=== PATIENT | female | born 1950 | race Caucasian/White ===

== ENCOUNTER 2020-11-19 09:58 | Emergency (ER) | payer BC, MEDICARE ==
[~2020-11-19] VITALS: Ht 157.5 cm; Wt 71.5 kg
--- NOTE | 2020-11-19 10:13 | RAD ---
PQRS Compliance Statement: One or more of the following individualized dose reduction techniques were utilized for this examinat ion: 1. Automated exposure control 2. Adjustment of the mA and/or kV according to patient size 3. Use of iterative reconstruction technique CT HEAD WITHOUT CONTRAST History: Code stroke. Weakness. Comparison: None. Technique: Axial images are obtained of the head from the skull base through the vertex without IV co ntrast. Findings: No mass-effect, midline shift, extra-axial fluid collection, hemorrhage, or obvious acute infarction is identified. Basilar cisterns are patent. The ventricles and sulci are prominent, consistent with age-related cerebral atrophy. There is minima l periventricular white matter hypoattenuation. This is a nonspecific finding but is commonly due to chronic small vessel ischemic disease. Bone windows demonstrate no acute calvarial abnormality. The visualized paranasal sinuses are clear. Mastoid air cells are well aerated. IMPRESSION: No acute intracranial abnormality. FOR INTERNAL CODING PURPOSES Critical result: Findings discussed with Dr. Adorno in the ED at 11/19/2020 10:09 AM. RESULT CODE: (C) Electronically signed by: Hayden Woodall MD (11/19/2020 10:11 AM) [id number]
[2020-11-19 10:30] LABS: BASO # 0.1 x10^3/uL (0.0-0.2); BASO % 1 % (0-3); EOS # 0.1 x10^3/uL (0.0-0.7); EOS % 2 % (0-3); HEMATOCRIT 35.3 % (36.0-47.0); HEMOGLOBIN 11.9 g/dL (12.0-15.5); LYMPH # 1.1 x10^3/uL (1.0-4.8); LYMPH % 14 % (24-48); MEAN CORPUSCULAR HEMOGLOBIN 32 pg (25-35); MEAN CORPUSCULAR HGB CONC 34 g/dL (31-37); MEAN CORPUSCULAR VOLUME 95 fL (79-100); MONO # 0.9 x10^3/uL (0.0-1.1); MONO % 11 % (0-9); NEUT # 5.7 x10^3/uL (1.8-7.7); NEUT % 72 % (31-73); PLATELET COUNT 250 x10^3/uL (140-400); RED BLOOD COUNT 3.71 x10^6/uL (3.50-5.40); RED CELL DISTRIBUTION WIDTH 15.6 % (11.5-14.5); WHITE BLOOD COUNT 7.9 x10^3/uL (4.0-11.0)
[2020-11-19] MEDS ORDERED: LABETALOL 20 MG/4 ML DISP.SYRIN. IVP PRN (10:30)
[2020-11-19] MEDS ORDERED: IV NORMAL SALINE 50ML IV ONE (10:30)
[2020-11-19] MEDS ORDERED: CONTRAST GIVEN. MC PRN (10:30)
[2020-11-19] MEDS ORDERED: IV NORMAL SALINE 50ML 50 ML IV ONE (10:30)
[2020-11-19] MEDS ORDERED: ALTEPLASE IV SCH ×2 (10:30)
[2020-11-19] MEDS ORDERED: IOHEXOL 300 MG/ML 100ML VIAL. IV ONE (10:30)
[2020-11-19] MEDS ORDERED: ALTEPLASE IV ONE ×2 (10:30)
--- NOTE | 2020-11-19 10:34 | RAD ---
PQRS Compliance Statement: One or more of the following individualized dose reduction techniques were utilized for this examinat ion: 1. Automated exposure control 2. Adjustment of the mA and/or kV according to patient size 3. Use of iterative reconstruction technique CTA STROKE HEAD/NECK w/o Clinical Indication: Reason: stroke, weakness. Comparison: CT head without contrast, earlier same day. Technique: Helical CT imaging from inferior to the aortic arch to the skull vertex is performed after 75 cc of Omnipaque [address] angiogram protocol. 3-D MIP reconstructions of the cervi ruel carotid arteries and stebbins of Samu[place] are performed. PQRS Compliance Statement - Stenosis calculations for CT, MR and conventional angiography are based u sergo measurement of the distal ICA diameter in accordance with the NASCET methodology. Stenosis calcu lations for carotid ultrasound studies are derived from validated velocity criteria which are known t o correlate with the NASCET methodology. Findings: Aortic arch branches are patent. The common carotid arteries are patent. The right carotid bifurcatio n is patent. There is atherosclerotic calcification and focal 50-60 percent stenosis of the proximal right ICA. The cervical right ICA is otherwise patent. There is severe atherosclerotic calcification at the left carotid bifurcation and the cervical internal carotid artery is occluded. The cervical vertebral arteries are patent. The left vertebral artery is dominant. Basilar artery is patent. Posterior circulation is intact. Mild atherosclerotic calcification of the cavernous right ICA. The distal right internal carotid duyen ry is patent. There is a patent anterior communicating artery. There is abrupt truncation of the M1 s egment of the left middle cerebral artery likely due to thrombus, image 235. The length of the segmen t of noncontrast opacification of the MCA measures approximately 1.5 cm in length. Some of the more d istal MCA branches are contrast opacified. There is pruning of left MCA branches compared to the cont ralateral side. The right middle cerebral artery and the anterior cerebral arteries are patent. The dural venous sinuses are opacified. No abnormal enhancement in the brain parenchyma is identified . There is no cervical adenopathy. There are bilateral thyroid nodules, largest is on the left measur ing 1.6 cm. There is minimal bilateral dependent atelectasis in the upper lungs. There is degenerativ e spondylosis of the cervical spine. There is old healed displaced fracture of the odontoid. The tip of the odontoid is positioned anterior to the base of the odontoid. IMPRESSION: 1. The left M1 segment of the MCA is occluded. 2. 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 3. There is focal 50-60 percent stenosis of the proximal right ICA. FOR INTERNAL CODING PURPOSES Critical result: Findings discussed with Dr. Adorno in the ED at 11/19/2020 10:25 AM. RESULT CODE: (C) 1. Electronically signed by: Hayden Woodall MD (11/19/2020 10:32 AM) [id number]
[2020-11-19 10:43] LABS: CALCIUM 8.1 mg/dL (8.5-10.1); CREATININE 0.7 mg/dL (0.6-1.0); POTASSIUM 3.4 mmol/L (3.5-5.1)
[2020-11-19 10:46] LABS: PROTHROMBIN TIME PATIENT 13.6 SEC (11.7-14.0)
--- NOTE | 2020-11-19 10:46 | PHYS DOC ---
Past Medical History Past Medical History HLD, HTN, GERD, RA Past Surgical History NOT SIGNIFICANT Smoking Status: Never Smoker Alcohol Use: None Drug Use: None General Adult EDM: Chief Complaint: NEURO SYMPTOMS/DEFICITS HPI: HPI: HPI/ED course: 70-year-old female presenting with right-sided weakness. Last known well 8:30 AM. Patient is not on anticoagulants. No history of bleeding diathesis. No recent GI bleed or any active internal bleeding. Patient also has speech changes. Patient was given a full dose aspirin prior to EMS arrival. Onset today. Location brain. Duration constant. No alleviating factors. Patient was brought in by EMS as a code stroke. Head CT negative reported to me by radiology. Blood sugar within normal limits. Initial blood pressure was above 185 systolic so nicardipine was ordered. On reevaluation blood pressure came down to 180. I went through tPA checklist with family. No contraindication revealed at this time. I discussed risks and benefits of TPA. Shared decision making again utilized. I consulted with our neurologist on-call Dr. Alvarado and spoke to him about the patient's presenting symptoms. He recommends the administration of TPA once the blood pressure came below 185 systolic. tPA was then administered. CT angiogram shows large vessel occlusion. Plan is to transfer to [facility] for large vessel occlusion intervention. I spoke with Dr. Baxter and Dr. Rdoriguez at [facility] at approximately 1047. I communicated the presentation. The plan is to transfer to [facility] for possible IR intervention. Review of Systems: Review of Systems: Negative for chest pain shortness of breath abdominal pain. Negative for headache. Positive for weakness on the right side. Negative for GI bleeding, history of SKULL SPLITTER tumor, history of SKULL SPLITTER surgery or recent surgery within the past 3 weeks. All other review of systems negative. Heart Score: C/O Chest Pain: No Risk Factors: Risk Factors: DM, Current or recent (<one month) smoker, HTN, HLP, family history of CAD, obesity. Risk Scores: Score 0 - 3: 2.5% MACE over next 6 weeks - Discharge Home Score 4 - 6: 20.3% MACE over next 6 weeks - Admit for Clinical Observation Score 7 - 10: 72.7% MACE over next 6 weeks - Early Invasive Strategies Current Medications: Current Medications Medications (Trade) Dose Ordered Sig/Gordy Start Time Stop Time Status Last Admin Dose Admin Alteplase, Recombinant 6.4 ml @ 384 mls/hr 1X ONCE 11/19/20 10:30 11/19/20 10:31 UNV Info (CONTRAST GIVEN -- Rx MONITORING) 1 each PRN DAILY PRN 11/19/20 10:30 11/21/20 10:29 Iohexol (Omnipaque 300 Mg/ml) 75 ml 1X ONCE 11/19/20 10:30 11/19/20 10:31 DC Labetalol HCl (Normodyne Iv Push) 10 mg PRN Q10MIN PRN 11/19/20 10:30 Nicardipine HCl 50 mg/Sodium Chloride 250 ml @ 25 mls/hr CONT PRN PRN 11/19/20 10:30 UNV Sodium Chloride 50 ml @ 50 mls/hr 1X ONCE 11/19/20 10:11/19/20 11:29 UNV Allergies: Allergies: Allergies Coded Allergies Type Severity Reaction Last Updated Verified No Known Drug Allergies 11/19/20 No Physical Exam: PE: Constitutional: Well developed, well nourished, no acute distress, non-toxic appearance. [] HENT: Normocephalic, atraumatic, bilateral external ears normal, oropharynx moist, no oral exudates, nose normal. [] Eyes: PERRLA, EOMI, conjunctiva normal, no discharge. [] Neck: Normal range of motion, no tenderness, supple, no stridor. [] Cardiovascular:Heart rate regular rhythm, no murmur [] Lungs & Thorax: Bilateral breath sounds clear to auscultation [] Abdomen: Bowel sounds normal, soft, no tenderness, no masses, no pulsatile masses. [] Skin: Warm, dry, no erythema, no rash. [] Back: No tenderness, no CVA tenderness. [] Extremities: No tenderness, no cyanosis, no clubbing, ROM intact, no edema. [] Neurologic: Mental status: Awake oriented and alert x3 Cranial nerves: Patient cannot look to the right. No diplopia., Right-sided facial droop., uvula elevation nl, shoulder shrug intact bilaterally, tongue protrusion normal Aphasia present. Slurred speech present. Sensation: Decreased on the right upper and lower extremity. Strength: Unable to move the right upper and right lower extremity with a right facial droop. Left side shows 5 out of 5 strength of the left upper and left lower extremity. No drift on the left. Psychologic: Affect normal, judgement normal, mood normal. [] Current Patient Data: Labs: Laboratory Tests Test 11/19/20 10:14 Glucose (Fingerstick) 124 mg/dL (70-99) H EKG: EKG: [] Radiology/Procedures: Radiology/Procedures: [] Course & Med Decision Making: Course & Med Decision Making Pertinent Labs and Imaging studies reviewed. (See chart for details) [] Dragon Disclaimer: Dragon Disclaimer: This electronic medical record was generated, in whole or in part, using a voice recognition dictation system. Departure Departure Impression: Primary Impression: Acute ischemic stroke Disposition: SHORT TERM HOSPITAL Condition: GUARDED Referrals: RHYS NOYOLA MD (PCP) Critical Care Time Critical care time spent was 45 minutes exclusive of procedures. Time was spent evaluating the patient, ordering the administration of medications, reevaluating the patient, discussing with the admitting provider and documenting. NIHSS Stroke Scale NIH Stroke Scale: NIH Stroke Scale Response (Comments) Value Level of Consciousness: 0 Alert/Responsive 0 LOC Questions: 2 Answers neither correct 2 LOC Commands: 0 Performs both tasks 0 Best Gaze: 1 Partial gaze palsy 1 Visual: 0 No visual loss 0 Facial Palsy: 2 Partial paralysis 2 Motor - Left Arm 0 No drift 0 Motor - Right Arm 4 No movement 4 Motor - Left Leg 0 No drift 0 Motor: Right Leg 4 No movement 4 Limb Ataxia: 0 Absent 0 Sensory: 1 Mid to moderate loss 1 Best Language: 3 Mute 3 Dysathria: 2 Severe 2 Extinction and Inattention: 0 Normal (ON ARRIVAL) 0 Total 19 PAVEL FIELDS MD November 19, 2020 10:46
[2020-11-19 11:10] VITALS: BP 187/72
--- NOTE | 2020-11-19 19:29 | EKG ---
[facility] [address] [place] [address] Test Date: 2020-11-19 Test Time: 10:20:15 Pat Name: IMER JACKSON Department: Room: Gender: F Photo Technician: : 1950 Requested By: PAVEL FIELDS Order Number: [id number] Reading MD: Measurements Intervals [place] Rate: 88 P: 56 IN: 144 QRS: 43 QRSD: 78 T: 38 QT: 356 QTc: 434 Interpretive Statements SINUS RHYTHM LEFT ATRIAL ABNORMALITY ABNORMAL ECG RI6.01 No previous ECG available for comparison
== END 2020-11-19 11:20 | disposition short-term general hospital (02) ==
LOC: ER 09:58
DX: I63.9 Cerebral infarction, unspecified (principal); R47.81 Slurred speech; E78.5 Hyperlipidemia, unspecified; I10 Essential (primary) hypertension; K21.9 Gastro-esophageal reflux disease without esophagitis; M06.9 Rheumatoid arthritis, unspecified
CPT/HCPCS: 36415; 37195; 70450; 70496; 70498; 80048; 82962; 84484; 85025; 85610; 85730; 93005; 96365; 99291; J2997; J3490; J7050; J7030

== ENCOUNTER 2020-11-27 15:41 | Inpatient (IN) | payer MEDICARE, BC ==
[~2020-11-27] VITALS: Ht 165.1 cm; Wt 86.5 kg
[2020-11-27] MEDS ORDERED: IV NORMAL SALINE 500ML BAG 500 ML IV ONE (18:00)
[2020-11-27] MEDS ORDERED: ONDANSETRON PF 4 MG/2 ML VIAL. IV ONE (18:15)
[2020-11-27] MEDS ORDERED: fentaNYL PF VIAL 100 MCG/2 ML VIAL IV ONE (18:15)
--- NOTE | 2020-11-27 18:36 | RAD ---
Right lower extremity arterial duplex Doppler examination with spectral analysis HISTORY: Right thigh bruising and swelling post clot retrieval one week ago Sonographic examination of the right groin was performed and multiple static images were obtained. In addition color Doppler was applied as well as arterial waveform spectral analysis. There is a large hematoma in the proximal right lower extremity arising from the common femoral arter y that measures 11.5 x 5.0 x 9.5 cm. This hematoma appears to arise directly from a pseudoaneurysm wi th a neck which actively bleeds into the hematoma. The belly of the pseudoaneurysm measures 2.3 cm in diameter. The neck of the pseudoanneurism connected to the common femoral artery measures 7 mm in di ameter. IMPRESSION: There is a pseudoaneurysm arising from the common femoral artery which appears be actively bleeding i nto a large hematoma. Ultrasound cannot see proximal to the pseudoaneurysm and additional hematoma in the pelvis is possibl e. Clinical correlation is suggested. Recommend serial vital signs and blood cell count. End impression These results were called to the emergency department physician Dr. Jorgensen and verified by read back at the time of dictation. FOR INTERNAL CODING PURPOSES Critical result: Findings discussed with the emergency department physician at 11/27/2020 6:34 PM. RESULT CODE: (C) Electronically signed by: Denys Krishnan III, MD (11/27/2020 6:34 PM) [facility]
[2020-11-27 18:47] LABS: BASO # 0.2 x10^3/uL (0.0-0.2); BASO % 1 % (0-3); EOS # 0.1 x10^3/uL (0.0-0.7); EOS % 0 % (0-3); LYMPH # 1.5 x10^3/uL (1.0-4.8); LYMPH % 8 % (24-48); MEAN CORPUSCULAR HEMOGLOBIN 32 pg (25-35); MEAN CORPUSCULAR HGB CONC 33 g/dL (31-37); MEAN CORPUSCULAR VOLUME 95 fL (79-100); MONO # 1.7 x10^3/uL (0.0-1.1); MONO % 9 % (0-9); NEUT # 15.7 x10^3/uL (1.8-7.7); NEUT % 82 % (31-73); PLATELET COUNT 367 x10^3/uL (140-400); RED CELL DISTRIBUTION WIDTH 15.8 % (11.5-14.5); WHITE BLOOD COUNT 19.2 x10^3/uL (4.0-11.0)
--- NOTE | 2020-11-27 18:48 | PDOC1 ---
History and Physical Date of Admission Date of Admission DATE: 11/27/20 TIME: 18:48 Identification/Chief Complaint Chief Complaint Right groin pain and swelling Source Source: Patient History of Present Illness History of Present Illness Ms Robins is a 70-year-old female w/ PMHx HLD, HTN, GERD, RA, and recent presenting with right groin pain and swelling. She has been noting bruising since 11/24/2020 when the dressing in her right groin was removed as instructed. She has been going to outpatient PT and OT for stroke rehab and has been c/o some pain in the area since the dressing was removed. 11/26 she began acting more tired, dizzy and intermittently confused per her . Today a family member, who is a nurse practitioner, came over to the house to look at her leg as the was concerned about the bruise getting bigger. The family member told him to go to the ER right away. She states she feels very weak and tired and dizzy. Patient denies any chest pain, shortness of breath, nausea, vomiting, or diarrhea. She is up to date on both doses of Moderna COVID 19 vaccine Patient complains of pain and tightness in her right thigh and groin. She was initially evaluated on 11/19/2020 at [facility] ED for right sided weakness within 2 hours of presentation and tPA was then administered. CT angiogram shows left MCA M1 large vessel occlusion and she was transferred to [facility] for large vessel occlusion intervention on 11/19/2020. Per had clot retrieval and he thinks had carotid stenting as well and was discharged home on 11/21/2020 for outpatient rehab for her CVA on DAPT with ASA and plavix. In ED noted with pulsatile swelling in left groin and right groin arterial doppler revealed large hematoma in the proximal right lower extremity arising from the common femoral artery that measures 11.5 x 5.0 x 9.5 cm. This hematoma appears to arise directly from a pseudoaneurysm with a neck which actively bleeds into the hematoma. The belly of the pseudoaneurysm measures 2.3 cm in diameter. On examination a nurse was holding pressure in the groin and EQUIPMENT MECHANIC SPECIALIST was accessing left antecubital fossa for venipuncture for blood draw and IV insertion. give much of history bedside. During examination labs returned with WBC 19.2, platelets 367, Hb 6.3, Na 133, glucose 178, INR 1.2. Given the urgency of her condition vascular surgery was consulted and Dr. Wilhelm brought in OR staff and patient was taken to OR in stable condition from the ED with plans to admit to ICU. Past Medical History Cardiovascular: HTN, Hyperlipidemia Rheumatologic: Rheumatoid arthritis Past Surgical History Past Surgical History: Other (thrombectomy) Family History Family History: High Cholestrol Social History Smoke: No ALCOHOL: none Drugs: None Current Medications Current Medications Current Medications Sodium Chloride 500 ml @ 500 mls/hr 1X ONCE IV ; Start 11/27/20 at 18:00; Stop 11/27/20 at 18:59 Ondansetron HCl (Zofran) 4 mg 1X ONCE IV ; Start 11/27/20 at 18:15; Stop 11/27/20 at 18:16; Status DC Fentanyl Citrate (Fentanyl 2ml Vial) 50 mcg 1X ONCE IV ; Start 11/27/20 at 18:15; Stop 11/27/20 at 18:16; Status DC Allergies Allergies: Coded Allergies: No Known Drug Allergies (Unverified , 11/19/20) ROS General: YES: Fatigue, Malaise; No: Chills, Night Sweats, Appetite, Other PSYCHOLOGICAL ROS: No: Anxiety, Behavioral Disorder, Concentration difficultie, Decreased libido, Depression, Disorientation, Hallucinations, Hostility, Irritablity, Memory difficulties, Mood Swings, Obsessive thoughts, Physical abuse, Sexual abuse, Sleep disturbances, Suicidal ideation, Other Eyes: No Blurry vision, No Decreased vision, No Double vision, No Dry eyes, No Excessive tearing, No Eye Pain, No Itchy Eyes, No Loss of vision, No Photophobia, No Scotomata, No Uses contacts, No Uses glasses, No Other HEENT: No: Heacaches, Visual Changes, Hearing change, Nasal congestion, Nasal discharge, Oral lesions, Sinus pain, Sore Throat, Epistaxis, Sneezing, Snoring, Tinnitus, Vertigo, Vocal changes, Other ALLERGY AND IMMUNOLOGY: No: Hives, Insect Bite Sensitivity, Itchy/Watery Eyes, Nasal Congestion, Post Nasal Drip, Seasonal Allergies, Other Hematological and Lymphatic: No: Bleeding Problems, Blood Clots, Blood Trans fusions, Brusing, Night Sweats, Pallor, Swollen Lymph Nodes, Other ENDOCRINE: No: Breast Changes, Galactorrhea, Hair Pattern Changes, Hot Flashes, Malaise/lethargy, Mood Swings, Palpitations, Polydipsia/polyuria, Skin Changes, Temperature Intolerance, Unexpected Weight Changes, Other Breast: No New/Changing Breast Lumps, No Nipple changes, No Nipple discharge, No Other Respiratory: No: Cough, Hemoptysis, Orthopnea, Pleuritic Pain, Shortness of breath, SOB with excertion, Sputum Changes, Stridor, Tachypnea, Wheezing, Other Cardiovascular: No Chest Pain, No Palpitations, No Orthopnea, No Paroxysmal Noc. Dyspnea, No Edema, No Lt Headedness, No Other Gastrointestinal: No Nausea, No Vomiting, No Abdominal Pain, No Diarrhea, No Constipation, No Melena, No Hematochezia, No Other Genitourinary: No Dysuria, No Frequency, No Incontinence, No Hematuria, No Retention, No Discharge, No Urgency, No Pain, No Flank Pain, No Other, No , No , No , No , No , No , No Musculoskeletal: Yes Joint Pain, Yes Muscle Pain, Yes Muscular Weakness; No Gait Disturbance, No Joint Stiffness, No Joint Swelling, No Pain In:, No Swelling In:, No Other Neurological: Yes Gait Disturbance; No Behavorial Changes, No Bowel/Bladder ControlChng, No Confusion, No Dizziness, No Headaches, No Impaired Coord/balance, No Memory Loss, No Numbness/Tingling, No Seizures, No Speech Problems, No Tremors, No Visual Changes, No Weakness, No Other Skin: Yes Rash, Yes Skin Lesion Changes; No Dry Skin, No Eczema, No Hair Changes, No Lumps, No Mole Changes, No Mottling, No Nail Changes, No Pruritus, No Other, No Acne Physical Exam General: Alert, Oriented X3, Cooperative, moderate distress, Other (pale) HEENT: Atraumatic, PERRLA, EOMI, Other (pale mucosa) Lungs: Clear to auscultation, Normal air movement Heart: S1S2, RRR, no thrills, no rubs, no gallops, no murmurs Abdomen: Normal bowel sounds, Soft, No tenderness, No hepatosplenomegaly, No masses Rectal Exam: not examined Extremities: No clubbing, No cyanosis, No edema, Normal pulses, Other ( right leg and groin shows ecchymosis from about there the umbilicus down to the knee.) Skin: No rashes, No breakdown, Other (right groin) Neuro: Normal speech, Normal tone, Sensation intact, Cranial nerves 3-12 NL, Reflexes 2+ Psych/Mental Status: Mental status NL, Mood NL Images Images Right femoral arterial doppler: Sonographic examination of the right groin was performed and multiple static images were obtained. In addition color Doppler was applied as well as arterial waveform spectral analysis. There is a large hematoma in the proximal right lower extremity arising from the common femoral artery that measures 11.5 x 5.0 x 9.5 cm. This hematoma appears to arise directly from a pseudoaneurysm with a neck which actively bleeds into the hematoma. The belly of the pseudoaneurysm measures 2.3 cm in diameter. The neck of the pseudoaneurysm connected to the common femoral artery measures 7 mm in diameter. IMPRESSION: There is a pseudoaneurysm arising from the common femoral artery which appears be actively bleeding into a large hematoma. Ultrasound cannot see proximal to the pseudoaneurysm and additional hematoma in the pelvis is possible. Clinical correlation is suggested. Recommend serial vital signs and blood cell count. VTE Prophylaxis Ordered VTE Prophylaxis Devices: Yes VTE Pharmacological Prophylaxi: No Assessment/Plan Assessment/Plan A/P: Acute blood loss anemia - given extent of hematoma and pseudoaneursym and need for surgery may need up to 6u PRBC. 2 units on hold for OR. H&H 4 hours post op and in AM Large right groin pseuoaneurysm - likely from access 1 week prior. Vascular surgery consulted for ongoing active bleeding. To OR tonight Large right groin hematoma - likely from arterial bleed. 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 Would not hold DAPT therapy in order to prevent further CVA. (will order . [facility] records to confirm the presence/absence of stent) Hyponatremia - likely hypovolemic. Will give NSS crystalloid and monitor. Leukocytosis - likely reactive from massive blood loss, will trend. No clear infection. will cover preoperatively. Given the extent of her hematoma is definitely at risk for skin infection/cellulitis as she is immunocompromised on MTX Hyperglycemia - likely related to stress, will check A1c RA - on MTX weekly. Will continue folic acid HTN - on coreg, will cut dosing given low BP since d/c from [facility] per rehab notes. She may have cardiac reason for BB, will await [facility] records as she may be getting CHF treatment, patient and aren't certain. FEN - NPO for OR. Regular diet after PPX - SCDs for 24 hours. Will defer heparin timing to vascular surgery CODE - FULL Dispo - ICU CC time 37 minutes from 1825 to 190 Justifications for Admission Other Justification NAILA ANDRES MD November 27, 2020 18:48
[2020-11-27 18:49] LABS: HEMATOCRIT 18.9 % (36.0-47.0); HEMOGLOBIN 6.3 g/dL (12.0-15.5)
[2020-11-27 18:56] LABS: CALCIUM 8.4 mg/dL (8.5-10.1); CREATININE 0.8 mg/dL (0.6-1.0); GFR 71.1; POTASSIUM 4.7 mmol/L (3.5-5.1)
[2020-11-27] MEDS ORDERED: LIDOCAINE 2% PF 5 ML VIAL. ONE (19:11)
[2020-11-27] MEDS ORDERED: PHENYLEPHRINE in 0.9% NACL PF 1 MG/10 ML SYRINGE. IV ONE (19:11)
[2020-11-27] MEDS ORDERED: ROCURONIUM 50 MG/5 ML VIAL. ONE (19:11)
[2020-11-27] MEDS ORDERED: PROPOFOL 10 MG/ML (20ML) VIAL. IV ONE ×2 (19:11→20:13)
[2020-11-27 19:15] LABS: PROTHROMBIN TIME PATIENT 14.9 SEC (11.7-14.0)
--- NOTE | 2020-11-27 19:17 | PDOC2 ---
CONSULT Date of Service Date of Service DATE: 11/27/20 TIME: 19:12 Reason for Consult Reason for Consult: Bleeding/ruptured right femoral artery pseudoaneurysm Referring Physician Referring Physician: Dr Jorgensen Emergency Department Identification/Chief Complaint Chief Complaint Right right groin pain Source Source: Caregiver, Chart review, Patient History of Present Illness Reason for Visit: Patient is a 70-year-old woman who recently had a right femoral artery access for acute stroke intervention apparently left carotid stent and left stroke thrombus removal at [facility]. Not sure exactly where this was done but she came to the emergency department for some reason here at [facility] today with ecchymosis pain and swelling in the right groin. At the time my exam there is an RN holding pressure. The right leg/ groin shows ecchymosis from about there the umbilicus down to the knee. Duplex shows large 11 cm pseudoaneurysm in the right groin Past Medical History Past Medical History Unable to obtain anything other than in the chart and a brief history given the extreme nature of the situation Past Surgical History Past Surgical History Recent stroke intervention otherwise unknown Current Problem List Problem List Ruptured right femoral artery pseudoaneurysm Current Medications Current Medications Current Medications Sodium Chloride 500 ml @ 500 mls/hr 1X ONCE IV Last administered on 11/27/20at 18:52; Start 11/27/20 at 18:00; Stop 11/27/20 at 18:59; Status DC Ondansetron HCl (Zofran) 4 mg 1X ONCE IV Last administered on 11/27/20at 18:50; Start 11/27/20 at 18:15; Stop 11/27/20 at 18:16; Status DC Fentanyl Citrate (Fentanyl 2ml Vial) 50 mcg 1X ONCE IV Last administered on 11/27/20at 18:52; Start 11/27/20 at 18:15; Stop 11/27/20 at 18:16; Status DC Lidocaine HCl (Lidocaine Pf 2% Vial) 5 ml STK-MED ONCE .ROUTE ; Start 11/27/20 at 19:11; Stop 11/27/20 at 19:11; Status DC Propofol (Diprivan) 200 mg STK-MED ONCE IV ; Start 11/27/20 at 19:11; Stop 11/27/20 at 19:11; Status DC Phenylephrine HCl (PHENYLEPHRINE in 0.9% NACL PF) 1 mg STK-MED ONCE IV ; Start 11/27/20 at 19:11; Stop 11/27/20 at 19:11; Status DC Rocuronium [place] (Zemuron) 50 mg STK-MED ONCE .ROUTE ; Start 11/27/20 at 19:11; Stop 11/27/20 at 19:11; Status DC Allergies Allergies: Coded Allergies: No Known Drug Allergies (Unverified , 11/19/20) ROS Review of System Unable to obtain from the patient as she is hypotensive emergent situation very uncomfortable Physical Exam General: Alert HEENT: Atraumatic, PERRLA Lungs: Clear to auscultation, Normal air movement Heart: Regular rate, No murmurs Abdomen: Normal bowel sounds Extremities: No edema, Other (Significant ecchymosis from the umbilicus to the right knee with large mass in the right groin) Skin: No rashes, Other (Ecchymosis as described above) MUSCULOSKELETAL: No joint tenderness, No deformity Vitals VITALS Vital Signs Date Time Temp Pulse Resp B/P (MAP) Pulse Ox O2 Delivery O2 Flow Rate FiO2 11/27/20 18:52 16 94 Room Air Labs Labs Laboratory Tests Test 11/27/20 18:35 White Blood Count 19.2 x10^3/uL (4.0-11.0) Red Blood Count 2.00 x10^6/uL (3.50-5.40) Hemoglobin 6.3 g/dL (12.0-15.5) Hematocrit 18.9 % (36.0-47.0) Mean Corpuscular Volume 95 fL (79-100) Mean Corpuscular Hemoglobin 32 pg (25-35) Mean Corpuscular Hemoglobin Concent 33 g/dL (31-37) Red Cell Distribution Width 15.8 % (11.5-14.5) Platelet Count 367 x10^3/uL (140-400) Neutrophils (%) (Auto) 82 % (31-73) Lymphocytes (%) (Auto) 8 % (24-48) Monocytes (%) (Auto) 9 % (0-9) Eosinophils (%) (Auto) 0 % (0-3) Basophils (%) (Auto) 1 % (0-3) Neutrophils # (Auto) 15.7 x10^3/uL (1.8-7.7) Lymphocytes # (Auto) 1.5 x10^3/uL (1.0-4.8) Monocytes # (Auto) 1.7 x10^3/uL (0.0-1.1) Eosinophils # (Auto) 0.1 x10^3/uL (0.0-0.7) Basophils # (Auto) 0.2 x10^3/uL (0.0-0.2) Sodium Level 133 mmol/L (136-145) Potassium Level 4.7 mmol/L (3.5-5.1) Chloride Level 98 mmol/L (98-107) Carbon Dioxide Level 26 mmol/L (21-32) Anion Gap 9 (6-14) Blood Urea Nitrogen 17 mg/dL (7-20) Creatinine 0.8 mg/dL (0.6-1.0) Estimated GFR (Cockcroft-Gault) 71.1 Glucose Level 178 mg/dL (70-99) Calcium Level 8.4 mg/dL (8.5-10.1) Laboratory Tests Test 11/27/20 18:35 White Blood Count 19.2 x10^3/uL (4.0-11.0) Red Blood Count 2.00 x10^6/uL (3.50-5.40) Hemoglobin 6.3 g/dL (12.0-15.5) Hematocrit 18.9 % (36.0-47.0) Mean Corpuscular Volume 95 fL (79-100) Mean Corpuscular Hemoglobin 32 pg (25-35) Mean Corpuscular Hemoglobin Concent 33 g/dL (31-37) Red Cell Distribution Width 15.8 % (11.5-14.5) Platelet Count 367 x10^3/uL (140-400) Neutrophils (%) (Auto) 82 % (31-73) Lymphocytes (%) (Auto) 8 % (24-48) Monocytes (%) (Auto) 9 % (0-9) Eosinophils (%) (Auto) 0 % (0-3) Basophils (%) (Auto) 1 % (0-3) Neutrophils # (Auto) 15.7 x10^3/uL (1.8-7.7) Lymphocytes # (Auto) 1.5 x10^3/uL (1.0-4.8) Monocytes # (Auto) 1.7 x10^3/uL (0.0-1.1) Eosinophils # (Auto) 0.1 x10^3/uL (0.0-0.7) Basophils # (Auto) 0.2 x10^3/uL (0.0-0.2) Sodium Level 133 mmol/L (136-145) Potassium Level 4.7 mmol/L (3.5-5.1) Chloride Level 98 mmol/L (98-107) Carbon Dioxide Level 26 mmol/L (21-32) Anion Gap 9 (6-14) Blood Urea Nitrogen 17 mg/dL (7-20) Creatinine 0.8 mg/dL (0.6-1.0) Estimated GFR (Cockcroft-Gault) 71.1 Glucose Level 178 mg/dL (70-99) Calcium Level 8.4 mg/dL (8.5-10.1) Images Images Duplex reviewed Assessment/Plan Assessment/Plan Ruptured right femoral artery pseudoaneurysm Plan for taken to the operating room for emergent repair Have a large open incision and need a wound VAC likely muscle flap in the future and I discussed this with the patient and her family. PIPPA KWOK MD November 27, 2020 19:17
--- NOTE | 2020-11-27 19:17 | ED.ADGEN ---
Past Medical History Past Medical History: CVA, High Cholesterol, Hypertension Past Surgical History: Other Additional Past Surgical Histo: "esophageal surgery", R femoral clot retrieval Smoking Status: Never Smoker Alcohol Use: None Drug Use: None General Adult EDM: Chief Complaint: POST-OP PROBLEM HPI: HPI: Patient is a 70 year old female who presents emergency department with complaints of swelling and pain in her right thigh and groin. Patient had clot retrieval at [facility] after CVA on 11/19/20. She denies any injury or trauma to the affected area. Patient's states that he noticed some bruising at the site when he removed the original dressing a few days ago as he was instructed to do. He noticed that the patient was not acting herself yesterday. Today a family member, who is a nurse practitioner, came over to the house to look at her leg as the was concerned about the bruise getting bigger. The family member told him to go to the ER right away. Patient denies any chest pain, shortness of breath, abdominal pain, nausea, vomiting, or diarrhea. She states she feels very weak and tired. Patient complains of pain and tightness in her right thigh and groin. Review of Systems: Review of Systems: Complete ROS is negative unless otherwise noted in HPI. Current Medications: Current Medications Medications (Trade) Dose Ordered Sig/Gordy Start Time Stop Time Status Last Admin Dose Admin Fentanyl Citrate (Fentanyl 2ml Vial) 50 mcg 1X ONCE 11/27/20 18:15 11/27/20 18:16 DC 11/27/20 18:52 25 MCG Lidocaine HCl (Lidocaine Pf 2% Vial) 5 ml STK-MED ONCE 11/27/20 19:11 11/27/20 19:11 DC Ondansetron HCl (Zofran) 4 mg 1X ONCE 11/27/20 18:15 11/27/20 18:16 DC 11/27/20 18:50 4 MG Phenylephrine HCl (PHENYLEPHRINE in 0.9% NACL PF) 1 mg STK-MED ONCE 11/27/20 19:11 11/27/20 19:11 DC Propofol (Diprivan) 200 mg STK-MED ONCE 11/27/20 19:11 11/27/20 19:11 DC Rocuronium [place] (Zemuron) 50 mg STK-MED ONCE 11/27/20 19:11 11/27/20 19:11 DC Sodium Chloride 500 ml @ 500 mls/hr 1X ONCE 11/27/20 18:00 11/27/20 18:59 DC 11/27/20 18:52 500 MLS/HR Allergies: Allergies: Allergies Coded Allergies Type Severity Reaction Last Updated Verified No Known Drug Allergies 11/19/20 No Physical Exam: PE: See Above Constitutional: Well developed, well nourished, appears ill, frail appearance HENT: Normocephalic, atraumatic, bilateral external ears normal, oropharynx moist, no oral exudates, nose normal. [] Eyes: PERRLA, EOMI, conjunctiva normal, no discharge. [] Neck: Normal range of motion, no stridor. [] Cardiovascular:Heart rate regular rhythm Lungs & Thorax: Respirations even and unlabored, no retractions, no respiratory distress Abdomen: soft, no tenderness, no masses, no pulsatile masses. [] Skin: Pale, dry; large hematoma affecting entire right thigh extending to patient's right calf Extremities: RLE: Right thigh and right groin diffuse tenderness to palpation, 2+ pedal and posterior tibial pulse, ROM limited due to pain, no obvious deformity Neurologic: Alert and oriented X 3, normal motor function, normal sensory function, no focal deficits noted. [] Psychologic: Affect normal, judgement normal, mood normal. [] Current Patient Data: Labs: Laboratory Tests Test 11/27/20 18:35 White Blood Count 19.2 x10^3/uL (4.0-11.0) H Red Blood Count 2.00 x10^6/uL (3.50-5.40) L Hemoglobin 6.3 g/dL (12.0-15.5) *L Hematocrit 18.9 % (36.0-47.0) *L Mean Corpuscular Volume 95 fL (79-100) Mean Corpuscular Hemoglobin 32 pg (25-35) Mean Corpuscular Hemoglobin Concent 33 g/dL (31-37) Red Cell Distribution Width 15.8 % (11.5-14.5) H Platelet Count 367 x10^3/uL (140-400) Neutrophils (%) (Auto) 82 % (31-73) H Lymphocytes (%) (Auto) 8 % (24-48) L Monocytes (%) (Auto) 9 % (0-9) Eosinophils (%) (Auto) 0 % (0-3) Basophils (%) (Auto) 1 % (0-3) Neutrophils # (Auto) 15.7 x10^3/uL (1.8-7.7) H Lymphocytes # (Auto) 1.5 x10^3/uL (1.0-4.8) Monocytes # (Auto) 1.7 x10^3/uL (0.0-1.1) H Eosinophils # (Auto) 0.1 x10^3/uL (0.0-0.7) Basophils # (Auto) 0.2 x10^3/uL (0.0-0.2) Platelet Estimate Pending Sodium Level 133 mmol/L (136-145) L Potassium Level 4.7 mmol/L (3.5-5.1) Chloride Level 98 mmol/L (98-107) Carbon Dioxide Level 26 mmol/L (21-32) Anion Gap 9 (6-14) Blood Urea Nitrogen 17 mg/dL (7-20) Creatinine 0.8 mg/dL (0.6-1.0) Estimated GFR (Cockcroft-Gault) 71.1 Glucose Level 178 mg/dL (70-99) H Calcium Level 8.4 mg/dL (8.5-10.1) L Laboratory Tests 11/27/20 18:35 Laboratory Tests 11/27/20 18:35 Vital Signs: Vital Signs Date Time Temp Pulse Resp B/P (MAP) Pulse Ox O2 Delivery O2 Flow Rate FiO2 11/27/20 18:52 16 94 Room Air EKG: EKG: [] Heart Score: C/O Chest Pain: No Risk Scores: Score 0 - 3: 2.5% MACE over next 6 weeks - Discharge Home Score 4 - 6: 20.3% MACE over next 6 weeks - Admit for Clinical Observation Score 7 - 10: 72.7% MACE over next 6 weeks - Early Invasive Strategies Radiology/Procedures: Radiology/Procedures: PROCEDURE: DUPLEX LOWER EX ARTERIAL RIGHT Right lower extremity arterial duplex Doppler examination with spectral analysis HISTORY: Right thigh bruising and swelling post clot retrieval one week ago Sonographic examination of the right groin was performed and multiple static images were obtained. In addition color Doppler was applied as well as arterial waveform spectral analysis. There is a large hematoma in the proximal right lower extremity arising from the common femoral artery that measures 11.5 x 5.0 x 9.5 cm. This hematoma appears to arise directly from a pseudoaneurysm with a neck which actively bleeds into the hematoma. The belly of the pseudoaneurysm measures 2.3 cm in diameter. The neck of the pseudoanneurism connected to the common femoral artery measures 7 mm in diameter. IMPRESSION: There is a pseudoaneurysm arising from the common femoral artery which appears be actively bleeding into a large hematoma. Ultrasound cannot see proximal to the pseudoaneurysm and additional hematoma in the pelvis is possible. Clinical correlation is suggested. Recommend serial vital signs and blood cell count. End impression These results were called to the emergency department physician Dr. Jorgensen and verified by read back at the time of dictation. FOR INTERNAL CODING PURPOSES Critical result: Findings discussed with the emergency department physician at 11/27/2020 6:34 PM. RESULT CODE: (C) [] Course & Med Decision Making: Course & Med Decision Making Pertinent Labs and Imaging studies reviewed. (See chart for details) 1812- notified by Ann-Marie with US that there is active bleeding in the R groin. I immediately went to the patient's room and initiated direct pressure over the R groin. Dr. Jorgensen to bedside. 1824-spoke with Dr. Vyas who is the admitting physician, and care was assumed following discussion of patient. Will admit patient for acute anemia due to right femoral artery pseudoaneurysm Patient's vital signs stable. Patient remains afebrile, appears nontoxic, respirations even and unlabored. Patient will be admitted to the ICU floor. Patient's case and plan of care also discussed with Dr. Jorgensen [] Lesa Disclaimer: Lesa Disclaimer: This electronic medical record was generated, in whole or in part, using a voice recognition dictation system. Departure Departure Impression: Primary Impression: Femoral artery pseudo-aneurysm, right Additional Impressions: Pseudoaneurysm of femoral artery following procedure Acute anemia Disposition: ADMITTED INPATIENT Admitting Physician: PRESTON (Asael) Condition: STABLE Referrals: RHYS NOYOLA MD (PCP) Problem Qualifiers RACHAEL MILLIGAN LEAK PATCHER November 27, 2020 19:17
[2020-11-27] MEDS ORDERED: SURGICEL FIBRILLAR 1X2 EACH. ONE (19:29)
[2020-11-27 19:30] VITALS: BP 137/61
[2020-11-27 19:35] VITALS: BP 149/66
[2020-11-27] MEDS ORDERED: ceFAZolin SODIUM IV Push 1 GM VIAL. IVP ONE (19:38)
[2020-11-27 19:41] LABS: % BANDS 3 % (0-9); % EOS 1 % (0-5); % LYMPHS 10 % (24-48); % MONOS 3 % (0-10); % SEGS 83 % (35-66); PLT ESTIMATE ADEQUATE (ADEQUATE); POLYCHROMASIA SLIGHT
[2020-11-27] MEDS ORDERED: HEPARIN SODIUM 5,000 UNIT in IV NORMAL SALINE 500ML BAG 500 ML IRR ONE (20:00)
[2020-11-27] MEDS ORDERED: HEPARIN for IV BOLUS 10,000 UNIT/10 ML VIAL. ONE ×2 (20:07→20:10)
[2020-11-27] MEDS ORDERED: fentaNYL PF VIAL 100 MCG/2 ML VIAL ONE (20:11)
[2020-11-27] MEDS ORDERED: MORPHINE SULFATE 2 MG/ML VIAL. IVP PRN (20:15)
[2020-11-27] MEDS ORDERED: fentaNYL PF VIAL 100 MCG/2 ML VIAL IVP PRN ×3 (20:15→22:00)
[2020-11-27] MEDS ORDERED: IV RINGERS,LACTATED 1000ML 1,000 ML IV SCH (20:15)
[2020-11-27] MEDS ORDERED: PROCHLORPERAZINE 10 MG/2 ML VIAL. IVP PRN (20:15)
[2020-11-27] MEDS ORDERED: HYDROmorphone 2 MG/ML VIAL IVP PRN (20:15)
[2020-11-27] MEDS ORDERED: PROTAMINE 50 MG/5 ML VIAL. IV ONE (20:44)
[2020-11-27] MEDS ORDERED: SEVOFLURANE 61 TO 120 MINUTES. IH ONE (20:44)
--- NOTE | 2020-11-27 21:43 | PDOC4 ---
OPERATIVE NOTE Date: Date: November 27, 2020 Pre-Op Diagnosis: Ruptured right femoral artery pseudoaneurysm Acute blood loss anemia Hemorrhagic shock Post-Op Diagnosis: Same as above Procedure Performed: Open repair of right femoral artery pseudoaneurysm using bovine pericardial patch angioplasty right common femoral artery Surgeon: Aakash Kwok MD Anesthesia Type: General Blood Loss: 150 cc Intra-Op, significant blood loss preop Specimans Obtained: None Findings: Two separate holes in the right femoral artery in the groin one right at the proximal SFA/bifurcation of the SFA and profunda another more medially. After repair of both of these with simple sutures there appear to be narrowing of the vessel so we opened this longitudinally and repaired this with a patch angioplasty fashion with excellent flow to the foot Significant hematoma in the groin and medial thigh, significant tissue destruction from this, wound VAC placed likely need for muscle flap in the future Complications: None Operative Note: Patient was seen in the emergency department, she was in hemorrhagic shock with the RN holding pressure on the right groin. Duplex showed large femoral pseudoaneurysm and an even larger hematoma in the groin. She was taken emergently to the operating room placed supine on the table and anesthesia was induced without difficulty. The lower abdomen groins and right leg circumferentially were prepped and draped in usual sterile fashion. Antibiotics were given and timeout was performed. Attention was directed right groin where longitudinal incision was made over the area of the femoral artery just below the inguinal ligament extending distally. This was carried down with Bovie cautery personally a small portion proximally I carried this down with blunt dissection identified the inguinal ligament and then use the Omni retractor to place a renal vein blade/retractor under the inguinal ligament and with this cranially. I then used Bovie cautery and scissors to open the femoral canal and used a right angle and a vessel loop to obtain proximal control of the common femoral artery. I then carried out dissection more distally and identified whole anteriorly. I controlled this with the digital pressure and then use scissors to dissect around this and expose it completely and closed this with a U stitch with a fiber Prolene suture. Initially felt the repair was completed but then there was a second area of wade arterial hemorrhage coming more proximally. I dissected out the artery more fully on the lateral wall of the artery there was a second hole with significant bleeding at angle to the first injury. I repaired this also in a longitudinal fashion but given the proximity of the injuries to each other this created a area of stenosis in the artery. Given this patient was given intravenous heparin and I occluded the proximal SFA with a vessel loop, the profunda with a clamp and the very proximal common femoral artery with a clamp. The vessel was opened longitudinally connecting the two holes using 11 blade and Lyon angled scissors. The previous sutures were removed. Focal endarterectomy was performed the back wall given some disrupted plaque care and the distal end was tacked down with three 7-0 Prolene tacking sutures. The lumen was cleared of all debris and then 0.8 by bovine pericardial patch was brought to the field. I use this to repair the arteriotomy in a longitudinal fashion using a running 6-0 Prolene and 5-0 Prolene suture. Just prior to completion of the pair the vessel backbled, for flushed, and irrigated heparinized saline. Repair was completed normal forward flow was returned down the profunda down the SFA. Hand-held continuous-wave Doppler confirmed good signals in both the proximal SFA and the profunda and then excellent posterior tibial and dorsalis pedis signal in the foot. Protamine was used to reverse the heparin. I then manually delivered a large amount of clot from the medial thigh and thigh just distal to the area of incision. A very large amount of clot was removed and then this area was irrigated with warm saline. Some potato starch Ly topical hemostatic agent was placed into the medial thigh cavity. I then used Bovie cautery debride all the obviously necrotic nonviable tissue and then freed up some tissue and use this to cover the artery. Tissue was sewn over the artery with a 2-0 Vicryl suture. Then placed a wound VAC with piece of sponge extending deep into the medial thigh and then a second piece superficially in the wound. An excellent seal was achieved and then we confirm good signals in the ankle again. Patient was extubated in the operating room and escorted to PACU with plans to go to ICU. I discussed findings with the patient's family. I discussed the nature of the open wound and the good possibility of needing further surgery including muscle flap in the future. She received 2 units of blood about 1600 cc of crystalloid and Salazar was placed only at the end of the case given the emergent nature. PIPPA KOWK MD November 27, 2020 21:43
[2020-11-27] MEDS ORDERED: ZOLP5TAB PO (21:52)
[2020-11-27] MEDS ORDERED: ASPI-630 PO (21:52)
[2020-11-27] MEDS ORDERED: GABA300C18 PO (21:52)
[2020-11-27] MEDS ORDERED: FOLI0.4T5 PO (21:52)
[2020-11-27] MEDS ORDERED: METH2.5T PO (21:52)
[2020-11-27] MEDS ORDERED: PANT40TA77 PO (21:52)
[2020-11-27] MEDS ORDERED: CHOL5000 PO (21:52)
[2020-11-27] MEDS ORDERED: CARV6.25 PO (21:52)
[2020-11-27] MEDS ORDERED: CLOP75TA PO (21:52)
[2020-11-27] MEDS ORDERED: hydrALAZINE 20 MG/ML VIAL. ONE (21:56)
[2020-11-27] MEDS ORDERED: ONDANSETRON PF 4 MG/2 ML VIAL. IVP PRN (22:00)
[2020-11-27] MEDS ORDERED: ACETAMINOPHEN 325 MG TABLET. PO PRN (22:00)
[2020-11-27] MEDS: GABAPENTIN 300 MG CAPSULE. PO SCH (22:15)
[2020-11-27] MEDS ORDERED: ZOLPIDEM 5 MG TABLET. PO PRN (22:15)
[2020-11-27 22:38] LABS: HEMATOCRIT 27.8 % (36.0-47.0); HEMOGLOBIN 9.3 g/dL (12.0-15.5); RED BLOOD COUNT 2.97 x10^6/uL (3.50-5.40); WHITE BLOOD COUNT 27.1 x10^3/uL (4.0-11.0)
[2020-11-27 22:48] LABS: CALCIUM 8.6 mg/dL (8.5-10.1); CREATININE 0.8 mg/dL (0.6-1.0); GFR 71.1; MAGNESIUM 1.3 mg/dL (1.8-2.4); POTASSIUM 5.1 mmol/L (3.5-5.1)
[2020-11-27] MEDS ORDERED: ALBUMIN HUMAN 5% 500 ML IV PRN (23:00)
[2020-11-27] MEDS: IV NORMAL SALINE 1000ML BAG 1,000 ML IV SCH (23:34)
[2020-11-27] MEDS: HYDROcodone/APAP 5/325MG 1 TAB TABLET PO PRN (23:39)
[2020-11-28] VITALS (27 sets, daily range): BP systolic 89–127; BP diastolic 40–58
--- NOTE | 2020-11-28 00:01 | ED.ADGEN ---
Past Medical History Past Medical History: CVA, High Cholesterol, Hypertension Additional Past Medical Histor: stroke Past Surgical History: Other Additional Past Surgical Histo: "esophageal surgery", R femoral clot retrieval Smoking Status: Never Smoker Alcohol Use: None Drug Use: None General Adult EDM: Chief Complaint: POST-OP PROBLEM HPI: HPI: Patient is a 70 year old [f__sex] who presents with [] Review of Systems: Review of Systems: Constitutional: Denies fever or chills. [] Eyes: Denies change in visual acuity. [] HENT: Denies nasal congestion or sore throat. [] Respiratory: Denies cough or shortness of breath. [] Cardiovascular: Denies chest pain or edema. [] GI: Denies abdominal pain, nausea, vomiting, bloody stools or diarrhea. [] : Denies dysuria. [] Musculoskeletal: Denies back pain or joint pain. [] Integument: Denies rash. [] Neurologic: Denies headache, focal weakness or sensory changes. [] Endocrine: Denies polyuria or polydipsia. [] Lymphatic: Denies swollen glands. [] Psychiatric: Denies depression or anxiety. [] Current Medications: Current Medications Medications (Trade) Dose Ordered Sig/Gordy Start Time Stop Time Status Last Admin Dose Admin Cefazolin Sodium (Ancef) 1 gm STK-MED ONCE 11/27/20 19:38 11/27/20 19:38 DC Cellulose (Surgicel Fibrillar 1x2) 1 each STK-MED ONCE 11/27/20 19:29 11/27/20 19:30 DC 11/27/20 19:55 1 EACH Fentanyl Citrate (Fentanyl 2ml Vial) 100 mcg STK-MED ONCE 11/27/20 20:11 11/27/20 20:12 DC Heparin Sodium (Porcine) (Heparin Sodium) 10,000 unit STK-MED ONCE 11/27/20 20:10 11/27/20 20:10 DC Heparin Sodium (Porcine) 5000 unit/Sodium Chloride 505 ml @ 505 mls/hr 1X ONCE 11/27/20 20:00 11/27/20 20:59 DC 11/27/20 19:55 Hydromorphone HCl (Dilaudid) 0.5 mg PRN Q10MIN PRN 11/27/20 20:15 11/28/20 20:14 Lidocaine HCl (Lidocaine Pf 2% Vial) 5 ml STK-MED ONCE 11/27/20 19:11 11/27/20 19:11 DC Morphine Sulfate (Morphine Sulfate) 1 mg PRN Q10MIN PRN 11/27/20 20:15 11/28/20 20:14 Ondansetron HCl (Zofran) 4 mg 1X ONCE 11/27/20 18:15 11/27/20 18:16 DC 11/27/20 18:50 4 MG Phenylephrine HCl (PHENYLEPHRINE in 0.9% NACL PF) 1 mg STK-MED ONCE 11/27/20 19:11 11/27/20 19:11 DC Prochlorperazine Edisylate (Compazine) 5 mg PACU PRN PRN 11/27/20 20:15 11/28/20 20:14 Propofol (Diprivan) 200 mg STK-MED ONCE 11/27/20 20:13 11/27/20 20:14 DC Ringer's Solution 1,000 ml @ 30 mls/hr Q24H 11/27/20 20:15 11/28/20 08:14 Rocuronium [place] (Zemuron) 50 mg STK-MED ONCE 11/27/20 19:11 11/27/20 19:11 DC Sodium Chloride 500 ml @ 500 mls/hr 1X ONCE 11/27/20 18:00 11/27/20 18:59 DC 11/27/20 18:52 500 MLS/HR Allergies: Allergies: Allergies Coded Allergies Type Severity Reaction Last Updated Verified No Known Drug Allergies 11/19/20 No Physical Exam: PE: Constitutional: Well developed, well nourished, no acute distress, non-toxic appearance. [] HENT: Normocephalic, atraumatic, bilateral external ears normal, oropharynx mo ist, no oral exudates, nose normal. [] Eyes: PERRLA, EOMI, conjunctiva normal, no discharge. [] Neck: Normal range of motion, no tenderness, supple, no stridor. [] Cardiovascular:Heart rate regular rhythm, no murmur [] Lungs & Thorax: Bilateral breath sounds clear to auscultation [] Abdomen: Bowel sounds normal, soft, no tenderness, no masses, no pulsatile masses. [] Skin: Warm, dry, no erythema, no rash. [] Back: No tenderness, no CVA tenderness. [] Extremities: No tenderness, no cyanosis, no clubbing, ROM intact, no edema. [] Neurologic: Alert and oriented X 3, normal motor function, normal sensory function, no focal deficits noted. [] Psychologic: Affect normal, judgement normal, mood normal. [] Current Patient Data: Labs: Laboratory Tests Test 11/27/20 18:35 11/27/20 18:58 White Blood Count 19.2 x10^3/uL (4.0-11.0) H Red Blood Count 2.00 x10^6/uL (3.50-5.40) L Hemoglobin 6.3 g/dL (12.0-15.5) *L Hematocrit 18.9 % (36.0-47.0) *L Mean Corpuscular Volume 95 fL (79-100) Mean Corpuscular Hemoglobin 32 pg (25-35) Mean Corpuscular Hemoglobin Concent 33 g/dL (31-37) Red Cell Distribution Width 15.8 % (11.5-14.5) H Platelet Count 367 x10^3/uL (140-400) Neutrophils (%) (Auto) 82 % (31-73) H Lymphocytes (%) (Auto) 8 % (24-48) L Monocytes (%) (Auto) 9 % (0-9) Eosinophils (%) (Auto) 0 % (0-3) Basophils (%) (Auto) 1 % (0-3) Neutrophils # (Auto) 15.7 x10^3/uL (1.8-7.7) H Lymphocytes # (Auto) 1.5 x10^3/uL (1.0-4.8) Monocytes # (Auto) 1.7 x10^3/uL (0.0-1.1) H Eosinophils # (Auto) 0.1 x10^3/uL (0.0-0.7) Basophils # (Auto) 0.2 x10^3/uL (0.0-0.2) Segmented Neutrophils % 83 % (35-66) H Band Neutrophils % 3 % (0-9) Lymphocytes % 10 % (24-48) L Monocytes % 3 % (0-10) Eosinophils % 1 % (0-5) Platelet Estimate Adequate (ADEQUATE) Polychromasia Slight Sodium Level 133 mmol/L (136-145) L Potassium Level 4.7 mmol/L (3.5-5.1) Chloride Level 98 mmol/L (98-107) Carbon Dioxide Level 26 mmol/L (21-32) Anion Gap 9 (6-14) Blood Urea Nitrogen 17 mg/dL (7-20) Creatinine 0.8 mg/dL (0.6-1.0) Estimated GFR (Cockcroft-Gault) 71.1 Glucose Level 178 mg/dL (70-99) H Calcium Level 8.4 mg/dL (8.5-10.1) L Prothrombin Time 14.9 SEC (11.7-14.0) H Prothrombin Time INR 1.2 (0.8-1.1) H Activated Partial Thromboplast Time 25 SEC (24-38) Laboratory Tests 11/27/20 18:35 Laboratory Tests 11/27/20 18:35 Vital Signs: Vital Signs Date Time Temp Pulse Resp B/P (MAP) Pulse Ox O2 Delivery O2 Flow Rate FiO2 11/27/20 19:35 98.3 87 18 149/66 98.3 11/27/20 19:35 99 Room Air EKG: EKG: [] Heart Score: C/O Chest Pain: N/A Risk Factors: Risk Factors: DM, Current or recent (<one month) smoker, HTN, HLP, family history of CAD, obesity. Risk Scores: Score 0 - 3: 2.5% MACE over next 6 weeks - Discharge Home Score 4 - 6: 20.3% MACE over next 6 weeks - Admit for Clinical Observation Score 7 - 10: 72.7% MACE over next 6 weeks - Early Invasive Strategies Radiology/Procedures: Radiology/Procedures: [] Course & Med Decision Making: Course & Med Decision Making Pertinent Labs and Imaging studies reviewed. (See chart for details) Patient was initially seen by nurse practitioner Krishna prior to my shift in the emergency room. compressor technician Ann-Marie came out of the room from doing an arterial ultrasound and pulled me aside to let me know that patient had a right femoral artery pseudoaneurysm with active bleeding. This occurred at 1820. At that time I went in and evaluated the patient alongside the nurse practitioner. Patient does have palpable pulses distally but does have a pulsing mass in her right groin with extensive ecchymosis. Pressure was immediately applied and held until patient went to surgery. I page vascular surgery prior to my evaluation. I did discuss the case with Dr. Rowley the on-call vascular surgeon and explained my concerns that patient has a bleeding right femoral pseudoaneurysm with expanding swelling within her leg. Attempted to answer vascular surgeon's questions to the best of my knowledge at the time he was consulted. I later discussed the case with the radiologist on-call who states that he also believes that there is active bleeding based off of the ultrasound from a right femoral pseudoaneurysm. At this time patient's heart rate and blood pressure are normal. Hemoglobin is 6.8 at this time which is likely not accurate given that patient is actively bleeding. Patient given a unit of blood uncrossed here in the emergency room and 3 units of blood will be sent to the operating room. Dr. Rowley will come in for emergent surgery. Emergency room greatly appreciated the assistance from vascular surgery. Patient was discussed with Dr. Vyas the on-call hospitalist who will admit the patient. General: Awake, alert, pale, ill-appearing HEENT: Atraumatic, EOMI, PERRL, airway patent, moist oral mucosa Neck: Supple, trachea midline Respiratory: CTA bilaterally, normal effort, no wheezing/crackles CV: RRR, no murmur, cap refill <2 MSK: Right leg: Pulsing in the right groin with extensive ecchymosis that extends from lower abdomen down to knee, 1+ DP pulse Neuro: A&O x3, speech NL, sensory and motor grossly intact, no focal deficits Psych: Normal affect, normal mood, not suicidal or homicidal Lesa Disclaimer: Lesa Disclaimer: This electronic medical record was generated, in whole or in part, using a voice recognition dictation system. Critical Care Time Critical Care: Authorized and Performed by: Jolie Jorgensen MD Total critical care time: approximately 60 minutes Due to a high probability of clinically significant, life threatening deterioration, the patient required my highest level of preparedness to intervene emergently and I personally spent this critical care time directly and personally managing the patient. This critical care time included obtaining a history; examining the patient; pulse oximetry; ventilator management if necessa ry; ordering and review of studies; arranging urgent treatment with development of a management plan; evaluation of patient's response to treatment; frequent reassessment; discussion with patient/family; and, discussions with other providers. This critical care time was performed to assess and manage the high probability of imminent, life-threatening deterioration that could result in multi-organ failure. It was exclusive of separately billable procedures and treating other patients and teaching time. Please see MDM section and the rest of the note for further information on patient assessment and treatment. Departure Departure Impression: Primary Impression: Femoral artery pseudo-aneurysm, right Additional Impressions: Acute anemia Pseudoaneurysm of femoral artery following procedure Disposition: ADMITTED INPATIENT Condition: STABLE Referrals: RHYS NOYOLA MD (PCP) Problem Qualifiers JOLIE JORGENSEN MD November 28, 2020 00:00
[2020-11-28] MEDS ORDERED: MAGNESIUM SULFATE 2GM 50 ML IV ONE (01:45)
[2020-11-28 05:58] LABS: BASO # 0.1 x10^3/uL (0.0-0.2); BASO % 0 % (0-3); EOS % 0 % (0-3); HEMATOCRIT 23.7 % (36.0-47.0); HEMOGLOBIN 7.8 g/dL (12.0-15.5); LYMPH # 1.8 x10^3/uL (1.0-4.8); LYMPH % 9 % (24-48); MEAN CORPUSCULAR HEMOGLOBIN 31 pg (25-35); MEAN CORPUSCULAR HGB CONC 33 g/dL (31-37); MEAN CORPUSCULAR VOLUME 94 fL (79-100); MONO # 1.9 x10^3/uL (0.0-1.1); MONO % 10 % (0-9); NEUT # 15.3 x10^3/uL (1.8-7.7); NEUT % 80 % (31-73); PLATELET COUNT 253 x10^3/uL (140-400); RED BLOOD COUNT 2.54 x10^6/uL (3.50-5.40); RED CELL DISTRIBUTION WIDTH 15.1 % (11.5-14.5)
[2020-11-28 06:16] LABS: MAGNESIUM 2.2 mg/dL (1.8-2.4); PHOSPHORUS 4.4 mg/dL (2.6-4.7)
[2020-11-28 06:21] LABS: ALBUMIN 1.9 g/dL (3.4-5.0); ALBUMIN/GLOBULIN RATIO 0.8 (1.0-1.7); CALCIUM 8.2 mg/dL (8.5-10.1); CREATININE 0.7 mg/dL (0.6-1.0); POTASSIUM 4.3 mmol/L (3.5-5.1); TOTAL BILIRUBIN 0.8 mg/dL (0.2-1.0); TOTAL PROTEIN 4.2 g/dL (6.4-8.2)
--- NOTE | 2020-11-28 06:28 | NUR ---
Received patient to room 104 at 2335 from PACU after report received from ED and PACU nurses. Pt on bed, accompanied by 2 RNs, on monitor, and in NAD. IVF infusing without difficulty. All monitors applied. Assessment complete and admission completed with the assistance of pt's and daughter. POC initiated. Denies needs after 1 dose of [place] given last night. F/C with low, but adequate urine output. Rested well over night. See flowsheets for assessment and admission data.
[2020-11-28] MEDS: CARVEDILOL 3.125 MG TABLET. PO SCH ×2 (08:00→17:23)
--- NOTE | 2020-11-28 08:06 | PDOC ---
PROGRESS NOTES Date of Service DATE: 11/28/20 TIME: 08:01 Subjective Subjective Patient seen and examined in the ICU postop day #1 status post open repair of ruptured right femoral artery pseudoaneurysm yesterday late evening/ night She has had a previous stroke (this is with the recent femoral access was for, acute stroke or intervention) so somewhat limited communication but nods her head and confirms to me that she is reasonably comfortable She does not communicate any pain, paresthesias, weakness in her right foot Objective Objective Vital Signs Date Time Temp Pulse Resp B/P (MAP) Pulse Ox O2 Delivery O2 Flow Rate FiO2 11/28/20 07:00 74 15 91/40 (57) 94 Room Air 11/28/20 04:00 98.9 98.9 11/27/20 22:12 6 Intake and Output 11/28/20 07:00 Intake Total 5132 ml Output Total 710 ml Balance 4422 ml Intake Oral 200 ml IV Total 3082 ml Other 1850 ml Output Urine Total 410 ml Estimated Blood Loss 300 ml Physical Exam Abdomen: Normal bowel sounds Heart: Regular rate, No murmurs General: Alert, No acute distress HEENT: Atraumatic, PERRLA Lungs: Clear to auscultation COMMENT Right groin VAC is in place with good seal no evidence of continued bleeding Excellent 2+ palpable SATISH/dorsalis pedis pulse right ankle/foot Assessment Assessment Problems Medical Problems: (1) Femoral artery pseudo-aneurysm, right Status: Acute (2) Pseudoaneurysm of femoral artery following procedure Status: Acute Acute blood loss anemia --hemoglobin above 7.0 and appears hemodynamically stable would not transfuse unless dips down againthis would not be unsurprising given significant blood loss she is likely equilibrating, I do not think that a drop in hemoglobin tomorrow's labs would likely suggest ongoing bleeding and less it severe, no evidence of ongoing bleeding on physical exam Recent stroke and acute stroke intervention apparently with a carotid stentgiven the recent carotid stent and acute stroke intervention will need to continue dual antiplatelet therapy Large open wound right groinVAC change in a couple days will likely need a muscle flap for arterial coverage especially given patch on the artery Okay Plan Plan of Care Ruptured right femoral artery pseudoaneurysmrepaired emergently last night repair appears intact no ongoing bleeding good blood flow to the foot Acute blood loss anemia --hemoglobin above 7.0 and appears hemodynamically stable would not transfuse unless dips down againthis would not be unsurprising given significant blood loss she is likely equilibrating, I do not think that a drop in hemoglobin tomorrow's labs would likely suggest ongoing bleeding and less it severe, no evidence of ongoing bleeding on physical exam Recent stroke and acute stroke intervention apparently with a carotid stentgiven the recent carotid stent and acute stroke intervention will need to continue dual antiplatelet therapy Large wound right groinsignificant tissue damage from large hematoma and active bleeding in the groin minimal tissue was available for coverage. Will likely need muscle flap for vessel coverage in the near future especially given the patch which was sewn to the artery Comment Review of Relevant I have reviewed the following items césar (where applicable) has been applied. Labs Laboratory Tests Test 11/27/20 18:35 11/27/20 18:58 11/27/20 22:25 11/27/20 23:00 White Blood Count 19.2 x10^3/uL (4.0-11.0) 27.1 x10^3/uL (4.0-11.0) Red Blood Count 2.00 x10^6/uL (3.50-5.40) 2.97 x10^6/uL (3.50-5.40) Hemoglobin 6.3 g/dL (12.0-15.5) 9.3 g/dL (12.0-15.5) Hematocrit 18.9 % (36.0-47.0) 27.8 % (36.0-47.0) Mean Corpuscular Volume 95 fL (79-100) 94 fL (79-100) Mean Corpuscular Hemoglobin 32 pg (25-35) 31 pg (25-35) Mean Corpuscular Hemoglobin Concent 33 g/dL (31-37) 33 g/dL (31-37) Red Cell Distribution Width 15.8 % (11.5-14.5) 15.0 % (11.5-14.5) Platelet Count 367 x10^3/uL (140-400) 263 x10^3/uL (140-400) Neutrophils (%) (Auto) 82 % (31-73) Lymphocytes (%) (Auto) 8 % (24-48) Monocytes (%) (Auto) 9 % (0-9) Eosinophils (%) (Auto) 0 % (0-3) Basophils (%) (Auto) 1 % (0-3) Neutrophils # (Auto) 15.7 x10^3/uL (1.8-7.7) Lymphocytes # (Auto) 1.5 x10^3/uL (1.0-4.8) Monocytes # (Auto) 1.7 x10^3/uL (0.0-1.1) Eosinophils # (Auto) 0.1 x10^3/uL (0.0-0.7) Basophils # (Auto) 0.2 x10^3/uL (0.0-0.2) Segmented Neutrophils % 83 % (35-66) Band Neutrophils % 3 % (0-9) Lymphocytes % 10 % (24-48) Monocytes % 3 % (0-10) Eosinophils % 1 % (0-5) Platelet Estimate Adequate (ADEQUATE) Polychromasia Slight Sodium Level 133 mmol/L (136-145) 136 mmol/L (136-145) Potassium Level 4.7 mmol/L (3.5-5.1) 5.1 mmol/L (3.5-5.1) Chloride Level 98 mmol/L (98-107) 105 mmol/L (98-107) Carbon Dioxide Level 26 mmol/L (21-32) 22 mmol/L (21-32) Anion Gap 9 (6-14) 9 (6-14) Blood Urea Nitrogen 17 mg/dL (7-20) 17 mg/dL (7-20) Creatinine 0.8 mg/dL (0.6-1.0) 0.8 mg/dL (0.6-1.0) Estimated GFR (Cockcroft-Gault) 71.1 71.1 Glucose Level 178 mg/dL (70-99) 168 mg/dL (70-99) Calcium Level 8.4 mg/dL (8.5-10.1) 8.6 mg/dL (8.5-10.1) Prothrombin Time 14.9 SEC (11.7-14.0) 16.0 SEC (11.7-14.0) Prothromb Time International Ratio 1.2 (0.8-1.1) 1.3 (0.8-1.1) Activated Partial Thromboplast Time 25 SEC (24-38) 27 SEC (24-38) Magnesium Level 1.3 mg/dL (1.8-2.4) Ionized Calcium 1.27 mmol/L (1.13-1.32) Test 11/28/20 04:30 White Blood Count 19.0 x10^3/uL (4.0-11.0) Red Blood Count 2.54 x10^6/uL (3.50-5.40) Hemoglobin 7.8 g/dL (12.0-15.5) Hematocrit 23.7 % (36.0-47.0) Mean Corpuscular Volume 94 fL (79-100) Mean Corpuscular Hemoglobin 31 pg (25-35) Mean Corpuscular Hemoglobin Concent 33 g/dL (31-37) Red Cell Distribution Width 15.1 % (11.5-14.5) Platelet Count 253 x10^3/uL (140-400) Neutrophils (%) (Auto) 80 % (31-73) Lymphocytes (%) (Auto) 9 % (24-48) Monocytes (%) (Auto) 10 % (0-9) Eosinophils (%) (Auto) 0 % (0-3) Basophils (%) (Auto) 0 % (0-3) Neutrophils # (Auto) 15.3 x10^3/uL (1.8-7.7) Lymphocytes # (Auto) 1.8 x10^3/uL (1.0-4.8) Monocytes # (Auto) 1.9 x10^3/uL (0.0-1.1) Eosinophils # (Auto) 0.0 x10^3/uL (0.0-0.7) Basophils # (Auto) 0.1 x10^3/uL (0.0-0.2) Sodium Level 136 mmol/L (136-145) Potassium Level 4.3 mmol/L (3.5-5.1) Chloride Level 105 mmol/L (98-107) Carbon Dioxide Level 21 mmol/L (21-32) Anion Gap 10 (6-14) Blood Urea Nitrogen 19 mg/dL (7-20) Creatinine 0.7 mg/dL (0.6-1.0) Estimated GFR (Cockcroft-Gault) 83.0 BUN/Creatinine Ratio 27 (6-20) Glucose Level 120 mg/dL (70-99) Calcium Level 8.2 mg/dL (8.5-10.1) Phosphorus Level 4.4 mg/dL (2.6-4.7) Magnesium Level 2.2 mg/dL (1.8-2.4) Total Bilirubin 0.8 mg/dL (0.2-1.0) Aspartate Amino Transf (AST/SGOT) 12 U/L (15-37) Alanine Aminotransferase (ALT/SGPT) 9 U/L (14-59) Alkaline Phosphatase 50 U/L (46-116) Total Protein 4.2 g/dL (6.4-8.2) Albumin 1.9 g/dL (3.4-5.0) Albumin/Globulin Ratio 0.8 (1.0-1.7) Laboratory Tests Test 11/27/20 18:35 11/27/20 18:58 11/27/20 22:25 11/27/20 23:00 White Blood Count 19.2 x10^3/uL (4.0-11.0) 27.1 x10^3/uL (4.0-11.0) Red Blood Count 2.00 x10^6/uL (3.50-5.40) 2.97 x10^6/uL (3.50-5.40) Hemoglobin 6.3 g/dL (12.0-15.5) 9.3 g/dL (12.0-15.5) Hematocrit 18.9 % (36.0-47.0) 27.8 % (36.0-47.0) Mean Corpuscular Volume 95 fL (79-100) 94 fL (79-100) Mean Corpuscular Hemoglobin 32 pg (25-35) 31 pg (25-35) Mean Corpuscular Hemoglobin Concent 33 g/dL (31-37) 33 g/dL (31-37) Red Cell Distribution Width 15.8 % (11.5-14.5) 15.0 % (11.5-14.5) Platelet Count 367 x10^3/uL (140-400) 263 x10^3/uL (140-400) Neutrophils (%) (Auto) 82 % (31-73) Lymphocytes (%) (Auto) 8 % (24-48) Monocytes (%) (Auto) 9 % (0-9) Eosinophils (%) (Auto) 0 % (0-3) Basophils (%) (Auto) 1 % (0-3) Neutrophils # (Auto) 15.7 x10^3/uL (1.8-7.7) Lymphocytes # (Auto) 1.5 x10^3/uL (1.0-4.8) Monocytes # (Auto) 1.7 x10^3/uL (0.0-1.1) Eosinophils # (Auto) 0.1 x10^3/uL (0.0-0.7) Basophils # (Auto) 0.2 x10^3/uL (0.0-0.2) Segmented Neutrophils % 83 % (35-66) Band Neutrophils % 3 % (0-9) Lymphocytes % 10 % (24-48) Monocytes % 3 % (0-10) Eosinophils % 1 % (0-5) Platelet Estimate Adequate (ADEQUATE) Polychromasia Slight Sodium Level 133 mmol/L (136-145) 136 mmol/L (136-145) Potassium Level 4.7 mmol/L (3.5-5.1) 5.1 mmol/L (3.5-5.1) Chloride Level 98 mmol/L (98-107) 105 mmol/L (98-107) Carbon Dioxide Level 26 mmol/L (21-32) 22 mmol/L (21-32) Anion Gap 9 (6-14) 9 (6-14) Blood Urea Nitrogen 17 mg/dL (7-20) 17 mg/dL (7-20) Creatinine 0.8 mg/dL (0.6-1.0) 0.8 mg/dL (0.6-1.0) Estimated GFR (Cockcroft-Gault) 71.1 71.1 Glucose Level 178 mg/dL (70-99) 168 mg/dL (70-99) Calcium Level 8.4 mg/dL (8.5-10.1) 8.6 mg/dL (8.5-10.1) Prothrombin Time 14.9 SEC (11.7-14.0) 16.0 SEC (11.7-14.0) Prothromb Time International Ratio 1.2 (0.8-1.1) 1.3 (0.8-1.1) Activated Partial Thromboplast Time 25 SEC (24-38) 27 SEC (24-38) Magnesium Level 1.3 mg/dL (1.8-2.4) Ionized Calcium 1.27 mmol/L (1.13-1.32) Test 11/28/20 04:30 White Blood Count 19.0 x10^3/uL (4.0-11.0) Red Blood Count 2.54 x10^6/uL (3.50-5.40) Hemoglobin 7.8 g/dL (12.0-15.5) Hematocrit 23.7 % (36.0-47.0) Mean Corpuscular Volume 94 fL (79-100) Mean Corpuscular Hemoglobin 31 pg (25-35) Mean Corpuscular Hemoglobin Concent 33 g/dL (31-37) Red Cell Distribution Width 15.1 % (11.5-14.5) Platelet Count 253 x10^3/uL (140-400) Neutrophils (%) (Auto) 80 % (31-73) Lymphocytes (%) (Auto) 9 % (24-48) Monocytes (%) (Auto) 10 % (0-9) Eosinophils (%) (Auto) 0 % (0-3) Basophils (%) (Auto) 0 % (0-3) Neutrophils # (Auto) 15.3 x10^3/uL (1.8-7.7) Lymphocytes # (Auto) 1.8 x10^3/uL (1.0-4.8) Monocytes # (Auto) 1.9 x10^3/uL (0.0-1.1) Eosinophils # (Auto) 0.0 x10^3/uL (0.0-0.7) Basophils # (Auto) 0.1 x10^3/uL (0.0-0.2) Sodium Level 136 mmol/L (136-145) Potassium Level 4.3 mmol/L (3.5-5.1) Chloride Level 105 mmol/L (98-107) Carbon Dioxide Level 21 mmol/L (21-32) Anion Gap 10 (6-14) Blood Urea Nitrogen 19 mg/dL (7-20) Creatinine 0.7 mg/dL (0.6-1.0) Estimated GFR (Cockcroft-Gault) 83.0 BUN/Creatinine Ratio 27 (6-20) Glucose Level 120 mg/dL (70-99) Calcium Level 8.2 mg/dL (8.5-10.1) Phosphorus Level 4.4 mg/dL (2.6-4.7) Magnesium Level 2.2 mg/dL (1.8-2.4) Total Bilirubin 0.8 mg/dL (0.2-1.0) Aspartate Amino Transf (AST/SGOT) 12 U/L (15-37) Alanine Aminotransferase (ALT/SGPT) 9 U/L (14-59) Alkaline Phosphatase 50 U/L (46-116) Total Protein 4.2 g/dL (6.4-8.2) Albumin 1.9 g/dL (3.4-5.0) Albumin/Globulin Ratio 0.8 (1.0-1.7) Medications Current Medications Sodium Chloride 500 ml @ 500 mls/hr 1X ONCE IV Last administered on 11/27/20at 18:52; Start 11/27/20 at 18:00; Stop 11/27/20 at 18:59; Status DC Ondansetron HCl (Zofran) 4 mg 1X ONCE IV Last administered on 11/27/20at 18:50; Start 11/27/20 at 18:15; Stop 11/27/20 at 18:16; Status DC Fentanyl Citrate (Fentanyl 2ml Vial) 50 mcg 1X ONCE IV Last administered on 11/27/20at 18:52; Start 11/27/20 at 18:15; Stop 11/27/20 at 18:16; Status DC Lidocaine HCl (Lidocaine Pf 2% Vial) 5 ml STK-MED ONCE .ROUTE ; Start 11/27/20 at 19:11; Stop 11/27/20 at 19:11; Status DC Propofol (Diprivan) 200 mg STK-MED ONCE IV ; Start 11/27/20 at 19:11; Stop 11/27/20 at 19:11; Status DC Phenylephrine HCl (PHENYLEPHRINE in 0.9% NACL PF) 1 mg STK-MED ONCE IV ; Start 11/27/20 at 19:11; Stop 11/27/20 at 19:11; Status DC Rocuronium [place] (Zemuron) 50 mg STK-MED ONCE .ROUTE ; Start 11/27/20 at 19 :11; Stop 11/27/20 at 19:11; Status DC Heparin Sodium (Porcine) 5000 unit/Sodium Chloride 505 ml @ 505 mls/hr 1X ONCE IRR Last administered on 11/27/20at 19:55; Start 11/27/20 at 20:00; Stop 11/27/20 at 20:59; Status DC Cellulose (Surgicel Fibrillar 1x2) 1 each STK-MED ONCE .ROUTE Last administered on 11/27/20at 19:55; Start 11/27/20 at 19:29; Stop 11/27/20 at 19:30; Status DC Cefazolin Sodium (Ancef) 1 gm STK-MED ONCE IVP ; Start 11/27/20 at 19:38; Stop 11/27/20 at 19:38; Status DC Fentanyl Citrate (Fentanyl 2ml Vial) 25 mcg PRN Q5MIN PRN IVP MILD PAIN 1-3; Start 11/27/20 at 20:15; Stop 11/28/20 at 20:14 Fentanyl Citrate (Fentanyl 2ml Vial) 50 mcg PRN Q5MIN PRN IVP MODERATE PAIN 4- 6; Start 11/27/20 at 20:15; Stop 11/28/20 at 20:14 Morphine Sulfate (Morphine Sulfate) 1 mg PRN Q10MIN PRN IVP SEVERE PAIN 7-10; Start 11/27/20 at 20:15; Stop 11/28/20 at 20:14 Ringer's Solution 1,000 ml @ 30 mls/hr Q24H IV ; Start 11/27/20 at 20:15; Stop 11/28/20 at 08:14 Hydromorphone HCl (Dilaudid) 0.5 mg PRN Q10MIN PRN IVP SEVERE PAIN 7-10, 2nd CHOICE; Start 11/27/20 at 20:15; Stop 11/28/20 at 20:14 Prochlorperazine Edisylate (Compazine) 5 mg PACU PRN PRN IVP NAUSEA, MRX1; Start 11/27/20 at 20:15; Stop 11/28/20 at 20:14 Heparin Sodium (Porcine) (Heparin Sodium) 10,000 unit STK-MED ONCE .ROUTE ; Start 11/27/20 at 20:07; Stop 11/27/20 at 20:07; Status DC Heparin Sodium (Porcine) (Heparin Sodium) 10,000 unit STK-MED ONCE .ROUTE ; Start 11/27/20 at 20:10; Stop 11/27/20 at 20:10; Status DC Fentanyl Citrate (Fentanyl 2ml Vial) 100 mcg STK-MED ONCE .ROUTE ; Start 11/27/20 at 20:11; Stop 11/27/20 at 20:12; Status DC Propofol (Diprivan) 200 mg STK-MED ONCE IV ; Start 11/27/20 at 20:13; Stop 11/27/20 at 20:14; Status DC Protamine Sulfate (Protamine) 50 mg STK-MED ONCE IV ; Start 11/27/20 at 20:44; Stop 11/27/20 at 20:44; Status DC Sevoflurane (Ultane) 60 ml STK-MED ONCE IH ; Start 11/27/20 at 20:44; Stop 11/27/20 at 20:44; Status DC Olanzapine (ZyPREXA ZYDIS) 5 mg PRN BID PRN PO ANXIETY / AGITATION; Start 11/27/20 at 22:00 Acetaminophen (Tylenol) 650 mg PRN Q6HRS PRN PO MILD PAIN / TEMP > 100.3'F; Start 11/27/20 at 22:00 Ondansetron HCl (Zofran) 4 mg PRN Q4HRS PRN IVP NAUSEA/VOMITING; Start 11/27/20 at 22:00 Hydralazine HCl (Apresoline Inj) 20 mg STK-MED ONCE .ROUTE ; Start 11/27/20 at 21:56; Stop 11/27/20 at 21:56; Status DC Fentanyl Citrate (Fentanyl 2ml Vial) 25 mcg PRN Q2HR PRN IVP PAIN; Start 11/27/20 at 22:00 Carvedilol (Coreg) 3.125 mg BIDWMEALS PO ; Start 11/28/20 at 08:00 Gabapentin (Neurontin) 300 mg HS PO ; Start 11/27/20 at 22:15 Pantoprazole Sodium (Protonix) 40 mg DAILYAC PO ; Start 11/28/20 at 07:30 Zolpidem Tartrate (Ambien) 5 mg PRN QHS PRN PO INSOMNIA; Start 11/27/20 at 22:15 Folic Acid (Folic Acid) 1 mg DAILY PO ; Start 11/28/20 at 09:00 Aspirin (Aspirin Chewable) 81 mg DAILY08 PO ; Start 11/28/20 at 08:00 Vitamin D (Vitamin D3) 5,000 unit DAILY PO ; Start 11/28/20 at 09:00 Clopidogrel Bisulfate (Plavix) 75 mg DAILY08 PO ; Start 11/28/20 at 08:00 Sodium Chloride 1,000 ml @ 100 mls/hr Q10H IV Last administered on 11/27/20at 23:34; Start 11/27/20 at 22:45 Acetaminophen/ Hydrocodone Bitart (Lortab 5/325) 1 tab PRN Q4HRS PRN PO PAIN MILD TO MODERATE Last administered on 11/27/20at 23:39; Start 11/27/20 at 22:45 Acetaminophen/ Hydrocodone Bitart (Lortab 5/325) 2 tab PRN Q4HRS PRN PO PAIN SEVERE; Start 11/27/20 at 22:45 Albumin Human 500 ml @ 125 mls/hr PRN DAILY PRN IV Hypotension; Start 11/27/20 at 23:00 Magnesium Sulfate 50 ml @ 25 mls/hr 1X ONCE IV Last administered on 11/28/20at 02:15; Start 11/28/20 at 01:45; Stop 11/28/20 at 03:44; Status DC Cefazolin Sodium/ Dextrose 50 ml @ 100 mls/hr Q8HRS IV Last administered on 11/28/20at 06:11; Start 11/28/20 at 06:00 Active Scripts Active Reported Vitamin D3 (Vitamin D) 125 Mcg Capsule 125 Mcg PO DAILY 5,000 UNITS = 125 MCG Methotrexate (Methotrexate Sodium) 2.5 Mg Tablet 4 Tab PO WEEKLY Ambien (Zolpidem Tartrate) 5 Mg Tablet 5 Mg PO PRN QHS PRN Gabapentin (Gabapentin) 300 Mg Capsule 300 Mg PO HS Protonix (Pantoprazole Sodium) 40 Mg Tablet.dr 40 Mg PO DAILYAC Folic Acid 0.4 Mg Tablet 0.4 Mg PO DAILY Aspirin 81 Mg Tab.chew 1 Tab PO DAILY Clopidogrel (Clopidogrel Bisulfate) 75 Mg Tablet 1 Tab PO DAILY Coreg (Carvedilol) 6.25 Mg Tablet 6.25 Mg PO BIDWMEALS Vitals/I & O Vital Sign - Last 24 Hours 11/27/20 11/27/20 11/27/20 11/27/20 17:03 18:29 18:39 18:49 Temp 98.9 98.9 Pulse 80 85 85 93 Resp 24 23 23 23 B/P (MAP) 141/70 (93) 101/55 (70) 115/58 (77) 109/59 (76) Pulse Ox 98 98 98 99 O2 Delivery Room Air Room Air Room Air Room Air 11/27/20 11/27/20 11/27/20 11/27/20 18:52 18:59 19:00 19:10 Pulse 91 84 88 Resp 16 22 20 22 B/P (MAP) 110/56 (74) 112/56 (74) 125/55 (78) Pulse Ox 94 98 98 97 O2 Delivery Room Air Room Air Room Air Room Air 11/27/20 11/27/20 11/27/20 11/27/20 19:20 19:30 19:30 19:30 Temp 98.0 98.0 Pulse 88 88 90 Resp 21 24 18 20 B/P (MAP) 137/61 (86) 137/61 143/65 (91) Pulse Ox 100 99 O2 Delivery Room Air Room Air 11/27/20 11/27/20 11/27/20 11/27/20 19:35 19:35 21:38 21:50 Temp 98.3 97.4 98.3 97.4 Pulse 87 87 95 Resp 20 18 20 B/P (MAP) 149/66 (93) 149/66 140/66 Pulse Ox 99 95 O2 Delivery Room Air Simple Mask Mask O2 Flow Rate 6 6 11/27/20 11/27/20 11/27/20 11/27/20 21:57 22:12 22:33 22:48 Temp 97.4 97.4 97.4 97.4 97.4 97.4 Pulse 87 90 94 95 Resp 23 20 B/P (MAP) 90/55 136/38 127/44 124/38 Pulse Ox 95 100 95 99 O2 Delivery Simple Mask Simple Mask Room Air Room Air O2 Flow Rate 6 6 11/27/20 11/28/20 11/28/20 11/28/20 23:39 00:00 00:00 00:10 Temp 98.0 98.0 Pulse 94 Resp 22 16 B/P (MAP) 113/55 (74) Pulse Ox 97 97 O2 Delivery Room Air Room Air Room Air Room Air 11/28/20 11/28/20 11/28/20 11/28/20 01:00 02:00 03:00 04:00 Temp 98.9 98.9 Pulse 89 90 88 88 Resp 16 14 14 16 B/P (MAP) 109/52 (71) 102/49 (66) 102/44 (63) 93/44 (60) Pulse Ox 97 96 98 97 O2 Delivery Room Air Room Air Room Air Room Air 11/28/20 11/28/20 11/28/20 11/28/20 04:00 05:00 06:00 07:00 Pulse 82 80 74 Resp 14 12 15 B/P (MAP) 98/44 (62) 101/40 (60) 91/40 (57) Pulse Ox 95 96 94 O2 Delivery Room Air Room Air Room Air Room Air Intake and Output 11/27/20 11/27/20 11/28/20 15:00 23:00 07:00 Intake Total 2350 ml 2782 ml Output Total 150 ml 560 ml Balance 2200 ml 2222 ml Justifications for Admission Other Justification SUNDAR,PIPPA Johnson MD November 28, 2020 08:06
--- NOTE | 2020-11-28 08:33 | PDOC ---
PROGRESS NOTES Date of Service: DATE: 11/28/20 TIME: 08:32 Chief Complaint Chief Complaint Assessment/Plan 70-year-old woman who recently had a right femoral artery access for acute stroke intervention apparently left carotid stent and left stroke thrombus removal at [facility] / pseudoaneurysm arising from the common femoral artery // actively bleeding into a large hematoma. Acute blood loss anemia - given extent of hematoma and pseudoaneursym and need for surgery may need up to 6u PRBC. 2 units on hold for OR. H&H 4 hours post op HGB 11.9 11-19 Large right groin pseuoaneurysm - likely from access 1 week prior. Vascular surgery consulted for ongoing active bleeding. To OR Large right groin hematoma - likely from arterial bleed. 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 Would not hold DAPT therapy in order to prevent further CVA. (will order [facility] records to confirm the presence/absence of stent) Hyponatremia - likely hypovolemic. Will give NSS crystalloid and monitor. Leukocytosis - likely reactive from massive blood loss, will trend. No clear i nfection. will cover preoperatively. Given the extent of her hematoma is definitely at risk for skin infection/cellulitis as she is immunocompromised on MTX, ID CONSULT Hyperglycemia - likely related to stress, will check A1c RA - on MTX weekly. 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 severe protein-caloric malnutrition Current smoker HTN - on coreg, will cut dosing given low BP since d/c from [facility] per rehab notes. She may have cardiac reason for BB, will await [facility] records as she may be getting CHF treatment, patient and aren't certain. plan FEN - NPO for OR. Regular diet after PPX - SCDs for 24 hours. Will defer heparin timing to vascular surgery CODE - FULL Dispo - ICU [facility] [place] for possible IR intervention. 11-19 CONSULT CARDIOLOGY, ECHO HER is a pharmacist at [facility] [place] , will aks for records at [facility] , CXR today CC time 33 min History of Present Illness History of Present Illness Identification/Chief Complaint Chief Complaint Right groin pain and swelling Source Source: Patient History of Present Illness History of Present Illness Ms Robins is a 70-year-old female w/ PMHx HLD, HTN, GERD, RA, and recent presenting with right groin pain and swelling. She has been noting bruising since 11/24/2020 when the dressing in her right groin was removed as instructed. She has been going to outpatient PT and OT for stroke rehab and has been c/o some pain in the area since the dressing was removed. 11/26 she began acting more tired, dizzy and intermittently confused per her . family member, who is a nurse practitioner, came over to the house to look at her leg as the was concerned about the bruise getting bigger. The family member told him to go to the ER right away. She states she feels very weak and tired and dizzy. Patient denies any chest pain, shortness of breath, nausea, vomiting, or diarrhea. She is up to date on both doses of Moderna COVID 19 vaccine Patient complains of pain and tightness in her right thigh and groin. She was initially evaluated on 11/19/[address] [facility] ED for right sided weakness within 2 hours of presentation and tPA was then administered. CT angiogram shows left MCA M1 large vessel occlusion and she was transferred to [facility] for large vessel occlusion intervention on 11/19/2020. Per had clot retrieval and he thinks had carotid stenting as well and was discharged home on 11/21/2020 for outpatient rehab for her CVA on DAPT with ASA and plavix. In ED noted with pulsatile swelling in left groin and right groin arterial doppler revealed large hematoma in the proximal right lower extremity arising from the common femoral artery that measures 11.5 x 5.0 x 9.5 cm. This hematoma appears to arise directly from a pseudoaneurysm with a neck which actively bleeds into the hematoma. The belly of the pseudoaneurysm measures 2.3 cm in diameter. On examination a nurse was holding pressure in the groin and [employer] was accessing left antecubital fossa for venipuncture for blood draw and IV insertion. give much of history bedside. During examination labs returned with WBC 19.2, platelets 367, Hb 6.3, Na 133, glucose 178, INR 1.2. Given the urgency of her condition vascular surgery was consulted and Dr. Wilhelm brought in OR staff and patient was taken to OR in stable condition from the ED with plans to admit to ICU. Past Medical History Cardiovascular: HTN, Hyperlipidemia Rheumatologic: Rheumatoid arthritis Past Surgical History Past Surgical History: Other (thrombectomy) Family History Family History: High Cholestrol Social History Smoke: No ALCOHOL: none Drugs: None Vitals Vitals Vital Signs Date Time Temp Pulse Resp B/P (MAP) Pulse Ox O2 Delivery O2 Flow Rate FiO2 11/28/20 07:00 74 15 91/40 (57) 94 Room Air 11/28/20 04:00 98.9 98.9 11/27/20 22:12 6 Physical Exam Physical Exam General: Alert, Oriented X3, Cooperative, moderate distress, Other (pale) HEENT: Atraumatic, PERRLA, EOMI, Other (pale mucosa) Lungs: Clear to auscultation, Normal air movement Heart: S1S2, RRR, no thrills, no rubs, no gallops, no murmurs Abdomen: Normal bowel sounds, Soft, No tenderness, No hepatosplenomegaly, No masses Rectal Exam: not examined Extremities: No clubbing, No cyanosis, No edema, Normal pulses, Other ( right leg and groin shows ecchymosis from about there the umbilicus down to the knee.) Skin: No rashes, No breakdown, Other (right groin) Neuro: Normal speech, Normal tone, Sensation intact, Cranial nerves 3-12 NL, Reflexes 2+ Psych/Mental Status: Mental status NL, Mood NL General: Alert, Oriented X3, Cooperative, No acute distress Heart: Regular rate, No murmurs Lungs: Clear Abdomen: Normal bowel sounds, Soft Extremities: No clubbing, No cyanosis, No edema, Normal pulses, Other ( right leg and groin shows ecchymosis from about there the umbilicus down to the knee.) Skin: No rashes, No breakdown, Other (right groin) Labs LABS One or more of the following individualized dose reduction techniques were utilized for this examination: 1. Automated exposure control 2. Adjustment of the mA and/or kV according to patient size 3. Use of iterative reconstruction technique CTA STROKE HEAD/NECK w/o Clinical Indication: Reason: stroke, weakness. Comparison: CT head without contrast, earlier same day. Technique: Helical CT imaging from inferior to the aortic arch to the skull vertex is performed after 75 cc of Omnipaque [address] angiogram protocol. 3-D MIP reconstructions of the cervical carotid arteries and [place] are performed. PQRS Compliance Statement - Stenosis calculations for CT, MR and conventional angiography are based upon measurement of the distal ICA diameter in accordance with the NASCET methodology. Stenosis calculations for carotid ultrasound studies are derived from validated velocity criteria which are known to correlate with the NASCET methodology. Findings: Aortic arch branches are patent. The common carotid arteries are patent. The right carotid bifurcation is patent. There is atherosclerotic calcification and focal 50-60 percent stenosis of the proximal right ICA. The cervical right ICA is otherwise patent. There is severe atherosclerotic calcification at the left carotid bifurcation and the cervical internal carotid artery is occluded. The cervical vertebral arteries are patent. The left vertebral artery is dominant. Basilar artery is patent. Posterior circulation is intact. Mild atherosclerotic calcification of the cavernous right ICA. The distal right internal carotid artery is patent. There is a patent anterior communicating artery. There is abrupt truncation of the M1 segment of the left middle cerebral artery likely due to thrombus, image 235. The length of the segment of noncontrast opacification of the MCA measures approximately 1.5 cm in length. Some of the more distal MCA branches are contrast opacified. There is pruning of left MCA branches compared to the contralateral side. The right middle cerebral artery and the anterior cerebral arteries are patent. The dural venous sinuses are opacified. No abnormal enhancement in the brain parenchyma is identified. There is no cervical adenopathy. There are bilateral thyroid nodules, largest is on the left measuring 1.6 cm. There is minimal bilateral dependent atelectasis in the upper lungs. There is degenerative spondylosis of the cervical spine. There is old healed displaced fracture of the odontoid. The tip of the odontoid is positioned anterior to the base of the odontoid. IMPRESSION: 1. The left M1 segment of the MCA is occluded. 2. 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 3. There is focal 50-60 percent stenosis of the proximal right ICA. FOR INTERNAL CODING PURPOSES Critical result: Findings discussed with Dr. Adorno in the ED at 11/19/2020 10:25 AM. RESULT CODE: (C) 1. Electronically signed by: Hayden Woodall MD (11/19/2020 10:32 AM) [id number] PATIENT: IMER ROBINS AACCOUNT: [id number] : 1950 LOCATION: ER AGE: 70 SEX: F EXAM STATUS: REG ER ORD. PHYSICIAN: RACHAEL MILLIGAN APRN REASON: R thigh bruising and swelling post clot retrieval one week ago PROCEDURE: DUPLEX LOWER EX ARTERIAL RIGHT Right lower extremity arterial duplex Doppler examination with spectral analysis HISTORY: Right thigh bruising and swelling post clot retrieval one week ago Sonographic examination of the right groin was performed and multiple static images were obtained. In addition color Doppler was applied as well as arterial waveform spectral analysis. There is a large hematoma in the proximal right lower extremity arising from the common femoral artery that measures 11.5 x 5.0 x 9.5 cm. This hematoma appears to arise directly from a pseudoaneurysm with a neck which actively bleeds into the hematoma. The belly of the pseudoaneurysm measures 2.3 cm in diameter. The neck of the pseudoanneurism connected to the common femoral artery measures 7 mm in diameter. IMPRESSION: There is a pseudoaneurysm arising from the common femoral artery which appears be actively bleeding into a large hematoma. Ultrasound cannot see proximal to the pseudoaneurysm and additional hematoma in the pelvis is possible. Clinical correlation is suggested. Recommend serial vital signs and blood cell count. End impression These results were called to the emergency department physician Dr. Jorgensen and verified by read back at the time of dictation. FOR INTERNAL CODING PURPOSES Critical result: Findings discussed with the emergency department physician at 11/27/2020 6:34 PM. RESULT CODE: (C) Electronically signed by: Maria D Estes III, MD (11/27/2020 6:34 PM) [facility] DICTATED and SIGNED BY: MARIA D ESTES III, MD DATE: 11/27/20 [id number] Date: November 27, 2020 Pre-Op Diagnosis: Ruptured right femoral artery pseudoaneurysm Acute blood loss anemia Hemorrhagic shock Post-Op Diagnosis: Same as above Procedure Performed: Open repair of right femoral artery pseudoaneurysm using bovine pericardial patch angioplasty right common femoral artery Surgeon: Aakash Wilhelm MD Anesthesia Type: General Blood Loss: 150 cc Intra-Op, significant blood loss preop Laboratory Tests Test 11/27/20 18:35 11/27/20 18:58 11/27/20 22:25 11/27/20 23:00 White Blood Count 19.2 x10^3/uL (4.0-11.0) 27.1 x10^3/uL (4.0-11.0) Red Blood Count 2.00 x10^6/uL (3.50-5.40) 2.97 x10^6/uL (3.50-5.40) Hemoglobin 6.3 g/dL (12.0-15.5) 9.3 g/dL (12.0-15.5) Hematocrit 18.9 % (36.0-47.0) 27.8 % (36.0-47.0) Mean Corpuscular Volume 95 fL (79-100) 94 fL (79-100) Mean Corpuscular Hemoglobin 32 pg (25-35) 31 pg (25-35) Mean Corpuscular Hemoglobin Concent 33 g/dL (31-37) 33 g/dL (31-37) Red Cell Distribution Width 15.8 % (11.5-14.5) 15.0 % (11.5-14.5) Platelet Count 367 x10^3/uL (140-400) 263 x10^3/uL (140-400) Neutrophils (%) (Auto) 82 % (31-73) Lymphocytes (%) (Auto) 8 % (24-48) Monocytes (%) (Auto) 9 % (0-9) Eosinophils (%) (Auto) 0 % (0-3) Basophils (%) (Auto) 1 % (0-3) Neutrophils # (Auto) 15.7 x10^3/uL (1.8-7.7) Lymphocytes # (Auto) 1.5 x10^3/uL (1.0-4.8) Monocytes # (Auto) 1.7 x10^3/uL (0.0-1.1) Eosinophils # (Auto) 0.1 x10^3/uL (0.0-0.7) Basophils # (Auto) 0.2 x10^3/uL (0.0-0.2) Segmented Neutrophils % 83 % (35-66) Band Neutrophils % 3 % (0-9) Lymphocytes % 10 % (24-48) Monocytes % 3 % (0-10) Eosinophils % 1 % (0-5) Platelet Estimate Adequate (ADEQUATE) Polychromasia Slight Sodium Level 133 mmol/L (136-145) 136 mmol/L (136-145) Potassium Level 4.7 mmol/L (3.5-5.1) 5.1 mmol/L (3.5-5.1) Chloride Level 98 mmol/L (98-107) 105 mmol/L (98-107) Carbon Dioxide Level 26 mmol/L (21-32) 22 mmol/L (21-32) Anion Gap 9 (6-14) 9 (6-14) Blood Urea Nitrogen 17 mg/dL (7-20) 17 mg/dL (7-20) Creatinine 0.8 mg/dL (0.6-1.0) 0.8 mg/dL (0.6-1.0) Estimated GFR (Cockcroft-Gault) 71.1 71.1 Glucose Level 178 mg/dL (70-99) 168 mg/dL (70-99) Calcium Level 8.4 mg/dL (8.5-10.1) 8.6 mg/dL (8.5-10.1) Prothrombin Time 14.9 SEC (11.7-14.0) 16.0 SEC (11.7-14.0) Prothromb Time International Ratio 1.2 (0.8-1.1) 1.3 (0.8-1.1) Activated Partial Thromboplast Time 25 SEC (24-38) 27 SEC (24-38) Magnesium Level 1.3 mg/dL (1.8-2.4) Ionized Calcium 1.27 mmol/L (1.13-1.32) Test 11/28/20 04:30 White Blood Count 19.0 x10^3/uL (4.0-11.0) Red Blood Count 2.54 x10^6/uL (3.50-5.40) Hemoglobin 7.8 g/dL (12.0-15.5) Hematocrit 23.7 % (36.0-47.0) Mean Corpuscular Volume 94 fL (79-100) Mean Corpuscular Hemoglobin 31 pg (25-35) Mean Corpuscular Hemoglobin Concent 33 g/dL (31-37) Red Cell Distribution Width 15.1 % (11.5-14.5) Platelet Count 253 x10^3/uL (140-400) Neutrophils (%) (Auto) 80 % (31-73) Lymphocytes (%) (Auto) 9 % (24-48) Monocytes (%) (Auto) 10 % (0-9) Eosinophils (%) (Auto) 0 % (0-3) Basophils (%) (Auto) 0 % (0-3) Neutrophils # (Auto) 15.3 x10^3/uL (1.8-7.7) Lymphocytes # (Auto) 1.8 x10^3/uL (1.0-4.8) Monocytes # (Auto) 1.9 x10^3/uL (0.0-1.1) Eosinophils # (Auto) 0.0 x10^3/uL (0.0-0.7) Basophils # (Auto) 0.1 x10^3/uL (0.0-0.2) Sodium Level 136 mmol/L (136-145) Potassium Level 4.3 mmol/L (3.5-5.1) Chloride Level 105 mmol/L (98-107) Carbon Dioxide Level 21 mmol/L (21-32) Anion Gap 10 (6-14) Blood Urea Nitrogen 19 mg/dL (7-20) Creatinine 0.7 mg/dL (0.6-1.0) Estimated GFR (Cockcroft-Gault) 83.0 BUN/Creatinine Ratio 27 (6-20) Glucose Level 120 mg/dL (70-99) Calcium Level 8.2 mg/dL (8.5-10.1) Phosphorus Level 4.4 mg/dL (2.6-4.7) Magnesium Level 2.2 mg/dL (1.8-2.4) Total Bilirubin 0.8 mg/dL (0.2-1.0) Aspartate Amino Transf (AST/SGOT) 12 U/L (15-37) Alanine Aminotransferase (ALT/SGPT) 9 U/L (14-59) Alkaline Phosphatase 50 U/L (46-116) Total Protein 4.2 g/dL (6.4-8.2) Albumin 1.9 g/dL (3.4-5.0) Albumin/Globulin Ratio 0.8 (1.0-1.7) Assessment and Plan Assessmemt and Plan Problems Medical Problems: (1) Femoral artery pseudo-aneurysm, right Status: Acute (2) Pseudoaneurysm of femoral artery following procedure Status: Acute Comment Review of Relevant I have reviewed the following items césar (where applicable) has been applied. Labs Laboratory Tests Test 11/27/20 18:35 11/27/20 18:58 11/27/20 22:25 11/27/20 23:00 White Blood Count 19.2 x10^3/uL (4.0-11.0) 27.1 x10^3/uL (4.0-11.0) Red Blood Count 2.00 x10^6/uL (3.50-5.40) 2.97 x10^6/uL (3.50-5.40) Hemoglobin 6.3 g/dL (12.0-15.5) 9.3 g/dL (12.0-15.5) Hematocrit 18.9 % (36.0-47.0) 27.8 % (36.0-47.0) Mean Corpuscular Volume 95 fL (79-100) 94 fL (79-100) Mean Corpuscular Hemoglobin 32 pg (25-35) 31 pg (25-35) Mean Corpuscular Hemoglobin Concent 33 g/dL (31-37) 33 g/dL (31-37) Red Cell Distribution Width 15.8 % (11.5-14.5) 15.0 % (11.5-14.5) Platelet Count 367 x10^3/uL (140-400) 263 x10^3/uL (140-400) Neutrophils (%) (Auto) 82 % (31-73) Lymphocytes (%) (Auto) 8 % (24-48) Monocytes (%) (Auto) 9 % (0-9) Eosinophils (%) (Auto) 0 % (0-3) Basophils (%) (Auto) 1 % (0-3) Neutrophils # (Auto) 15.7 x10^3/uL (1.8-7.7) Lymphocytes # (Auto) 1.5 x10^3/uL (1.0-4.8) Monocytes # (Auto) 1.7 x10^3/uL (0.0-1.1) Eosinophils # (Auto) 0.1 x10^3/uL (0.0-0.7) Basophils # (Auto) 0.2 x10^3/uL (0.0-0.2) Segmented Neutrophils % 83 % (35-66) Band Neutrophils % 3 % (0-9) Lymphocytes % 10 % (24-48) Monocytes % 3 % (0-10) Eosinophils % 1 % (0-5) Platelet Estimate Adequate (ADEQUATE) Polychromasia Slight Sodium Level 133 mmol/L (136-145) 136 mmol/L (136-145) Potassium Level 4.7 mmol/L (3.5-5.1) 5.1 mmol/L (3.5-5.1) Chloride Level 98 mmol/L (98-107) 105 mmol/L (98-107) Carbon Dioxide Level 26 mmol/L (21-32) 22 mmol/L (21-32) Anion Gap 9 (6-14) 9 (6-14) Blood Urea Nitrogen 17 mg/dL (7-20) 17 mg/dL (7-20) Creatinine 0.8 mg/dL (0.6-1.0) 0.8 mg/dL (0.6-1.0) Estimated GFR (Cockcroft-Gault) 71.1 71.1 Glucose Level 178 mg/dL (70-99) 168 mg/dL (70-99) Calcium Level 8.4 mg/dL (8.5-10.1) 8.6 mg/dL (8.5-10.1) Prothrombin Time 14.9 SEC (11.7-14.0) 16.0 SEC (11.7-14.0) Prothromb Time International Ratio 1.2 (0.8-1.1) 1.3 (0.8-1.1) Activated Partial Thromboplast Time 25 SEC (24-38) 27 SEC (24-38) Magnesium Level 1.3 mg/dL (1.8-2.4) Ionized Calcium 1.27 mmol/L (1.13-1.32) Test 11/28/20 04:30 White Blood Count 19.0 x10^3/uL (4.0-11.0) Red Blood Count 2.54 x10^6/uL (3.50-5.40) Hemoglobin 7.8 g/dL (12.0-15.5) Hematocrit 23.7 % (36.0-47.0) Mean Corpuscular Volume 94 fL (79-100) Mean Corpuscular Hemoglobin 31 pg (25-35) Mean Corpuscular Hemoglobin Concent 33 g/dL (31-37) Red Cell Distribution Width 15.1 % (11.5-14.5) Platelet Count 253 x10^3/uL (140-400) Neutrophils (%) (Auto) 80 % (31-73) Lymphocytes (%) (Auto) 9 % (24-48) Monocytes (%) (Auto) 10 % (0-9) Eosinophils (%) (Auto) 0 % (0-3) Basophils (%) (Auto) 0 % (0-3) Neutrophils # (Auto) 15.3 x10^3/uL (1.8-7.7) Lymphocytes # (Auto) 1.8 x10^3/uL (1.0-4.8) Monocytes # (Auto) 1.9 x10^3/uL (0.0-1.1) Eosinophils # (Auto) 0.0 x10^3/uL (0.0-0.7) Basophils # (Auto) 0.1 x10^3/uL (0.0-0.2) Sodium Level 136 mmol/L (136-145) Potassium Level 4.3 mmol/L (3.5-5.1) Chloride Level 105 mmol/L (98-107) Carbon Dioxide Level 21 mmol/L (21-32) Anion Gap 10 (6-14) Blood Urea Nitrogen 19 mg/dL (7-20) Creatinine 0.7 mg/dL (0.6-1.0) Estimated GFR (Cockcroft-Gault) 83.0 BUN/Creatinine Ratio 27 (6-20) Glucose Level 120 mg/dL (70-99) Calcium Level 8.2 mg/dL (8.5-10.1) Phosphorus Level 4.4 mg/dL (2.6-4.7) Magnesium Level 2.2 mg/dL (1.8-2.4) Total Bilirubin 0.8 mg/dL (0.2-1.0) Aspartate Amino Transf (AST/SGOT) 12 U/L (15-37) Alanine Aminotransferase (ALT/SGPT) 9 U/L (14-59) Alkaline Phosphatase 50 U/L (46-116) Total Protein 4.2 g/dL (6.4-8.2) Albumin 1.9 g/dL (3.4-5.0) Albumin/Globulin Ratio 0.8 (1.0-1.7) Laboratory Tests Test 11/27/20 18:35 11/27/20 18:58 11/27/20 22:25 11/27/20 23:00 White Blood Count 19.2 x10^3/uL (4.0-11.0) 27.1 x10^3/uL (4.0-11.0) Red Blood Count 2.00 x10^6/uL (3.50-5.40) 2.97 x10^6/uL (3.50-5.40) Hemoglobin 6.3 g/dL (12.0-15.5) 9.3 g/dL (12.0-15.5) Hematocrit 18.9 % (36.0-47.0) 27.8 % (36.0-47.0) Mean Corpuscular Volume 95 fL (79-100) 94 fL (79-100) Mean Corpuscular Hemoglobin 32 pg (25-35) 31 pg (25-35) Mean Corpuscular Hemoglobin Concent 33 g/dL (31-37) 33 g/dL (31-37) Red Cell Distribution Width 15.8 % (11.5-14.5) 15.0 % (11.5-14.5) Platelet Count 367 x10^3/uL (140-400) 263 x10^3/uL (140-400) Neutrophils (%) (Auto) 82 % (31-73) Lymphocytes (%) (Auto) 8 % (24-48) Monocytes (%) (Auto) 9 % (0-9) Eosinophils (%) (Auto) 0 % (0-3) Basophils (%) (Auto) 1 % (0-3) Neutrophils # (Auto) 15.7 x10^3/uL (1.8-7.7) Lymphocytes # (Auto) 1.5 x10^3/uL (1.0-4.8) Monocytes # (Auto) 1.7 x10^3/uL (0.0-1.1) Eosinophils # (Auto) 0.1 x10^3/uL (0.0-0.7) Basophils # (Auto) 0.2 x10^3/uL (0.0-0.2) Segmented Neutrophils % 83 % (35-66) Band Neutrophils % 3 % (0-9) Lymphocytes % 10 % (24-48) Monocytes % 3 % (0-10) Eosinophils % 1 % (0-5) Platelet Estimate Adequate (ADEQUATE) Polychromasia Slight Sodium Level 133 mmol/L (136-145) 136 mmol/L (136-145) Potassium Level 4.7 mmol/L (3.5-5.1) 5.1 mmol/L (3.5-5.1) Chloride Level 98 mmol/L (98-107) 105 mmol/L (98-107) Carbon Dioxide Level 26 mmol/L (21-32) 22 mmol/L (21-32) Anion Gap 9 (6-14) 9 (6-14) Blood Urea Nitrogen 17 mg/dL (7-20) 17 mg/dL (7-20) Creatinine 0.8 mg/dL (0.6-1.0) 0.8 mg/dL (0.6-1.0) Estimated GFR (Cockcroft-Gault) 71.1 71.1 Glucose Level 178 mg/dL (70-99) 168 mg/dL (70-99) Calcium Level 8.4 mg/dL (8.5-10.1) 8.6 mg/dL (8.5-10.1) Prothrombin Time 14.9 SEC (11.7-14.0) 16.0 SEC (11.7-14.0) Prothromb Time International Ratio 1.2 (0.8-1.1) 1.3 (0.8-1.1) Activated Partial Thromboplast Time 25 SEC (24-38) 27 SEC (24-38) Magnesium Level 1.3 mg/dL (1.8-2.4) Ionized Calcium 1.27 mmol/L (1.13-1.32) Test 11/28/20 04:30 White Blood Count 19.0 x10^3/uL (4.0-11.0) Red Blood Count 2.54 x10^6/uL (3.50-5.40) Hemoglobin 7.8 g/dL (12.0-15.5) Hematocrit 23.7 % (36.0-47.0) Mean Corpuscular Volume 94 fL (79-100) Mean Corpuscular Hemoglobin 31 pg (25-35) Mean Corpuscular Hemoglobin Concent 33 g/dL (31-37) Red Cell Distribution Width 15.1 % (11.5-14.5) Platelet Count 253 x10^3/uL (140-400) Neutrophils (%) (Auto) 80 % (31-73) Lymphocytes (%) (Auto) 9 % (24-48) Monocytes (%) (Auto) 10 % (0-9) Eosinophils (%) (Auto) 0 % (0-3) Basophils (%) (Auto) 0 % (0-3) Neutrophils # (Auto) 15.3 x10^3/uL (1.8-7.7) Lymphocytes # (Auto) 1.8 x10^3/uL (1.0-4.8) Monocytes # (Auto) 1.9 x10^3/uL (0.0-1.1) Eosinophils # (Auto) 0.0 x10^3/uL (0.0-0.7) Basophils # (Auto) 0.1 x10^3/uL (0.0-0.2) Sodium Level 136 mmol/L (136-145) Potassium Level 4.3 mmol/L (3.5-5.1) Chloride Level 105 mmol/L (98-107) Carbon Dioxide Level 21 mmol/L (21-32) Anion Gap 10 (6-14) Blood Urea Nitrogen 19 mg/dL (7-20) Creatinine 0.7 mg/dL (0.6-1.0) Estimated GFR (Cockcroft-Gault) 83.0 BUN/Creatinine Ratio 27 (6-20) Glucose Level 120 mg/dL (70-99) Calcium Level 8.2 mg/dL (8.5-10.1) Phosphorus Level 4.4 mg/dL (2.6-4.7) Magnesium Level 2.2 mg/dL (1.8-2.4) Total Bilirubin 0.8 mg/dL (0.2-1.0) Aspartate Amino Transf (AST/SGOT) 12 U/L (15-37) Alanine Aminotransferase (ALT/SGPT) 9 U/L (14-59) Alkaline Phosphatase 50 U/L (46-116) Total Protein 4.2 g/dL (6.4-8.2) Albumin 1.9 g/dL (3.4-5.0) Albumin/Globulin Ratio 0.8 (1.0-1.7) Medications Current Medications Sodium Chloride 500 ml @ 500 mls/hr 1X ONCE IV Last administered on 11/27/20at 18:52; Start 11/27/20 at 18:00; Stop 11/27/20 at 18:59; Status DC Ondansetron HCl (Zofran) 4 mg 1X ONCE IV Last administered on 11/27/20at 18:50; Start 11/27/20 at 18:15; Stop 11/27/20 at 18:16; Status DC Fentanyl Citrate (Fentanyl 2ml Vial) 50 mcg 1X ONCE IV Last administered on 11/27/20at 18:52; Start 11/27/20 at 18:15; Stop 11/27/20 at 18:16; Status DC Lidocaine HCl (Lidocaine Pf 2% Vial) 5 ml STK-MED ONCE .ROUTE ; Start 11/27/20 at 19:11; Stop 11/27/20 at 19:11; Status DC Propofol (Diprivan) 200 mg STK-MED ONCE IV ; Start 11/27/20 at 19:11; Stop 11/27/20 at 19:11; Status DC Phenylephrine HCl (PHENYLEPHRINE in 0.9% NACL PF) 1 mg STK-MED ONCE IV ; Start 11/27/20 at 19:11; Stop 11/27/20 at 19:11; Status DC Rocuronium [place] (Zemuron) 50 mg STK-MED ONCE .ROUTE ; Start 11/27/20 at 19:11; Stop 11/27/20 at 19:11; Status DC Heparin Sodium (Porcine) 5000 unit/Sodium Chloride 505 ml @ 505 mls/hr 1X ONCE IRR Last administered on 11/27/20at 19:55; Start 11/27/20 at 20:00; Stop 11/27/20 at 20:59; Status DC Cellulose (Surgicel Fibrillar 1x2) 1 each STK-MED ONCE .ROUTE Last administered on 11/27/20at 19:55; Start 11/27/20 at 19:29; Stop 11/27/20 at 19:30; Status DC Cefazolin Sodium (Ancef) 1 gm STK-MED ONCE IVP ; Start 11/27/20 at 19:38; Stop 11/27/20 at 19:38; Status DC Fentanyl Citrate (Fentanyl 2ml Vial) 25 mcg PRN Q5MIN PRN IVP MILD PAIN 1-3; Start 11/27/20 at 20:15; Stop 11/28/20 at 20:14 Fentanyl Citrate (Fentanyl 2ml Vial) 50 mcg PRN Q5MIN PRN IVP MODERATE PAIN 4- 6; Start 11/27/20 at 20:15; Stop 11/28/20 at 20:14 Morphine Sulfate (Morphine Sulfate) 1 mg PRN Q10MIN PRN IVP SEVERE PAIN 7-10; Start 11/27/20 at 20:15; Stop 11/28/20 at 20:14 Ringer's Solution 1,000 ml @ 30 mls/hr Q24H IV ; Start 11/27/20 at 20:15; Stop 11/28/20 at 08:14; Status DC Hydromorphone HCl (Dilaudid) 0.5 mg PRN Q10MIN PRN IVP SEVERE PAIN 7-10, 2nd CHOICE; Start 11/27/20 at 20:15; Stop 11/28/20 at 20:14 Prochlorperazine Edisylate (Compazine) 5 mg PACU PRN PRN IVP NAUSEA, MRX1; Start 11/27/20 at 20:15; Stop 11/28/20 at 20:14 Heparin Sodium (Porcine) (Heparin Sodium) 10,000 unit STK-MED ONCE .ROUTE ; Start 11/27/20 at 20:07; Stop 11/27/20 at 20:07; Status DC Heparin Sodium (Porcine) (Heparin Sodium) 10,000 unit STK-MED ONCE .ROUTE ; Start 11/27/20 at 20:10; Stop 11/27/20 at 20:10; Status DC Fentanyl Citrate (Fentanyl 2ml Vial) 100 mcg STK-MED ONCE .ROUTE ; Start 11/27/20 at 20:11; Stop 11/27/20 at 20:12; Status DC Propofol (Diprivan) 200 mg STK-MED ONCE IV ; Start 11/27/20 at 20:13; Stop 11/27/20 at 20:14; Status DC Protamine Sulfate (Protamine) 50 mg STK-MED ONCE IV ; Start 11/27/20 at 20:44; Stop 11/27/20 at 20:44; Status DC Sevoflurane (Ultane) 60 ml STK-MED ONCE IH ; Start 11/27/20 at 20:44; Stop 11/27/20 at 20:44; Status DC Olanzapine (ZyPREXA ZYDIS) 5 mg PRN BID PRN PO ANXIETY / AGITATION; Start 11/27/20 at 22:00 Acetaminophen (Tylenol) 650 mg PRN Q6HRS PRN PO MILD PAIN / TEMP > 100.3'F; Start 11/27/20 at 22:00 Ondansetron HCl (Zofran) 4 mg PRN Q4HRS PRN IVP NAUSEA/VOMITING; Start 11/27/20 at 22:00 Hydralazine HCl (Apresoline Inj) 20 mg STK-MED ONCE .ROUTE ; Start 11/27/20 at 21:56; Stop 11/27/20 at 21:56; Status DC Fentanyl Citrate (Fentanyl 2ml Vial) 25 mcg PRN Q2HR PRN IVP PAIN; Start 11/27/20 at 22:00 Carvedilol (Coreg) 3.125 mg BIDWMEALS PO ; Start 11/28/20 at 08:00 Gabapentin (Neurontin) 300 mg HS PO ; Start 11/27/20 at 22:15 Pantoprazole Sodium (Protonix) 40 mg DAILYAC PO ; Start 11/28/20 at 07:30 Zolpidem Tartrate (Ambien) 5 mg PRN QHS PRN PO INSOMNIA; Start 11/27/20 at 22:15 Folic Acid (Folic Acid) 1 mg DAILY PO ; Start 11/28/20 at 09:00 Aspirin (Aspirin Chewable) 81 mg DAILY08 PO ; Start 11/28/20 at 08:00 Vitamin D (Vitamin D3) 5,000 unit DAILY PO ; Start 11/28/20 at 09:00 Clopidogrel Bisulfate (Plavix) 75 mg DAILY08 PO ; Start 11/28/20 at 08:00 Sodium Chloride 1,000 ml @ 100 mls/hr Q10H IV Last administered on 11/27/20at 23:34; Start 11/27/20 at 22:45 Acetaminophen/ Hydrocodone Bitart (Lortab 5/325) 1 tab PRN Q4HRS PRN PO PAIN MILD TO MODERATE Last administered on 11/27/20at 23:39; Start 11/27/20 at 22:45 Acetaminophen/ Hydrocodone Bitart (Lortab 5/325) 2 tab PRN Q4HRS PRN PO PAIN SEVERE; Start 11/27/20 at 22:45 Albumin Human 500 ml @ 125 mls/hr PRN DAILY PRN IV Hypotension; Start 11/27/20 at 23:00 Magnesium Sulfate 50 ml @ 25 mls/hr 1X ONCE IV Last administered on 11/28/20at 02:15; Start 11/28/20 at 01:45; Stop 11/28/20 at 03:44; Status DC Cefazolin Sodium/ Dextrose 50 ml @ 100 mls/hr Q8HRS IV Last administered on 11/28/20at 06:11; Start 11/28/20 at 06:00 Active Scripts Active Reported Vitamin D3 (Vitamin D) 125 Mcg Capsule 125 Mcg PO DAILY 5,000 UNITS = 125 MCG Methotrexate (Methotrexate Sodium) 2.5 Mg Tablet 4 Tab PO WEEKLY Ambien (Zolpidem Tartrate) 5 Mg Tablet 5 Mg PO PRN QHS PRN Gabapentin (Gabapentin) 300 Mg Capsule 300 Mg PO HS Protonix (Pantoprazole Sodium) 40 Mg Tablet.dr 40 Mg PO DAILYAC Folic Acid 0.4 Mg Tablet 0.4 Mg PO DAILY Aspirin 81 Mg Tab.chew 1 Tab PO DAILY Clopidogrel (Clopidogrel Bisulfate) 75 Mg Tablet 1 Tab PO DAILY Coreg (Carvedilol) 6.25 Mg Tablet 6.25 Mg PO BIDWMEALS Vitals/I & O Vital Sign - Last 24 Hours 11/27/20 11/27/20 11/27/20 11/27/20 17:03 18:29 18:39 18:49 Temp 98.9 98.9 Pulse 80 85 85 93 Resp 24 23 23 23 B/P (MAP) 141/70 (93) 101/55 (70) 115/58 (77) 109/59 (76) Pulse Ox 98 98 98 99 O2 Delivery Room Air Room Air Room Air Room Air 11/27/20 11/27/20 11/27/20 11/27/20 18:52 18:59 19:00 19:10 Pulse 91 84 88 Resp 16 22 20 22 B/P (MAP) 110/56 (74) 112/56 (74) 125/55 (78) Pulse Ox 94 98 98 97 O2 Delivery Room Air Room Air Room Air Room Air 11/27/20 11/27/20 11/27/20 11/27/20 19:20 19:30 19:30 19:30 Temp 98.0 98.0 Pulse 88 88 90 Resp 21 24 18 20 B/P (MAP) 137/61 (86) 137/61 143/65 (91) Pulse Ox 100 99 O2 Delivery Room Air Room Air 11/27/20 11/27/20 11/27/20 11/27/20 19:35 19:35 21:38 21:50 Temp 98.3 97.4 98.3 97.4 Pulse 87 87 95 Resp 20 18 20 B/P (MAP) 149/66 (93) 149/66 140/66 Pulse Ox 99 95 O2 Delivery Room Air Simple Mask Mask O2 Flow Rate 6 6 11/27/20 11/27/20 11/27/20 11/27/20 21:57 22:12 22:33 22:48 Temp 97.4 97.4 97.4 97.4 97.4 97.4 Pulse 87 90 94 95 Resp 21 23 20 B/P (MAP) 90/55 136/38 127/44 124/38 Pulse Ox 95 100 95 99 O2 Delivery Simple Mask Simple Mask Room Air Room Air O2 Flow Rate 6 6 11/27/20 11/28/20 11/28/20 11/28/20 23:39 00:00 00:00 00:10 Temp 98.0 98.0 Pulse 94 Resp 22 22 16 B/P (MAP) 113/55 (74) Pulse Ox 97 97 O2 Delivery Room Air Room Air Room Air Room Air 11/28/20 11/28/20 11/28/20 11/28/20 01:00 02:00 03:00 04:00 Temp 98.9 98.9 Pulse 89 90 88 88 Resp 16 14 14 16 B/P (MAP) 109/52 (71) 102/49 (66) 102/44 (63) 93/44 (60) Pulse Ox 97 96 98 97 O2 Delivery Room Air Room Air Room Air Room Air 11/28/20 11/28/20 11/28/20 11/28/20 04:00 05:00 06:00 07:00 Pulse 82 80 74 Resp 14 12 15 B/P (MAP) 98/44 (62) 101/40 (60) 91/40 (57) Pulse Ox 95 96 94 O2 Delivery Room Air Room Air Room Air Room Air Intake and Output 11/27/20 11/27/20 11/28/20 15:00 23:00 07:00 Intake Total 2350 ml 2782 ml Output Total 150 ml 560 ml Balance 2200 ml 2222 ml Justicifation of Admission Dx: Justifications for Admission: Justification of Admission Dx: Yes Comments: psuedoaneurysm,. acute blood loss anemia MYNOR FIELDS MD November 28, 2020 08:33
[2020-11-28] MEDS: CLOPIDOGREL BISULFATE 75 MG TABLET PO SCH (09:18)
[2020-11-28] MEDS: ASPIRIN CHEWABLE 81 MG TABLET. PO SCH (09:18)
[2020-11-28] MEDS: CHOLECALCIFEROL (VITAMIN D3) 5,000 UNIT CAPSULE PO SCH (09:18)
[2020-11-28] MEDS: PANTOPRAZOLE 40 MG TABLET.DR. PO SCH (09:18)
[2020-11-28] MEDS: FOLIC ACID 1 MG TABLET. PO SCH (09:18)
[2020-11-28] MEDS: IV NORMAL SALINE 1000ML BAG 1,000 ML IV SCH ×2 (09:29→20:42)
[2020-11-28 09:38] LABS: BILIRUBIN,URINE NEGATIVE (NEG); CLARITY,URINE CLEAR; COLOR,URINE AMBER; NITRITE,URINE NEGATIVE (NEG); PROTEIN,URINE NEGATIVE (NEG-TRACE)
[2020-11-28 09:56] LABS: HYALINE CASTS, URINE OCCASIONAL /HPF
[2020-11-28 09:57] LABS: BACTERIA,URINE FEW /HPF (0-FEW); RBC,URINE 0 /HPF (0-2)
[2020-11-28] MEDS ORDERED: POTASSIUM CHLORIDE 10MEQ 100 ML IV SCH (11:00)
[2020-11-28] MEDS ORDERED: POTASSIUM CHLORIDE 20MEQ 100 ML IV SCH ×2 (11:00)
[2020-11-28] MEDS ORDERED: ELECTROLYTE (ICU) PROTOCOL. MC PRN (11:00)
[2020-11-28] MEDS ORDERED: POTASSIUM CHLORIDE 20 MEQ TABLET.ER. PO ONE (11:00)
[2020-11-28] MEDS ORDERED: POTASSIUM BICARB 10 MEQ EFFERVESCENT TABLET. PO ONE (11:00)
[2020-11-28] MEDS ORDERED: ALBUTEROL SULFATE 2.5 MG/3 ML NEBU. NEB PRN (11:15)
[2020-11-28] MEDS ORDERED: IPRATRPIUM/ALBUTEROL 0.5/2.5MG 3 ML NEBU. NEB SCH (12:00)
[2020-11-28] MEDS ORDERED: PIP/TAZO PER PHARMACY MC PRN (12:15)
[2020-11-28] MEDS: PIPERACILLIN/TAZOBACTAM 3.375 GM in IV NORMAL SALINE 50ML 50 ML IV SCH ×3 (12:25→23:43)
[2020-11-28 14:51] LABS: BASO % 0 % (0-3); EOS # 0.1 x10^3/uL (0.0-0.7); EOS % 0 % (0-3); HEMATOCRIT 21.6 % (36.0-47.0); HEMOGLOBIN 7.1 g/dL (12.0-15.5); LYMPH # 1.6 x10^3/uL (1.0-4.8); LYMPH % 10 % (24-48); MEAN CORPUSCULAR HEMOGLOBIN 31 pg (25-35); MEAN CORPUSCULAR HGB CONC 33 g/dL (31-37); MEAN CORPUSCULAR VOLUME 93 fL (79-100); MONO # 1.5 x10^3/uL (0.0-1.1); MONO % 9 % (0-9); NEUT # 12.4 x10^3/uL (1.8-7.7); NEUT % 80 % (31-73); PLATELET COUNT 284 x10^3/uL (140-400); RED BLOOD COUNT 2.32 x10^6/uL (3.50-5.40); RED CELL DISTRIBUTION WIDTH 15.4 % (11.5-14.5); WHITE BLOOD COUNT 15.6 x10^3/uL (4.0-11.0)
--- NOTE | 2020-11-28 15:10 | PDOC2 ---
CONSULT Date of Consult Date of Consult DATE: 11/28/20 TIME: 15:03 Reason for Consult Reason for Consult: Possible heart failure. Referring Physician Referring Physician: Dr. Coker Identification/Chief Complaint Chief Complaint Right leg pain Source Source: Caregiver, Chart review, Patient History of Present Illness Reason for Visit: The patient is a 70-year-old female who presented to the emergency room last evening with right groin swelling and pain. She is status post treatment with TPA on [id number] for right-sided weakness. 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 The patient has been undergoing rehab but developed the right groin swelling and pain last evening. Upon evaluation the patient was found to have a right femoral arterial pseudoaneurysm and underwent emergency surgery receiving a bovine pericardial patch. An initial testing patient was severely anemic with H&H of 6.3 and 18.9. She has received multiple transfusion both intra and postop and is now at 7.1 and 21.6. This morning she is more alert by her 's report. Her pain has greatly diminished. She is being closely monitored for her anemia. The patient reportedly has a history of hypertension, hyperlipidemia, gastroesophageal reflux disease and possibly mild heart failure. She is in a sinus rhythm and her blood pressure has improved. Past Medical History Cardiovascular: HTN, Hyperlipidemia, Other (Left MCA vessel occlusion as above) CENTRAL NERVOUS SYSTEM: CVA GI: GERD Rheumatologic: Rheumatoid arthritis Past Surgical History Past Surgical History: Other (Initial treatment at [facility] as above with emergency pseudoaneurysm repair last night) Family History Family History: High Cholestrol Social History No ALCOHOL: none Drugs: None Current Problem List Problem List Problems Medical Problems: (1) Femoral artery pseudo-aneurysm, right Status: Acute (2) Pseudoaneurysm of femoral artery following procedure Status: Acute Current Medications Current Medications Current Medications Sodium Chloride 500 ml @ 500 mls/hr 1X ONCE IV Last administered on 11/27/20at 18:52; Start 11/27/20 at 18:00; Stop 11/27/20 at 18:59; Status DC Ondansetron HCl (Zofran) 4 mg 1X ONCE IV Last administered on 11/27/20at 18:50; Start 11/27/20 at 18:15; Stop 11/27/20 at 18:16; Status DC Fentanyl Citrate (Fentanyl 2ml Vial) 50 mcg 1X ONCE IV Last administered on 11/27/20at 18:52; Start 11/27/20 at 18:15; Stop 11/27/20 at 18:16; Status DC Lidocaine HCl (Lidocaine Pf 2% Vial) 5 ml STK-MED ONCE .ROUTE ; Start 11/27/20 at 19:11; Stop 11/27/20 at 19:11; Status DC Propofol (Diprivan) 200 mg STK-MED ONCE IV ; Start 11/27/20 at 19:11; Stop 11/27/20 at 19:11; Status DC Phenylephrine HCl (PHENYLEPHRINE in 0.9% NACL PF) 1 mg STK-MED ONCE IV ; Start 11/27/20 at 19:11; Stop 11/27/20 at 19:11; Status DC Rocuronium Goldonna (Zemuron) 50 mg STK-MED ONCE .ROUTE ; Start 11/27/20 at 19:11; Stop 11/27/20 at 19:11; Status DC Heparin Sodium (Porcine) 5000 unit/Sodium Chloride 505 ml @ 505 mls/hr 1X ONCE IRR Last administered on 11/27/20at 19:55; Start 11/27/20 at 20:00; Stop 11/27/20 at 20:59; Status DC Cellulose (Surgicel Fibrillar 1x2) 1 each STK-MED ONCE .ROUTE Last administered on 11/27/20at 19:55; Start 11/27/20 at 19:29; Stop 11/27/20 at 19:30; Status DC Cefazolin Sodium (Ancef) 1 gm STK-MED ONCE IVP ; Start 11/27/20 at 19:38; Stop 11/27/20 at 19:38; Status DC Fentanyl Citrate (Fentanyl 2ml Vial) 25 mcg PRN Q5MIN PRN IVP MILD PAIN 1-3; Start 11/27/20 at 20:15; Stop 11/28/20 at 20:14 Fentanyl Citrate (Fentanyl 2ml Vial) 50 mcg PRN Q5MIN PRN IVP MODERATE PAIN 4- 6; Start 11/27/20 at 20:15; Stop 11/28/20 at 20:14 Morphine Sulfate (Morphine Sulfate) 1 mg PRN Q10MIN PRN IVP SEVERE PAIN 7-10; Start 11/27/20 at 20:15; Stop 11/28/20 at 20:14 Ringer's Solution 1,000 ml @ 30 mls/hr Q24H IV ; Start 11/27/20 at 20:15; Stop 11/28/20 at 08:14; Status DC Hydromorphone HCl (Dilaudid) 0.5 mg PRN Q10MIN PRN IVP SEVERE PAIN 7-10, 2nd CHOICE; Start 11/27/20 at 20:15; Stop 11/28/20 at 20:14 Prochlorperazine Edisylate (Compazine) 5 mg PACU PRN PRN IVP NAUSEA, MRX1; Start 11/27/20 at 20:15; Stop 11/28/20 at 20:14 Heparin Sodium (Porcine) (Heparin Sodium) 10,000 unit STK-MED ONCE .ROUTE ; Start 11/27/20 at 20:07; Stop 11/27/20 at 20:07; Status DC Heparin Sodium (Porcine) (Heparin Sodium) 10,000 unit STK-MED ONCE .ROUTE ; Start 11/27/20 at 20:10; Stop 11/27/20 at 20:10; Status DC Fentanyl Citrate (Fentanyl 2ml Vial) 100 mcg STK-MED ONCE .ROUTE ; Start 11/27/20 at 20:11; Stop 11/27/20 at 20:12; Status DC Propofol (Diprivan) 200 mg STK-MED ONCE IV ; Start 11/27/20 at 20:13; Stop 11/27/20 at 20:14; Status DC Protamine Sulfate (Protamine) 50 mg STK-MED ONCE IV ; Start 11/27/20 at 20:44; Stop 11/27/20 at 20:44; Status DC Sevoflurane (Ultane) 60 ml STK-MED ONCE IH ; Start 11/27/20 at 20:44; Stop 11/27/20 at 20:44; Status DC Olanzapine (ZyPREXA ZYDIS) 5 mg PRN BID PRN PO ANXIETY / AGITATION; Start 11/27/20 at 22:00 Acetaminophen (Tylenol) 650 mg PRN Q6HRS PRN PO MILD PAIN / TEMP > 100.3'F; Start 11/27/20 at 22:00 Ondansetron HCl (Zofran) 4 mg PRN Q4HRS PRN IVP NAUSEA/VOMITING; Start 11/27/20 at 22:00 Hydralazine HCl (Apresoline Inj) 20 mg STK-MED ONCE .ROUTE ; Start 11/27/20 at 21:56; Stop 11/27/20 at 21:56; Status DC Fentanyl Citrate (Fentanyl 2ml Vial) 25 mcg PRN Q2HR PRN IVP PAIN; Start 11/27/20 at 22:00 Carvedilol (Coreg) 3.125 mg BIDWMEALS PO ; Start 11/28/20 at 08:00 Gabapentin (Neurontin) 300 mg HS PO ; Start 11/27/20 at 22:15 Pantoprazole Sodium (Protonix) 40 mg DAILYAC PO Last administered on 11/28/20at 09:18; Start 11/28/20 at 07:30 Zolpidem Tartrate (Ambien) 5 mg PRN QHS PRN PO INSOMNIA; Start 11/27/20 at 22:15 Folic Acid (Folic Acid) 1 mg DAILY PO Last administered on 11/28/20at 09:18; Start 11/28/20 at 09:00 Aspirin (Aspirin Chewable) 81 mg DAILY08 PO Last administered on 11/28/20at 09:18; Start 11/28/20 at 08:00 Vitamin D (Vitamin D3) 5,000 unit DAILY PO Last administered on 11/28/20at 09:18; Start 11/28/20 at 09:00 Clopidogrel Bisulfate (Plavix) 75 mg DAILY08 PO Last administered on 11/28/20at 09:18; Start 11/28/20 at 08:00 Sodium Chloride 1,000 ml @ 80 mls/hr [id number] IV Last administered on 11/28/20at 09:29; Start 11/27/20 at 22:45 Acetaminophen/ Hydrocodone Bitart (Lortab 5/325) 1 tab PRN Q4HRS PRN PO PAIN MILD TO MODERATE Last administered on 11/27/20at 23:39; Start 11/27/20 at 22:45 Acetaminophen/ Hydrocodone Bitart (Lortab 5/325) 2 tab PRN Q4HRS PRN PO PAIN SEVERE; Start 11/27/20 at 22:45 Albumin Human 500 ml @ 125 mls/hr PRN DAILY PRN IV Hypotension; Start 11/27/20 at 23:00 Magnesium Sulfate 50 ml @ 25 mls/hr 1X ONCE IV Last administered on 11/28/20at 02:15; Start 11/28/20 at 01:45; Stop 11/28/20 at 03:44; Status DC Cefazolin Sodium/ Dextrose 50 ml @ 100 mls/hr Q8HRS IV Last administered on 11/28/20at 06:11; Start 11/28/20 at 06:00; Stop 11/28/20 at 12:08; Status DC Albuterol/ Ipratropium (Duoneb) 3 ml RTQID NEB ; Start 11/28/20 at 12:00; Stop 11/28/20 at 10:59; Status DC Potassium Chloride (Klor-Con) 40 meq 1X ONCE PO ; Start 11/28/20 at 11:00; Stop 11/28/20 at 11:01; Status UNV Potassium Bicarbonate (Potassium Effervescent Tablet) 40 meq 1X ONCE PO ; Start 11/28/20 at 11:00; Stop 11/28/20 at 11:01; Status UNV Potassium Chloride/Water 100 ml @ 100 mls/hr Q1H IV ; Start 11/28/20 at 11:00; Stop 11/28/20 at 12:59; Status UNV Potassium Chloride/Water 100 ml @ 100 mls/hr Q1H IV ; Start 11/28/20 at 11:00; Stop 11/28/20 at 18:59; Status UNV Potassium Chloride/Water 100 ml @ 100 mls/hr Q1HR IV ; Start 11/28/20 at 11:00; Stop 11/28/20 at 16:59; Status UNV Magnesium Sulfate 100 ml @ 50 mls/hr DAILY IV ; Start 11/29/20 at 09:00; Stop 12/02/20 at 08:59; Status UNV Potassium Phos/ Sodium Phos (Phos-Nak) 1 pkt BID PO ; Start 11/28/20 at 21:00; Stop 11/29/20 at 09:01; Status UNV Albuterol Sulfate (Ventolin Neb Soln) 2.5 mg PRN QID PRN NEB SHORTNESS OF BREATH; Start 11/28/20 at 11:15 Info (Icu Electrolyte Protocol) 1 ea CONT PRN PRN MC SEE COMMENTS; Start 11/28/20 at 11:00 Piperacillin Sod/ Tazobactam Sod (Zosyn Per Pharmacy) 1 each PRN DAILY PRN MC SEE COMMENTS; Start 11/28/20 at 12:15 Piperacillin Sod/ Tazobactam Sod 3.375 gm/Sodium Chloride 50 ml @ 100 mls/hr Q6HRS IV Last administered on 11/28/20at 12:25; Start 11/28/20 at 12:30 Active Scripts Active Reported Vitamin D3 (Vitamin D) 125 Mcg Capsule 125 Mcg PO DAILY 5,000 UNITS = 125 MCG Methotrexate (Methotrexate Sodium) 2.5 Mg Tablet 4 Tab PO WEEKLY Ambien (Zolpidem Tartrate) 5 Mg Tablet 5 Mg PO PRN QHS PRN Gabapentin (Gabapentin) 300 Mg Capsule 300 Mg PO HS Protonix (Pantoprazole Sodium) 40 Mg Tablet.dr 40 Mg PO DAILYAC Folic Acid 0.4 Mg Tablet 0.4 Mg PO DAILY Aspirin 81 Mg Tab.chew 1 Tab PO DAILY Clopidogrel (Clopidogrel Bisulfate) 75 Mg Tablet 1 Tab PO DAILY Coreg (Carvedilol) 6.25 Mg Tablet 6.25 Mg PO BIDWMEALS Allergies Allergies: Coded Allergies: No Known Drug Allergies (Unverified , 11/19/20) ROS General: YES: Fatigue Cardiovascular: yes Other (Improving leg pain) Physical Exam General: mild distress HEENT: Atraumatic Lungs: Clear to auscultation Heart: Regular rate Abdomen: Normal bowel sounds Vitals VITALS Vital Signs Date Time Temp Pulse Resp B/P (MAP) Pulse Ox O2 Delivery O2 Flow Rate FiO2 11/28/20 14:00 91 17 93/41 (58) 99 Room Air 11/28/20 12:00 98.7 98.7 11/27/20 22:12 6 Labs Labs Laboratory Tests Test 11/27/20 18:35 11/27/20 18:58 11/27/20 22:25 11/27/20 23:00 White Blood Count 19.2 x10^3/uL (4.0-11.0) 27.1 x10^3/uL (4.0-11.0) Red Blood Count 2.00 x10^6/uL (3.50-5.40) 2.97 x10^6/uL (3.50-5.40) Hemoglobin 6.3 g/dL (12.0-15.5) 9.3 g/dL (12.0-15.5) Hematocrit 18.9 % (36.0-47.0) 27.8 % (36.0-47.0) Mean Corpuscular Volume 95 fL (79-100) 94 fL (79-100) Mean Corpuscular Hemoglobin 32 pg (25-35) 31 pg (25-35) Mean Corpuscular Hemoglobin Concent 33 g/dL (31-37) 33 g/dL (31-37) Red Cell Distribution Width 15.8 % (11.5-14.5) 15.0 % (11.5-14.5) Platelet Count 367 x10^3/uL (140-400) 263 x10^3/uL (140-400) Neutrophils (%) (Auto) 82 % (31-73) Lymphocytes (%) (Auto) 8 % (24-48) Monocytes (%) (Auto) 9 % (0-9) Eosinophils (%) (Auto) 0 % (0-3) Basophils (%) (Auto) 1 % (0-3) Neutrophils # (Auto) 15.7 x10^3/uL (1.8-7.7) Lymphocytes # (Auto) 1.5 x10^3/uL (1.0-4.8) Monocytes # (Auto) 1.7 x10^3/uL (0.0-1.1) Eosinophils # (Auto) 0.1 x10^3/uL (0.0-0.7) Basophils # (Auto) 0.2 x10^3/uL (0.0-0.2) Segmented Neutrophils % 83 % (35-66) Band Neutrophils % 3 % (0-9) Lymphocytes % 10 % (24-48) Monocytes % 3 % (0-10) Eosinophils % 1 % (0-5) Platelet Estimate Adequate (ADEQUATE) Polychromasia Slight Sodium Level 133 mmol/L (136-145) 136 mmol/L (136-145) Potassium Level 4.7 mmol/L (3.5-5.1) 5.1 mmol/L (3.5-5.1) Chloride Level 98 mmol/L (98-107) 105 mmol/L (98-107) Carbon Dioxide Level 26 mmol/L (21-32) 22 mmol/L (21-32) Anion Gap 9 (6-14) 9 (6-14) Blood Urea Nitrogen 17 mg/dL (7-20) 17 mg/dL (7-20) Creatinine 0.8 mg/dL (0.6-1.0) 0.8 mg/dL (0.6-1.0) Estimated GFR (Cockcroft-Gault) 71.1 71.1 Glucose Level 178 mg/dL (70-99) 168 mg/dL (70-99) Calcium Level 8.4 mg/dL (8.5-10.1) 8.6 mg/dL (8.5-10.1) Prothrombin Time 14.9 SEC (11.7-14.0) 16.0 SEC (11.7-14.0) Prothromb Time International Ratio 1.2 (0.8-1.1) 1.3 (0.8-1.1) Activated Partial Thromboplast Time 25 SEC (24-38) 27 SEC (24-38) Magnesium Level 1.3 mg/dL (1.8-2.4) Ionized Calcium 1.27 mmol/L (1.13-1.32) Test 11/28/20 04:30 11/28/20 09:30 11/28/20 14:25 White Blood Count 19.0 x10^3/uL (4.0-11.0) 15.6 x10^3/uL (4.0-11.0) Red Blood Count 2.54 x10^6/uL (3.50-5.40) 2.32 x10^6/uL (3.50-5.40) Hemoglobin 7.8 g/dL (12.0-15.5) 7.1 g/dL (12.0-15.5) Hematocrit 23.7 % (36.0-47.0) 21.6 % (36.0-47.0) Mean Corpuscular Volume 94 fL (79-100) 93 fL (79-100) Mean Corpuscular Hemoglobin 31 pg (25-35) 31 pg (25-35) Mean Corpuscular Hemoglobin Concent 33 g/dL (31-37) 33 g/dL (31-37) Red Cell Distribution Width 15.1 % (11.5-14.5) 15.4 % (11.5-14.5) Platelet Count 253 x10^3/uL (140-400) 284 x10^3/uL (140-400) Neutrophils (%) (Auto) 80 % (31-73) 80 % (31-73) Lymphocytes (%) (Auto) 9 % (24-48) 10 % (24-48) Monocytes (%) (Auto) 10 % (0-9) 9 % (0-9) Eosinophils (%) (Auto) 0 % (0-3) 0 % (0-3) Basophils (%) (Auto) 0 % (0-3) 0 % (0-3) Neutrophils # (Auto) 15.3 x10^3/uL (1.8-7.7) 12.4 x10^3/uL (1.8-7.7) Lymphocytes # (Auto) 1.8 x10^3/uL (1.0-4.8) 1.6 x10^3/uL (1.0-4.8) Monocytes # (Auto) 1.9 x10^3/uL (0.0-1.1) 1.5 x10^3/uL (0.0-1.1) Eosinophils # (Auto) 0.0 x10^3/uL (0.0-0.7) 0.1 x10^3/uL (0.0-0.7) Basophils # (Auto) 0.1 x10^3/uL (0.0-0.2) 0.0 x10^3/uL (0.0-0.2) Sodium Level 136 mmol/L (136-145) Potassium Level 4.3 mmol/L (3.5-5.1) Chloride Level 105 mmol/L (98-107) Carbon Dioxide Level 21 mmol/L (21-32) Anion Gap 10 (6-14) Blood Urea Nitrogen 19 mg/dL (7-20) Creatinine 0.7 mg/dL (0.6-1.0) Estimated GFR (Cockcroft-Gault) 83.0 BUN/Creatinine Ratio 27 (6-20) Glucose Level 120 mg/dL (70-99) Calcium Level 8.2 mg/dL (8.5-10.1) Phosphorus Level 4.4 mg/dL (2.6-4.7) Magnesium Level 2.2 mg/dL (1.8-2.4) Total Bilirubin 0.8 mg/dL (0.2-1.0) Aspartate Amino Transf (AST/SGOT) 12 U/L (15-37) Alanine Aminotransferase (ALT/SGPT) 9 U/L (14-59) Alkaline Phosphatase 50 U/L (46-116) C-Reactive Protein, Quantitative 68.2 mg/L (0-3.3) DD-Ref-C-Type Natriuretic Peptide 327 pg/mL (0-124) Total Protein 4.2 g/dL (6.4-8.2) Albumin 1.9 g/dL (3.4-5.0) Albumin/Globulin Ratio 0.8 (1.0-1.7) Procalcitonin < 0.10 ng/mL (0.00-0.10) Urine Collection Type Unknown Urine Color Joy Urine Clarity Clear Urine pH 6.0 (<5.0-8.0) Urine Specific [place] >=1.030 (1.000-1.030) Urine Protein Negative mg/dL (NEG-TRACE) Urine Glucose (UA) Negative mg/dL (NEG) Urine Ketones (Stick) Negative mg/dL (NEG) Urine Blood Negative (NEG) Urine Nitrite Negative (NEG) Urine Bilirubin Negative (NEG) Urine Urobilinogen Dipstick 1.0 mg/dL (0.2 mg/dL) Urine Leukocyte Esterase Trace (NEG) Urine RBC 0 /HPF (0-2) Urine WBC 11-20 /HPF (0-4) Urine Squamous Epithelial Cells Mod /LPF Urine Bacteria Few /HPF (0-FEW) Urine Hyaline Casts Occasional /HPF Laboratory Tests Test 11/27/20 18:35 11/27/20 18:58 11/27/20 22:25 11/27/20 23:00 White Blood Count 19.2 x10^3/uL (4.0-11.0) 27.1 x10^3/uL (4.0-11.0) Red Blood Count 2.00 x10^6/uL (3.50-5.40) 2.97 x10^6/uL (3.50-5.40) Hemoglobin 6.3 g/dL (12.0-15.5) 9.3 g/dL (12.0-15.5) Hematocrit 18.9 % (36.0-47.0) 27.8 % (36.0-47.0) Mean Corpuscular Volume 95 fL (79-100) 94 fL (79-100) Mean Corpuscular Hemoglobin 32 pg (25-35) 31 pg (25-35) Mean Corpuscular Hemoglobin Concent 33 g/dL (31-37) 33 g/dL (31-37) Red Cell Distribution Width 15.8 % (11.5-14.5) 15.0 % (11.5-14.5) Platelet Count 367 x10^3/uL (140-400) 263 x10^3/uL (140-400) Neutrophils (%) (Auto) 82 % (31-73) Lymphocytes (%) (Auto) 8 % (24-48) Monocytes (%) (Auto) 9 % (0-9) Eosinophils (%) (Auto) 0 % (0-3) Basophils (%) (Auto) 1 % (0-3) Neutrophils # (Auto) 15.7 x10^3/uL (1.8-7.7) Lymphocytes # (Auto) 1.5 x10^3/uL (1.0-4.8) Monocytes # (Auto) 1.7 x10^3/uL (0.0-1.1) Eosinophils # (Auto) 0.1 x10^3/uL (0.0-0.7) Basophils # (Auto) 0.2 x10^3/uL (0.0-0.2) Segmented Neutrophils % 83 % (35-66) Band Neutrophils % 3 % (0-9) Lymphocytes % 10 % (24-48) Monocytes % 3 % (0-10) Eosinophils % 1 % (0-5) Platelet Estimate Adequate (ADEQUATE) Polychromasia Slight Sodium Level 133 mmol/L (136-145) 136 mmol/L (136-145) Potassium Level 4.7 mmol/L (3.5-5.1) 5.1 mmol/L (3.5-5.1) Chloride Level 98 mmol/L (98-107) 105 mmol/L (98-107) Carbon Dioxide Level 26 mmol/L (21-32) 22 mmol/L (21-32) Anion Gap 9 (6-14) 9 (6-14) Blood Urea Nitrogen 17 mg/dL (7-20) 17 mg/dL (7-20) Creatinine 0.8 mg/dL (0.6-1.0) 0.8 mg/dL (0.6-1.0) Estimated GFR (Cockcroft-Gault) 71.1 71.1 Glucose Level 178 mg/dL (70-99) 168 mg/dL (70-99) Calcium Level 8.4 mg/dL (8.5-10.1) 8.6 mg/dL (8.5-10.1) Prothrombin Time 14.9 SEC (11.7-14.0) 16.0 SEC (11.7-14.0) Prothromb Time International Ratio 1.2 (0.8-1.1) 1.3 (0.8-1.1) Activated Partial Thromboplast Time 25 SEC (24-38) 27 SEC (24-38) Magnesium Level 1.3 mg/dL (1.8-2.4) Ionized Calcium 1.27 mmol/L (1.13-1.32) Test 11/28/20 04:30 11/28/20 09:30 11/28/20 14:25 White Blood Count 19.0 x10^3/uL (4.0-11.0) 15.6 x10^3/uL (4.0-11.0) Red Blood Count 2.54 x10^6/uL (3.50-5.40) 2.32 x10^6/uL (3.50-5.40) Hemoglobin 7.8 g/dL (12.0-15.5) 7.1 g/dL (12.0-15.5) Hematocrit 23.7 % (36.0-47.0) 21.6 % (36.0-47.0) Mean Corpuscular Volume 94 fL (79-100) 93 fL (79-100) Mean Corpuscular Hemoglobin 31 pg (25-35) 31 pg (25-35) Mean Corpuscular Hemoglobin Concent 33 g/dL (31-37) 33 g/dL (31-37) Red Cell Distribution Width 15.1 % (11.5-14.5) 15.4 % (11.5-14.5) Platelet Count 253 x10^3/uL (140-400) 284 x10^3/uL (140-400) Neutrophils (%) (Auto) 80 % (31-73) 80 % (31-73) Lymphocytes (%) (Auto) 9 % (24-48) 10 % (24-48) Monocytes (%) (Auto) 10 % (0-9) 9 % (0-9) Eosinophils (%) (Auto) 0 % (0-3) 0 % (0-3) Basophils (%) (Auto) 0 % (0-3) 0 % (0-3) Neutrophils # (Auto) 15.3 x10^3/uL (1.8-7.7) 12.4 x10^3/uL (1.8-7.7) Lymphocytes # (Auto) 1.8 x10^3/uL (1.0-4.8) 1.6 x10^3/uL (1.0-4.8) Monocytes # (Auto) 1.9 x10^3/uL (0.0-1.1) 1.5 x10^3/uL (0.0-1.1) Eosinophils # (Auto) 0.0 x10^3/uL (0.0-0.7) 0.1 x10^3/uL (0.0-0.7) Basophils # (Auto) 0.1 x10^3/uL (0.0-0.2) 0.0 x10^3/uL (0.0-0.2) Sodium Level 136 mmol/L (136-145) Potassium Level 4.3 mmol/L (3.5-5.1) Chloride Level 105 mmol/L (98-107) Carbon Dioxide Level 21 mmol/L (21-32) Anion Gap 10 (6-14) Blood Urea Nitrogen 19 mg/dL (7-20) Creatinine 0.7 mg/dL (0.6-1.0) Estimated GFR (Cockcroft-Gault) 83.0 BUN/Creatinine Ratio 27 (6-20) Glucose Level 120 mg/dL (70-99) Calcium Level 8.2 mg/dL (8.5-10.1) Phosphorus Level 4.4 mg/dL (2.6-4.7) Magnesium Level 2.2 mg/dL (1.8-2.4) Total Bilirubin 0.8 mg/dL (0.2-1.0) Aspartate Amino Transf (AST/SGOT) 12 U/L (15-37) Alanine Aminotransferase (ALT/SGPT) 9 U/L (14-59) Alkaline Phosphatase 50 U/L (46-116) C-Reactive Protein, Quantitative 68.2 mg/L (0-3.3) HA-Tgs-Z-Type Natriuretic Peptide 327 pg/mL (0-124) Total Protein 4.2 g/dL (6.4-8.2) Albumin 1.9 g/dL (3.4-5.0) Albumin/Globulin Ratio 0.8 (1.0-1.7) Procalcitonin < 0.10 ng/mL (0.00-0.10) Urine Collection Type Unknown Urine Color Joy Urine Clarity Clear Urine pH 6.0 (<5.0-8.0) Urine Specific [place] >=1.030 (1.000-1.030) Urine Protein Negative mg/dL (NEG-TRACE) Urine Glucose (UA) Negative mg/dL (NEG) Urine Ketones (Stick) Negative mg/dL (NEG) Urine Blood Negative (NEG) Urine Nitrite Negative (NEG) Urine Bilirubin Negative (NEG) Urine Urobilinogen Dipstick 1.0 mg/dL (0.2 mg/dL) Urine Leukocyte Esterase Trace (NEG) Urine RBC 0 /HPF (0-2) Urine WBC 11-20 /HPF (0-4) Urine Squamous Epithelial Cells Mod /LPF Urine Bacteria Few /HPF (0-FEW) Urine Hyaline Casts Occasional /HPF Images Images Imaging as above. Assessment/Plan Assessment/Plan 1. Emergency repair of a right femoral arterial pseudoaneurysm. Patient by her report is much more alert today. She is being managed by the vascular surgery service post emergency repair last night. 2. Hypertension. Blood pressure is under reasonable control at this time. Will adjust medications as needed. 3. Reported hyperlipidemia. Lab pending. Will treat with statins based on lab. 4. Possible history of mild heart failure. In this setting we will check an echocardiogram. Will obtain old records. 5. Gastroesophageal reflux disease. Thank you for allowing us to participate in the care of your patient. DAIN SIMONS MD November 28, 2020 15:10
--- NOTE | 2020-11-28 16:26 | RAD ---
XR CHEST 1V INDICATION: copd . COMPARISON STUDY: None. FINDINGS: Lungs: Low lung volume. Mild bibasilar heterogeneous opacities. Pleura: Small bilateral pleural effusion. Heart and Mediastinum: Cardiomegaly. Atherosclerosis of the thoracic aorta. IMPRESSION: 1. Low lung volume with mild bibasilar opacities, probably subsegmental/relaxation atelectasis. 2. Small bilateral pleural effusions. Electronically signed by: Mg Woods MD (11/28/2020 4:24 PM) [id number]
[2020-11-28] MEDS: GABAPENTIN 300 MG CAPSULE. PO SCH (20:20)
[2020-11-28] MEDS ORDERED: POTASSIUM & SODIUM PHOSPHATES PACKET. PO SCH (21:00)
[2020-11-29] VITALS (24 sets, daily range): BP systolic 96–133; BP diastolic 43–73
[2020-11-29 01:14] LABS: HEMOGLOBIN A1C 6.1 % (4.8-5.6)
[2020-11-29 04:44] LABS: BASO % 0 % (0-3); EOS # 0.1 x10^3/uL (0.0-0.7); EOS % 1 % (0-3); HEMATOCRIT 26.9 % (36.0-47.0); HEMOGLOBIN 8.9 g/dL (12.0-15.5); LYMPH # 2.1 x10^3/uL (1.0-4.8); LYMPH % 13 % (24-48); MEAN CORPUSCULAR HEMOGLOBIN 30 pg (25-35); MEAN CORPUSCULAR HGB CONC 33 g/dL (31-37); MEAN CORPUSCULAR VOLUME 91 fL (79-100); MONO # 1.6 x10^3/uL (0.0-1.1); MONO % 10 % (0-9); NEUT # 11.6 x10^3/uL (1.8-7.7); NEUT % 75 % (31-73); PLATELET COUNT 285 x10^3/uL (140-400); RED BLOOD COUNT 2.96 x10^6/uL (3.50-5.40); RED CELL DISTRIBUTION WIDTH 15.5 % (11.5-14.5); WHITE BLOOD COUNT 15.4 x10^3/uL (4.0-11.0)
[2020-11-29 05:32] LABS: CALCIUM 7.8 mg/dL (8.5-10.1); CREATININE 0.6 mg/dL (0.6-1.0); GFR 99.1; POTASSIUM 3.9 mmol/L (3.5-5.1)
[2020-11-29] MEDS: PIPERACILLIN/TAZOBACTAM 3.375 GM in IV NORMAL SALINE 50ML 50 ML IV SCH ×4 (05:58→23:44)
[2020-11-29] MEDS ORDERED: MAGNESIUM SULFATE 4GM 100 ML IV SCH (09:00)
[2020-11-29] MEDS: FOLIC ACID 1 MG TABLET. PO SCH (09:06)
[2020-11-29] MEDS: CARVEDILOL 3.125 MG TABLET. PO SCH ×2 (09:06→17:22)
[2020-11-29] MEDS: PANTOPRAZOLE 40 MG TABLET.DR. PO SCH (09:06)
[2020-11-29] MEDS: ASPIRIN CHEWABLE 81 MG TABLET. PO SCH (09:06)
[2020-11-29] MEDS: CLOPIDOGREL BISULFATE 75 MG TABLET PO SCH (09:06)
[2020-11-29] MEDS: CHOLECALCIFEROL (VITAMIN D3) 5,000 UNIT CAPSULE PO SCH (09:06)
--- NOTE | 2020-11-29 09:42 | PDOC ---
PROGRESS NOTES Date of Service: DATE: 11/29/20 TIME: 09:41 Chief Complaint Chief Complaint Assessment/Plan 70-year-old woman who recently had a right femoral artery access for acute stroke intervention apparently left carotid stent and left stroke thrombus removal at [facility] / pseudoaneurysm arising from the common femoral artery // actively bleeding into a large hematoma. Acute blood loss anemia - given extent of hematoma and pseudoaneursym and need for surgery may need up to 6u PRBC. 2 units on hold for OR. H&H 4 hours post op HGB 11.9 11-19 Large right groin pseuoaneurysm - likely from access 1 week prior. Vascular surgery consulted for ongoing active bleeding. To OR Large right groin hematoma - likely from arterial bleed. 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 Would not hold DAPT therapy in order to prevent further CVA. (will order [facility] records to confirm the presence/absence of stent) Hyponatremia - likely hypovolemic. Will give NSS crystalloid and monitor. Leukocytosis - likely reactive from massive blood loss, will trend. No clear in fection. will cover preoperatively. Given the extent of her hematoma is definitely at risk for skin infection/cellulitis as she is immunocompromised on MTX, ID CONSULTED , BLOOD CULT Hyperglycemia - likely related to stress, will check A1c RA - on MTX weekly. 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 severe protein-caloric malnutrition Current smoker HTN - on coreg, will cut dosing given low BP since d/c from [facility] per rehab notes. She may have cardiac reason for BB, will await . [facility] records as she may be getting CHF treatment, patient and aren't certain. plan FEN - NPO for OR. Regular diet after PPX - SCDs for 24 hours. Will defer heparin timing to vascular surgery CODE - FULL Dispo - ICU [facility] [place] for possible IR intervention. 11-19 CONSULT CARDIOLOGY, ECHO HER is a pharmacist at [facility] armando mandel , will aks for records at 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 Would not hold DAPT therapy in order to prevent further CVA. (will order [facility] records to confirm the presence/absence of stent) Hyponatremia - likely hypovolemic. Will give NSS crystalloid and monitor. Leukocytosis - likely reactive from massive blood loss, will trend. No clear infection. will cover preoperatively. Given the extent of her hematoma is definitely at risk for skin infection/cellulitis as she is immunocompromised on MTX, ID CONSULTED , BLOOD CULT Hyperglycemia - likely related to stress, will check A1c-6.1 CC time 32 min History of Present Illness History of Present Illness Identification/Chief Complaint Chief Complaint Right groin pain and swelling Source Source: Patient History of Present Illness History of Present Illness Ms Robins is a 70-year-old female w/ PMHx HLD, HTN, GERD, RA, and recent presenting with right groin pain and swelling. She has been noting bruising since 11/24/2020 when the dressing in her right groin was removed as instructed. She has been going to outpatient PT and OT for stroke rehab and has been c/o some pain in the area since the dressing was removed. 11/26 she began acting more tired, dizzy and intermittently confused per her . family member, who is a nurse practitioner, came over to the house to look at her leg as the was concerned about the bruise getting bigger. The family member told him to go to the ER right away. She states she feels very weak and tired and dizzy. Patient denies any chest pain, shortness of breath, nausea, vomiting, or diarrhea. She is up to date on both doses of Moderna COVID 19 vaccine Patient complains of pain and tightness in her right thigh and groin. She was initially evaluated on 11/19/2020 at [facility] ED for right sided weakness within 2 hours of presentation and tPA was then administered. CT angiogram shows left MCA M1 large vessel occlusion and she was transferred to [facility] for large vessel occlusion intervention on 11/19/2020. Per had clot retrieval and he thinks had carotid stenting as well and w as discharged home on 11/21/2020 for outpatient rehab for her CVA on DAPT with ASA and plavix. In ED noted with pulsatile swelling in left groin and right groin arterial doppler revealed large hematoma in the proximal right lower extremity arising from the common femoral artery that measures 11.5 x 5.0 x 9.5 cm. This hematoma appears to arise directly from a pseudoaneurysm with a neck which actively bleeds into the hematoma. The belly of the pseudoaneurysm measures 2.3 cm in diameter. On examination a nurse was holding pressure in the groin and PROCESS CHEMIST was accessing left antecubital fossa for venipuncture for blood draw and IV insertion. give much of history bedside. During examination labs returned with WBC 19.2, platelets 367, Hb 6.3, Na 133, glucose 178, INR 1.2. Given the urgency of her condition vascular surgery was consulted and Dr. Wilhelm brought in OR staff and patient was taken to OR in stable condition from the ED with plans to admit to ICU. 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 Would not hold DAPT therapy in order to prevent further CVA. (will order . [facility] records to confirm the presence/absence of stent) Hyponatremia - likely hypovolemic. Will give NSS crystalloid and monitor. Leukocytosis - likely reactive from massive blood loss, will trend. No clear infection. will cover preoperatively. Given the extent of her hematoma is definitely at risk for skin infection/cellulitis as she is immunocompromised on MTX, ID CONSULTED , BLOOD CULT Hyperglycemia - likely related to stress, will check A1c CC time 32 min Vitals Vitals Vital Signs Date Time Temp Pulse Resp B/P (MAP) Pulse Ox O2 Delivery O2 Flow Rate FiO2 11/29/20 09:06 97 97/73 11/29/20 08:45 98 Room Air 11/29/20 07:00 19 6/1/21 04:00 98.1 98.1 Physical Exam Physical Exam General: Alert, Oriented X3, Cooperative, moderate distress, Other (pale) HEENT: Atraumatic, PERRLA, EOMI, Other (pale mucosa) Lungs: Clear to auscultation, Normal air movement Heart: S1S2, RRR, no thrills, no rubs, no gallops, no murmurs Abdomen: Normal bowel sounds, Soft, No tenderness, No hepatosplenomegaly, No masses Rectal Exam: not examined Extremities: No clubbing, No cyanosis, No edema, Normal pulses, Other ( right leg and groin shows ecchymosis from about there the umbilicus down to the knee.) wound vac r groin in place, intact Skin: No rashes, No breakdown, Other (right groin) Neuro: Normal speech, Normal tone, Sensation intact, Cranial nerves 3-12 NL, Reflexes 2+ Psych/Mental Status: Mental status NL, Mood NL General: Alert, Cooperative, No acute distress, mild distress Heart: Regular rate Lungs: Clear Abdomen: Normal bowel sounds Extremities: No clubbing, No cyanosis, No edema, Normal pulses, Other ( right leg and groin shows ecchymosis from about there the umbilicus down to the knee.) Skin: No rashes, No breakdown, Other (right groin) Labs LABS WHAT MUST I INCLUDE IN MY ADVANCE DIRECTIVE? The name and contact information of your healthcare agent/proxy. Answers to specific questions about your preferences for care if you become unable to speak for yourself. The forms and questions asked vary a bit from state to state. A sample question: Do you want to receive artificially provided nutrition or hydration when you are close to and/or permanently unconscious? Names and signatures of individuals who witness your signing your advance directive, if required. Not all states require witness signatures. The signature and seal of a distributor publications, if required by your state. Not all [facility] require advance directives to be notarized. [facility] has a list of all advance directive/living will requirements by state. WHAT ELSE WOULD BE GOOD TO INCLUDE IN MY ADVANCE DIRECTIVE? Detailed information about what procedures or types of care you would like to receive and what you wish to avoid at all costs that are not covered by the questions on the form. Would you want to take advantage of all life-support technologies if it would only postpone ? Would you want to use them if you were permanently unconscious? Would you want them if you were going through an advanced progressive illness? More general statements about your values regarding end-of-life care. What does a good mean and look like to you? For that matter, what defines a life wo rth living? Do you define life by the intake of breath and nutrients? Is it defined by consciousness? At what point do you want to prolong it and at what point do you want to preserve resources for other people? Personal desires for body disposition in essence, what you want to happen to your body when you and plans for any memorial service(s) A list of people who cannot make healthcare decisions for you. Leave no room for ambiguity, which could lead to tensions between loved ones about your care as you are dying. HOW SHOULD I GO ABOUT IDENTIFYING MY HEALTHCARE AGENT/PROXY? An ideal person for the job is someone who: Knows you well. A spouse/partner, a family member, a close friend: all are good candidates. Excels at making difficult decisions under pressure. Is diplomatic and empathetic critical traits for balancing the needs, wants, and unpredictable emotions of a patients loved ones. Isnt afraid to ask tough questions, which invariably arise when discussing a dying individuals end-of-life care. Is easily reachable by email, phone, and/or text. Is or can easily be within physical proximity of where youre likely to receive care. Once Jocy identified this person, how do I talk to them about what care I want and dont want at the end of life? Have multiple conversations with your healthcare agent about your wishes. Take them out to tea, have them over for dinner, go to a bar or library. Talk about what you want, and make sure you are heard and understood. WHAT IF MY HEALTHCARE AGENT/PROXY IS UNAVAILABLE TO EXECUTE THEIR DUTIES WHEN I AM DYING? It is important to appoint an alternative agent/proxy for exactly this reason. Identify and inform that person as you did your main agent/proxy, and list them as an alternate on your advance directive form. In most states, witnesses cannot be: Your healthcare agent or proxy; Any of your care providers; Related to you by blood, adoption, or marriage; Entitled to any portion of your estate upon your . dpoa 21 min to portal discussion and topics, chart review Laboratory Tests Test 11/28/20 14:25 11/29/20 03:30 White Blood Count 15.6 x10^3/uL (4.0-11.0) 15.4 x10^3/uL (4.0-11.0) Red Blood Count 2.32 x10^6/uL (3.50-5.40) 2.96 x10^6/uL (3.50-5.40) Hemoglobin 7.1 g/dL (12.0-15.5) 8.9 g/dL (12.0-15.5) Hematocrit 21.6 % (36.0-47.0) 26.9 % (36.0-47.0) Mean Corpuscular Volume 93 fL (79-100) 91 fL (79-100) Mean Corpuscular Hemoglobin 31 pg (25-35) 30 pg (25-35) Mean Corpuscular Hemoglobin Concent 33 g/dL (31-37) 33 g/dL (31-37) Red Cell Distribution Width 15.4 % (11.5-14.5) 15.5 % (11.5-14.5) Platelet Count 284 x10^3/uL (140-400) 285 x10^3/uL (140-400) Neutrophils (%) (Auto) 80 % (31-73) 75 % (31-73) Lymphocytes (%) (Auto) 10 % (24-48) 13 % (24-48) Monocytes (%) (Auto) 9 % (0-9) 10 % (0-9) Eosinophils (%) (Auto) 0 % (0-3) 1 % (0-3) Basophils (%) (Auto) 0 % (0-3) 0 % (0-3) Neutrophils # (Auto) 12.4 x10^3/uL (1.8-7.7) 11.6 x10^3/uL (1.8-7.7) Lymphocytes # (Auto) 1.6 x10^3/uL (1.0-4.8) 2.1 x10^3/uL (1.0-4.8) Monocytes # (Auto) 1.5 x10^3/uL (0.0-1.1) 1.6 x10^3/uL (0.0-1.1) Eosinophils # (Auto) 0.1 x10^3/uL (0.0-0.7) 0.1 x10^3/uL (0.0-0.7) Basophils # (Auto) 0.0 x10^3/uL (0.0-0.2) 0.0 x10^3/uL (0.0-0.2) Lactic Acid Level 0.9 mmol/L (0.4-2.0) Sodium Level 138 mmol/L (136-145) Potassium Level 3.9 mmol/L (3.5-5.1) Chloride Level 106 mmol/L (98-107) Carbon Dioxide Level 23 mmol/L (21-32) Anion Gap 9 (6-14) Blood Urea Nitrogen 14 mg/dL (7-20) Creatinine 0.6 mg/dL (0.6-1.0) Estimated GFR (Cockcroft-Gault) 99.1 Glucose Level 98 mg/dL (70-99) Calcium Level 7.8 mg/dL (8.5-10.1) Assessment and Plan Assessmemt and Plan Problems Medical Problems: (1) Femoral artery pseudo-aneurysm, right Status: Acute (2) Pseudoaneurysm of femoral artery following procedure Status: Acute Comment Review of Relevant I have reviewed the following items césar (where applicable) has been applied. Labs Laboratory Tests Test 11/27/20 18:35 11/27/20 18:58 11/27/20 22:25 11/27/20 23:00 White Blood Count 19.2 x10^3/uL (4.0-11.0) 27.1 x10^3/uL (4.0-11.0) Red Blood Count 2.00 x10^6/uL (3.50-5.40) 2.97 x10^6/uL (3.50-5.40) Hemoglobin 6.3 g/dL (12.0-15.5) 9.3 g/dL (12.0-15.5) Hematocrit 18.9 % (36.0-47.0) 27.8 % (36.0-47.0) Mean Corpuscular Volume 95 fL (79-100) 94 fL (79-100) Mean Corpuscular Hemoglobin 32 pg (25-35) 31 pg (25-35) Mean Corpuscular Hemoglobin Concent 33 g/dL (31-37) 33 g/dL (31-37) Red Cell Distribution Width 15.8 % (11.5-14.5) 15.0 % (11.5-14.5) Platelet Count 367 x10^3/uL (140-400) 263 x10^3/uL (140-400) Neutrophils (%) (Auto) 82 % (31-73) Lymphocytes (%) (Auto) 8 % (24-48) Monocytes (%) (Auto) 9 % (0-9) Eosinophils (%) (Auto) 0 % (0-3) Basophils (%) (Auto) 1 % (0-3) Neutrophils # (Auto) 15.7 x10^3/uL (1.8-7.7) Lymphocytes # (Auto) 1.5 x10^3/uL (1.0-4.8) Monocytes # (Auto) 1.7 x10^3/uL (0.0-1.1) Eosinophils # (Auto) 0.1 x10^3/uL (0.0-0.7) Basophils # (Auto) 0.2 x10^3/uL (0.0-0.2) Segmented Neutrophils % 83 % (35-66) Band Neutrophils % 3 % (0-9) Lymphocytes % 10 % (24-48) Monocytes % 3 % (0-10) Eosinophils % 1 % (0-5) Platelet Estimate Adequate (ADEQUATE) Polychromasia Slight Sodium Level 133 mmol/L (136-145) 136 mmol/L (136-145) Potassium Level 4.7 mmol/L (3.5-5.1) 5.1 mmol/L (3.5-5.1) Chloride Level 98 mmol/L (98-107) 105 mmol/L (98-107) Carbon Dioxide Level 26 mmol/L (21-32) 22 mmol/L (21-32) Anion Gap 9 (6-14) 9 (6-14) Blood Urea Nitrogen 17 mg/dL (7-20) 17 mg/dL (7-20) Creatinine 0.8 mg/dL (0.6-1.0) 0.8 mg/dL (0.6-1.0) Estimated GFR (Cockcroft-Gault) 71.1 71.1 Glucose Level 178 mg/dL (70-99) 168 mg/dL (70-99) Hemoglobin A1c 6.1 % (4.8-5.6) Calcium Level 8.4 mg/dL (8.5-10.1) 8.6 mg/dL (8.5-10.1) Prothrombin Time 14.9 SEC (11.7-14.0) 16.0 SEC (11.7-14.0) Prothromb Time International Ratio 1.2 (0.8-1.1) 1.3 (0.8-1.1) Activated Partial Thromboplast Time 25 SEC (24-38) 27 SEC (24-38) Magnesium Level 1.3 mg/dL (1.8-2.4) Ionized Calcium 1.27 mmol/L (1.13-1.32) Test 11/28/20 04:30 11/28/20 09:30 11/28/20 14:25 11/29/20 03:30 White Blood Count 19.0 x10^3/uL (4.0-11.0) 15.6 x10^3/uL (4.0-11.0) 15.4 x10^3/uL (4.0-11.0) Red Blood Count 2.54 x10^6/uL (3.50-5.40) 2.32 x10^6/uL (3.50-5.40) 2.96 x10^6/uL (3.50-5.40) Hemoglobin 7.8 g/dL (12.0-15.5) 7.1 g/dL (12.0-15.5) 8.9 g/dL (12.0-15.5) Hematocrit 23.7 % (36.0-47.0) 21.6 % (36.0-47.0) 26.9 % (36.0-47.0) Mean Corpuscular Volume 94 fL (79-100) 93 fL (79-100) 91 fL (79-100) Mean Corpuscular Hemoglobin 31 pg (25-35) 31 pg (25-35) 30 pg (25-35) Mean Corpuscular Hemoglobin Concent 33 g/dL (31-37) 33 g/dL (31-37) 33 g/dL (31-37) Red Cell Distribution Width 15.1 % (11.5-14.5) 15.4 % (11.5-14.5) 15.5 % (11.5-14.5) Platelet Count 253 x10^3/uL (140-400) 284 x10^3/uL (140-400) 285 x10^3/uL (140-400) Neutrophils (%) (Auto) 80 % (31-73) 80 % (31-73) 75 % (31-73) Lymphocytes (%) (Auto) 9 % (24-48) 10 % (24-48) 13 % (24-48) Monocytes (%) (Auto) 10 % (0-9) 9 % (0-9) 10 % (0-9) Eosinophils (%) (Auto) 0 % (0-3) 0 % (0-3) 1 % (0-3) Basophils (%) (Auto) 0 % (0-3) 0 % (0-3) 0 % (0-3) Neutrophils # (Auto) 15.3 x10^3/uL (1.8-7.7) 12.4 x10^3/uL (1.8-7.7) 11.6 x10^3/uL (1.8-7.7) Lymphocytes # (Auto) 1.8 x10^3/uL (1.0-4.8) 1.6 x10^3/uL (1.0-4.8) 2.1 x10^3/uL (1.0-4.8) Monocytes # (Auto) 1.9 x10^3/uL (0.0-1.1) 1.5 x10^3/uL (0.0-1.1) 1.6 x10^3/uL (0.0-1.1) Eosinophils # (Auto) 0.0 x10^3/uL (0.0-0.7) 0.1 x10^3/uL (0.0-0.7) 0.1 x10^3/uL (0.0-0.7) Basophils # (Auto) 0.1 x10^3/uL (0.0-0.2) 0.0 x10^3/uL (0.0-0.2) 0.0 x10^3/uL (0.0-0.2) Sodium Level 136 mmol/L (136-145) 138 mmol/L (136-145) Potassium Level 4.3 mmol/L (3.5-5.1) 3.9 mmol/L (3.5-5.1) Chloride Level 105 mmol/L (98-107) 106 mmol/L (98-107) Carbon Dioxide Level 21 mmol/L (21-32) 23 mmol/L (21-32) Anion Gap 10 (6-14) 9 (6-14) Blood Urea Nitrogen 19 mg/dL (7-20) 14 mg/dL (7-20) Creatinine 0.7 mg/dL (0.6-1.0) 0.6 mg/dL (0.6-1.0) Estimated GFR (Cockcroft-Gault) 83.0 99.1 BUN/Creatinine Ratio 27 (6-20) Glucose Level 120 mg/dL (70-99) 98 mg/dL (70-99) Calcium Level 8.2 mg/dL (8.5-10.1) 7.8 mg/dL (8.5-10.1) Phosphorus Level 4.4 mg/dL (2.6-4.7) Magnesium Level 2.2 mg/dL (1.8-2.4) Total Bilirubin 0.8 mg/dL (0.2-1.0) Aspartate Amino Transf (AST/SGOT) 12 U/L (15-37) Alanine Aminotransferase (ALT/SGPT) 9 U/L (14-59) Alkaline Phosphatase 50 U/L (46-116) C-Reactive Protein, Quantitative 68.2 mg/L (0-3.3) NN-Pvi-S-Type Natriuretic Peptide 327 pg/mL (0-124) Total Protein 4.2 g/dL (6.4-8.2) Albumin 1.9 g/dL (3.4-5.0) Albumin/Globulin Ratio 0.8 (1.0-1.7) Procalcitonin < 0.10 ng/mL (0.00-0.10) Urine Collection Type Unknown Urine Color Joy Urine Clarity Clear Urine pH 6.0 (<5.0-8.0) Urine Specific [place] >=1.030 (1.000-1.030) Urine Protein Negative mg/dL (NEG-TRACE) Urine Glucose (UA) Negative mg/dL (NEG) Urine Ketones (Stick) Negative mg/dL (NEG) Urine Blood Negative (NEG) Urine Nitrite Negative (NEG) Urine Bilirubin Negative (NEG) Urine Urobilinogen Dipstick 1.0 mg/dL (0.2 mg/dL) Urine Leukocyte Esterase Trace (NEG) Urine RBC 0 /HPF (0-2) Urine WBC 11-20 /HPF (0-4) Urine Squamous Epithelial Cells Mod /LPF Urine Bacteria Few /HPF (0-FEW) Urine Hyaline Casts Occasional /HPF Lactic Acid Level 0.9 mmol/L (0.4-2.0) Laboratory Tests Test 11/28/20 14:25 11/29/20 03:30 White Blood Count 15.6 x10^3/uL (4.0-11.0) 15.4 x10^3/uL (4.0-11.0) Red Blood Count 2.32 x10^6/uL (3.50-5.40) 2.96 x10^6/uL (3.50-5.40) Hemoglobin 7.1 g/dL (12.0-15.5) 8.9 g/dL (12.0-15.5) Hematocrit 21.6 % (36.0-47.0) 26.9 % (36.0-47.0) Mean Corpuscular Volume 93 fL (79-100) 91 fL (79-100) Mean Corpuscular Hemoglobin 31 pg (25-35) 30 pg (25-35) Mean Corpuscular Hemoglobin Concent 33 g/dL (31-37) 33 g/dL (31-37) Red Cell Distribution Width 15.4 % (11.5-14.5) 15.5 % (11.5-14.5) Platelet Count 284 x10^3/uL (140-400) 285 x10^3/uL (140-400) Neutrophils (%) (Auto) 80 % (31-73) 75 % (31-73) Lymphocytes (%) (Auto) 10 % (24-48) 13 % (24-48) Monocytes (%) (Auto) 9 % (0-9) 10 % (0-9) Eosinophils (%) (Auto) 0 % (0-3) 1 % (0-3) Basophils (%) (Auto) 0 % (0-3) 0 % (0-3) Neutrophils # (Auto) 12.4 x10^3/uL (1.8-7.7) 11.6 x10^3/uL (1.8-7.7) Lymphocytes # (Auto) 1.6 x10^3/uL (1.0-4.8) 2.1 x10^3/uL (1.0-4.8) Monocytes # (Auto) 1.5 x10^3/uL (0.0-1.1) 1.6 x10^3/uL (0.0-1.1) Eosinophils # (Auto) 0.1 x10^3/uL (0.0-0.7) 0.1 x10^3/uL (0.0-0.7) Basophils # (Auto) 0.0 x10^3/uL (0.0-0.2) 0.0 x10^3/uL (0.0-0.2) Lactic Acid Level 0.9 mmol/L (0.4-2.0) Sodium Level 138 mmol/L (136-145) Potassium Level 3.9 mmol/L (3.5-5.1) Chloride Level 106 mmol/L (98-107) Carbon Dioxide Level 23 mmol/L (21-32) Anion Gap 9 (6-14) Blood Urea Nitrogen 14 mg/dL (7-20) Creatinine 0.6 mg/dL (0.6-1.0) Estimated GFR (Cockcroft-Gault) 99.1 Glucose Level 98 mg/dL (70-99) Calcium Level 7.8 mg/dL (8.5-10.1) Medications Current Medications Sodium Chloride 500 ml @ 500 mls/hr 1X ONCE IV Last administered on 11/27/20at 18:52; Start 11/27/20 at 18:00; Stop 11/27/20 at 18:59; Status DC Ondansetron HCl (Zofran) 4 mg 1X ONCE IV Last administered on 11/27/20at 18:50; Start 11/27/20 at 18:15; Stop 11/27/20 at 18:16; Status DC Fentanyl Citrate (Fentanyl 2ml Vial) 50 mcg 1X ONCE IV Last administered on 11/27/20at 18:52; Start 11/27/20 at 18:15; Stop 11/27/20 at 18:16; Status DC Lidocaine HCl (Lidocaine Pf 2% Vial) 5 ml STK-MED ONCE .ROUTE ; Start 11/27/20 at 19:11; Stop 11/27/20 at 19:11; Status DC Propofol (Diprivan) 200 mg STK-MED ONCE IV ; Start 11/27/20 at 19:11; Stop 11/27/20 at 19:11; Status DC Phenylephrine HCl (PHENYLEPHRINE in 0.9% NACL PF) 1 mg STK-MED ONCE IV ; Start 11/27/20 at 19:11; Stop 11/27/20 at 19:11; Status DC Rocuronium [place] (Zemuron) 50 mg STK-MED ONCE .ROUTE ; Start 11/27/20 at 19:11; Stop 11/27/20 at 19:11; Status DC Heparin Sodium (Porcine) 5000 unit/Sodium Chloride 505 ml @ 505 mls/hr 1X ONCE IRR Last administered on 11/27/20at 19:55; Start 11/27/20 at 20:00; Stop at 20:59; Status DC Cellulose (Surgicel Fibrillar 1x2) 1 each STK-MED ONCE .ROUTE Last administered on 11/27/20at 19:55; Start 11/27/20 at 19:29; Stop 11/27/20 at 19:30; Status DC Cefazolin Sodium (Ancef) 1 gm STK-MED ONCE IVP ; Start 11/27/20 at 19:38; Stop 11/27/20 at 19:38; Status DC Fentanyl Citrate (Fentanyl 2ml Vial) 25 mcg PRN Q5MIN PRN IVP MILD PAIN 1-3; Start 11/27/20 at 20:15; Stop 11/28/20 at 20:14; Status DC Fentanyl Citrate (Fentanyl 2ml Vial) 50 mcg PRN Q5MIN PRN IVP MODERATE PAIN 4-6 ; Start 11/27/20 at 20:15; Stop 11/28/20 at 20:14; Status DC Morphine Sulfate (Morphine Sulfate) 1 mg PRN Q10MIN PRN IVP SEVERE PAIN 7-10; Start 11/27/20 at 20:15; Stop 11/28/20 at 20:14; Status DC Ringer's Solution 1,000 ml @ 30 mls/hr Q24H IV ; Start 11/27/20 at 20:15; Stop 11/28/20 at 08:14; Status DC Hydromorphone HCl (Dilaudid) 0.5 mg PRN Q10MIN PRN IVP SEVERE PAIN 7-10, 2nd CHOICE; Start 11/27/20 at 20:15; Stop 11/28/20 at 20:14; Status DC Prochlorperazine Edisylate (Compazine) 5 mg PACU PRN PRN IVP NAUSEA, MRX1; Start 11/27/20 at 20:15; Stop 11/28/20 at 20:14; Status DC Heparin Sodium (Porcine) (Heparin Sodium) 10,000 unit STK-MED ONCE .ROUTE ; Start 11/27/20 at 20:07; Stop 11/27/20 at 20:07; Status DC Heparin Sodium (Porcine) (Heparin Sodium) 10,000 unit STK-MED ONCE .ROUTE ; Start 11/27/20 at 20:10; Stop 11/27/20 at 20:10; Status DC Fentanyl Citrate (Fentanyl 2ml Vial) 100 mcg STK-MED ONCE .ROUTE ; Start 11/27/20 at 20:11; Stop 11/27/20 at 20:12; Status DC Propofol (Diprivan) 200 mg STK-MED ONCE IV ; Start 11/27/20 at 20:13; Stop 11/27/20 at 20:14; Status DC Protamine Sulfate (Protamine) 50 mg STK-MED ONCE IV ; Start 11/27/20 at 20:44; Stop 11/27/20 at 20:44; Status DC Sevoflurane (Ultane) 60 ml STK-MED ONCE IH ; Start 11/27/20 at 20:44; Stop 11/27/20 at 20:44; Status DC Olanzapine (ZyPREXA ZYDIS) 5 mg PRN BID PRN PO ANXIETY / AGITATION; Start 11/27/20 at 22:00 Acetaminophen (Tylenol) 650 mg PRN Q6HRS PRN PO MILD PAIN / TEMP > 100.3'F; Start 11/27/20 at 22:00 Ondansetron HCl (Zofran) 4 mg PRN Q4HRS PRN IVP NAUSEA/VOMITING; Start 11/27/20 at 22:00 Hydralazine HCl (Apresoline Inj) 20 mg STK-MED ONCE .ROUTE ; Start 11/27/20 at 21:56; Stop 11/27/20 at 21:56; Status DC Fentanyl Citrate (Fentanyl 2ml Vial) 25 mcg PRN Q2HR PRN IVP PAIN; Start 11/27/20 at 22:00 Carvedilol (Coreg) 3.125 mg BIDWMEALS PO Last administered on 11/29/20at 09:06; Start 11/28/20 at 08:00 Gabapentin (Neurontin) 300 mg HS PO Last administered on 11/28/20at 20:20; Start 11/27/20 at 22:15 Pantoprazole Sodium (Protonix) 40 mg DAILYAC PO Last administered on 11/29/20 09:06; Start 11/28/20 at 07:30 Zolpidem Tartrate (Ambien) 5 mg PRN QHS PRN PO INSOMNIA; Start 11/27/20 at 22:15 Folic Acid (Folic Acid) 1 mg DAILY PO Last administered on 11/29/20at 09:06; Start 11/28/20 at 09:00 Aspirin (Aspirin Chewable) 81 mg DAILY08 PO Last administered on 11/29/20 09:06; Start 11/28/20 at 08:00 Vitamin D (Vitamin D3) 5,000 unit DAILY PO Last administered on 11/29/20at 09:06; Start 11/28/20 at 09:00 Clopidogrel Bisulfate (Plavix) 75 mg DAILY08 PO Last administered on 11/29/20at 09:06; Start 11/28/20 at 08:00 Sodium Chloride 1,000 ml @ 80 mls/hr [id number] IV Last administered on 11/28/20at 20:42; Start 11/27/20 at 22:45 Acetaminophen/ Hydrocodone Bitart (Lortab 5/325) 1 tab PRN Q4HRS PRN PO PAIN MILD TO MODERATE Last administered on 11/27/20at 23:39; Start 11/27/20 at 22:45 Acetaminophen/ Hydrocodone Bitart (Lortab 5/325) 2 tab PRN Q4HRS PRN PO PAIN SEVERE; Start 11/27/20 at 22:45 Albumin Human 500 ml @ 125 mls/hr PRN DAILY PRN IV Hypotension; Start 11/27/20 at 23:00 Magnesium Sulfate 50 ml @ 25 mls/hr 1X ONCE IV Last administered on 11/28/20at 02:15; Start 11/28/20 at 01:45; Stop 11/28/20 at 03:44; Status DC Cefazolin Sodium/ Dextrose 50 ml @ 100 mls/hr Q8HRS IV Last administered on 11/28/20at 06:11; Start 11/28/20 at 06:00; Stop 11/28/20 at 12:08; Status DC Albuterol/ Ipratropium (Duoneb) 3 ml RTQID NEB ; Start 11/28/20 at 12:00; Stop 11/28/20 at 10:59; Status DC Potassium Chloride (Klor-Con) 40 meq 1X ONCE PO ; Start 11/28/20 at 11:00; Stop 11/28/20 at 11:01; Status UNV Potassium Bicarbonate (Potassium Effervescent Tablet) 40 meq 1X ONCE PO ; Start 11/28/20 at 11:00; Stop 11/28/20 at 11:01; Status UNV Potassium Chloride/Water 100 ml @ 100 mls/hr Q1H IV ; Start 11/28/20 at 11:00; Stop 11/28/20 at 12:59; Status UNV Potassium Chloride/Water 100 ml @ 100 mls/hr Q1H IV ; Start 11/28/20 at 11:00; Stop 11/28/20 at 18:59; Status UNV Potassium Chloride/Water 100 ml @ 100 mls/hr Q1HR IV ; Start 11/28/20 at 11:00; Stop 11/28/20 at 16:59; Status UNV Magnesium Sulfate 100 ml @ 50 mls/hr DAILY IV ; Start 11/29/20 at 09:00; Stop 12/02/20 at 08:59; Status UNV Potassium Phos/ Sodium Phos (Phos-Nak) 1 pkt BID PO ; Start 11/28/20 at 21:00; Stop 11/29/20 at 09:01; Status UNV Albuterol Sulfate (Ventolin Neb Soln) 2.5 mg PRN QID PRN NEB SHORTNESS OF BREATH; Start 11/28/20 at 11:15 Info (Icu Electrolyte Protocol) 1 ea CONT PRN PRN MC SEE COMMENTS; Start 11/28/20 at 11:00 Piperacillin Sod/ Tazobactam Sod (Zosyn Per Pharmacy) 1 each PRN DAILY PRN MC SEE COMMENTS; Start 11/28/20 at 12:15 Piperacillin Sod/ Tazobactam Sod 3.375 gm/Sodium Chloride 50 ml @ 100 mls/hr Q6HRS IV Last administered on 11/29/20at 05:58; Start 11/28/20 at 12:30 Micafungin Sodium 100 mg/Dextrose 100 ml @ 100 mls/hr Q24H IV ; Start 11/29/20 at 10:00 Daptomycin 380 mg/ Sodium Chloride 50 ml @ 100 mls/hr Q24H IV ; Start 11/29/20 at 11:00 Active Scripts Active Reported Vitamin D3 (Vitamin D) 125 Mcg Capsule 125 Mcg PO DAILY 5,000 UNITS = 125 MCG Methotrexate (Methotrexate Sodium) 2.5 Mg Tablet 4 Tab PO WEEKLY Ambien (Zolpidem Tartrate) 5 Mg Tablet 5 Mg PO PRN QHS PRN Gabapentin (Gabapentin) 300 Mg Capsule 300 Mg PO HS Protonix (Pantoprazole Sodium) 40 Mg Tablet.dr 40 Mg PO DAILYAC Folic Acid 0.4 Mg Tablet 0.4 Mg PO DAILY Aspirin 81 Mg Tab.chew 1 Tab PO DAILY Clopidogrel (Clopidogrel Bisulfate) 75 Mg Tablet 1 Tab PO DAILY Coreg (Carvedilol) 6.25 Mg Tablet 6.25 Mg PO BIDWMEALS Vitals/I & O Vital Sign - Last 24 Hours 11/28/20 11/28/20 11/28/20 11/28/20 10:00 11:00 12:00 12:00 Temp 98.7 98.7 Pulse 78 85 89 Resp 15 20 19 B/P (MAP) 106/43 (64) 108/43 (64) 98/45 (62) Pulse Ox 95 98 98 O2 Delivery Room Air Room Air Room Air Room Air 11/28/20 11/28/20 11/28/20 11/28/20 13:00 14:00 15:00 15:49 Temp 98.9 98.9 Pulse 93 91 82 85 Resp 17 17 16 18 B/P (MAP) 98/47 (64) 93/41 (58) 89/52 (64) 89/52 Pulse Ox 97 99 97 O2 Delivery Room Air Room Air Room Air 11/28/20 11/28/20 11/28/20 11/28/20 16:00 16:00 16:04 17:00 Temp 98.5 98.5 98.5 98.5 Pulse 80 84 86 Resp 17 16 19 B/P (MAP) 114/48 (70) 123/49 111/54 (73) Pulse Ox 98 99 O2 Delivery Room Air Room Air Room Air 11/28/20 11/28/20 11/28/20 11/28/20 17:00 17:23 18:00 18:00 Temp 98.5 98.6 98.5 98.6 Pulse 86 86 89 88 Resp 19 19 18 B/P (MAP) 111/54 111/54 118/55 (76) 118/55 Pulse Ox 98 O2 Delivery Room Air 11/28/20 11/28/20 11/28/20 11/28/20 19:00 20:00 20:00 21:00 Temp 99.0 99.0 Pulse 76 83 86 Resp 17 17 18 B/P (MAP) 115/58 (77) 95/45 (62) 109/48 (68) Pulse Ox 98 98 98 O2 Delivery Room Air Room Air Room Air Room Air 11/28/20 11/28/20 11/28/20 11/28/20 22:00 23:00 23:47 23:50 Temp 98.7 98.7 Pulse 84 94 83 Resp 18 20 20 B/P (MAP) 111/47 (68) 127/53 (77) 118/54 (75) Pulse Ox 98 98 98 O2 Delivery Room Air Room Air Room Air Room Air 11/29/20 11/29/20 11/29/20 11/29/20 01:03 02:00 03:00 04:00 Pulse 82 77 82 Resp 18 20 20 B/P (MAP) 112/52 (72) 96/43 (60) 111/54 (73) Pulse Ox 98 98 98 O2 Delivery Room Air Room Air Room Air Room Air 11/29/20 11/29/20 11/29/20 11/29/20 04:00 05:00 05:57 07:00 Temp 98.1 98.1 Pulse 88 95 88 88 Resp 22 17 15 19 B/P (MAP) 127/48 (74) 108/49 (68) 110/56 (74) 105/50 (68) Pulse Ox 99 97 98 98 O2 Delivery Room Air Room Air Room Air Room Air 11/29/20 11/29/20 08:45 09:06 Pulse 97 B/P (MAP) 97/73 Pulse Ox 98 O2 Delivery Room Air Intake and Output 11/28/20 11/28/20 11/29/20 15:00 23:00 07:00 Intake Total 2513 ml 476 ml Output Total 185 ml 800 ml 600 ml Balance -185 ml 1713 ml -124 ml Justicifation of Admission Dx: Justifications for Admission: Justification of Admission Dx: Yes MYNOR FIELDS MD Nov 29, 2020 09:42
--- NOTE | 2020-11-29 09:42 | PDOC ---
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 Justifications for Admission Other Justification RHYS BOYLE II, MD Nov 29, 2020 09:42
[2020-11-29] MEDS: MICAFUNGIN 100 MG in IV DEXTROSE 5% 100ML 100 ML IV SCH (10:19)
[2020-11-29] MEDS: IV NORMAL SALINE 1000ML BAG 1,000 ML IV SCH ×2 (10:26→20:48)
[2020-11-29] MEDS: DAPTOmycin (GENERIC) IVPB 380 MG in IV NORMAL SALINE 50ML 50 ML IV SCH (12:02)
--- NOTE | 2020-11-29 13:13 | PDOC2 ---
NEUROLOGY CONSULT Date of Service DOS: DATE: 11/29/20 TIME: 13:05 Reason for Consult Reason for Consult: Recent stroke Referring Physician Referring Physician: Dr. Coker Source Source: Caregiver (), Chart review, Patient History of Present Illness History of Present Illness The patient is a 70-year-old right-handed female who presented to the emergency room the night of 11/27 with right groin pain and swelling. She noted bruising since 11/24/2020. She presented to our emergency department on 11/19 with left hemispheric stroke symptoms. 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 She received alteplase and was then transferred to [facility] where she underwent clot retrieval and stenting. She was admitted with an NIH score of 14 and discharged with a score of 2. In our emergency department, patient had pulsatile swelling in the groin on the right. The pseudoaneurysm burst in the emergency room and the patient had emergency surgery with Dr. Rowley. In the 2 days after surgery the patient acted a little more more confused, was having trouble with word finding and there was concern of a possible new stroke. Today the patient is doing much better, patient and her agree. There is no prior history of stroke. Past Medical History Cardiovascular: HTN, Hyperlipidemia CENTRAL NERVOUS SYSTEM: CVA GI: GERD, Other (Hiatal hernia) Psych: Depression Musculoskeletal: Other (Scoliosis) Rheumatologic: Rheumatoid arthritis Past Surgical History Past Surgical History: Other (Cerebral artery thrombectomy and stent) Family History Family History: No pertinent hx Social History Social History , occasional alcohol, just quit smoking Current Medications Current Medications Current Medications Sodium Chloride 500 ml @ 500 mls/hr 1X ONCE IV Last administered on 11/27/20at 18:52; Start 11/27/20 at 18:00; Stop 11/27/20 at 18:59; Status DC Ondansetron HCl (Zofran) 4 mg 1X ONCE IV Last administered on 11/27/20at 18:50; Start 11/27/20 at 18:15; Stop 11/27/20 at 18:16; Status DC Fentanyl Citrate (Fentanyl 2ml Vial) 50 mcg 1X ONCE IV Last administered on 11/27/20at 18:52; Start 11/27/20 at 18:15; Stop 11/27/20 at 18:16; Status DC Lidocaine HCl (Lidocaine Pf 2% Vial) 5 ml STK-MED ONCE .ROUTE ; Start 11/27/20 at 19:11; Stop 11/27/20 at 19:11; Status DC Propofol (Diprivan) 200 mg STK-MED ONCE IV ; Start 11/27/20 at 19:11; Stop 11/27/20 at 19:11; Status DC Phenylephrine HCl (PHENYLEPHRINE in 0.9% NACL PF) 1 mg STK-MED ONCE IV ; Start 11/27/20 at 19:11; Stop 11/27/20 at 19:11; Status DC Rocuronium Mica (Zemuron) 50 mg STK-MED ONCE .ROUTE ; Start 11/27/20 at 19:11; Stop 11/27/20 at 19:11; Status DC Heparin Sodium (Porcine) 5000 unit/Sodium Chloride 505 ml @ 505 mls/hr 1X ONCE IRR Last administered on 11/27/20at 19:55; Start 11/27/20 at 20:00; Stop 11/27/20 at 20:59; Status DC Cellulose (Surgicel Fibrillar 1x2) 1 each STK-MED ONCE .ROUTE Last administered on 11/27/20at 19:55; Start 11/27/20 at 19:29; Stop 11/27/20 at 19:30; Status DC Cefazolin Sodium (Ancef) 1 gm STK-MED ONCE IVP ; Start 11/27/20 at 19:38; Stop 11/27/20 at 19:38; Status DC Fentanyl Citrate (Fentanyl 2ml Vial) 25 mcg PRN Q5MIN PRN IVP MILD PAIN 1-3; Start 11/27/20 at 20:15; Stop 11/28/20 at 20:14; Status DC Fentanyl Citrate (Fentanyl 2ml Vial) 50 mcg PRN Q5MIN PRN IVP MODERATE PAIN 4- 6; Start 11/27/20 at 20:15; Stop 11/28/20 at 20:14; Status DC Morphine Sulfate (Morphine Sulfate) 1 mg PRN Q10MIN PRN IVP SEVERE PAIN 7-10; Start 11/27/20 at 20:15; Stop 11/28/20 at 20:14; Status DC Ringer's Solution 1,000 ml @ 30 mls/hr Q24H IV ; Start 11/27/20 at 20:15; Stop 11/28/20 at 08:14; Status DC Hydromorphone HCl (Dilaudid) 0.5 mg PRN Q10MIN PRN IVP SEVERE PAIN 7-10, 2nd CHOICE; Start 11/27/20 at 20:15; Stop 11/28/20 at 20:14; Status DC Prochlorperazine Edisylate (Compazine) 5 mg PACU PRN PRN IVP NAUSEA, MRX1; Start 11/27/20 at 20:15; Stop 11/28/20 at 20:14; Status DC Heparin Sodium (Porcine) (Heparin Sodium) 10,000 unit STK-MED ONCE .ROUTE ; Start 11/27/20 at 20:07; Stop 11/27/20 at 20:07; Status DC Heparin Sodium (Porcine) (Heparin Sodium) 10,000 unit STK-MED ONCE .ROUTE ; Start 11/27/20 at 20:10; Stop 11/27/20 at 20:10; Status DC Fentanyl Citrate (Fentanyl 2ml Vial) 100 mcg STK-MED ONCE .ROUTE ; Start 11/27/20 at 20:11; Stop 11/27/20 at 20:12; Status DC Propofol (Diprivan) 200 mg STK-MED ONCE IV ; Start 11/27/20 at 20:13; Stop 11/27/20 at 20:14; Status DC Protamine Sulfate (Protamine) 50 mg STK-MED ONCE IV ; Start 11/27/20 at 20:44; Stop 11/27/20 at 20:44; Status DC Sevoflurane (Ultane) 60 ml STK-MED ONCE IH ; Start 11/27/20 at 20:44; Stop 11/27/20 at 20:44; Status DC Olanzapine (ZyPREXA ZYDIS) 5 mg PRN BID PRN PO ANXIETY / AGITATION; Start 11/27/20 at 22:00 Acetaminophen (Tylenol) 650 mg PRN Q6HRS PRN PO MILD PAIN / TEMP > 100.3'F; Start 11/27/20 at 22:00 Ondansetron HCl (Zofran) 4 mg PRN Q4HRS PRN IVP NAUSEA/VOMITING; Start 11/27/20 at 22:00 Hydralazine HCl (Apresoline Inj) 20 mg STK-MED ONCE .ROUTE ; Start 11/27/20 at 21:56; Stop 11/27/20 at 21:56; Status DC Fentanyl Citrate (Fentanyl 2ml Vial) 25 mcg PRN Q2HR PRN IVP PAIN; Start 11/27/20 at 22:00 Carvedilol (Coreg) 3.125 mg BIDWMEALS PO Last administered on 11/29/20at 09:06; Start 11/28/20 at 08:00 Gabapentin (Neurontin) 300 mg HS PO Last administered on 11/28/20at 20:20; Start 11/27/20 at 22:15 Pantoprazole Sodium (Protonix) 40 mg DAILYAC PO Last administered on 11/29/20at 09:06; Start 11/28/20 at 07:30 Zolpidem Tartrate (Ambien) 5 mg PRN QHS PRN PO INSOMNIA; Start 11/27/20 at 22:15 Folic Acid (Folic Acid) 1 mg DAILY PO Last administered on 11/29/20at 09:06; Start 11/28/20 at 09:00 Aspirin (Aspirin Chewable) 81 mg DAILY08 PO Last administered on 11/29/20at 09:06; Start 11/28/20 at 08:00 Vitamin D (Vitamin D3) 5,000 unit DAILY PO Last administered on 11/29/20at 09:06; Start 11/28/20 at 09:00 Clopidogrel Bisulfate (Plavix) 75 mg DAILY08 PO Last administered on 11/29/20at 09:06; Start 11/28/20 at 08:00 Sodium Chloride 1,000 ml @ 80 mls/hr [id number] IV Last administered on 11/29/20at 10:26; Start 11/27/20 at 22:45 Acetaminophen/ Hydrocodone Bitart (Lortab 5/325) 1 tab PRN Q4HRS PRN PO PAIN MILD TO MODERATE Last administered on 11/27/20at 23:39; Start 11/27/20 at 22:45 Acetaminophen/ Hydrocodone Bitart (Lortab 5/325) 2 tab PRN Q4HRS PRN PO PAIN SEVERE; Start 11/27/20 at 22:45 Albumin Human 500 ml @ 125 mls/hr PRN DAILY PRN IV Hypotension; Start 11/27/20 at 23:00 Magnesium Sulfate 50 ml @ 25 mls/hr 1X ONCE IV Last administered on 11/28/20at 02:15; Start 11/28/20 at 01:45; Stop 11/28/20 at 03:44; Status DC Cefazolin Sodium/ Dextrose 50 ml @ 100 mls/hr Q8HRS IV Last administered on 11/28/20at 06:11; Start 11/28/20 at 06:00; Stop 11/28/20 at 12:08; Status DC Albuterol/ Ipratropium (Duoneb) 3 ml RTQID NEB ; Start 11/28/20 at 12:00; Stop 11/28/20 at 10:59; Status DC Potassium Chloride (Klor-Con) 40 meq 1X ONCE PO ; Start 11/28/20 at 11:00; Stop 11/28/20 at 11:01; Status UNV Potassium Bicarbonate (Potassium Effervescent Tablet) 40 meq 1X ONCE PO ; Start 11/28/20 at 11:00; Stop 11/28/20 at 11:01; Status UNV Potassium Chloride/Water 100 ml @ 100 mls/hr Q1H IV ; Start 11/28/20 at 11:00; Stop 11/28/20 at 12:59; Status UNV Potassium Chloride/Water 100 ml @ 100 mls/hr Q1H IV ; Start 11/28/20 at 11:00; Stop 11/28/20 at 18:59; Status UNV Potassium Chloride/Water 100 ml @ 100 mls/hr Q1HR IV ; Start 11/28/20 at 11:00; Stop 11/28/20 at 16:59; Status UNV Magnesium Sulfate 100 ml @ 50 mls/hr DAILY IV ; Start 11/29/20 at 09:00; Stop 12/02/20 at 08:59; Status UNV Potassium Phos/ Sodium Phos (Phos-Nak) 1 pkt BID PO ; Start 11/28/20 at 21:00; Stop 11/29/20 at 09:01; Status UNV Albuterol Sulfate (Ventolin Neb Soln) 2.5 mg PRN QID PRN NEB SHORTNESS OF BREATH; Start 11/28/20 at 11:15 Info (Icu Electrolyte Protocol) 1 ea CONT PRN PRN MC SEE COMMENTS; Start 11/28/20 at 11:00 Piperacillin Sod/ Tazobactam Sod (Zosyn Per Pharmacy) 1 each PRN DAILY PRN MC SEE COMMENTS; Start 11/28/20 at 12:15 Piperacillin Sod/ Tazobactam Sod 3.375 gm/Sodium Chloride 50 ml @ 100 mls/hr Q6HRS IV Last administered on 11/29/20at 12:51; Start 11/28/20 at 12:30 Micafungin Sodium 100 mg/Dextrose 100 ml @ 100 mls/hr Q24H IV Last administered on 11/29/20at 10:19; Start 11/29/20 at 10:00 Daptomycin 380 mg/ Sodium Chloride 50 ml @ 100 mls/hr Q24H IV Last administered on 11/29/20at 12:02; Start 11/29/20 at 11:00 Cefazolin Sodium 1 gm/Sodium Chloride 500 ml @ 500 mls/hr 1X ONCE IRR ; Start 11/30/20 at 06:00; Stop 11/30/20 at 06:59 Heparin Sodium (Porcine) 5000 unit/Sodium Chloride 505 ml @ 505 mls/hr 1X ONCE IRR ; Start 11/30/20 at 06:00; Stop 11/30/20 at 06:59 Active Scripts Active Reported Vitamin D3 (Vitamin D) 125 Mcg Capsule 125 Mcg PO DAILY 5,000 UNITS = 125 MCG Methotrexate (Methotrexate Sodium) 2.5 Mg Tablet 4 Tab PO WEEKLY Ambien (Zolpidem Tartrate) 5 Mg Tablet 5 Mg PO PRN QHS PRN Gabapentin (Gabapentin) 300 Mg Capsule 300 Mg PO HS Protonix (Pantoprazole Sodium) 40 Mg Tablet.dr 40 Mg PO DAILYAC Folic Acid 0.4 Mg Tablet 0.4 Mg PO DAILY Aspirin 81 Mg Tab.chew 1 Tab PO DAILY Clopidogrel (Clopidogrel Bisulfate) 75 Mg Tablet 1 Tab PO DAILY Coreg (Carvedilol) 6.25 Mg Tablet 6.25 Mg PO BIDWMEALS Allergies Allergies: Coded Allergies: No Known Drug Allergies (Unverified , 11/19/20) ROS Review of System Negative for fever, chills, weight loss, shortness of breath, chest pain, indigestion, hematochezia, melena, and dysuria. Full 14-point review of systems is negative. Physical Exam Physical Examination General: Well-developed, well-nourished white female in no acute distress HEENT: Normocephalic andatraumatic. Temporal arteriespulsatile and nontender. Neck: Supple without bruit, no meningismus Musculoskeletal: Stability:see neurologic. Gait exam:see neurologic. Tone:see neurologic.Strength:see neurologic. Neurological: Mental Status:intact, orientation, memory, attention span/concentration, language, fund of knowledge normal; she calls a watch a "clock" but can name "stethoscope." Cranial Nerves:Pupils equal and reactive to light, extraocular movements areintact, visual gleason are full to confrontation. Facial sensation is normal. There is no facial asymmetry. Vestibulo-ocular reflex is intact. P alate elevates and tongue protrudes in midline. All other cranial related problems are negative except as mentioned before.Reflexes:2+ and symmetric with flexor plantar responses. Motor:5/5 strength with normal tone and bulk. Coordination:Finger-nose finger and [id number] testing are normal. Rapid alternating movements and fine finger movements are intact. Gait:not tested. S ensory:Normal pinprick, vibration, light touch, proprioception. Vitals VITALS Vital Signs Date Time Temp Pulse Resp B/P (MAP) Pulse Ox O2 Delivery O2 Flow Rate FiO2 11/29/20 12:00 Room Air 11/29/20 12:00 97.8 85 20 117/62 (80) 95 97.8 Labs Labs Laboratory Tests Test 11/27/20 18:35 11/27/20 18:58 11/27/20 22:25 11/27/20 23:00 White Blood Count 19.2 x10^3/uL (4.0-11.0) 27.1 x10^3/uL (4.0-11.0) Red Blood Count 2.00 x10^6/uL (3.50-5.40) 2.97 x10^6/uL (3.50-5.40) Hemoglobin 6.3 g/dL (12.0-15.5) 9.3 g/dL (12.0-15.5) Hematocrit 18.9 % (36.0-47.0) 27.8 % (36.0-47.0) Mean Corpuscular Volume 95 fL (79-100) 94 fL (79-100) Mean Corpuscular Hemoglobin 32 pg (25-35) 31 pg (25-35) Mean Corpuscular Hemoglobin Concent 33 g/dL (31-37) 33 g/dL (31-37) Red Cell Distribution Width 15.8 % (11.5-14.5) 15.0 % (11.5-14.5) Platelet Count 367 x10^3/uL (140-400) 263 x10^3/uL (140-400) Neutrophils (%) (Auto) 82 % (31-73) Lymphocytes (%) (Auto) 8 % (24-48) Monocytes (%) (Auto) 9 % (0-9) Eosinophils (%) (Auto) 0 % (0-3) Basophils (%) (Auto) 1 % (0-3) Neutrophils # (Auto) 15.7 x10^3/uL (1.8-7.7) Lymphocytes # (Auto) 1.5 x10^3/uL (1.0-4.8) Monocytes # (Auto) 1.7 x10^3/uL (0.0-1.1) Eosinophils # (Auto) 0.1 x10^3/uL (0.0-0.7) Basophils # (Auto) 0.2 x10^3/uL (0.0-0.2) Segmented Neutrophils % 83 % (35-66) Band Neutrophils % 3 % (0-9) Lymphocytes % 10 % (24-48) Monocytes % 3 % (0-10) Eosinophils % 1 % (0-5) Platelet Estimate Adequate (ADEQUATE) Polychromasia Slight Sodium Level 133 mmol/L (136-145) 136 mmol/L (136-145) Potassium Level 4.7 mmol/L (3.5-5.1) 5.1 mmol/L (3.5-5.1) Chloride Level 98 mmol/L (98-107) 105 mmol/L (98-107) Carbon Dioxide Level 26 mmol/L (21-32) 22 mmol/L (21-32) Anion Gap 9 (6-14) 9 (6-14) Blood Urea Nitrogen 17 mg/dL (7-20) 17 mg/dL (7-20) Creatinine 0.8 mg/dL (0.6-1.0) 0.8 mg/dL (0.6-1.0) Estimated GFR (Cockcroft-Gault) 71.1 71.1 Glucose Level 178 mg/dL (70-99) 168 mg/dL (70-99) Hemoglobin A1c 6.1 % (4.8-5.6) Calcium Level 8.4 mg/dL (8.5-10.1) 8.6 mg/dL (8.5-10.1) Prothrombin Time 14.9 SEC (11.7-14.0) 16.0 SEC (11.7-14.0) Prothromb Time International Ratio 1.2 (0.8-1.1) 1.3 (0.8-1.1) Activated Partial Thromboplast Time 25 SEC (24-38) 27 SEC (24-38) Magnesium Level 1.3 mg/dL (1.8-2.4) Ionized Calcium 1.27 mmol/L (1.13-1.32) Test 11/28/20 04:30 11/28/20 09:30 11/28/20 14:25 11/29/20 03:30 White Blood Count 19.0 x10^3/uL (4.0-11.0) 15.6 x10^3/uL (4.0-11.0) 15.4 x10^3/uL (4.0-11.0) Red Blood Count 2.54 x10^6/uL (3.50-5.40) 2.32 x10^6/uL (3.50-5.40) 2.96 x10^6/uL (3.50-5.40) Hemoglobin 7.8 g/dL (12.0-15.5) 7.1 g/dL (12.0-15.5) 8.9 g/dL (12.0-15.5) Hematocrit 23.7 % (36.0-47.0) 21.6 % (36.0-47.0) 26.9 % (36.0-47.0) Mean Corpuscular Volume 94 fL (79-100) 93 fL (79-100) 91 fL (79-100) Mean Corpuscular Hemoglobin 31 pg (25-35) 31 pg (25-35) 30 pg (25-35) Mean Corpuscular Hemoglobin Concent 33 g/dL (31-37) 33 g/dL (31-37) 33 g/dL (31-37) Red Cell Distribution Width 15.1 % (11.5-14.5) 15.4 % (11.5-14.5) 15.5 % (11.5-14.5) Platelet Count 253 x10^3/uL (140-400) 284 x10^3/uL (140-400) 285 x10^3/uL (140-400) Neutrophils (%) (Auto) 80 % (31-73) 80 % (31-73) 75 % (31-73) Lymphocytes (%) (Auto) 9 % (24-48) 10 % (24-48) 13 % (24-48) Monocytes (%) (Auto) 10 % (0-9) 9 % (0-9) 10 % (0-9) Eosinophils (%) (Auto) 0 % (0-3) 0 % (0-3) 1 % (0-3) Basophils (%) (Auto) 0 % (0-3) 0 % (0-3) 0 % (0-3) Neutrophils # (Auto) 15.3 x10^3/uL (1.8-7.7) 12.4 x10^3/uL (1.8-7.7) 11.6 x10^3/uL (1.8-7.7) Lymphocytes # (Auto) 1.8 x10^3/uL (1.0-4.8) 1.6 x10^3/uL (1.0-4.8) 2.1 x10^3/uL (1.0-4.8) Monocytes # (Auto) 1.9 x10^3/uL (0.0-1.1) 1.5 x10^3/uL (0.0-1.1) 1.6 x10^3/uL (0.0-1.1) Eosinophils # (Auto) 0.0 x10^3/uL (0.0-0.7) 0.1 x10^3/uL (0.0-0.7) 0.1 x10^3/uL (0.0-0.7) Basophils # (Auto) 0.1 x10^3/uL (0.0-0.2) 0.0 x10^3/uL (0.0-0.2) 0.0 x10^3/uL (0.0-0.2) Sodium Level 136 mmol/L (136-145) 138 mmol/L (136-145) Potassium Level 4.3 mmol/L (3.5-5.1) 3.9 mmol/L (3.5-5.1) Chloride Level 105 mmol/L (98-107) 106 mmol/L (98-107) Carbon Dioxide Level 21 mmol/L (21-32) 23 mmol/L (21-32) Anion Gap 10 (6-14) 9 (6-14) Blood Urea Nitrogen 19 mg/dL (7-20) 14 mg/dL (7-20) Creatinine 0.7 mg/dL (0.6-1.0) 0.6 mg/dL (0.6-1.0) Estimated GFR (Cockcroft-Gault) 83.0 99.1 BUN/Creatinine Ratio 27 (6-20) Glucose Level 120 mg/dL (70-99) 98 mg/dL (70-99) Calcium Level 8.2 mg/dL (8.5-10.1) 7.8 mg/dL (8.5-10.1) Phosphorus Level 4.4 mg/dL (2.6-4.7) Magnesium Level 2.2 mg/dL (1.8-2.4) Total Bilirubin 0.8 mg/dL (0.2-1.0) Aspartate Amino Transf (AST/SGOT) 12 U/L (15-37) Alanine Aminotransferase (ALT/SGPT) 9 U/L (14-59) Alkaline Phosphatase 50 U/L (46-116) C-Reactive Protein, Quantitative 68.2 mg/L (0-3.3) XM-Fwx-C-Type Natriuretic Peptide 327 pg/mL (0-124) Total Protein 4.2 g/dL (6.4-8.2) Albumin 1.9 g/dL (3.4-5.0) Albumin/Globulin Ratio 0.8 (1.0-1.7) Procalcitonin < 0.10 ng/mL (0.00-0.10) Urine Collection Type Unknown Urine Color Joy Urine Clarity Clear Urine pH 6.0 (<5.0-8.0) Urine Specific [place] >=1.030 (1.000-1.030) Urine Protein Negative mg/dL (NEG-TRACE) Urine Glucose (UA) Negative mg/dL (NEG) Urine Ketones (Stick) Negative mg/dL (NEG) Urine Blood Negative (NEG) Urine Nitrite Negative (NEG) Urine Bilirubin Negative (NEG) Urine Urobilinogen Dipstick 1.0 mg/dL (0.2 mg/dL) Urine Leukocyte Esterase Trace (NEG) Urine RBC 0 /HPF (0-2) Urine WBC 11-20 /HPF (0-4) Urine Squamous Epithelial Cells Mod /LPF Urine Bacteria Few /HPF (0-FEW) Urine Hyaline Casts Occasional /HPF Lactic Acid Level 0.9 mmol/L (0.4-2.0) Laboratory Tests Test 11/28/20 14:25 11/29/20 03:30 White Blood Count 15.6 x10^3/uL (4.0-11.0) 15.4 x10^3/uL (4.0-11.0) Red Blood Count 2.32 x10^6/uL (3.50-5.40) 2.96 x10^6/uL (3.50-5.40) Hemoglobin 7.1 g/dL (12.0-15.5) 8.9 g/dL (12.0-15.5) Hematocrit 21.6 % (36.0-47.0) 26.9 % (36.0-47.0) Mean Corpuscular Volume 93 fL (79-100) 91 fL (79-100) Mean Corpuscular Hemoglobin 31 pg (25-35) 30 pg (25-35) Mean Corpuscular Hemoglobin Concent 33 g/dL (31-37) 33 g/dL (31-37) Red Cell Distribution Width 15.4 % (11.5-14.5) 15.5 % (11.5-14.5) Platelet Count 284 x10^3/uL (140-400) 285 x10^3/uL (140-400) Neutrophils (%) (Auto) 80 % (31-73) 75 % (31-73) Lymphocytes (%) (Auto) 10 % (24-48) 13 % (24-48) Monocytes (%) (Auto) 9 % (0-9) 10 % (0-9) Eosinophils (%) (Auto) 0 % (0-3) 1 % (0-3) Basophils (%) (Auto) 0 % (0-3) 0 % (0-3) Neutrophils # (Auto) 12.4 x10^3/uL (1.8-7.7) 11.6 x10^3/uL (1.8-7.7) Lymphocytes # (Auto) 1.6 x10^3/uL (1.0-4.8) 2.1 x10^3/uL (1.0-4.8) Monocytes # (Auto) 1.5 x10^3/uL (0.0-1.1) 1.6 x10^3/uL (0.0-1.1) Eosinophils # (Auto) 0.1 x10^3/uL (0.0-0.7) 0.1 x10^3/uL (0.0-0.7) Basophils # (Auto) 0.0 x10^3/uL (0.0-0.2) 0.0 x10^3/uL (0.0-0.2) Lactic Acid Level 0.9 mmol/L (0.4-2.0) Sodium Level 138 mmol/L (136-145) Potassium Level 3.9 mmol/L (3.5-5.1) Chloride Level 106 mmol/L (98-107) Carbon Dioxide Level 23 mmol/L (21-32) Anion Gap 9 (6-14) Blood Urea Nitrogen 14 mg/dL (7-20) Creatinine 0.6 mg/dL (0.6-1.0) Estimated GFR (Cockcroft-Gault) 99.1 Glucose Level 98 mg/dL (70-99) Calcium Level 7.8 mg/dL (8.5-10.1) Images Images Impression: Stroke 9 days ago, she made a good recovery. Encephalopathy related to blood loss anemia, surgery, stress, I do not think she has had a new stroke. Status-post clot retrieval and stent Status-post repair of femoral pseudoaneurysm with plans for more surgery tomorrow [facility] records reviewed, note that she had a normal cholesterol Recommendations: Aspirin and clopidogrel [facility] Holding off on repeat imaging studies Okay for surgery tomorrow I will follow Discussed with . Thank you for letting me help with the patient's care. JOHNNY QUIÑONEZ MD Nov 29, 2020 13:13
--- NOTE | 2020-11-29 14:14 | CONS ---
DATE OF CONSULTATION: 11/29/2020 REFERRING PHYSICIAN: Dr. Coker. REASON FOR CONSULTATION: Sepsis, antibiotic management. HISTORY OF PRESENT ILLNESS: A 70-year-old female with history of acute stroke, who had recent right femoral access with left carotid stent and left stroke thrombus removal.Pt had undergone treatment with TPA on 11/18/2020 for right-sided weakness. Pt was then at rehab facility where she was noted to have swelling and bruising in the Rt groin which got worse. The patient was brought to [facility] for further evaluation of pain and swelling in the right groin,abdomen and thigh.In ED, White count was elevated at 19.2, hemoglobin of 6.3, hematocrit of 18.9, platelets of 367. Sodium was 133. Creatinine of 0.8. Arterial Doppler showed pseudoaneurysm arising from the common femoral artery, which appears to be actively bleeding into a large hematoma. The patient was emergently taken to OR for emergent repair. The patient underwent open repair of the right femoral artery pseudoaneurysm using bovine pericardial patch angioplasty, right common femoral artery. She also received crystalloid blood. Salazar was placed. Wound VAC was placed. The patient was on cefazolin for leukocytosis. I have changed her to empiric Zosyn last night. This morning, she is alert. Denies any pain. Still continues to have bruising over the right thigh and lower abdomen on the right side, but not worsened. Denies any fevers, chills, nausea, vomiting, diarrhea, abdominal pain, symptoms. Denies any sore throat or difficulty swallowing, shortness of breath or cough. PAST MEDICAL HISTORY: Hypertension, hyperlipidemia, left MCA vessel occlusion as above, history of CVA, recent rheumatoid arthritis on methotrexate, GERD. PAST SURGICAL HISTORY: Initial treatment at [facility] as well as emergency pseudoaneurysm repair of the right femoral pseudoaneurysm here for bleeding. FAMILY HISTORY: As per HPI. SOCIAL HISTORY: . No alcohol, no drugs, no smoking. CURRENT MEDICATIONS: Zosyn, was on cefazolin also was on methotrexate as outpatient. ALLERGIES: No known drug allergies. REVIEW OF SYSTEMS: Feels tired, but otherwise negative except for above. PHYSICAL EXAMINATION: VITAL SIGNS: Temperature 98.1, pulse 88, respiration rate 19, blood pressure 105/50, oxygen saturation 98% on room air. GENERAL: Alert, oriented x3 female, lying in bed comfortably, in no acute distress. Her is at bedside. HEENT: Normocephalic, atraumatic. Anicteric. NECK: Supple. LUNGS: Clear. HEART: S1, S2. No murmurs. ABDOMEN: Soft, bruise present over the right suprapubic area and right groin. No rebound, no guarding. EXTREMITIES: Right leg groin ecchymosis going up from the right lower abdomen down to the knee. Wound VAC in place. No fluctuance, no cyanosis, no clubbing. DERMATOLOGIC: Warm, dry, no generalized rash except for above. NEUROLOGIC: Alert, oriented x3. Normal speech. PSYCHIATRIC: Calm and cooperative. LABORATORY DATA: WBC 15.4, was 19.0 last morning, hemoglobin of 8.9, hematocrit 26.9, platelets is 285. Sodium 138, potassium 3.9, chloride 106, bicarbonate 23, BUN 14, creatinine 0.6, glucose 98. C-reactive protein 68.2. BNP 327. Procalcitonin normal. Albumin 1.9. UA negative. IMAGING: Doppler ultrasound arterial as above. Chest x-ray shows small bilateral pleural effusion, atelectasis. MICRO: None. IMPRESSION: 1. Large right groin pseudoaneurysm with hematoma, status post emergent open repair of the right femoral artery pseudoaneurysm using bovine pericardial patch angioplasty. 2. Status post treatment with TPA on 11/18/2020 for right-sided weakness. 3. History of recent Left middle cerebral artery with vessel occlusion, status post clot retrieval and possible stenting procedure at outside hospital 4. Leukocytosis ,could have a reactive component. 5. Severe acute blood loss anemia, status post blood transfusion. 6. History of rheumatoid arthritis, on methotrexate. 7. Hypertension/hyperlipidemia 8. Gastroesophageal reflux disease. 9. Protein calorie malnutrition. 10. Hyponatremia. RECOMMENDATIONS: 1. Continue Zosyn. 2. Start empiric daptomycin and micafungin for now. 3. Continue wound/VAC care as directed. 4. Follow up labs and cultures. 5. Continue supportive care. Discussed with nursing staff. Discussed with at bedside. Thank you, Dr. Coker for consulting Infectious Disease to participate in this patient's care. If you have any questions, do not hesitate to contact me. ARIC/MARY ALICE DR: ARIC/jeanie TID: [id number] MTDCharles
--- NOTE | 2020-11-29 16:38 | NUR ---
SS following for discharge planning. SS reviewed pt chart and discussed with pt RN. Pt is from home with spouse and is currently on room air. Pt on IV Zosyn, IV Micafungin, and IV Daptomycin. Wound vac in place. SS will continue to follow for discharge planning.
--- NOTE | 2020-11-29 16:46 | PDOC ---
PROGRESS NOTES Date of Service DATE: 11/29/20 TIME: 16:44 Subjective Subjective Patient seen and examined Objective Objective Vital Signs Date Time Temp Pulse Resp B/P (MAP) Pulse Ox O2 Delivery O2 Flow Rate FiO2 11/29/20 15:00 74 18 100/53 (69) 98 Room Air 11/29/20 12:00 97.8 97.8 11/27/20 22:12 6 Intake and Output 11/29/20 07:00 Intake Total 2989 ml Output Total 1585 ml Balance 1404 ml Intake Oral 1000 ml IV Total 1513 ml Blood Product IV Normal Saline Flush 400 ml Other 76 ml Output Urine Total 885 ml Drainage Total 700 ml Physical Exam Abdomen: Normal bowel sounds Heart: Regular rate General: mild distress Lungs: Clear to auscultation Assessment Assessment Problems Medical Problems: (1) Femoral artery pseudo-aneurysm, right Status: Acute (2) Pseudoaneurysm of femoral artery following procedure Status: Acute 1. Emergency repair of a right femoral arterial pseudoaneurysm. The patient is more alert again today. Being followed by vascular surgery and scheduled for a washout of her muscle flap tomorrow. 2. Hypertension. Blood pressure is under reasonable control. 3. Reported hyperlipidemia. Statins on hold. 4. Possible history of mild heart failure. Echo pending. 5. Gastroesophageal reflux disease. Comment Review of Relevant I have reviewed the following items césar (where applicable) has been applied. Labs Laboratory Tests Test 11/27/20 18:35 11/27/20 18:58 11/27/20 22:25 11/27/20 23:00 White Blood Count 19.2 x10^3/uL (4.0-11.0) 27.1 x10^3/uL (4.0-11.0) Red Blood Count 2.00 x10^6/uL (3.50-5.40) 2.97 x10^6/uL (3.50-5.40) Hemoglobin 6.3 g/dL (12.0-15.5) 9.3 g/dL (12.0-15.5) Hematocrit 18.9 % (36.0-47.0) 27.8 % (36.0-47.0) Mean Corpuscular Volume 95 fL (79-100) 94 fL (79-100) Mean Corpuscular Hemoglobin 32 pg (25-35) 31 pg (25-35) Mean Corpuscular Hemoglobin Concent 33 g/dL (31-37) 33 g/dL (31-37) Red Cell Distribution Width 15.8 % (11.5-14.5) 15.0 % (11.5-14.5) Platelet Count 367 x10^3/uL (140-400) 263 x10^3/uL (140-400) Neutrophils (%) (Auto) 82 % (31-73) Lymphocytes (%) (Auto) 8 % (24-48) Monocytes (%) (Auto) 9 % (0-9) Eosinophils (%) (Auto) 0 % (0-3) Basophils (%) (Auto) 1 % (0-3) Neutrophils # (Auto) 15.7 x10^3/uL (1.8-7.7) Lymphocytes # (Auto) 1.5 x10^3/uL (1.0-4.8) Monocytes # (Auto) 1.7 x10^3/uL (0.0-1.1) Eosinophils # (Auto) 0.1 x10^3/uL (0.0-0.7) Basophils # (Auto) 0.2 x10^3/uL (0.0-0.2) Segmented Neutrophils % 83 % (35-66) Band Neutrophils % 3 % (0-9) Lymphocytes % 10 % (24-48) Monocytes % 3 % (0-10) Eosinophils % 1 % (0-5) Platelet Estimate Adequate (ADEQUATE) Polychromasia Slight Sodium Level 133 mmol/L (136-145) 136 mmol/L (136-145) Potassium Level 4.7 mmol/L (3.5-5.1) 5.1 mmol/L (3.5-5.1) Chloride Level 98 mmol/L (98-107) 105 mmol/L (98-107) Carbon Dioxide Level 26 mmol/L (21-32) 22 mmol/L (21-32) Anion Gap 9 (6-14) 9 (6-14) Blood Urea Nitrogen 17 mg/dL (7-20) 17 mg/dL (7-20) Creatinine 0.8 mg/dL (0.6-1.0) 0.8 mg/dL (0.6-1.0) Estimated GFR (Cockcroft-Gault) 71.1 71.1 Glucose Level 178 mg/dL (70-99) 168 mg/dL (70-99) Hemoglobin A1c 6.1 % (4.8-5.6) Calcium Level 8.4 mg/dL (8.5-10.1) 8.6 mg/dL (8.5-10.1) Prothrombin Time 14.9 SEC (11.7-14.0) 16.0 SEC (11.7-14.0) Prothromb Time International Ratio 1.2 (0.8-1.1) 1.3 (0.8-1.1) Activated Partial Thromboplast Time 25 SEC (24-38) 27 SEC (24-38) Magnesium Level 1.3 mg/dL (1.8-2.4) Ionized Calcium 1.27 mmol/L (1.13-1.32) Test 11/28/20 04:30 11/28/20 09:30 11/28/20 14:25 11/29/20 03:30 White Blood Count 19.0 x10^3/uL (4.0-11.0) 15.6 x10^3/uL (4.0-11.0) 15.4 x10^3/uL (4.0-11.0) Red Blood Count 2.54 x10^6/uL (3.50-5.40) 2.32 x10^6/uL (3.50-5.40) 2.96 x10^6/uL (3.50-5.40) Hemoglobin 7.8 g/dL (12.0-15.5) 7.1 g/dL (12.0-15.5) 8.9 g/dL (12.0-15.5) Hematocrit 23.7 % (36.0-47.0) 21.6 % (36.0-47.0) 26.9 % (36.0-47.0) Mean Corpuscular Volume 94 fL (79-100) 93 fL (79-100) 91 fL (79-100) Mean Corpuscular Hemoglobin 31 pg (25-35) 31 pg (25-35) 30 pg (25-35) Mean Corpuscular Hemoglobin Concent 33 g/dL (31-37) 33 g/dL (31-37) 33 g/dL (31-37) Red Cell Distribution Width 15.1 % (11.5-14.5) 15.4 % (11.5-14.5) 15.5 % (11.5-14.5) Platelet Count 253 x10^3/uL (140-400) 284 x10^3/uL (140-400) 285 x10^3/uL (140-400) Neutrophils (%) (Auto) 80 % (31-73) 80 % (31-73) 75 % (31-73) Lymphocytes (%) (Auto) 9 % (24-48) 10 % (24-48) 13 % (24-48) Monocytes (%) (Auto) 10 % (0-9) 9 % (0-9) 10 % (0-9) Eosinophils (%) (Auto) 0 % (0-3) 0 % (0-3) 1 % (0-3) Basophils (%) (Auto) 0 % (0-3) 0 % (0-3) 0 % (0-3) Neutrophils # (Auto) 15.3 x10^3/uL (1.8-7.7) 12.4 x10^3/uL (1.8-7.7) 11.6 x10^3/uL (1.8-7.7) Lymphocytes # (Auto) 1.8 x10^3/uL (1.0-4.8) 1.6 x10^3/uL (1.0-4.8) 2.1 x10^3/uL (1.0-4.8) Monocytes # (Auto) 1.9 x10^3/uL (0.0-1.1) 1.5 x10^3/uL (0.0-1.1) 1.6 x10^3/uL (0.0-1.1) Eosinophils # (Auto) 0.0 x10^3/uL (0.0-0.7) 0.1 x10^3/uL (0.0-0.7) 0.1 x10^3/uL (0.0-0.7) Basophils # (Auto) 0.1 x10^3/uL (0.0-0.2) 0.0 x10^3/uL (0.0-0.2) 0.0 x10^3/uL (0.0-0.2) Sodium Level 136 mmol/L (136-145) 138 mmol/L (136-145) Potassium Level 4.3 mmol/L (3.5-5.1) 3.9 mmol/L (3.5-5.1) Chloride Level 105 mmol/L (98-107) 106 mmol/L (98-107) Carbon Dioxide Level 21 mmol/L (21-32) 23 mmol/L (21-32) Anion Gap 10 (6-14) 9 (6-14) Blood Urea Nitrogen 19 mg/dL (7-20) 14 mg/dL (7-20) Creatinine 0.7 mg/dL (0.6-1.0) 0.6 mg/dL (0.6-1.0) Estimated GFR (Cockcroft-Gault) 83.0 99.1 BUN/Creatinine Ratio 27 (6-20) Glucose Level 120 mg/dL (70-99) 98 mg/dL (70-99) Calcium Level 8.2 mg/dL (8.5-10.1) 7.8 mg/dL (8.5-10.1) Phosphorus Level 4.4 mg/dL (2.6-4.7) Magnesium Level 2.2 mg/dL (1.8-2.4) Total Bilirubin 0.8 mg/dL (0.2-1.0) Aspartate Amino Transf (AST/SGOT) 12 U/L (15-37) Alanine Aminotransferase (ALT/SGPT) 9 U/L (14-59) Alkaline Phosphatase 50 U/L (46-116) C-Reactive Protein, Quantitative 68.2 mg/L (0-3.3) DJ-Esn-H-Type Natriuretic Peptide 327 pg/mL (0-124) Total Protein 4.2 g/dL (6.4-8.2) Albumin 1.9 g/dL (3.4-5.0) Albumin/Globulin Ratio 0.8 (1.0-1.7) Procalcitonin < 0.10 ng/mL (0.00-0.10) Urine Collection Type Unknown Urine Color Joy Urine Clarity Clear Urine pH 6.0 (<5.0-8.0) Urine Specific Sherman >=1.030 (1.000-1.030) Urine Protein Negative mg/dL (NEG-TRACE) Urine Glucose (UA) Negative mg/dL (NEG) Urine Ketones (Stick) Negative mg/dL (NEG) Urine Blood Negative (NEG) Urine Nitrite Negative (NEG) Urine Bilirubin Negative (NEG) Urine Urobilinogen Dipstick 1.0 mg/dL (0.2 mg/dL) Urine Leukocyte Esterase Trace (NEG) Urine RBC 0 /HPF (0-2) Urine WBC 11-20 /HPF (0-4) Urine Squamous Epithelial Cells Mod /LPF Urine Bacteria Few /HPF (0-FEW) Urine Hyaline Casts Occasional /HPF Lactic Acid Level 0.9 mmol/L (0.4-2.0) Laboratory Tests Test 11/29/20 03:30 White Blood Count 15.4 x10^3/uL (4.0-11.0) Red Blood Count 2.96 x10^6/uL (3.50-5.40) Hemoglobin 8.9 g/dL (12.0-15.5) Hematocrit 26.9 % (36.0-47.0) Mean Corpuscular Volume 91 fL (79-100) Mean Corpuscular Hemoglobin 30 pg (25-35) Mean Corpuscular Hemoglobin Concent 33 g/dL (31-37) Red Cell Distribution Width 15.5 % (11.5-14.5) Platelet Count 285 x10^3/uL (140-400) Neutrophils (%) (Auto) 75 % (31-73) Lymphocytes (%) (Auto) 13 % (24-48) Monocytes (%) (Auto) 10 % (0-9) Eosinophils (%) (Auto) 1 % (0-3) Basophils (%) (Auto) 0 % (0-3) Neutrophils # (Auto) 11.6 x10^3/uL (1.8-7.7) Lymphocytes # (Auto) 2.1 x10^3/uL (1.0-4.8) Monocytes # (Auto) 1.6 x10^3/uL (0.0-1.1) Eosinophils # (Auto) 0.1 x10^3/uL (0.0-0.7) Basophils # (Auto) 0.0 x10^3/uL (0.0-0.2) Sodium Level 138 mmol/L (136-145) Potassium Level 3.9 mmol/L (3.5-5.1) Chloride Level 106 mmol/L (98-107) Carbon Dioxide Level 23 mmol/L (21-32) Anion Gap 9 (6-14) Blood Urea Nitrogen 14 mg/dL (7-20) Creatinine 0.6 mg/dL (0.6-1.0) Estimated GFR (Cockcroft-Gault) 99.1 Glucose Level 98 mg/dL (70-99) Calcium Level 7.8 mg/dL (8.5-10.1) Medications Current Medications Sodium Chloride 500 ml @ 500 mls/hr 1X ONCE IV Last administered on 11/27/20at 18:52; Start 11/27/20 at 18:00; Stop 11/27/20 at 18:59; Status DC Ondansetron HCl (Zofran) 4 mg 1X ONCE IV Last administered on 11/27/20at 18:50; Start 11/27/20 at 18:15; Stop 11/27/20 at 18:16; Status DC Fentanyl Citrate (Fentanyl 2ml Vial) 50 mcg 1X ONCE IV Last administered on 11/27/20at 18:52; Start 11/27/20 at 18:15; Stop 11/27/20 at 18:16; Status DC Lidocaine HCl (Lidocaine Pf 2% Vial) 5 ml STK-MED ONCE .ROUTE ; Start 11/27/20 at 19:11; Stop 11/27/20 at 19:11; Status DC Propofol (Diprivan) 200 mg STK-MED ONCE IV ; Start 11/27/20 at 19:11; Stop 11/27/20 at 19:11; Status DC Phenylephrine HCl (PHENYLEPHRINE in 0.9% NACL PF) 1 mg STK-MED ONCE IV ; Start 11/27/20 at 19:11; Stop 11/27/20 at 19:11; Status DC Rocuronium Ramey (Zemuron) 50 mg STK-MED ONCE .ROUTE ; Start 11/27/20 at 19:11; Stop 11/27/20 at 19:11; Status DC Heparin Sodium (Porcine) 5000 unit/Sodium Chloride 505 ml @ 505 mls/hr 1X ONCE IRR Last administered on 11/27/20at 19:55; Start 11/27/20 at 20:00; Stop 11/27/20 at 20:59; Status DC Cellulose (Surgicel Fibrillar 1x2) 1 each STK-MED ONCE .ROUTE Last administered on 11/27/20at 19:55; Start 11/27/20 at 19:29; Stop 11/27/20 at 19:30; Status DC Cefazolin Sodium (Ancef) 1 gm STK-MED ONCE IVP ; Start 11/27/20 at 19:38; Stop 11/27/20 at 19:38; Status DC Fentanyl Citrate (Fentanyl 2ml Vial) 25 mcg PRN Q5MIN PRN IVP MILD PAIN 1-3; Start 11/27/20 at 20:15; Stop 11/28/20 at 20:14; Status DC Fentanyl Citrate (Fentanyl 2ml Vial) 50 mcg PRN Q5MIN PRN IVP MODERATE PAIN 4- 6; Start 11/27/20 at 20:15; Stop 11/28/20 at 20:14; Status DC Morphine Sulfate (Morphine Sulfate) 1 mg PRN Q10MIN PRN IVP SEVERE PAIN 7-10; Start 11/27/20 at 20:15; Stop 11/28/20 at 20:14; Status DC Ringer's Solution 1,000 ml @ 30 mls/hr Q24H IV ; Start 11/27/20 at 20:15; Stop 11/28/20 at 08:14; Status DC Hydromorphone HCl (Dilaudid) 0.5 mg PRN Q10MIN PRN IVP SEVERE PAIN 7-10, 2nd CHOICE; Start 11/27/20 at 20:15; Stop 11/28/20 at 20:14; Status DC Prochlorperazine Edisylate (Compazine) 5 mg PACU PRN PRN IVP NAUSEA, MRX1; Start 11/27/20 at 20:15; Stop 11/28/20 at 20:14; Status DC Heparin Sodium (Porcine) (Heparin Sodium) 10,000 unit STK-MED ONCE .ROUTE ; Start 11/27/20 at 20:07; Stop 11/27/20 at 20:07; Status DC Heparin Sodium (Porcine) (Heparin Sodium) 10,000 unit STK-MED ONCE .ROUTE ; Start 11/27/20 at 20:10; Stop 11/27/20 at 20:10; Status DC Fentanyl Citrate (Fentanyl 2ml Vial) 100 mcg STK-MED ONCE .ROUTE ; Start 11/27/20 at 20:11; Stop 11/27/20 at 20:12; Status DC Propofol (Diprivan) 200 mg STK-MED ONCE IV ; Start 11/27/20 at 20:13; Stop 11/27/20 at 20:14; Status DC Protamine Sulfate (Protamine) 50 mg STK-MED ONCE IV ; Start 11/27/20 at 20:44; Stop 11/27/20 at 20:44; Status DC Sevoflurane (Ultane) 60 ml STK-MED ONCE IH ; Start 11/27/20 at 20:44; Stop 11/27/20 at 20:44; Status DC Olanzapine (ZyPREXA ZYDIS) 5 mg PRN BID PRN PO ANXIETY / AGITATION; Start 11/27/20 at 22:00 Acetaminophen (Tylenol) 650 mg PRN Q6HRS PRN PO MILD PAIN / TEMP > 100.3'F; Start 11/27/20 at 22:00 Ondansetron HCl (Zofran) 4 mg PRN Q4HRS PRN IVP NAUSEA/VOMITING; Start 11/27/20 at 22:00 Hydralazine HCl (Apresoline Inj) 20 mg STK-MED ONCE .ROUTE ; Start 11/27/20 at 21:56; Stop 11/27/20 at 21:56; Status DC Fentanyl Citrate (Fentanyl 2ml Vial) 25 mcg PRN Q2HR PRN IVP PAIN; Start 11/27/20 at 22:00 Carvedilol (Coreg) 3.125 mg BIDWMEALS PO Last administered on 11/29/20at 09:06; Start 11/28/20 at 08:00 Gabapentin (Neurontin) 300 mg HS PO Last administered on 11/28/20at 20:20; Start 11/27/20 at 22:15 Pantoprazole Sodium (Protonix) 40 mg DAILYAC PO Last administered on 11/29/20at 09:06; Start 11/28/20 at 07:30 Zolpidem Tartrate (Ambien) 5 mg PRN QHS PRN PO INSOMNIA; Start 11/27/20 at 22:15 Folic Acid (Folic Acid) 1 mg DAILY PO Last administered on 11/29/20at 09:06; Sta rt 11/28/20 at 09:00 Aspirin (Aspirin Chewable) 81 mg DAILY08 PO Last administered on 11/29/20at 09:06; Start 11/28/20 at 08:00 Vitamin D (Vitamin D3) 5,000 unit DAILY PO Last administered on 11/29/20at 09:06; Start 11/28/20 at 09:00 Clopidogrel Bisulfate (Plavix) 75 mg DAILY08 PO Last administered on 11/29/20at 09:06; Start 11/28/20 at 08:00 Sodium Chloride 1,000 ml @ 80 mls/hr [id number] IV Last administered on 11/29/20at 10:26; Start 11/27/20 at 22:45 Acetaminophen/ Hydrocodone Bitart (Lortab 5/325) 1 tab PRN Q4HRS PRN PO PAIN MODERATE Last administered on 11/27/20at 23:39; Start 11/27/20 at 22:45 Acetaminophen/ Hydrocodone Bitart (Lortab 5/325) 2 tab PRN Q4HRS PRN PO PAIN SEVERE; Start 11/27/20 at 22:45 Albumin Human 500 ml @ 125 mls/hr PRN DAILY PRN IV Hypotension; Start 11/27/20 at 23:00 Magnesium Sulfate 50 ml @ 25 mls/hr 1X ONCE IV Last administered on 11/28/20at 02:15; Start 11/28/20 at 01:45; Stop 11/28/20 at 03:44; Status DC Cefazolin Sodium/ Dextrose 50 ml @ 100 mls/hr Q8HRS IV Last administered on 11/28/20at 06:11; Start 11/28/20 at 06:00; Stop 11/28/20 at 12:08; Status DC Albuterol/ Ipratropium (Duoneb) 3 ml RTQID NEB ; Start 11/28/20 at 12:00; Stop 11/28/20 at 10:59; Status DC Potassium Chloride (Klor-Con) 40 meq 1X ONCE PO ; Start 11/28/20 at 11:00; Stop 11/28/20 at 11:01; Status UNV Potassium Bicarbonate (Potassium Effervescent Tablet) 40 meq 1X ONCE PO ; Start 11/28/20 at 11:00; Stop 11/28/20 at 11:01; Status UNV Potassium Chloride/Water 100 ml @ 100 mls/hr Q1H IV ; Start 11/28/20 at 11:00; Stop 11/28/20 at 12:59; Status UNV Potassium Chloride/Water 100 ml @ 100 mls/hr Q1H IV ; Start 11/28/20 at 11:00; Stop 11/28/20 at 18:59; Status UNV Potassium Chloride/Water 100 ml @ 100 mls/hr Q1HR IV ; Start 11/28/20 at 11:00; Stop 11/28/20 at 16:59; Status UNV Magnesium Sulfate 100 ml @ 50 mls/hr DAILY IV ; Start 11/29/20 at 09:00; Stop 12/02/20 at 08:59; Status UNV Potassium Phos/ Sodium Phos (Phos-Nak) 1 pkt BID PO ; Start 11/28/20 at 21:00; Stop 11/29/20 at 09:01; Status UNV Albuterol Sulfate (Ventolin Neb Soln) 2.5 mg PRN QID PRN NEB SHORTNESS OF BREATH; Start 11/28/20 at 11:15 Info (Icu Electrolyte Protocol) 1 ea CONT PRN PRN MC SEE COMMENTS; Start 11/28/20 at 11:00 Piperacillin Sod/ Tazobactam Sod (Zosyn Per Pharmacy) 1 each PRN DAILY PRN MC SEE COMMENTS; Start 11/28/20 at 12:15 Piperacillin Sod/ Tazobactam Sod 3.375 gm/Sodium Chloride 50 ml @ 100 mls/hr Q6HRS IV Last administered on 11/29/20at 12:51; Start 11/28/20 at 12:30 Micafungin Sodium 100 mg/Dextrose 100 ml @ 100 mls/hr Q24H IV Last administered on 11/29/20at 10:19; Start 11/29/20 at 10:00 Daptomycin 380 mg/ Sodium Chloride 50 ml @ 100 mls/hr Q24H IV Last administered on 11/29/20at 12:02; Start 11/29/20 at 11:00 Cefazolin Sodium 1 gm/Sodium Chloride 500 ml @ 500 mls/hr 1X ONCE IRR ; Start 11/30/20 at 06:00; Stop 11/30/20 at 06:59 Heparin Sodium (Porcine) 5000 unit/Sodium Chloride 505 ml @ 505 mls/hr 1X ONCE IRR ; Start 11/30/20 at 06:00; Stop 11/30/20 at 06:59 Fentanyl Citrate (Fentanyl 2ml Vial) 25 mcg PRN Q5MIN PRN IVP MILD PAIN 1-3; Start 11/30/20 at 06:00; Stop 12/01/20 at 05:59 Fentanyl Citrate (Fentanyl 2ml Vial) 50 mcg PRN Q5MIN PRN IVP MODERATE PAIN 4- 6; Start 11/30/20 at 06:00; Stop 12/01/20 at 05:59 Morphine Sulfate (Morphine Sulfate) 1 mg PRN Q10MIN PRN IVP SEVERE PAIN 7-10; Start 11/30/20 at 06:00; Stop 12/01/20 at 05:59 Ringer's Solution 1,000 ml @ 30 mls/hr Q24H IV ; Start 11/30/20 at 06:00; Stop 11/30/20 at 17:59 Hydromorphone HCl (Dilaudid) 0.5 mg PRN Q10MIN PRN IVP SEVERE PAIN 7-10, 2nd CHOICE; Start 11/30/20 at 06:00; Stop 12/01/20 at 05:59 Prochlorperazine Edisylate (Compazine) 5 mg PACU PRN PRN IVP NAUSEA, MRX1; Start 11/30/20 at 06:00; Stop 12/01/20 at 05:59 Active Scripts Active Reported Vitamin D3 (Vitamin D) 125 Mcg Capsule 125 Mcg PO DAILY 5,000 UNITS = 125 MCG Methotrexate (Methotrexate Sodium) 2.5 Mg Tablet 4 Tab PO WEEKLY Ambien (Zolpidem Tartrate) 5 Mg Tablet 5 Mg PO PRN QHS PRN Gabapentin (Gabapentin) 300 Mg Capsule 300 Mg PO HS Protonix (Pantoprazole Sodium) 40 Mg Tablet.dr 40 Mg PO DAILYAC Folic Acid 0.4 Mg Tablet 0.4 Mg PO DAILY Aspirin 81 Mg Tab.chew 1 Tab PO DAILY Clopidogrel (Clopidogrel Bisulfate) 75 Mg Tablet 1 Tab PO DAILY Coreg (Carvedilol) 6.25 Mg Tablet 6.25 Mg PO BIDWMEALS Vitals/I & O Vital Sign - Last 24 Hours 11/28/20 11/28/20 11/28/20 11/28/20 17:00 17:00 17:23 18:00 Temp 98.5 98.5 Pulse 86 86 86 89 Resp 19 19 19 B/P (MAP) 111/54 (73) 111/54 111/54 118/55 (76) Pulse Ox 99 98 O2 Delivery Room Air Room Air 11/28/20 11/28/20 11/28/20 11/28/20 18:00 19:00 20:00 20:00 Temp 98.6 99.0 98.6 99.0 Pulse 88 76 83 Resp 18 17 17 B/P (MAP) 118/55 115/58 (77) 95/45 (62) Pulse Ox 98 98 O2 Delivery Room Air Room Air Room Air 11/28/20 11/28/20 11/28/20 11/28/20 21:00 22:00 23:00 23:47 Temp 98.7 98.7 Pulse 86 84 94 Resp 18 18 20 B/P (MAP) 109/48 (68) 111/47 (68) 127/53 (77) Pulse Ox 98 98 98 O2 Delivery Room Air Room Air Room Air Room Air 11/28/20 11/29/20 11/29/20 11/29/20 23:50 01:03 02:00 03:00 Pulse 83 82 77 82 Resp 20 18 20 20 B/P (MAP) 118/54 (75) 112/52 (72) 96/43 (60) 111/54 (73) Pulse Ox 98 98 98 98 O2 Delivery Room Air Room Air Room Air Room Air 11/29/20 11/29/20 11/29/20 11/29/20 04:00 04:00 05:00 05:57 Temp 98.1 98.1 Pulse 88 95 88 Resp 22 17 15 B/P (MAP) 127/48 (74) 108/49 (68) 110/56 (74) Pulse Ox 99 97 98 O2 Delivery Room Air Room Air Room Air Room Air 11/29/20 11/29/20 11/29/20 11/29/20 07:00 08:00 08:00 08:45 Temp 97.4 97.4 Pulse 88 88 Resp 28 B/P (MAP) 105/50 (68) 133/64 (87) Pulse Ox 98 97 98 O2 Delivery Room Air Room Air Room Air Room Air 11/29/20 11/29/20 11/29/20 11/29/20 09:00 09:06 10:00 11:00 Pulse 88 97 87 79 Resp 20 18 17 B/P (MAP) 97/73 (81) 97/73 113/49 (70) 119/68 (85) Pulse Ox 96 97 99 O2 Delivery Room Air Room Air Room Air 11/29/20 11/29/20 11/29/20 11/29/20 12:00 12:00 13:00 14:00 Temp 97.8 97.8 Pulse 85 88 82 Resp 20 21 22 B/P (MAP) 117/62 (80) 126/53 (77) 98/60 (73) Pulse Ox 95 100 97 O2 Delivery Room Air Room Air Room Air Room Air 11/29/20 15:00 Pulse 74 Resp 18 B/P (MAP) 100/53 (69) Pulse Ox 98 O2 Delivery Room Air Intake and Output 11/28/20 11/28/20 11/29/20 15:00 23:00 07:00 Intake Total 2513 ml 476 ml Output Total 185 ml 800 ml 600 ml Balance -185 ml 1713 ml -124 ml Justifications for Admission Other Justification DAIN SIMONS MD Nov 29, 2020 16:46
[2020-11-29] MEDS: GABAPENTIN 300 MG CAPSULE. PO SCH (20:47)
[2020-11-30] VITALS (25 sets, daily range): BP systolic 103–170; BP diastolic 48–84
[2020-11-30 03:49] LABS: BASO # 0.1 x10^3/uL (0.0-0.2); BASO % 1 % (0-3); EOS # 0.3 x10^3/uL (0.0-0.7); EOS % 2 % (0-3); HEMATOCRIT 24.1 % (36.0-47.0); LYMPH # 1.9 x10^3/uL (1.0-4.8); LYMPH % 16 % (24-48); MEAN CORPUSCULAR HEMOGLOBIN 31 pg (25-35); MEAN CORPUSCULAR HGB CONC 33 g/dL (31-37); MEAN CORPUSCULAR VOLUME 92 fL (79-100); MONO # 1.1 x10^3/uL (0.0-1.1); MONO % 9 % (0-9); NEUT # 8.7 x10^3/uL (1.8-7.7); NEUT % 72 % (31-73); PLATELET COUNT 316 x10^3/uL (140-400); RED BLOOD COUNT 2.61 x10^6/uL (3.50-5.40); WHITE BLOOD COUNT 12.1 x10^3/uL (4.0-11.0)
[2020-11-30] MEDS: PIPERACILLIN/TAZOBACTAM 3.375 GM in IV NORMAL SALINE 50ML 50 ML IV SCH ×4 (05:28→23:27)
[2020-11-30] MEDS ORDERED: IV RINGERS,LACTATED 1000ML 1,000 ML IV SCH (06:00)
[2020-11-30] MEDS ORDERED: fentaNYL PF VIAL 100 MCG/2 ML VIAL IVP PRN ×2 (06:00)
[2020-11-30] MEDS ORDERED: HEPARIN SODIUM 5,000 UNIT in IV NORMAL SALINE 500ML BAG 500 ML IRR ONE (06:00)
[2020-11-30] MEDS ORDERED: HYDROmorphone 2 MG/ML VIAL IVP PRN (06:00)
[2020-11-30] MEDS ORDERED: PROCHLORPERAZINE 10 MG/2 ML VIAL. IVP PRN (06:00)
[2020-11-30] MEDS ORDERED: MORPHINE SULFATE 2 MG/ML VIAL. IVP PRN (06:00)
[2020-11-30] MEDS: CARVEDILOL 3.125 MG TABLET. PO SCH ×2 (07:31→16:32)
--- NOTE | 2020-11-30 08:01 | PDOC ---
Infectious Disease Note Subjective: Subjective Patient without complaints Denies any pain Awaiting flap surgery later today per discussion with RN and daughter at bedside Vital Signs: Vital Signs Vital Signs Date Time Temp Pulse Resp B/P (MAP) Pulse Ox O2 Delivery O2 Flow Rate FiO2 11/30/20 07:31 72 133/69 11/30/20 07:00 18 95 Room Air 11/30/20 04:00 98.0 98.0 Physical Exam: PHYSICAL EXAM GENERAL: Alert, awake female, lying in bed comfortably, in no acute distress. HEENT: Normocephalic, atraumatic. Anicteric. NECK: Supple. LUNGS: Clear. HEART: S1, S2. No murmurs. ABDOMEN: Soft, bruise present over the right lower abdominal area No rebound, no guarding. EXTREMITIES: Right leg groin ecchymosis going up from the right lower abdomen down to the knee. Wound VAC in place. No fluctuance, no cyanosis, no clubbing. DERMATOLOGIC: Warm, dry, no generalized rash except for above. NEUROLOGIC: Alert, oriented x3. Normal speech. PSYCHIATRIC: Calm and cooperative. Medications: Inpatient Meds: Medications reviewed. Labs: Lab Laboratory Tests Test 11/30/20 03:20 White Blood Count 12.1 x10^3/uL (4.0-11.0) Red Blood Count 2.61 x10^6/uL (3.50-5.40) Hemoglobin 8.0 g/dL (12.0-15.5) Hematocrit 24.1 % (36.0-47.0) Mean Corpuscular Volume 92 fL (79-100) Mean Corpuscular Hemoglobin 31 pg (25-35) Mean Corpuscular Hemoglobin Concent 33 g/dL (31-37) Red Cell Distribution Width 16.0 % (11.5-14.5) Platelet Count 316 x10^3/uL (140-400) Neutrophils (%) (Auto) 72 % (31-73) Lymphocytes (%) (Auto) 16 % (24-48) Monocytes (%) (Auto) 9 % (0-9) Eosinophils (%) (Auto) 2 % (0-3) Basophils (%) (Auto) 1 % (0-3) Neutrophils # (Auto) 8.7 x10^3/uL (1.8-7.7) Lymphocytes # (Auto) 1.9 x10^3/uL (1.0-4.8) Monocytes # (Auto) 1.1 x10^3/uL (0.0-1.1) Eosinophils # (Auto) 0.3 x10^3/uL (0.0-0.7) Basophils # (Auto) 0.1 x10^3/uL (0.0-0.2) Objective: Assessment: 1. Large right groin pseudoaneurysm with hematoma, status post emergent open repair of the right femoral artery pseudoaneurysm using bovine pericardial patch angioplasty. Awaiting flap surgery November 30, 2020 2. Status post treatment with TPA on 11/18/2020 for right-sided weakness. 3. 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 4. Leukocytosis could have a reactive component. Improving 5. Severe acute blood loss anemia, status post blood transfusion. 6. History of rheumatoid arthritis, on methotrexate. 7. Hypertension/hyperlipidemia 8. Gastroesophageal reflux disease. 9. Protein calorie malnutrition. 10. Hyponatremia. Plan: Plan of Care Awaiting flap surgery later today 1. Continue Zosyn,daptomycin and micafungin. 2. Continue wound/VAC care as directed. 3. Follow up labs and cultures. 4 Continue supportive care. Discussed with and daughter at bedside Discussed with nursing staff. KEV LÓPEZ MD Nov 30, 2020 08:01
--- NOTE | 2020-11-30 08:50 | PDOC ---
PROGRESS NOTES Date of Service DATE: 11/30/20 TIME: 08:48 Assessment Problems Medical Problems: (1) Femoral artery pseudo-aneurysm, right Status: Acute (2) Pseudoaneurysm of femoral artery following procedure Status: Acute Stroke 9 days ago, she made a good recovery. Encephalopathy related to blood loss anemia, surgery, stress, I do not think she has had a new stroke. Even if she did, management would not be changed Status-post clot retrieval and stent Status-post repair of femoral pseudoaneurysm with plans for more surgery tomorrow [facility] records reviewed, note that she had a normal cholesterol Plan Aspirin and clopidogrel Holding off on statin per [facility] neurology Holding off on repeat imaging studies Okay for surgery today I will follow Discussed with daughter and . Subjective No complaints, daughter thinks the patient continues to improve Objective Vital Signs Date Time Temp Pulse Resp B/P (MAP) Pulse Ox O2 Delivery O2 Flow Rate FiO2 11/30/20 08:00 98.2 77 18 153/69 (97) 97 Room Air 98.2 Intake and Output 11/30/20 07:00 Intake Total 2453 ml Output Total 1085 ml Balance 1368 ml Intake Oral 790 ml IV Total 1663 ml Output Urine Total 735 ml Drainage Total 350 ml PHYSICAL EXAM Alert. Oriented to person, cannot tell me the date or the name of the hospital. PERRL. EOMI. CN: no focal findings. Muscle tone: normal. Muscle strength: 5/5, may be a little decreased right collet maker, no pronator drift. She has IV site in the right arm DTR: 2+ Plantar reflex: flexor Gait: not examined in bed. Sensory exam: no abnormal findings. No cerebellar signs elicited. Review of Relevant I have reviewed the following items césar (where applicable) has been applied. Labs Laboratory Tests Test 11/28/20 09:30 11/28/20 14:25 11/29/20 03:30 11/30/20 03:20 Urine Collection Type Unknown Urine Color Joy Urine Clarity Clear Urine pH 6.0 (<5.0-8.0) Urine Specific [place] >=1.030 (1.000-1.030) Urine Protein Negative mg/dL (NEG-TRACE) Urine Glucose (UA) Negative mg/dL (NEG) Urine Ketones (Stick) Negative mg/dL (NEG) Urine Blood Negative (NEG) Urine Nitrite Negative (NEG) Urine Bilirubin Negative (NEG) Urine Urobilinogen Dipstick 1.0 mg/dL (0.2 mg/dL) Urine Leukocyte Esterase Trace (NEG) Urine RBC 0 /HPF (0-2) Urine WBC 11-20 /HPF (0-4) Urine Squamous Epithelial Cells Mod /LPF Urine Bacteria Few /HPF (0-FEW) Urine Hyaline Casts Occasional /HPF White Blood Count 15.6 x10^3/uL (4.0-11.0) 15.4 x10^3/uL (4.0-11.0) 12.1 x10^3/uL (4.0-11.0) Red Blood Count 2.32 x10^6/uL (3.50-5.40) 2.96 x10^6/uL (3.50-5.40) 2.61 x10^6/uL (3.50-5.40) Hemoglobin 7.1 g/dL (12.0-15.5) 8.9 g/dL (12.0-15.5) 8.0 g/dL (12.0-15.5) Hematocrit 21.6 % (36.0-47.0) 26.9 % (36.0-47.0) 24.1 % (36.0-47.0) Mean Corpuscular Volume 93 fL (79-100) 91 fL (79-100) 92 fL (79-100) Mean Corpuscular Hemoglobin 31 pg (25-35) 30 pg (25-35) 31 pg (25-35) Mean Corpuscular Hemoglobin Concent 33 g/dL (31-37) 33 g/dL (31-37) 33 g/dL (31-37) Red Cell Distribution Width 15.4 % (11.5-14.5) 15.5 % (11.5-14.5) 16.0 % (11.5-14.5) Platelet Count 284 x10^3/uL (140-400) 285 x10^3/uL (140-400) 316 x10^3/uL (140-400) Neutrophils (%) (Auto) 80 % (31-73) 75 % (31-73) 72 % (31-73) Lymphocytes (%) (Auto) 10 % (24-48) 13 % (24-48) 16 % (24-48) Monocytes (%) (Auto) 9 % (0-9) 10 % (0-9) 9 % (0-9) Eosinophils (%) (Auto) 0 % (0-3) 1 % (0-3) 2 % (0-3) Basophils (%) (Auto) 0 % (0-3) 0 % (0-3) 1 % (0-3) Neutrophils # (Auto) 12.4 x10^3/uL (1.8-7.7) 11.6 x10^3/uL (1.8-7.7) 8.7 x10^3/uL (1.8-7.7) Lymphocytes # (Auto) 1.6 x10^3/uL (1.0-4.8) 2.1 x10^3/uL (1.0-4.8) 1.9 x10^3/uL (1.0-4.8) Monocytes # (Auto) 1.5 x10^3/uL (0.0-1.1) 1.6 x10^3/uL (0.0-1.1) 1.1 x10^3/uL (0.0-1.1) Eosinophils # (Auto) 0.1 x10^3/uL (0.0-0.7) 0.1 x10^3/uL (0.0-0.7) 0.3 x10^3/uL (0.0-0.7) Basophils # (Auto) 0.0 x10^3/uL (0.0-0.2) 0.0 x10^3/uL (0.0-0.2) 0.1 x10^3/uL (0.0-0.2) Lactic Acid Level 0.9 mmol/L (0.4-2.0) Sodium Level 138 mmol/L (136-145) Potassium Level 3.9 mmol/L (3.5-5.1) Chloride Level 106 mmol/L (98-107) Carbon Dioxide Level 23 mmol/L (21-32) Anion Gap 9 (6-14) Blood Urea Nitrogen 14 mg/dL (7-20) Creatinine 0.6 mg/dL (0.6-1.0) Estimated GFR (Cockcroft-Gault) 99.1 Glucose Level 98 mg/dL (70-99) Calcium Level 7.8 mg/dL (8.5-10.1) Laboratory Tests Test 11/30/20 03:20 White Blood Count 12.1 x10^3/uL (4.0-11.0) Red Blood Count 2.61 x10^6/uL (3.50-5.40) Hemoglobin 8.0 g/dL (12.0-15.5) Hematocrit 24.1 % (36.0-47.0) Mean Corpuscular Volume 92 fL (79-100) Mean Corpuscular Hemoglobin 31 pg (25-35) Mean Corpuscular Hemoglobin Concent 33 g/dL (31-37) Red Cell Distribution Width 16.0 % (11.5-14.5) Platelet Count 316 x10^3/uL (140-400) Neutrophils (%) (Auto) 72 % (31-73) Lymphocytes (%) (Auto) 16 % (24-48) Monocytes (%) (Auto) 9 % (0-9) Eosinophils (%) (Auto) 2 % (0-3) Basophils (%) (Auto) 1 % (0-3) Neutrophils # (Auto) 8.7 x10^3/uL (1.8-7.7) Lymphocytes # (Auto) 1.9 x10^3/uL (1.0-4.8) Monocytes # (Auto) 1.1 x10^3/uL (0.0-1.1) Eosinophils # (Auto) 0.3 x10^3/uL (0.0-0.7) Basophils # (Auto) 0.1 x10^3/uL (0.0-0.2) Microbiology 11/28/20 Urine Culture - Final, Complete Medications Current Medications Sodium Chloride 500 ml @ 500 mls/hr 1X ONCE IV Last administered on 11/27/20at 18:52; Start 11/27/20 at 18:00; Stop 11/27/20 at 18:59; Status DC Ondansetron HCl (Zofran) 4 mg 1X ONCE IV Last administered on 11/27/20at 18:50; Start 11/27/20 at 18:15; Stop 11/27/20 at 18:16; Status DC Fentanyl Citrate (Fentanyl 2ml Vial) 50 mcg 1X ONCE IV Last administered on 11/27/20at 18:52; Start 11/27/20 at 18:15; Stop 11/27/20 at 18:16; Status DC Lidocaine HCl (Lidocaine Pf 2% Vial) 5 ml STK-MED ONCE .ROUTE ; Start 11/27/20 at 19:11; Stop 11/27/20 at 19:11; Status DC Propofol (Diprivan) 200 mg STK-MED ONCE IV ; Start 11/27/20 at 19:11; Stop 11/27/20 at 19:11; Status DC Phenylephrine HCl (PHENYLEPHRINE in 0.9% NACL PF) 1 mg STK-MED ONCE IV ; Start 11/27/20 at 19:11; Stop 11/27/20 at 19:11; Status DC Rocuronium [place] (Zemuron) 50 mg STK-MED ONCE .ROUTE ; Start 11/27/20 at 19:11; Stop 11/27/20 at 19:11; Status DC Heparin Sodium (Porcine) 5000 unit/Sodium Chloride 505 ml @ 505 mls/hr 1X ONCE IRR Last administered on 11/27/20at 19:55; Start 11/27/20 at 20:00; Stop 11/27/20 at 20:59; Status DC Cellulose (Surgicel Fibrillar 1x2) 1 each STK-MED ONCE .ROUTE Last administered on 11/27/20at 19:55; Start 11/27/20 at 19:29; Stop 11/27/20 at 19:30; Status DC Cefazolin Sodium (Ancef) 1 gm STK-MED ONCE IVP ; Start 11/27/20 at 19:38; Stop 11/27/20 at 19:38; Status DC Fentanyl Citrate (Fentanyl 2ml Vial) 25 mcg PRN Q5MIN PRN IVP MILD PAIN 1-3; Start 11/27/20 at 20:15; Stop 11/28/20 at 20:14; Status DC Fentanyl Citrate (Fentanyl 2ml Vial) 50 mcg PRN Q5MIN PRN IVP MODERATE PAIN 4- 6; Start 11/27/20 at 20:15; Stop 11/28/20 at 20:14; Status DC Morphine Sulfate (Morphine Sulfate) 1 mg PRN Q10MIN PRN IVP SEVERE PAIN 7-10; Start 11/27/20 at 20:15; Stop 11/28/20 at 20:14; Status DC Ringer's Solution 1,000 ml @ 30 mls/hr Q24H IV ; Start 11/27/20 at 20:15; Stop 11/28/20 at 08:14; Status DC Hydromorphone HCl (Dilaudid) 0.5 mg PRN Q10MIN PRN IVP SEVERE PAIN 7-10, 2nd CHOICE; Start 11/27/20 at 20:15; Stop 11/28/20 at 20:14; Status DC Prochlorperazine Edisylate (Compazine) 5 mg PACU PRN PRN IVP NAUSEA, MRX1; Start 11/27/20 at 20:15; Stop 11/28/20 at 20:14; Status DC Heparin Sodium (Porcine) (Heparin Sodium) 10,000 unit STK-MED ONCE .ROUTE ; Start 11/27/20 at 20:07; Stop 11/27/20 at 20:07; Status DC Heparin Sodium (Porcine) (Heparin Sodium) 10,000 unit STK-MED ONCE .ROUTE ; Start 11/27/20 at 20:10; Stop 11/27/20 at 20:10; Status DC Fentanyl Citrate (Fentanyl 2ml Vial) 100 mcg STK-MED ONCE .ROUTE ; Start 11/27/20 at 20:11; Stop 11/27/20 at 20:12; Status DC Propofol (Diprivan) 200 mg STK-MED ONCE IV ; Start 11/27/20 at 20:13; Stop 11/27/20 at 20:14; Status DC Protamine Sulfate (Protamine) 50 mg STK-MED ONCE IV ; Start 11/27/20 at 20:44; Stop 11/27/20 at 20:44; Status DC Sevoflurane (Ultane) 60 ml STK-MED ONCE IH ; Start 11/27/20 at 20:44; Stop 11/27/20 at 20:44; Status DC Olanzapine (ZyPREXA ZYDIS) 5 mg PRN BID PRN PO ANXIETY / AGITATION; Start 11/27/20 at 22:00 Acetaminophen (Tylenol) 650 mg PRN Q6HRS PRN PO MILD PAIN / TEMP > 100.3'F; Start 11/27/20 at 22:00 Ondansetron HCl (Zofran) 4 mg PRN Q4HRS PRN IVP NAUSEA/VOMITING; Start 11/27/20 at 22:00 Hydralazine HCl (Apresoline Inj) 20 mg STK-MED ONCE .ROUTE ; Start 11/27/20 at 21:56; Stop 11/27/20 at 21:56; Status DC Fentanyl Citrate (Fentanyl 2ml Vial) 25 mcg PRN Q2HR PRN IVP PAIN; Start 11/27/20 at 22:00 Carvedilol (Coreg) 3.125 mg BIDWMEALS PO Last administered on 11/30/20 07:31; Start 11/28/20 at 08:00 Gabapentin (Neurontin) 300 mg HS PO Last administered on 11/29/20 20:47; Start 11/27/20 at 22:15 Pantoprazole Sodium (Protonix) 40 mg DAILYAC PO Last administered on 11/29/20 09:06; Start 11/28/20 at 07:30 Zolpidem Tartrate (Ambien) 5 mg PRN QHS PRN PO INSOMNIA; Start 11/27/20 at 22:15 Folic Acid (Folic Acid) 1 mg DAILY PO Last administered on 11/29/20 09:06; Start 11/28/20 at 09:00 Aspirin (Aspirin Chewable) 81 mg DAILY08 PO Last administered on 11/29/20 09:06; Start 11/28/20 at 08:00 Vitamin D (Vitamin D3) 5,000 unit DAILY PO Last administered on 11/29/20 09:06; Start 11/28/20 at 09:00 Clopidogrel Bisulfate (Plavix) 75 mg DAILY08 PO Last administered on 11/29/20 09:06; Start 11/28/20 at 08:00 Sodium Chloride 1,000 ml @ 80 mls/hr [id number] IV Last administered on 11/29/20at 20:48; Start 11/27/20 at 22:45 Acetaminophen/ Hydrocodone Bitart (Lortab 5/325) 1 tab PRN Q4HRS PRN PO PAIN MODERATE Last administered on 11/27/20at 23:39; Start 11/27/20 at 22:45 Acetaminophen/ Hydrocodone Bitart (Lortab 5/325) 2 tab PRN Q4HRS PRN PO PAIN SEVERE; Start 11/27/20 at 22:45 Albumin Human 500 ml @ 125 mls/hr PRN DAILY PRN IV Hypotension; Start 11/27/20 at 23:00 Magnesium Sulfate 50 ml @ 25 mls/hr 1X ONCE IV Last administered on 11/28/20at 02:15; Start 11/28/20 at 01:45; Stop 11/28/20 at 03:44; Status DC Cefazolin Sodium/ Dextrose 50 ml @ 100 mls/hr Q8HRS IV Last administered on 11/28/20at 06:11; Start 11/28/20 at 06:00; Stop 11/28/20 at 12:08; Status DC Albuterol/ Ipratropium (Duoneb) 3 ml RTQID NEB ; Start 11/28/20 at 12:00; Stop 11/28/20 at 10:59; Status DC Potassium Chloride (Klor-Con) 40 meq 1X ONCE PO ; Start 11/28/20 at 11:00; Stop 11/28/20 at 11:01; Status UNV Potassium Bicarbonate (Potassium Effervescent Tablet) 40 meq 1X ONCE PO ; Start 11/28/20 at 11:00; Stop 11/28/20 at 11:01; Status UNV Potassium Chloride/Water 100 ml @ 100 mls/hr Q1H IV ; Start 11/28/20 at 11:00; Stop 11/28/20 at 12:59; Status UNV Potassium Chloride/Water 100 ml @ 100 mls/hr Q1H IV ; Start 11/28/20 at 11:00; Stop 11/28/20 at 18:59; Status UNV Potassium Chloride/Water 100 ml @ 100 mls/hr Q1HR IV ; Start 11/28/20 at 11:00; Stop 11/28/20 at 16:59; Status UNV Magnesium Sulfate 100 ml @ 50 mls/hr DAILY IV ; Start 11/29/20 at 09:00; Stop 12/02/20 at 08:59; Status UNV Potassium Phos/ Sodium Phos (Phos-Nak) 1 pkt BID PO ; Start 11/28/20 at 21:00; Stop 11/29/20 at 09:01; Status UNV Albuterol Sulfate (Ventolin Neb Soln) 2.5 mg PRN QID PRN NEB SHORTNESS OF BREATH; Start 11/28/20 at 11:15 Info (Icu Electrolyte Protocol) 1 ea CONT PRN PRN MC SEE COMMENTS; Start 11/28/20 at 11:00 Piperacillin Sod/ Tazobactam Sod (Zosyn Per Pharmacy) 1 each PRN DAILY PRN MC SEE COMMENTS; Start 11/28/20 at 12:15 Piperacillin Sod/ Tazobactam Sod 3.375 gm/Sodium Chloride 50 ml @ 100 mls/hr Q6HRS IV Last administered on 11/30/20at 05:28; Start 11/28/20 at 12:30 Micafungin Sodium 100 mg/Dextrose 100 ml @ 100 mls/hr Q24H IV Last administered on 11/29/20at 10:19; Start 11/29/20 at 10:00 Daptomycin 380 mg/ Sodium Chloride 50 ml @ 100 mls/hr Q24H IV Last administered on 11/29/20at 12:02; Start 11/29/20 at 11:00 Cefazolin Sodium 1 gm/Sodium Chloride 500 ml @ 500 mls/hr 1X ONCE IRR ; Start 11/30/20 at 06:00; Stop 11/30/20 at 06:59; Status DC Heparin Sodium (Porcine) 5000 unit/Sodium Chloride 505 ml @ 505 mls/hr 1X ONCE IRR ; Start 11/30/20 at 06:00; Stop 11/30/20 at 06:59; Status DC Fentanyl Citrate (Fentanyl 2ml Vial) 25 mcg PRN Q5MIN PRN IVP MILD PAIN 1-3; Start 11/30/20 at 06:00; Stop 12/01/20 at 05:59 Fentanyl Citrate (Fentanyl 2ml Vial) 50 mcg PRN Q5MIN PRN IVP MODERATE PAIN 4- 6; Start 11/30/20 at 06:00; Stop 12/01/20 at 05:59 Morphine Sulfate (Morphine Sulfate) 1 mg PRN Q10MIN PRN IVP SEVERE PAIN 7-10; Start 11/30/20 at 06:00; Stop 12/01/20 at 05:59 Ringer's Solution 1,000 ml @ 30 mls/hr Q24H IV Last administered on 11/30/20at 05:29; Start 11/30/20 at 06:00; Stop 11/30/20 at 17:59 Hydromorphone HCl (Dilaudid) 0.5 mg PRN Q10MIN PRN IVP SEVERE PAIN 7-10, 2nd CHOICE; Start 11/30/20 at 06:00; Stop 12/01/20 at 05:59 Prochlorperazine Edisylate (Compazine) 5 mg PACU PRN PRN IVP NAUSEA, MRX1; Start 11/30/20 at 06:00; Stop 12/01/20 at 05:59 Active Scripts Active Reported Vitamin D3 (Vitamin D) 125 Mcg Capsule 125 Mcg PO DAILY 5,000 UNITS = 125 MCG Methotrexate (Methotrexate Sodium) 2.5 Mg Tablet 4 Tab PO WEEKLY Ambien (Zolpidem Tartrate) 5 Mg Tablet 5 Mg PO PRN QHS PRN Gabapentin (Gabapentin) 300 Mg Capsule 300 Mg PO HS Protonix (Pantoprazole Sodium) 40 Mg Tablet.dr 40 Mg PO DAILYAC Folic Acid 0.4 Mg Tablet 0.4 Mg PO DAILY Aspirin 81 Mg Tab.chew 1 Tab PO DAILY Clopidogrel (Clopidogrel Bisulfate) 75 Mg Tablet 1 Tab PO DAILY Coreg (Carvedilol) 6.25 Mg Tablet 6.25 Mg PO BIDWMEALS Vitals/I & O Vital Sign - Last 24 Hours 11/29/20 11/29/20 11/29/20 11/29/20 09:00 09:06 10:00 11:00 Pulse 88 97 87 79 Resp 20 18 17 B/P (MAP) 97/73 (81) 97/73 113/49 (70) 119/68 (85) Pulse Ox 96 97 99 O2 Delivery Room Air Room Air Room Air 11/29/20 11/29/20 11/29/20 11/29/20 12:00 12:00 13:00 14:00 Temp 97.8 97.8 Pulse 85 88 82 Resp 20 22 B/P (MAP) 117/62 (80) 126/53 (77) 98/60 (73) Pulse Ox 95 100 97 O2 Delivery Room Air Room Air Room Air Room Air 11/29/20 11/29/20 11/29/20 11/29/20 15:00 16:00 16:00 17:00 Temp 98.2 98.2 Pulse 74 78 81 Resp 18 20 20 B/P (MAP) 100/53 (69) 121/68 (85) 119/56 (77) Pulse Ox 98 99 98 O2 Delivery Room Air Room Air Room Air Room Air 11/29/20 11/29/20 11/29/20 11/29/20 17:22 18:00 19:00 20:00 Temp 98.9 98.9 Pulse 81 84 80 Resp 21 20 B/P (MAP) 119/56 119/61 (80) 103/52 (69) Pulse Ox 99 99 O2 Delivery Room Air Room Air Room Air 11/29/20 11/29/20 11/29/20 11/29/20 20:00 21:00 22:00 23:00 Pulse 81 89 82 85 Resp 20 20 18 18 B/P (MAP) 114/52 (72) 127/63 (84) 107/50 (69) 132/69 (90) Pulse Ox 99 97 97 97 O2 Delivery Room Air Room Air Room Air Room Air 11/29/20 11/29/20 11/30/20 11/30/20 23:59 23:59 01:00 02:00 Temp 98.4 98.4 Pulse 85 81 70 Resp 18 19 17 B/P (MAP) 132/69 (90) 103/48 (66) 120/60 (80) Pulse Ox 97 97 97 O2 Delivery Room Air Room Air Room Air Room Air 11/30/20 11/30/20 11/30/20 11/30/20 03:00 04:00 04:00 05:00 Temp 98.0 98.0 Pulse 70 70 75 Resp 22 22 22 B/P (MAP) 106/73 (84) 123/59 (80) 143/70 (94) Pulse Ox 98 96 98 O2 Delivery Room Air Room Air Room Air Room Air 11/30/20 11/30/20 11/30/20 11/30/20 06:00 07:00 07:31 08:00 Pulse 79 72 72 Resp 20 18 B/P (MAP) 146/75 (98) 133/69 (90) 133/69 Pulse Ox 95 95 O2 Delivery Room Air Room Air Room Air 11/30/20 08:00 Temp 98.2 98.2 Pulse 77 Resp 18 B/P (MAP) 153/69 (97) Pulse Ox 97 O2 Delivery Room Air Intake and Output 11/29/20 11/29/20 11/30/20 15:00 23:00 07:00 Intake Total 490 ml 1546 ml 417 ml Output Total 225 ml 500 ml 360 ml Balance 265 ml 1046 ml 57 ml Justicifation of Admission Dx: Justifications for Admission: Justification of Admission Dx: Yes JOHNNY QUIÑONEZ MD Nov 30, 2020 08:50
--- NOTE | 2020-11-30 09:46 | PDOC ---
PROGRESS NOTES Date of Service: DATE: 11/30/20 TIME: 09:46 Chief Complaint Chief Complaint Assessment/Plan 70-year-old woman who recently had a right femoral artery access for acute stroke intervention apparently left carotid stent and left stroke thrombus removal at [facility] / pseudoaneurysm arising from the common femoral artery // actively bleeding into a large hematoma. Acute blood loss anemia - given extent of hematoma and pseudoaneursym and need for surgery may need up to 6u PRBC. 2 units on hold for OR. H&H 4 hours post op HGB 11.9 11-19 Large right groin pseuoaneurysm - likely from access 1 week prior. Vascular surgery consulted for ongoing active bleeding. To OR Large right groin hematoma - likely from arterial bleed. 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 Would not hold DAPT therapy in order to prevent further CVA. (will order [facility] records to confirm the presence/absence of stent) Hyponatremia - likely hypovolemic. Will give NSS crystalloid and monitor. Leukocytosis - likely reactive from massive blood loss, will trend. No clear in fection. will cover preoperatively. Given the extent of her hematoma is definitely at risk for skin infection/cellulitis as she is immunocompromised on MTX, ID CONSULTED , BLOOD CULT Hyperglycemia - likely related to stress, will check A1c RA - on MTX weekly. 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 severe protein-caloric malnutrition Current smoker HTN - on coreg, will cut dosing given low BP since d/c from [facility] per rehab notes. She may have cardiac reason for BB, will await . [facility] records as she may be getting CHF treatment, patient and aren't certain. plan FEN - NPO for OR. Regular diet after PPX - SCDs for 24 hours. Will defer heparin timing to vascular surgery CODE - FULL Dispo - ICU [facility] for possible IR intervention. 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 Would not hold DAPT therapy in order to prevent further CVA. (will order [facility] records to confirm the presence/absence of stent) Hyponatremia - likely hypovolemic. Will give NSS crystalloid and monitor. Leukocytosis - likely reactive from massive blood loss, will trend. No clear infection. will cover preoperatively. Given the extent of her hematoma is definitely at risk for skin infection/cellulitis as she is immunocompromised on MTX, ID CONSULTED , BLOOD CULT Hyperglycemia - likely related to stress, will check A1c-6.1 CC time 32 min History of Present Illness History of Present Illness Identification/Chief Complaint Chief Complaint Right groin pain and swelling Source Source: Patient History of Present Illness History of Present Illness Ms Robins is a 70-year-old female w/ PMHx HLD, HTN, GERD, RA, and recent presenting with right groin pain and swelling. She has been noting bruising since 11/24/2020 when the dressing in her right groin was removed as instructed. She has been going to outpatient PT and OT for stroke rehab and has been c/o some pain in the area since the dressing was removed. 11/26 she began acting more tired, dizzy and intermittently confused per her . family member, who is a nurse practitioner, came over to the house to look at her leg as the was concerned about the bruise getting bigger. The family member told him to go to the ER right away. She states she feels very weak and tired and dizzy. Patient denies any chest pain, shortness of breath, nausea, vomiting, or diarrhea. She is up to date on both doses of Moderna COVID 19 vaccine Patient complains of pain and tightness in her right thigh and groin. She was initially evaluated on 11/19/2020 at [facility] ED for right sided weakness within 2 hours of presentation and tPA was then administered. CT angiogram shows left MCA M1 large vessel occlusion and she was transferred to [facility] for large vessel occlusion intervention on 11/19/2020. Per had clot retrieval and he thinks had carotid stenting as well and w as discharged home on 11/21/2020 for outpatient rehab for her CVA on DAPT with ASA and plavix. In ED noted with pulsatile swelling in left groin and right groin arterial doppler revealed large hematoma in the proximal right lower extremity arising from the common femoral artery that measures 11.5 x 5.0 x 9.5 cm. This hematoma appears to arise directly from a pseudoaneurysm with a neck which actively bleeds into the hematoma. The belly of the pseudoaneurysm measures 2.3 cm in diameter. On examination a nurse was holding pressure in the groin and [employer]ER was accessing left antecubital fossa for venipuncture for blood draw and IV insertion. give much of history bedside. During examination labs returned with WBC 19.2, platelets 367, Hb 6.3, Na 133, glucose 178, INR 1.2. Given the urgency of her condition vascular surgery was consulted and Dr. Wilhelm brought in OR staff and patient was taken to OR in stable condition from the ED with plans to admit to ICU. 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 Would not hold DAPT therapy in order to prevent further CVA. (will order . [facility] records to confirm the presence/absence of stent) Hyponatremia - likely hypovolemic. Will give NSS crystalloid and monitor. Leukocytosis - likely reactive from massive blood loss, will trend. No clear infection. will cover preoperatively. 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 Would not hold DAPT therapy in order to prevent further CVA. (will order [facility] records to confirm the presence/absence of stent) Hyponatremia - likely hypovolemic. Will give NSS crystalloid and monitor. Leukocytosis - likely reactive from massive blood loss, will trend. No clear infection. will cover preoperatively. Given the extent of her hematoma is definitely at risk for skin infection/cellulitis as she is immunocompromised on MTX, ID CONSULTED , BLOOD CULT Hyperglycemia - likely related to stress, will check A1c-6.1 Continue Zosyn,daptomycin and micafungin. CC time 34 min 12-01 wound vac r groin in place, intact, FLAP CLOSURE 11-30 pending IV DAPTOMYCIN Neurology consulted CVA - left MCA occlusion on 11/19/2020 s/p neurointerventional clot retrieval on plavix and ASA for the next 30 days. Would not hold DAPT therapy in order to prevent further CVA. (will order [facility] records to confirm the presenc e/absence of stent) Hyponatremia - likely hypovolemic. Will give NSS crystalloid and monitor. Leukocytosis - likely reactive from massive blood loss, will trend. No clear infection. will cover preoperatively. Given the extent of her hematoma is definitely at risk for skin infection/cellulitis as she is immunocompromised on MTX, ID CONSULTED , BLOOD CULT Hyperglycemia - likely related to stress, will check A1c-6.1 Continue Zosyn,daptomycin and micafungin. CC time 34 min Vitals Vitals Vital Signs Date Time Temp Pulse Resp B/P (MAP) Pulse Ox O2 Delivery O2 Flow Rate FiO2 11/30/20 09:00 76 18 136/66 (89) 95 Room Air 11/30/20 08:00 98.2 98.2 Physical Exam Physical Exam GENERAL: Alert, oriented x3 female, lying in bed comfortably, in no acute distress. HEENT: Normocephalic, atraumatic. Anicteric. NECK: Supple. LUNGS: Clear. HEART: S1, S2. No murmurs. ABDOMEN: Soft, bruise present over the right suprapubic area and right groin. No rebound, no guarding. EXTREMITIES: Right leg groin ecchymosis going up from the right lower abdomen down to the knee. Wound VAC in place. No fluctuance, no cyanosis, no clubbing. DERMATOLOGIC: Warm, dry, no generalized rash except for above. NEUROLOGIC: Alert, oriented x3. Normal speech. PSYCHIATRIC: Calm and cooperative. General: Alert, Oriented X3, Cooperative, mild distress Heart: Regular rate Lungs: Clear Abdomen: Normal bowel sounds, No tenderness Extremities: No clubbing, No cyanosis, No edema, Normal pulses, Other ( right leg and groin shows ecchymosis from about there the umbilicus down to the knee.) Skin: No rashes, No breakdown, Other (right groin) Labs LABS Laboratory Tests Test 11/30/20 03:20 White Blood Count 12.1 x10^3/uL (4.0-11.0) Red Blood Count 2.61 x10^6/uL (3.50-5.40) Hemoglobin 8.0 g/dL (12.0-15.5) Hematocrit 24.1 % (36.0-47.0) Mean Corpuscular Volume 92 fL (79-100) Mean Corpuscular Hemoglobin 31 pg (25-35) Mean Corpuscular Hemoglobin Concent 33 g/dL (31-37) Red Cell Distribution Width 16.0 % (11.5-14.5) Platelet Count 316 x10^3/uL (140-400) Neutrophils (%) (Auto) 72 % (31-73) Lymphocytes (%) (Auto) 16 % (24-48) Monocytes (%) (Auto) 9 % (0-9) Eosinophils (%) (Auto) 2 % (0-3) Basophils (%) (Auto) 1 % (0-3) Neutrophils # (Auto) 8.7 x10^3/uL (1.8-7.7) Lymphocytes # (Auto) 1.9 x10^3/uL (1.0-4.8) Monocytes # (Auto) 1.1 x10^3/uL (0.0-1.1) Eosinophils # (Auto) 0.3 x10^3/uL (0.0-0.7) Basophils # (Auto) 0.1 x10^3/uL (0.0-0.2) Assessment and Plan Assessmemt and Plan Problems Medical Problems: (1) Femoral artery pseudo-aneurysm, right Status: Acute (2) Pseudoaneurysm of femoral artery following procedure Status: Acute Comment Review of Relevant I have reviewed the following items césar (where applicable) has been applied. Labs Laboratory Tests Test 11/28/20 14:25 11/29/20 03:30 11/30/20 03:20 White Blood Count 15.6 x10^3/uL (4.0-11.0) 15.4 x10^3/uL (4.0-11.0) 12.1 x10^3/uL (4.0-11.0) Red Blood Count 2.32 x10^6/uL (3.50-5.40) 2.96 x10^6/uL (3.50-5.40) 2.61 x10^6/uL (3.50-5.40) Hemoglobin 7.1 g/dL (12.0-15.5) 8.9 g/dL (12.0-15.5) 8.0 g/dL (12.0-15.5) Hematocrit 21.6 % (36.0-47.0) 26.9 % (36.0-47.0) 24.1 % (36.0-47.0) Mean Corpuscular Volume 93 fL (79-100) 91 fL (79-100) 92 fL (79-100) Mean Corpuscular Hemoglobin 31 pg (25-35) 30 pg (25-35) 31 pg (25-35) Mean Corpuscular Hemoglobin Concent 33 g/dL (31-37) 33 g/dL (31-37) 33 g/dL (31-37) Red Cell Distribution Width 15.4 % (11.5-14.5) 15.5 % (11.5-14.5) 16.0 % (11.5-14.5) Platelet Count 284 x10^3/uL (140-400) 285 x10^3/uL (140-400) 316 x10^3/uL (140-400) Neutrophils (%) (Auto) 80 % (31-73) 75 % (31-73) 72 % (31-73) Lymphocytes (%) (Auto) 10 % (24-48) 13 % (24-48) 16 % (24-48) Monocytes (%) (Auto) 9 % (0-9) 10 % (0-9) 9 % (0-9) Eosinophils (%) (Auto) 0 % (0-3) 1 % (0-3) 2 % (0-3) Basophils (%) (Auto) 0 % (0-3) 0 % (0-3) 1 % (0-3) Neutrophils # (Auto) 12.4 x10^3/uL (1.8-7.7) 11.6 x10^3/uL (1.8-7.7) 8.7 x10^3/uL (1.8-7.7) Lymphocytes # (Auto) 1.6 x10^3/uL (1.0-4.8) 2.1 x10^3/uL (1.0-4.8) 1.9 x10^3/uL (1.0-4.8) Monocytes # (Auto) 1.5 x10^3/uL (0.0-1.1) 1.6 x10^3/uL (0.0-1.1) 1.1 x10^3/uL (0.0-1.1) Eosinophils # (Auto) 0.1 x10^3/uL (0.0-0.7) 0.1 x10^3/uL (0.0-0.7) 0.3 x10^3/uL (0.0-0.7) Basophils # (Auto) 0.0 x10^3/uL (0.0-0.2) 0.0 x10^3/uL (0.0-0.2) 0.1 x10^3/uL (0.0-0.2) Lactic Acid Level 0.9 mmol/L (0.4-2.0) Sodium Level 138 mmol/L (136-145) Potassium Level 3.9 mmol/L (3.5-5.1) Chloride Level 106 mmol/L (98-107) Carbon Dioxide Level 23 mmol/L (21-32) Anion Gap 9 (6-14) Blood Urea Nitrogen 14 mg/dL (7-20) Creatinine 0.6 mg/dL (0.6-1.0) Estimated GFR (Cockcroft-Gault) 99.1 Glucose Level 98 mg/dL (70-99) Calcium Level 7.8 mg/dL (8.5-10.1) Laboratory Tests Test 11/30/20 03:20 White Blood Count 12.1 x10^3/uL (4.0-11.0) Red Blood Count 2.61 x10^6/uL (3.50-5.40) Hemoglobin 8.0 g/dL (12.0-15.5) Hematocrit 24.1 % (36.0-47.0) Mean Corpuscular Volume 92 fL (79-100) Mean Corpuscular Hemoglobin 31 pg (25-35) Mean Corpuscular Hemoglobin Concent 33 g/dL (31-37) Red Cell Distribution Width 16.0 % (11.5-14.5) Platelet Count 316 x10^3/uL (140-400) Neutrophils (%) (Auto) 72 % (31-73) Lymphocytes (%) (Auto) 16 % (24-48) Monocytes (%) (Auto) 9 % (0-9) Eosinophils (%) (Auto) 2 % (0-3) Basophils (%) (Auto) 1 % (0-3) Neutrophils # (Auto) 8.7 x10^3/uL (1.8-7.7) Lymphocytes # (Auto) 1.9 x10^3/uL (1.0-4.8) Monocytes # (Auto) 1.1 x10^3/uL (0.0-1.1) Eosinophils # (Auto) 0.3 x10^3/uL (0.0-0.7) Basophils # (Auto) 0.1 x10^3/uL (0.0-0.2) Microbiology 11/28/20 Urine Culture - Final, Complete Medications Current Medications Sodium Chloride 500 ml @ 500 mls/hr 1X ONCE IV Last administered on 11/27/20at 18:52; Start 11/27/20 at 18:00; Stop 11/27/20 at 18:59; Status DC Ondansetron HCl (Zofran) 4 mg 1X ONCE IV Last administered on 11/27/20at 18:50; Start 11/27/20 at 18:15; Stop 11/27/20 at 18:16; Status DC Fentanyl Citrate (Fentanyl 2ml Vial) 50 mcg 1X ONCE IV Last administered on 11/27/20at 18:52; Start 11/27/20 at 18:15; Stop 11/27/20 at 18:16; Status DC Lidocaine HCl (Lidocaine Pf 2% Vial) 5 ml STK-MED ONCE .ROUTE ; Start 11/27/20 at 19:11; Stop 11/27/20 at 19:11; Status DC Propofol (Diprivan) 200 mg STK-MED ONCE IV ; Start 11/27/20 at 19:11; Stop 11/27/20 at 19:11; Status DC Phenylephrine HCl (PHENYLEPHRINE in 0.9% NACL PF) 1 mg STK-MED ONCE IV ; Start 11/27/20 at 19:11; Stop 11/27/20 at 19:11; Status DC Rocuronium [place] (Zemuron) 50 mg STK-MED ONCE .ROUTE ; Start 11/27/20 at 19:11; Stop 11/27/20 at 19:11; Status DC Heparin Sodium (Porcine) 5000 unit/Sodium Chloride 505 ml @ 505 mls/hr 1X ONCE IRR Last administered on 11/27/20at 19:55; Start 11/27/20 at 20:00; Stop 11/27/20 at 20:59; Status DC Cellulose (Surgicel Fibrillar 1x2) 1 each STK-MED ONCE .ROUTE Last administered on 11/27/20at 19:55; Start 11/27/20 at 19:29; Stop 11/27/20 at 19:30; Status DC Cefazolin Sodium (Ancef) 1 gm STK-MED ONCE IVP ; Start 11/27/20 at 19:38; Stop 11/27/20 at 19:38; Status DC Fentanyl Citrate (Fentanyl 2ml Vial) 25 mcg PRN Q5MIN PRN IVP MILD PAIN 1-3; Start 11/27/20 at 20:15; Stop 11/28/20 at 20:14; Status DC Fentanyl Citrate (Fentanyl 2ml Vial) 50 mcg PRN Q5MIN PRN IVP MODERATE PAIN 4- 6; Start 11/27/20 at 20:15; Stop 11/28/20 at 20:14; Status DC Morphine Sulfate (Morphine Sulfate) 1 mg PRN Q10MIN PRN IVP SEVERE PAIN 7-10; Start 11/27/20 at 20:15; Stop 11/28/20 at 20:14; Status DC Ringer's Solution 1,000 ml @ 30 mls/hr Q24H IV ; Start 11/27/20 at 20:15; Stop 11/28/20 at 08:14; Status DC Hydromorphone HCl (Dilaudid) 0.5 mg PRN Q10MIN PRN IVP SEVERE PAIN 7-10, 2nd CHOICE; Start 11/27/20 at 20:15; Stop 11/28/20 at 20:14; Status DC Prochlorperazine Edisylate (Compazine) 5 mg PACU PRN PRN IVP NAUSEA, MRX1; Start 11/27/20 at 20:15; Stop 11/28/20 at 20:14; Status DC Heparin Sodium (Porcine) (Heparin Sodium) 10,000 unit STK-MED ONCE .ROUTE ; Start 11/27/20 at 20:07; Stop 11/27/20 at 20:07; Status DC Heparin Sodium (Porcine) (Heparin Sodium) 10,000 unit STK-MED ONCE .ROUTE ; Start 11/27/20 at 20:10; Stop 11/27/20 at 20:10; Status DC Fentanyl Citrate (Fentanyl 2ml Vial) 100 mcg STK-MED ONCE .ROUTE ; Start 11/27/20 at 20:11; Stop 11/27/20 at 20:12; Status DC Propofol (Diprivan) 200 mg STK-MED ONCE IV ; Start 11/27/20 at 20:13; Stop 11/27/20 at 20:14; Status DC Protamine Sulfate (Protamine) 50 mg STK-MED ONCE IV ; Start 11/27/20 at 20:44; Stop 11/27/20 at 20:44; Status DC Sevoflurane (Ultane) 60 ml STK-MED ONCE IH ; Start 11/27/20 at 20:44; Stop 11/27/20 at 20:44; Status DC Olanzapine (ZyPREXA ZYDIS) 5 mg PRN BID PRN PO ANXIETY / AGITATION; Start 11/27/20 at 22:00 Acetaminophen (Tylenol) 650 mg PRN Q6HRS PRN PO MILD PAIN / TEMP > 100.3'F; Start 11/27/20 at 22:00 Ondansetron HCl (Zofran) 4 mg PRN Q4HRS PRN IVP NAUSEA/VOMITING; Start 11/27/20 at 22:00 Hydralazine HCl (Apresoline Inj) 20 mg STK-MED ONCE .ROUTE ; Start 11/27/20 at 21:56; Stop 11/27/20 at 21:56; Status DC Fentanyl Citrate (Fentanyl 2ml Vial) 25 mcg PRN Q2HR PRN IVP PAIN; Start 11/27/20 at 22:00 Carvedilol (Coreg) 3.125 mg BIDWMEALS PO Last administered on 11/30/20at 07:31; Start 11/28/20 at 08:00 Gabapentin (Neurontin) 300 mg HS PO Last administered on 11/29/20at 20:47; Start 11/27/20 at 22:15 Pantoprazole Sodium (Protonix) 40 mg DAILYAC PO Last administered on 11/29/20at 09:06; Start 11/28/20 at 07:30 Zolpidem Tartrate (Ambien) 5 mg PRN QHS PRN PO INSOMNIA; Start 11/27/20 at 22:15 Folic Acid (Folic Acid) 1 mg DAILY PO Last administered on 11/29/20at 09:06; Start 11/28/20 at 09:00 Aspirin (Aspirin Chewable) 81 mg DAILY08 PO Last administered on 11/29/20at 09:06; Start 11/28/20 at 08:00 Vitamin D (Vitamin D3) 5,000 unit DAILY PO Last administered on 11/29/20at 09:06; Start 11/28/20 at 09:00 Clopidogrel Bisulfate (Plavix) 75 mg DAILY08 PO Last administered on 11/29/20at 09:06; Start 11/28/20 at 08:00 Sodium Chloride 1,000 ml @ 80 mls/hr [id number] IV Last administered on 11/29/20at 20:48; Start 11/27/20 at 22:45 Acetaminophen/ Hydrocodone Bitart (Lortab 5/325) 1 tab PRN Q4HRS PRN PO PAIN MODERATE Last administered on 11/27/20at 23:39; Start 11/27/20 at 22:45 Acetaminophen/ Hydrocodone Bitart (Lortab 5/325) 2 tab PRN Q4HRS PRN PO PAIN SEVERE; Start 11/27/20 at 22:45 Albumin Human 500 ml @ 125 mls/hr PRN DAILY PRN IV Hypotension; Start 11/27/20 at 23:00 Magnesium Sulfate 50 ml @ 25 mls/hr 1X ONCE IV Last administered on 11/28/20at 02:15; Start 11/28/20 at 01:45; Stop 11/28/20 at 03:44; Status DC Cefazolin Sodium/ Dextrose 50 ml @ 100 mls/hr Q8HRS IV Last administered on 11/28/20at 06:11; Start 11/28/20 at 06:00; Stop 11/28/20 at 12:08; Status DC Albuterol/ Ipratropium (Duoneb) 3 ml RTQID NEB ; Start 11/28/20 at 12:00; Stop 11/28/20 at 10:59; Status DC Potassium Chloride (Klor-Con) 40 meq 1X ONCE PO ; Start 11/28/20 at 11:00; Stop 11/28/20 at 11:01; Status UNV Potassium Bicarbonate (Potassium Effervescent Tablet) 40 meq 1X ONCE PO ; Start 11/28/20 at 11:00; Stop 11/28/20 at 11:01; Status UNV Potassium Chloride/Water 100 ml @ 100 mls/hr Q1H IV ; Start 11/28/20 at 11:00; Stop 11/28/20 at 12:59; Status UNV Potassium Chloride/Water 100 ml @ 100 mls/hr Q1H IV ; Start 11/28/20 at 11:00; Stop 11/28/20 at 18:59; Status UNV Potassium Chloride/Water 100 ml @ 100 mls/hr Q1HR IV ; Start 11/28/20 at 11:00; Stop 11/28/20 at 16:59; Status UNV Magnesium Sulfate 100 ml @ 50 mls/hr DAILY IV ; Start 11/29/20 at 09:00; Stop 12/02/20 at 08:59; Status UNV Potassium Phos/ Sodium Phos (Phos-Nak) 1 pkt BID PO ; Start 11/28/20 at 21:00; Stop 11/29/20 at 09:01; Status UNV Albuterol Sulfate (Ventolin Neb Soln) 2.5 mg PRN QID PRN NEB SHORTNESS OF BREATH; Start 11/28/20 at 11:15 Info (Icu Electrolyte Protocol) 1 ea CONT PRN PRN MC SEE COMMENTS; Start 11/28/20 at 11:00 Piperacillin Sod/ Tazobactam Sod (Zosyn Per Pharmacy) 1 each PRN DAILY PRN MC SEE COMMENTS; Start 11/28/20 at 12:15 Piperacillin Sod/ Tazobactam Sod 3.375 gm/Sodium Chloride 50 ml @ 100 mls/hr Q6HRS IV Last administered on 11/30/20at 05:28; Start 11/28/20 at 12:30 Micafungin Sodium 100 mg/Dextrose 100 ml @ 100 mls/hr Q24H IV Last administered on 11/29/20at 10:19; Start 11/29/20 at 10:00 Daptomycin 380 mg/ Sodium Chloride 50 ml @ 100 mls/hr Q24H IV Last administered on 11/29/20at 12:02; Start 11/29/20 at 11:00 Cefazolin Sodium 1 gm/Sodium Chloride 500 ml @ 500 mls/hr 1X ONCE IRR ; Start 11/30/20 at 06:00; Stop 11/30/20 at 06:59; Status DC Heparin Sodium (Porcine) 5000 unit/Sodium Chloride 505 ml @ 505 mls/hr 1X ONCE IRR ; Start 11/30/20 at 06:00; Stop 11/30/20 at 06:59; Status DC Fentanyl Citrate (Fentanyl 2ml Vial) 25 mcg PRN Q5MIN PRN IVP MILD PAIN 1-3; Start 11/30/20 at 06:00; Stop 12/01/20 at 05:59 Fentanyl Citrate (Fentanyl 2ml Vial) 50 mcg PRN Q5MIN PRN IVP MODERATE PAIN 4- 6; Start 11/30/20 at 06:00; Stop 12/01/20 at 05:59 Morphine Sulfate (Morphine Sulfate) 1 mg PRN Q10MIN PRN IVP SEVERE PAIN 7-10; Start 11/30/20 at 06:00; Stop 12/01/20 at 05:59 Ringer's Solution 1,000 ml @ 30 mls/hr Q24H IV Last administered on 11/30/20at 05:29; Start 11/30/20 at 06:00; Stop 11/30/20 at 17:59 Hydromorphone HCl (Dilaudid) 0.5 mg PRN Q10MIN PRN IVP SEVERE PAIN 7-10, 2nd CHOICE; Start 11/30/20 at 06:00; Stop 12/01/20 at 05:59 Prochlorperazine Edisylate (Compazine) 5 mg PACU PRN PRN IVP NAUSEA, MRX1; Start 11/30/20 at 06:00; Stop 12/01/20 at 05:59 Active Scripts Active Reported Vitamin D3 (Vitamin D) 125 Mcg Capsule 125 Mcg PO DAILY 5,000 UNITS = 125 MCG Methotrexate (Methotrexate Sodium) 2.5 Mg Tablet 4 Tab PO WEEKLY Ambien (Zolpidem Tartrate) 5 Mg Tablet 5 Mg PO PRN QHS PRN Gabapentin (Gabapentin) 300 Mg Capsule 300 Mg PO HS Protonix (Pantoprazole Sodium) 40 Mg Tablet.dr 40 Mg PO DAILYAC Folic Acid 0.4 Mg Tablet 0.4 Mg PO DAILY Aspirin 81 Mg Tab.chew 1 Tab PO DAILY Clopidogrel (Clopidogrel Bisulfate) 75 Mg Tablet 1 Tab PO DAILY Coreg (Carvedilol) 6.25 Mg Tablet 6.25 Mg PO BIDWMEALS Vitals/I & O Vital Sign - Last 24 Hours 11/29/20 11/29/20 11/29/20 11/29/20 10:00 11:00 12:00 12:00 Temp 97.8 97.8 Pulse 87 79 85 Resp 18 17 20 B/P (MAP) 113/49 (70) 119/68 (85) 117/62 (80) Pulse Ox 97 99 95 O2 Delivery Room Air Room Air Room Air Room Air 11/29/20 11/29/20 11/29/20 11/29/20 13:00 14:00 15:00 16:00 Temp 98.2 98.2 Pulse 88 82 74 78 Resp 22 18 20 B/P (MAP) 126/53 (77) 98/60 (73) 100/53 (69) 121/68 (85) Pulse Ox 100 97 98 99 O2 Delivery Room Air Room Air Room Air Room Air 11/29/20 11/29/20 11/29/20 11/29/20 16:00 17:00 17:22 18:00 Pulse 81 81 84 Resp 21 B/P (MAP) 119/56 (77) 119/56 119/61 (80) Pulse Ox 98 99 O2 Delivery Room Air Room Air Room Air 11/29/20 11/29/20 11/29/20 11/29/20 19:00 20:00 20:00 21:00 Temp 98.9 98.9 Pulse 80 81 89 Resp 20 20 20 B/P (MAP) 103/52 (69) 114/52 (72) 127/63 (84) Pulse Ox 99 99 97 O2 Delivery Room Air Room Air Room Air Room Air 11/29/20 11/29/20 11/29/20 11/29/20 22:00 23:00 23:59 23:59 Temp 98.4 98.4 Pulse 82 85 85 Resp 18 18 18 B/P (MAP) 107/50 (69) 132/69 (90) 132/69 (90) Pulse Ox 97 97 97 O2 Delivery Room Air Room Air Room Air Room Air 11/30/20 11/30/20 11/30/20 11/30/20 01:00 02:00 03:00 04:00 Pulse 81 70 70 Resp 22 B/P (MAP) 103/48 (66) 120/60 (80) 106/73 (84) Pulse Ox 97 97 98 O2 Delivery Room Air Room Air Room Air Room Air 11/30/20 11/30/20 11/30/20 11/30/20 04:00 05:00 06:00 07:00 Temp 98.0 98.0 Pulse 70 75 79 72 Resp 22 22 20 18 B/P (MAP) 123/59 (80) 143/70 (94) 146/75 (98) 133/69 (90) Pulse Ox 96 98 95 95 O2 Delivery Room Air Room Air Room Air Room Air 11/30/20 11/30/20 11/30/20 11/30/20 07:31 08:00 08:00 09:00 Temp 98.2 98.2 Pulse 72 77 76 Resp 18 18 B/P (MAP) 133/69 153/69 (97) 136/66 (89) Pulse Ox 97 95 O2 Delivery Room Air Room Air Room Air Intake and Output 11/29/20 11/29/20 11/30/20 15:00 23:00 07:00 Intake Total 490 ml 1546 ml 417 ml Output Total 225 ml 500 ml 360 ml Balance 265 ml 1046 ml 57 ml Justicifation of Admission Dx: Justifications for Admission: Justification of Admission Dx: Yes MYNOR FIELDS MD Nov 30, 2020 09:46
[2020-11-30] MEDS: IV NORMAL SALINE 1000ML BAG 1,000 ML IV SCH (10:12)
[2020-11-30] MEDS ORDERED: LIDOCAINE 2% PF 5 ML VIAL. ONE (12:12)
[2020-11-30] MEDS ORDERED: ONDANSETRON PF 4 MG/2 ML VIAL. ONE (12:12)
[2020-11-30] MEDS ORDERED: DEXAMETHASONE SOD PHOS 4 MG/ML VIAL ONE (12:12)
[2020-11-30] MEDS ORDERED: PROPOFOL 10 MG/ML (20ML) VIAL. IV ONE (12:12)
[2020-11-30] MEDS ORDERED: SURGICEL HEMOSTAT 4X8 EACH. ONE (13:08)
[2020-11-30] MEDS ORDERED: IOHEXOL 300 MG/ML 50 ML VIAL. ONE (13:08)
[2020-11-30] MEDS ORDERED: SURGICEL FIBRILLAR 1X2 EACH. ONE (13:08)
[2020-11-30] MEDS: MICAFUNGIN 100 MG in IV DEXTROSE 5% 100ML 100 ML IV SCH (13:22)
[2020-11-30] MEDS ORDERED: fentaNYL PF VIAL 100 MCG/2 ML VIAL ONE ×2 (13:37→15:37)
[2020-11-30] MEDS ORDERED: GLYCOPYRROLATE 1 MG/5 ML VIAL. ONE (14:10)
[2020-11-30] MEDS ORDERED: SEVOFLURANE 61 TO 120 MINUTES. IH ONE (14:37)
--- NOTE | 2020-11-30 15:20 | PDOC ---
BRIEF OPERATIVE NOTE Date: Nov 30, 2020 Pre-Op Diagnosis Recent right femoral artery repair with hematoma evacuation s/p coronary angiography with right femoral artery access with complication Post-Op Diagnosis Same Procedure Performed 1. Right sartorius muscle flap, wound measurements 14 x 4 x 4 cm 2 right groin wound VAC placement Surgeon Juan M Abarca MD [employer]ims Manager BENNY Mcclure Anesthesiologist [employer] Anesthesia Type: General Blood Loss 20mL Specimens Obtained None Findings Healthy sartorius muscle, successful flap Wound measurements 14 x 4 x 4 cm Complications None Operative Note See dictated op note ADDIE SANTIAGO Nov 30, 2020 15:20
--- NOTE | 2020-11-30 15:46 | NUR ---
SS following up with discharge planning. SS reviewed pt chart and discussed with pt RN. Pt is currently on room air. Pt having surgery for right muscle flap today. Wound vac. Pt on IV Daptomycin, IV Micafungin and IV Zosyn. PT ordered. SS will continue to follow for discharge planning.
--- NOTE | 2020-11-30 16:12 | PDOC ---
SCOTT COELLO BILLING AND ACCOUNTING STAFF ASSISTANT 11/30/20 1612: CARDIO Progress Notes Date and Time Date of Service 11/30/2020 Time of Evaluation 1550 Subjective Subjective: No Chest Pain, No shortness of breath, No Palpitations Vitals Vitals Vital Signs Date Time Temp Pulse Resp B/P (MAP) Pulse Ox O2 Delivery O2 Flow Rate FiO2 11/30/20 15:45 98.4 80 15 173/73 94 Room Air 98.4 11/30/20 15:15 10 Weight Weight [ ] Input and Output Intake and Output Intake and Output 11/30/20 07:00 Intake Total 2453 ml Output Total 1085 ml Balance 1368 ml Intake Oral 790 ml IV Total 1663 ml Output Urine Total 735 ml Drainage Total 350 ml Laboratory Labs Laboratory Tests Test 11/30/20 03:20 White Blood Count 12.1 x10^3/uL (4.0-11.0) Red Blood Count 2.61 x10^6/uL (3.50-5.40) Hemoglobin 8.0 g/dL (12.0-15.5) Hematocrit 24.1 % (36.0-47.0) Mean Corpuscular Volume 92 fL (79-100) Mean Corpuscular Hemoglobin 31 pg (25-35) Mean Corpuscular Hemoglobin Concent 33 g/dL (31-37) Red Cell Distribution Width 16.0 % (11.5-14.5) Platelet Count 316 x10^3/uL (140-400) Neutrophils (%) (Auto) 72 % (31-73) Lymphocytes (%) (Auto) 16 % (24-48) Monocytes (%) (Auto) 9 % (0-9) Eosinophils (%) (Auto) 2 % (0-3) Basophils (%) (Auto) 1 % (0-3) Neutrophils # (Auto) 8.7 x10^3/uL (1.8-7.7) Lymphocytes # (Auto) 1.9 x10^3/uL (1.0-4.8) Monocytes # (Auto) 1.1 x10^3/uL (0.0-1.1) Eosinophils # (Auto) 0.3 x10^3/uL (0.0-0.7) Basophils # (Auto) 0.1 x10^3/uL (0.0-0.2) Microbiology Micro Microbiology 11/28/20 Urine Culture - Final, Complete Physical Exam HEENT: Neck Supple W Full Motion Chest: Symmetric LUNGS: Other (diminished) Heart: RRR (SR), no murmurs Abdomen: Soft N/T Extremities: No Calf Tenderness Neurology: alert, oriented, follow commands Other Exams right groin with wound vac. Surgical dressing intact. Ecchymoses noted from right hip to thigh. 3+ right pedal pulse Assessment Assessment 1. Right femoral arterial pseudoaneurysm with emergent repair on 11/27/2020 then today right sartorius muscle flap with right groin wound VAC placement 2. Hypertension: controlled 3. HLP 4. Hx of CVA 5. Chronic diastolic CHF: compensated Recommendations 1. Post op care per vascular. ASA/plavix 2. Continue secondary prevention measures 3. Supportive care, monitor H/H Justicifation of Admission Dx: Justifications for Admission: Justification of Admission Dx: Yes DAIN SIMONS MD 11/30/20 1628: CARDIO Progress Notes Assessment Assessment Patient seen and examined I agree with our nurse practitioners assessment and plan. Right femoral arterial pseudoaneurysm with emergent repair on 11/27/2020. Alert and oriented this morning. Scheduled for later today a right sartorius muscle flap with right groin wound VAC placement Hypertension: controlled HLP Hx of CVA Chronic diastolic CHF: compensated SCOTT COELLO APRN Nov 30, 2020 16:12 DAIN SIMONS MD Nov 30, 2020 16:28
--- NOTE | 2020-11-30 16:22 | OP ---
DATE OF SURGERY: 11/30/2020 PREOPERATIVE DIAGNOSIS: History of coronary intervention via right femoral access complicated by ruptured pseudoaneurysm with repair with bovine pericardial graft. POSTOPERATIVE DIAGNOSIS: History of coronary intervention via right femoral access complicated by ruptured pseudoaneurysm with repair with bovine pericardial graft. OPERATIONS PERFORMED: 1. Coverage of the right femoral artery repair requiring sartorius muscle flap, measurements 13x4x4 cm. 2. Wound VAC placement. SURGEON: Juan M Abarca MD SUPERVISOR TYPE BAR AND SEGMENT: BENNY Mcclure ANESTHESIA: General. INDICATIONS FOR SURGERY: This is a 70-year-old female who [facility] She developed acute swelling with hemorrhage of the right groin. This required surgical repair with a bovine pericardial patch graft by Dr. Wilhelm on 11/27. Because of the extent of the hematoma and tissue damage, coverage with a sartorius muscle flap was recommended. The operation, risks and benefits were explained to the patient in detail and her family. They expressed understanding and wished to proceed. OPERATIVE FINDINGS: The patient had a secure closure repair of the common femoral artery utilizing a bovine pericardial patch. This was exposed and all appeared very clean. There is no evidence of infection. The sartorius muscle was viable and very healthy appearing. Following coverage of the common femoral artery, the wound was irrigated and a VAC was placed. DESCRIPTION OF PROCEDURE: The patient was placed on the operating table in the supine position. General anesthetic was administered. The suction dressing was removed from the right groin and the right groin was prepped with Betadine paint. The patient received IV antibiotics preoperatively as well as a Salazar catheter. A timeout was called and the correct patient, correct operation and correct operative site were all verified. An incision was then extended proximally in line with the anterior superior iliac spine. This incision was carried down through the subcutaneous tissues. The hemostatic agents that were placed at the time of her repair, was removed exposing the patch repair. This appeared clean and with no evidence of infection. This was irrigated copiously with antibiotic-containing irrigation. The sartorius muscle was then identified laterally and dissected from lateral to medial using sharp and blunt dissection. The tendinous portion close to the anterior iliac spine was divided to allow for mobilization of the muscle to cover the femoral artery. The sartorius muscle was mobilized inferiorly for a length adequate enough to cover the vessel without tension. Care was taken to preserve the medial aspect of the sartorius muscle and thus its blood supply. The sartorius muscle was then flipped over inverted and placed over the femoral artery using interrupted 2-0 Vicryl sutures. This resulted in a secure coverage of the femoral artery. The wound was then irrigated again and measured. The wound VAC was then placed using a gan sponge. The patient tolerated the procedure well and was taken to the recovery room in satisfactory condition. She continues to have a palpable dorsal pedal pulse. ESTIMATED BLOOD LOSS: Less than 20 mL. DRAINS: Wound VAC suction dressing. SPECIMEN: None. EDGARDO DR: Alejandro TID: [id number]
[2020-11-30] MEDS ORDERED: hydrALAZINE 20 MG/ML VIAL. IVP PRN (16:30)
[2020-11-30] MEDS: CHOLECALCIFEROL (VITAMIN D3) 5,000 UNIT CAPSULE PO SCH (16:32)
[2020-11-30] MEDS: PANTOPRAZOLE 40 MG TABLET.DR. PO SCH (16:32)
[2020-11-30] MEDS: ASPIRIN CHEWABLE 81 MG TABLET. PO SCH (16:32)
[2020-11-30] MEDS: FOLIC ACID 1 MG TABLET. PO SCH (16:32)
[2020-11-30] MEDS: CLOPIDOGREL BISULFATE 75 MG TABLET PO SCH (16:32)
[2020-11-30] MEDS: DAPTOmycin (GENERIC) IVPB 380 MG in IV NORMAL SALINE 50ML 50 ML IV SCH (18:18)
[2020-11-30] MEDS: HYDROcodone/APAP 5/325MG 1 TAB TABLET PO PRN (18:22)
[2020-11-30] MEDS: GABAPENTIN 300 MG CAPSULE. PO SCH (20:56)
[2020-12-01] VITALS (15 sets, daily range): BP systolic 106–138; BP diastolic 45–86
[2020-12-01] MEDS: PIPERACILLIN/TAZOBACTAM 3.375 GM in IV NORMAL SALINE 50ML 50 ML IV SCH ×4 (05:33→23:46)
[2020-12-01 07:52] LABS: BASO # 0.1 x10^3/uL (0.0-0.2); BASO % 0 % (0-3); EOS % 0 % (0-3); HEMATOCRIT 28.7 % (36.0-47.0); HEMOGLOBIN 9.5 g/dL (12.0-15.5); LYMPH # 1.2 x10^3/uL (1.0-4.8); LYMPH % 9 % (24-48); MEAN CORPUSCULAR HEMOGLOBIN 31 pg (25-35); MEAN CORPUSCULAR HGB CONC 33 g/dL (31-37); MEAN CORPUSCULAR VOLUME 94 fL (79-100); MONO # 0.9 x10^3/uL (0.0-1.1); MONO % 7 % (0-9); NEUT # 11.7 x10^3/uL (1.8-7.7); NEUT % 84 % (31-73); PLATELET COUNT 387 x10^3/uL (140-400); RED BLOOD COUNT 3.05 x10^6/uL (3.50-5.40); WHITE BLOOD COUNT 13.9 x10^3/uL (4.0-11.0)
[2020-12-01 08:10] LABS: CALCIUM 8.8 mg/dL (8.5-10.1); CREATININE 0.6 mg/dL (0.6-1.0); GFR 99.1; PHOSPHORUS 3.8 mg/dL (2.6-4.7); POTASSIUM 4.3 mmol/L (3.5-5.1)
[2020-12-01] MEDS: CHOLECALCIFEROL (VITAMIN D3) 5,000 UNIT CAPSULE PO SCH (08:16)
[2020-12-01] MEDS: PANTOPRAZOLE 40 MG TABLET.DR. PO SCH (08:16)
[2020-12-01] MEDS: FOLIC ACID 1 MG TABLET. PO SCH (08:16)
[2020-12-01] MEDS: ASPIRIN CHEWABLE 81 MG TABLET. PO SCH (08:16)
[2020-12-01] MEDS: CLOPIDOGREL BISULFATE 75 MG TABLET PO SCH (08:16)
[2020-12-01] MEDS: CARVEDILOL 3.125 MG TABLET. PO SCH ×2 (08:16→17:45)
[2020-12-01] MEDS: MICAFUNGIN 100 MG in IV DEXTROSE 5% 100ML 100 ML IV SCH (08:17)
[2020-12-01] MEDS: HYDROcodone/APAP 5/325MG 1 TAB TABLET PO PRN (08:21)
--- NOTE | 2020-12-01 08:42 | PDOC ---
Infectious Disease Note Subjective: Subjective Patient without complaints Underwent right groin sartorius flap surgery yesterday Postop pain is under control Denies fever, nausea, vomiting, shortness of breath, diarrhea, abdominal pain, rash Vital Signs: Vital Signs Vital Signs Date Time Temp Pulse Resp B/P (MAP) Pulse Ox O2 Delivery O2 Flow Rate FiO2 12/01/20 08:21 18 99 Room Air 12/01/20 08:16 78 133/59 12/01/20 07:54 97.8 97.8 11/30/20 18:52 10.0 Physical Exam: PHYSICAL EXAM GENERAL: Alert, awake female, lying in bed comfortably, in no acute distress. HEENT: Normocephalic, atraumatic. Anicteric. NECK: Supple. LUNGS: Clear. HEART: S1, S2. No murmurs. ABDOMEN: Soft, bruise present over the right lower abdominal area No rebound, no guarding. EXTREMITIES: bruising right lower abdomen improving Wound VAC in place. Right leg groin ecchymosis and swelling improving , no fluctuance, no cyanosis, no clubbing. DERMATOLOGIC: Warm, dry, no generalized rash except for above. NEUROLOGIC: Alert, oriented x3. Normal speech. PSYCHIATRIC: Calm and cooperative. Medications: Inpatient Meds: Medications reviewed. Labs: Lab Laboratory Tests Test 12/01/20 07:10 White Blood Count 13.9 x10^3/uL (4.0-11.0) Red Blood Count 3.05 x10^6/uL (3.50-5.40) Hemoglobin 9.5 g/dL (12.0-15.5) Hematocrit 28.7 % (36.0-47.0) Mean Corpuscular Volume 94 fL (79-100) Mean Corpuscular Hemoglobin 31 pg (25-35) Mean Corpuscular Hemoglobin Concent 33 g/dL (31-37) Red Cell Distribution Width 16.0 % (11.5-14.5) Platelet Count 387 x10^3/uL (140-400) Neutrophils (%) (Auto) 84 % (31-73) Lymphocytes (%) (Auto) 9 % (24-48) Monocytes (%) (Auto) 7 % (0-9) Eosinophils (%) (Auto) 0 % (0-3) Basophils (%) (Auto) 0 % (0-3) Neutrophils # (Auto) 11.7 x10^3/uL (1.8-7.7) Lymphocytes # (Auto) 1.2 x10^3/uL (1.0-4.8) Monocytes # (Auto) 0.9 x10^3/uL (0.0-1.1) Eosinophils # (Auto) 0.0 x10^3/uL (0.0-0.7) Basophils # (Auto) 0.1 x10^3/uL (0.0-0.2) Sodium Level 136 mmol/L (136-145) Potassium Level 4.3 mmol/L (3.5-5.1) Chloride Level 103 mmol/L (98-107) Carbon Dioxide Level 24 mmol/L (21-32) Anion Gap 9 (6-14) Blood Urea Nitrogen 11 mg/dL (7-20) Creatinine 0.6 mg/dL (0.6-1.0) Estimated GFR (Cockcroft-Gault) 99.1 Glucose Level 115 mg/dL (70-99) Calcium Level 8.8 mg/dL (8.5-10.1) Phosphorus Level 3.8 mg/dL (2.6-4.7) Objective: Assessment: 1. Large right groin pseudoaneurysm with hematoma, status post emergent open repair of the right femoral artery pseudoaneurysm using bovine pericardial patch angioplasty. November 30, 2020 S/P Coverage of the right femoral artery repair requiring sartorius muscle flap, Wound VAC placement. 2. Status post treatment with TPA on 11/18/2020 for right-sided weakness. 3. 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 4. Leukocytosis could have a reactive component. Improving 5. Severe acute blood loss anemia, status post blood transfusion. 6. History of rheumatoid arthritis, on methotrexate. 7. Hypertension/hyperlipidemia 8. Gastroesophageal reflux disease. 9. Protein calorie malnutrition. 10. Hyponatremia. Plan: Plan of Care 1. Continue Zosyn,daptomycin and micafungin. 2. Continue wound/VAC care as directed. 3. Follow up labs and cultures. 4 Continue supportive care. Discussed with at bedside Discussed with nursing staff. KEV LÓPEZ MD Dec 01, 2020 08:42
[2020-12-01] MEDS: DAPTOmycin (GENERIC) IVPB 380 MG in IV NORMAL SALINE 50ML 50 ML IV SCH (09:50)
--- NOTE | 2020-12-01 11:03 | PDOC ---
PROGRESS NOTES Date of Service: DATE: 12/01/20 TIME: 11:02 Chief Complaint Chief Complaint Assessment/Plan 70-year-old woman who recently had a right femoral artery access for acute stroke intervention apparently left carotid stent and left stroke thrombus removal at [facility] / pseudoaneurysm arising from the common femoral artery // actively bleeding into a large hematoma. Acute blood loss anemia - given extent of hematoma and pseudoaneursym and need for surgery may need up to 6u PRBC. 2 units on hold for OR. H&H 4 hours post op HGB 11.9 11-19 Large right groin pseuoaneurysm - likely from access 1 week prior. Vascular surgery consulted for ongoing active bleeding. To OR Large right groin hematoma - likely from arterial bleed. 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 Would not hold DAPT therapy in order to prevent further CVA. (will order [facility] records to confirm the presence/absence of stent) Hyponatremia - likely hypovolemic. Will give NSS crystalloid and monitor. Leukocytosis - likely reactive from massive blood loss, will trend. No clear in fection. will cover preoperatively. Given the extent of her hematoma is definitely at risk for skin infection/cellulitis as she is immunocompromised on MTX, ID CONSULTED , BLOOD CULT Hyperglycemia - likely related to stress, will check A1c RA - on MTX weekly. 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 severe protein-caloric malnutrition Current smoker HTN - on coreg, will cut dosing given low BP since d/c from [facility] per rehab notes. She may have cardiac reason for BB, will await . [facility] records as she may be getting CHF treatment, patient and aren't certain. plan FEN - NPO for OR. Regular diet after PPX - SCDs for 24 hours. Will defer heparin timing to vascular surgery CODE - FULL Dispo - ICU [facility]'s [place] for possible IR intervention. 11-19 CONSULT CARDIOLOGY, ECHO HER is a pharmacist at [facility] armando mandel , will aks for records at 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 Would not hold DAPT therapy in order to prevent further CVA. (will order [facility] records to confirm the presence/absence of stent) Hyponatremia - likely hypovolemic. Will give NSS crystalloid and monitor. Leukocytosis - likely reactive from massive blood loss, will trend. No clear infection. will cover preoperatively. Given the extent of her hematoma is definitely at risk for skin infection/cellulitis as she is immunocompromised on MTX, ID CONSULTED , BLOOD CULT Hyperglycemia - likely related to stress, will check A1c-6.1 CC time 32 min History of Present Illness History of Present Illness Identification/Chief Complaint Chief Complaint Right groin pain and swelling Source Source: Patient History of Present Illness History of Present Illness Ms Robins is a 70-year-old female w/ PMHx HLD, HTN, GERD, RA, and recent presenting with right groin pain and swelling. She has been noting bruising since 11/24/2020 when the dressing in her right groin was removed as instructed. She has been going to outpatient PT and OT for stroke rehab and has been c/o some pain in the area since the dressing was removed. 11/26 she began acting more tired, dizzy and intermittently confused per her . family member, who is a nurse practitioner, came over to the house to look at her leg as the was concerned about the bruise getting bigger. The family member told him to go to the ER right away. She states she feels very weak and tired and dizzy. Patient denies any chest pain, shortness of breath, nausea, vomiting, or diarrhea. She is up to date on both doses of Moderna COVID 19 vaccine Patient complains of pain and tightness in her right thigh and groin. She was initially evaluated on 11/19/2020 at [facility] ED for right sided weakness within 2 hours of presentation and tPA was then administered. CT angiogram shows left MCA M1 large vessel occlusion and she was transferred to [facility] for large vessel occlusion intervention on 11/19/2020. Per had clot retrieval and he thinks had carotid stenting as well and w as discharged home on 11/21/2020 for outpatient rehab for her CVA on DAPT with ASA and plavix. In ED noted with pulsatile swelling in left groin and right groin arterial doppler revealed large hematoma in the proximal right lower extremity arising from the common femoral artery that measures 11.5 x 5.0 x 9.5 cm. This hematoma appears to arise directly from a pseudoaneurysm with a neck which actively bleeds into the hematoma. The belly of the pseudoaneurysm measures 2.3 cm in diameter. On examination a nurse was holding pressure in the groin and AMMONIA DISTILLER was accessing left antecubital fossa for venipuncture for blood draw and IV insertion. give much of history bedside. During examination labs returned with WBC 19.2, platelets 367, Hb 6.3, Na 133, glucose 178, INR 1.2. Given the urgency of her condition vascular surgery was consulted and Dr. Wilhelm brought in OR staff and patient was taken to OR in stable condition from the ED with plans to admit to ICU. 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 Would not hold DAPT therapy in order to prevent further CVA. (will order . [facility] records to confirm the presence/absence of stent) Hyponatremia - likely hypovolemic. Will give NSS crystalloid and monitor. Leukocytosis - likely reactive from massive blood loss, will trend. No clear infection. will cover preoperatively. 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 Would not hold DAPT therapy in order to prevent further CVA. (will order [facility] records to confirm the presence/absence of stent) Hyponatremia - likely hypovolemic. Will give NSS crystalloid and monitor. Leukocytosis - likely reactive from massive blood loss, will trend. No clear infection. will cover preoperatively. Given the extent of her hematoma is definitely at risk for skin infection/cellulitis as she is immunocompromised on MTX, ID CONSULTED , BLOOD CULT Hyperglycemia - likely related to stress, will check A1c-6.1 Continue Zosyn,daptomycin and micafungin. CC time 34 min - wound vac r groin in place, intact, FLAP CLOSURE 11-30 pending IV DAPTOMYCIN Neurology consulted CVA - left MCA occlusion on 11/19/2020 s/p neurointerventional clot retrieval on plavix and ASA for the next 30 days. Would not hold DAPT therapy in order to prevent further CVA. (will order [facility] records to confirm the presenc e/absence of stent) Hyponatremia - likely hypovolemic. Will give NSS crystalloid and monitor. Leukocytosis - likely reactive from massive blood loss, will trend. No clear infection. will cover preoperatively. Given the extent of her hematoma is definitely at risk for skin infection/cellulitis as she is immunocompromised on MTX, ID CONSULTED , BLOOD CULT Hyperglycemia - likely related to stress, will check A1c-6.1 Continue Zosyn,daptomycin and micafungin. Continue wound vac therapy with planned vac dressing change tomorrow at a time when Vascular Surgery is present to view and evaluate wound and muscle flap tissue. CC time 35 min Vitals Vitals Vital Signs Date Time Temp Pulse Resp B/P (MAP) Pulse Ox O2 Delivery O2 Flow Rate FiO2 12/01/20 09:00 88 17 109/45 (66) 98 Room Air 12/01/20 07:54 97.8 97.8 11/30/20 18:52 10.0 Physical Exam Physical Exam GENERAL: Alert, awake female, lying in bed comfortably, in no acute distress. HEENT: Normocephalic, atraumatic. Anicteric. NECK: Supple. LUNGS: Clear. HEART: S1, S2. No murmurs. ABDOMEN: Soft, bruise present over the right lower abdominal area No rebound, no guarding. EXTREMITIES: bruising right lower abdomen improving Wound VAC in place. Right leg groin ecchymosis and swelling improving , no fluctuance, no cyanosis, no clubbing. DERMATOLOGIC: Warm, dry, no generalized rash except for above. NEUROLOGIC: Alert, oriented x3. Normal speech. PSYCHIATRIC: Calm and cooperative. General: Alert, Oriented X3, Cooperative, mild distress Heart: Regular rate Lungs: Clear Abdomen: Normal bowel sounds, No tenderness Extremities: No clubbing, No cyanosis, No edema, Normal pulses, Other ( right leg and groin shows ecchymosis from about there the umbilicus down to the knee.) Skin: No rashes, No breakdown, Other (right groin) Labs LABS Laboratory Tests Test 12/01/20 07:10 White Blood Count 13.9 x10^3/uL (4.0-11.0) Red Blood Count 3.05 x10^6/uL (3.50-5.40) Hemoglobin 9.5 g/dL (12.0-15.5) Hematocrit 28.7 % (36.0-47.0) Mean Corpuscular Volume 94 fL (79-100) Mean Corpuscular Hemoglobin 31 pg (25-35) Mean Corpuscular Hemoglobin Concent 33 g/dL (31-37) Red Cell Distribution Width 16.0 % (11.5-14.5) Platelet Count 387 x10^3/uL (140-400) Neutrophils (%) (Auto) 84 % (31-73) Lymphocytes (%) (Auto) 9 % (24-48) Monocytes (%) (Auto) 7 % (0-9) Eosinophils (%) (Auto) 0 % (0-3) Basophils (%) (Auto) 0 % (0-3) Neutrophils # (Auto) 11.7 x10^3/uL (1.8-7.7) Lymphocytes # (Auto) 1.2 x10^3/uL (1.0-4.8) Monocytes # (Auto) 0.9 x10^3/uL (0.0-1.1) Eosinophils # (Auto) 0.0 x10^3/uL (0.0-0.7) Basophils # (Auto) 0.1 x10^3/uL (0.0-0.2) Sodium Level 136 mmol/L (136-145) Potassium Level 4.3 mmol/L (3.5-5.1) Chloride Level 103 mmol/L (98-107) Carbon Dioxide Level 24 mmol/L (21-32) Anion Gap 9 (6-14) Blood Urea Nitrogen 11 mg/dL (7-20) Creatinine 0.6 mg/dL (0.6-1.0) Estimated GFR (Cockcroft-Gault) 99.1 Glucose Level 115 mg/dL (70-99) Calcium Level 8.8 mg/dL (8.5-10.1) Phosphorus Level 3.8 mg/dL (2.6-4.7) Assessment and Plan Assessmemt and Plan Problems Medical Problems: (1) Femoral artery pseudo-aneurysm, right Status: Acute (2) Pseudoaneurysm of femoral artery following procedure Status: Acute Comment Review of Relevant I have reviewed the following items césar (where applicable) has been applied. Labs Laboratory Tests Test 11/30/20 03:20 12/01/20 07:10 White Blood Count 12.1 x10^3/uL (4.0-11.0) 13.9 x10^3/uL (4.0-11.0) Red Blood Count 2.61 x10^6/uL (3.50-5.40) 3.05 x10^6/uL (3.50-5.40) Hemoglobin 8.0 g/dL (12.0-15.5) 9.5 g/dL (12.0-15.5) Hematocrit 24.1 % (36.0-47.0) 28.7 % (36.0-47.0) Mean Corpuscular Volume 92 fL (79-100) 94 fL (79-100) Mean Corpuscular Hemoglobin 31 pg (25-35) 31 pg (25-35) Mean Corpuscular Hemoglobin Concent 33 g/dL (31-37) 33 g/dL (31-37) Red Cell Distribution Width 16.0 % (11.5-14.5) 16.0 % (11.5-14.5) Platelet Count 316 x10^3/uL (140-400) 387 x10^3/uL (140-400) Neutrophils (%) (Auto) 72 % (31-73) 84 % (31-73) Lymphocytes (%) (Auto) 16 % (24-48) 9 % (24-48) Monocytes (%) (Auto) 9 % (0-9) 7 % (0-9) Eosinophils (%) (Auto) 2 % (0-3) 0 % (0-3) Basophils (%) (Auto) 1 % (0-3) 0 % (0-3) Neutrophils # (Auto) 8.7 x10^3/uL (1.8-7.7) 11.7 x10^3/uL (1.8-7.7) Lymphocytes # (Auto) 1.9 x10^3/uL (1.0-4.8) 1.2 x10^3/uL (1.0-4.8) Monocytes # (Auto) 1.1 x10^3/uL (0.0-1.1) 0.9 x10^3/uL (0.0-1.1) Eosinophils # (Auto) 0.3 x10^3/uL (0.0-0.7) 0.0 x10^3/uL (0.0-0.7) Basophils # (Auto) 0.1 x10^3/uL (0.0-0.2) 0.1 x10^3/uL (0.0-0.2) Sodium Level 136 mmol/L (136-145) Potassium Level 4.3 mmol/L (3.5-5.1) Chloride Level 103 mmol/L (98-107) Carbon Dioxide Level 24 mmol/L (21-32) Anion Gap 9 (6-14) Blood Urea Nitrogen 11 mg/dL (7-20) Creatinine 0.6 mg/dL (0.6-1.0) Estimated GFR (Cockcroft-Gault) 99.1 Glucose Level 115 mg/dL (70-99) Calcium Level 8.8 mg/dL (8.5-10.1) Phosphorus Level 3.8 mg/dL (2.6-4.7) Laboratory Tests Test 12/01/20 07:10 White Blood Count 13.9 x10^3/uL (4.0-11.0) Red Blood Count 3.05 x10^6/uL (3.50-5.40) Hemoglobin 9.5 g/dL (12.0-15.5) Hematocrit 28.7 % (36.0-47.0) Mean Corpuscular Volume 94 fL (79-100) Mean Corpuscular Hemoglobin 31 pg (25-35) Mean Corpuscular Hemoglobin Concent 33 g/dL (31-37) Red Cell Distribution Width 16.0 % (11.5-14.5) Platelet Count 387 x10^3/uL (140-400) Neutrophils (%) (Auto) 84 % (31-73) Lymphocytes (%) (Auto) 9 % (24-48) Monocytes (%) (Auto) 7 % (0-9) Eosinophils (%) (Auto) 0 % (0-3) Basophils (%) (Auto) 0 % (0-3) Neutrophils # (Auto) 11.7 x10^3/uL (1.8-7.7) Lymphocytes # (Auto) 1.2 x10^3/uL (1.0-4.8) Monocytes # (Auto) 0.9 x10^3/uL (0.0-1.1) Eosinophils # (Auto) 0.0 x10^3/uL (0.0-0.7) Basophils # (Auto) 0.1 x10^3/uL (0.0-0.2) Sodium Level 136 mmol/L (136-145) Potassium Level 4.3 mmol/L (3.5-5.1) Chloride Level 103 mmol/L (98-107) Carbon Dioxide Level 24 mmol/L (21-32) Anion Gap 9 (6-14) Blood Urea Nitrogen 11 mg/dL (7-20) Creatinine 0.6 mg/dL (0.6-1.0) Estimated GFR (Cockcroft-Gault) 99.1 Glucose Level 115 mg/dL (70-99) Calcium Level 8.8 mg/dL (8.5-10.1) Phosphorus Level 3.8 mg/dL (2.6-4.7) Microbiology 11/28/20 Urine Culture - Final, Complete Medications Current Medications Sodium Chloride 500 ml @ 500 mls/hr 1X ONCE IV Last administered on 11/27/20at 18:52; Start 11/27/20 at 18:00; Stop 11/27/20 at 18:59; Status DC Ondansetron HCl (Zofran) 4 mg 1X ONCE IV Last administered on 11/27/20at 18:50; Start 11/27/20 at 18:15; Stop 11/27/20 at 18:16; Status DC Fentanyl Citrate (Fentanyl 2ml Vial) 50 mcg 1X ONCE IV Last administered on 11/27/20at 18:52; Start 11/27/20 at 18:15; Stop 11/27/20 at 18:16; Status DC Lidocaine HCl (Lidocaine Pf 2% Vial) 5 ml STK-MED ONCE .ROUTE ; Start 11/27/20 at 19:11; Stop 11/27/20 at 19:11; Status DC Propofol (Diprivan) 200 mg STK-MED ONCE IV ; Start 11/27/20 at 19:11; Stop 11/27/20 at 19:11; Status DC Phenylephrine HCl (PHENYLEPHRINE in 0.9% NACL PF) 1 mg STK-MED ONCE IV ; Start 11/27/20 at 19:11; Stop 11/27/20 at 19:11; Status DC Rocuronium [place] (Zemuron) 50 mg STK-MED ONCE .ROUTE ; Start 11/27/20 at 19:11; Stop 11/27/20 at 19:11; Status DC Heparin Sodium (Porcine) 5000 unit/Sodium Chloride 505 ml @ 505 mls/hr 1X ONCE IRR Last administered on 11/27/20at 19:55; Start 11/27/20 at 20:00; Stop 11/27/20 at 20:59; Status DC Cellulose (Surgicel Fibrillar 1x2) 1 each STK-MED ONCE .ROUTE Last administered on 11/27/20at 19:55; Start 11/27/20 at 19:29; Stop 11/27/20 at 19:30; Status DC Cefazolin Sodium (Ancef) 1 gm STK-MED ONCE IVP ; Start 11/27/20 at 19:38; Stop 11/27/20 at 19:38; Status DC Fentanyl Citrate (Fentanyl 2ml Vial) 25 mcg PRN Q5MIN PRN IVP MILD PAIN 1-3; Start 11/27/20 at 20:15; Stop 11/28/20 at 20:14; Status DC Fentanyl Citrate (Fentanyl 2ml Vial) 50 mcg PRN Q5MIN PRN IVP MODERATE PAIN 4- 6; Start 11/27/20 at 20:15; Stop 11/28/20 at 20:14; Status DC Morphine Sulfate (Morphine Sulfate) 1 mg PRN Q10MIN PRN IVP SEVERE PAIN 7-10; Start 11/27/20 at 20:15; Stop 11/28/20 at 20:14; Status DC Ringer's Solution 1,000 ml @ 30 mls/hr Q24H IV ; Start 11/27/20 at 20:15; Stop 11/28/20 at 08:14; Status DC Hydromorphone HCl (Dilaudid) 0.5 mg PRN Q10MIN PRN IVP SEVERE PAIN 7-10, 2nd CHOICE; Start 11/27/20 at 20:15; Stop 11/28/20 at 20:14; Status DC Prochlorperazine Edisylate (Compazine) 5 mg PACU PRN PRN IVP NAUSEA, MRX1; Start 11/27/20 at 20:15; Stop 11/28/20 at 20:14; Status DC Heparin Sodium (Porcine) (Heparin Sodium) 10,000 unit STK-MED ONCE .ROUTE ; Start 11/27/20 at 20:07; Stop 11/27/20 at 20:07; Status DC Heparin Sodium (Porcine) (Heparin Sodium) 10,000 unit STK-MED ONCE .ROUTE ; Start 11/27/20 at 20:10; Stop 11/27/20 at 20:10; Status DC Fentanyl Citrate (Fentanyl 2ml Vial) 100 mcg STK-MED ONCE .ROUTE ; Start 11/27/20 at 20:11; Stop 11/27/20 at 20:12; Status DC Propofol (Diprivan) 200 mg STK-MED ONCE IV ; Start 11/27/20 at 20:13; Stop 11/27/20 at 20:14; Status DC Protamine Sulfate (Protamine) 50 mg STK-MED ONCE IV ; Start 11/27/20 at 20:44; Stop 11/27/20 at 20:44; Status DC Sevoflurane (Ultane) 60 ml STK-MED ONCE IH ; Start 11/27/20 at 20:44; Stop 11/27/20 at 20:44; Status DC Olanzapine (ZyPREXA ZYDIS) 5 mg PRN BID PRN PO ANXIETY / AGITATION; Start 11/27/20 at 22:00 Acetaminophen (Tylenol) 650 mg PRN Q6HRS PRN PO MILD PAIN / TEMP > 100.3'F; Start 11/27/20 at 22:00 Ondansetron HCl (Zofran) 4 mg PRN Q4HRS PRN IVP NAUSEA/VOMITING; Start 11/27/20 at 22:00 Hydralazine HCl (Apresoline Inj) 20 mg STK-MED ONCE .ROUTE ; Start 11/27/20 at 21:56; Stop 11/27/20 at 21:56; Status DC Fentanyl Citrate (Fentanyl 2ml Vial) 25 mcg PRN Q2HR PRN IVP PAIN; Start 11/27/20 at 22:00 Carvedilol (Coreg) 3.125 mg BIDWMEALS PO Last administered on 12/01/20 08:16; Start 11/28/20 at 08:00 Gabapentin (Neurontin) 300 mg HS PO Last administered on 11/30/20at 20:56; Start 11/27/20 at 22:15 Pantoprazole Sodium (Protonix) 40 mg DAILYAC PO Last administered on 12/01/20at 08:16; Start 11/28/20 at 07:30 Zolpidem Tartrate (Ambien) 5 mg PRN QHS PRN PO INSOMNIA; Start 11/27/20 at 22:15 Folic Acid (Folic Acid) 1 mg DAILY PO Last administered on 12/01/20at 08:16; S tart 11/28/20 at 09:00 Aspirin (Aspirin Chewable) 81 mg DAILY08 PO Last administered on 12/01/20at 08:16; Start 11/28/20 at 08:00 Vitamin D (Vitamin D3) 5,000 unit DAILY PO Last administered on 12/01/20at 08:16; Start 11/28/20 at 09:00 Clopidogrel Bisulfate (Plavix) 75 mg DAILY08 PO Last administered on 12/01/20at 08:16; Start 11/28/20 at 08:00 Sodium Chloride 1,000 ml @ 80 mls/hr [id number] IV Last administered on 11/29/20at 20:48; Start 11/27/20 at 22:45; Stop 11/30/20 at 20:00; Status DC Acetaminophen/ Hydrocodone Bitart (Lortab 5/325) 1 tab PRN Q4HRS PRN PO PAIN MODERATE Last administered on 12/01/20at 08:21; Start 11/27/20 at 22:45 Acetaminophen/ Hydrocodone Bitart (Lortab 5/325) 2 tab PRN Q4HRS PRN PO PAIN SEVERE; Start 11/27/20 at 22:45 Albumin Human 500 ml @ 125 mls/hr PRN DAILY PRN IV Hypotension; Start 11/27/20 at 23:00 Magnesium Sulfate 50 ml @ 25 mls/hr 1X ONCE IV Last administered on 11/28/20at 02:15; Start 11/28/20 at 01:45; Stop 11/28/20 at 03:44; Status DC Cefazolin Sodium/ Dextrose 50 ml @ 100 mls/hr Q8HRS IV Last administered on 11/28/20at 06:11; Start 11/28/20 at 06:00; Stop 11/28/20 at 12:08; Status DC Albuterol/ Ipratropium (Duoneb) 3 ml RTQID NEB ; Start 11/28/20 at 12:00; Stop 11/28/20 at 10:59; Status DC Potassium Chloride (Klor-Con) 40 meq 1X ONCE PO ; Start 11/28/20 at 11:00; Stop 11/28/20 at 11:01; Status UNV Potassium Bicarbonate (Potassium Effervescent Tablet) 40 meq 1X ONCE PO ; Start 11/28/20 at 11:00; Stop 11/28/20 at 11:01; Status UNV Potassium Chloride/Water 100 ml @ 100 mls/hr Q1H IV ; Start 11/28/20 at 11:00; Stop 11/28/20 at 12:59; Status UNV Potassium Chloride/Water 100 ml @ 100 mls/hr Q1H IV ; Start 11/28/20 at 11:00; Stop 11/28/20 at 18:59; Status UNV Potassium Chloride/Water 100 ml @ 100 mls/hr Q1HR IV ; Start 11/28/20 at 11:00; Stop 11/28/20 at 16:59; Status UNV Magnesium Sulfate 100 ml @ 50 mls/hr DAILY IV ; Start 11/29/20 at 09:00; Stop 12/02/20 at 08:59; Status UNV Potassium Phos/ Sodium Phos (Phos-Nak) 1 pkt BID PO ; Start 11/28/20 at 21:00; Stop 11/29/20 at 09:01; Status UNV Albuterol Sulfate (Ventolin Neb Soln) 2.5 mg PRN QID PRN NEB SHORTNESS OF BREATH; Start 11/28/20 at 11:15 Info (Icu Electrolyte Protocol) 1 ea CONT PRN PRN MC SEE COMMENTS; Start 11/28/20 at 11:00 Piperacillin Sod/ Tazobactam Sod (Zosyn Per Pharmacy) 1 each PRN DAILY PRN MC SEE COMMENTS; Start 11/28/20 at 12:15 Piperacillin Sod/ Tazobactam Sod 3.375 gm/Sodium Chloride 50 ml @ 100 mls/hr Q6HRS IV Last administered on 12/01/20at 05:33; Start 11/28/20 at 12:30 Micafungin Sodium 100 mg/Dextrose 100 ml @ 100 mls/hr Q24H IV Last administered on 12/01/20at 08:17; Start 11/29/20 at 10:00 Daptomycin 380 mg/ Sodium Chloride 50 ml @ 100 mls/hr Q24H IV Last administered on 12/01/20at 09:50; Start 11/29/20 at 11:00 Cefazolin Sodium 1 gm/Sodium Chloride 500 ml @ 500 mls/hr 1X ONCE IRR Last administered on 11/30/20at 14:20; Start 11/30/20 at 06:00; Stop 11/30/20 at 06:59; Status DC Heparin Sodium (Porcine) 5000 unit/Sodium Chloride 505 ml @ 505 mls/hr 1X ONCE IRR Last administered on 11/30/20at 14:19; Start 11/30/20 at 06:00; Stop 11/30/20 at 06:59; Status DC Fentanyl Citrate (Fentanyl 2ml Vial) 25 mcg PRN Q5MIN PRN IVP MILD PAIN 1-3 Last administered on 11/30/20at 17:03; Start 11/30/20 at 06:00; Stop 12/01/20 at 05:59; Status DC Fentanyl Citrate (Fentanyl 2ml Vial) 50 mcg PRN Q5MIN PRN IVP MODERATE PAIN 4-6 Last administered on 11/30/20at 15:39; Start 11/30/20 at 06:00; Stop 12/01/20 at 05:59; Status DC Morphine Sulfate (Morphine Sulfate) 1 mg PRN Q10MIN PRN IVP SEVERE PAIN 7-10; Start 11/30/20 at 06:00; Stop 12/01/20 at 05:59; Status DC Ringer's Solution 1,000 ml @ 30 mls/hr Q24H IV Last administered on 11/30/20at 05:29; Start 11/30/20 at 06:00; Stop 11/30/20 at 17:59; Status DC Hydromorphone HCl (Dilaudid) 0.5 mg PRN Q10MIN PRN IVP SEVERE PAIN 7-10, 2nd CHOICE; Start 11/30/20 at 06:00; Stop 12/01/20 at 05:59; Status DC Prochlorperazine Edisylate (Compazine) 5 mg PACU PRN PRN IVP NAUSEA, MRX1; Start 11/30/20 at 06:00; Stop 12/01/20 at 05:59; Status DC Dexamethasone Sodium Phosphate (Decadron) 4 mg STK-MED ONCE .ROUTE ; Start 11/30/20 at 12:12; Stop 11/30/20 at 12:12; Status DC Ondansetron HCl (Zofran) 4 mg STK-MED ONCE .ROUTE ; Start 11/30/20 at 12:12; Stop 11/30/20 at 12:12; Status DC Propofol (Diprivan) 200 mg STK-MED ONCE IV ; Start 11/30/20 at 12:12; Stop at 12:12; Status DC Lidocaine HCl (Lidocaine Pf 2% Vial) 5 ml STK-MED ONCE .ROUTE ; Start 11/30/20 at 12:12; Stop 11/30/20 at 12:12; Status DC Iohexol (Omnipaque 300 Mg/ml) 50 ml STK-MED ONCE .ROUTE ; Start 11/30/20 at 13:08; Stop 11/30/20 at 13:08; Status DC Cellulose (Surgicel Hemostat 4x8) 1 each STK-MED ONCE .ROUTE ; Start 11/30/20 at 13:08; Stop 11/30/20 at 13:08; Status DC Cellulose (Surgicel Fibrillar 1x2) 1 each STK-MED ONCE .ROUTE ; Start 11/30/20 at 13:08; Stop 11/30/20 at 13:09; Status DC Fentanyl Citrate (Fentanyl 2ml Vial) 100 mcg STK-MED ONCE .ROUTE ; Start 11/30/20 at 13:37; Stop 11/30/20 at 13:37; Status DC Glycopyrrolate (Robinul) 1 mg STK-MED ONCE .ROUTE ; Start 11/30/20 at 14:10; Stop 11/30/20 at 14:10; Status DC Sevoflurane (Ultane) 60 ml STK-MED ONCE IH ; Start 11/30/20 at 14:37; Stop 11/30/20 at 14:38; Status DC Fentanyl Citrate (Fentanyl 2ml Vial) 100 mcg STK-MED ONCE .ROUTE ; Start 11/30/20 at 15:37; Stop 11/30/20 at 15:37; Status DC Amlodipine Besylate (Norvasc) 5 mg 1X ONCE PO Last administered on 11/30/20at 16:33; Start 11/30/20 at 16:30; Stop 11/30/20 at 16:31; Status DC Hydralazine HCl (Apresoline Inj) 10 mg PRN Q4HRS PRN IVP ELEVATED BP, SEE COMMENTS; Start 11/30/20 at 16:30 Active Scripts Active Reported Vitamin D3 (Vitamin D) 125 Mcg Capsule 125 Mcg PO DAILY 5,000 UNITS = 125 MCG Methotrexate (Methotrexate Sodium) 2.5 Mg Tablet 4 Tab PO WEEKLY Ambien (Zolpidem Tartrate) 5 Mg Tablet 5 Mg PO PRN QHS PRN Gabapentin (Gabapentin) 300 Mg Capsule 300 Mg PO HS Protonix (Pantoprazole Sodium) 40 Mg Tablet.dr 40 Mg PO DAILYAC Folic Acid 0.4 Mg Tablet 0.4 Mg PO DAILY Aspirin 81 Mg Tab.chew 1 Tab PO DAILY Clopidogrel (Clopidogrel Bisulfate) 75 Mg Tablet 1 Tab PO DAILY Coreg (Carvedilol) 6.25 Mg Tablet 6.25 Mg PO BIDWMEALS Vitals/I & O Vital Sign - Last 24 Hours 11/30/20 11/30/20 11/30/20 11/30/20 12:00 12:00 15:15 15:15 Temp 98.4 98.4 98.4 98.4 Pulse 86 82 Resp 18 15 B/P (MAP) 157/78 (104) 179/78 Pulse Ox 99 100 O2 Delivery Room Air Room Air Mask Room Air O2 Flow Rate 10 10 11/30/20 11/30/20 11/30/20 11/30/20 15:30 15:39 15:45 16:00 Temp 98.4 98.4 98.2 98.4 98.4 98.2 Pulse 84 80 80 Resp 16 15 15 18 B/P (MAP) 187/78 173/73 114/82 (93) Pulse Ox 97 97 94 98 O2 Delivery Room Air Room Air Room Air Room Air 11/30/20 11/30/20 11/30/20 11/30/20 16:09 16:15 16:30 16:32 Pulse 75 74 75 Resp 17 18 14 B/P (MAP) 170/84 (112) 156/77 (103) 170/84 Pulse Ox 97 97 96 O2 Delivery Room Air Room Air Room Air 11/30/20 11/30/20 11/30/20 11/30/20 16:33 16:45 17:00 17:03 Pulse 75 82 78 Resp 18 17 B/P (MAP) 170/84 161/79 (106) 168/78 (108) Pulse Ox 98 98 97 O2 Delivery Room Air Room Air Room Air 11/30/20 11/30/20 11/30/20 11/30/20 17:30 17:33 18:00 18:22 Pulse 76 89 Resp 17 19 18 B/P (MAP) 152/67 (95) 135/59 (84) Pulse Ox 97 98 98 98 O2 Delivery Room Air Room Air Room Air Room Air 11/30/20 11/30/20 11/30/20 11/30/20 18:52 19:00 20:00 20:00 Temp 98.5 98.5 Pulse 88 65 Resp 14 12 B/P (MAP) 122/62 (82) 124/48 (73) Pulse Ox 98 98 98 O2 Delivery Room Air Room Air Room Air Room Air O2 Flow Rate 10.0 11/30/20 11/30/20 11/30/20 11/30/20 21:00 22:00 23:00 23:59 Temp 98.2 98.2 Pulse 74 77 62 76 Resp 17 17 17 18 B/P (MAP) 126/56 (79) 107/55 (72) 109/55 (73) 122/52 (75) Pulse Ox 98 98 97 98 O2 Delivery Room Air Room Air Room Air Room Air 11/30/20 12/01/20 12/01/20 12/01/20 23:59 01:00 02:00 03:00 Pulse 62 60 61 Resp 17 18 22 B/P (MAP) 109/55 (73) 115/57 (76) 109/59 (76) Pulse Ox 97 97 99 O2 Delivery Room Air Room Air Room Air Room Air 12/01/20 12/01/20 12/01/20 12/01/20 04:00 04:00 05:00 06:00 Temp 98.1 98.1 Pulse 61 72 59 Resp 18 21 21 B/P (MAP) 116/54 (74) 117/49 (71) 109/51 (70) Pulse Ox 99 99 99 O2 Delivery Room Air Room Air Room Air Room Air 12/01/20 12/01/20 12/01/20 12/01/20 07:00 07:54 08:00 08:16 Temp 97.8 97.8 Pulse 66 78 78 Resp 21 17 B/P (MAP) 138/65 (89) 133/59 (83) 133/59 Pulse Ox 99 99 O2 Delivery Room Air Room Air Room Air 12/01/20 12/01/20 12/01/20 08:21 08:51 09:00 Pulse 88 Resp 18 17 B/P (MAP) 109/45 (66) Pulse Ox 99 98 98 O2 Delivery Room Air Room Air Room Air Intake and Output 11/30/20 11/30/20 12/01/20 15:00 23:00 07:00 Intake Total 550 ml 150 ml Output Total 265 ml 715 ml 525 ml Balance 285 ml -715 ml -375 ml Justicifation of Admission Dx: Justifications for Admission: Justification of Admission Dx: Yes MYNOR FIELDS MD Dec 01, 2020 11:03
--- NOTE | 2020-12-01 12:10 | PDOC ---
PROGRESS NOTES Date of Service DATE: 12/01/20 TIME: 11:47 Subjective Subjective "I am not having any pain right now. I did have a pain pill earlier." Objective Objective Objective: Patient seen in patient room with RN and present. Resting comfortable in bed eating a chocolate. Vital signs stable. Afebrile. Monitor: RRR Respirations: Unlabored. Clear with deep breaths. Abd: Soft, nondistended. Hypoactive bowel sounds. Patient states last BM was 2-3 days ago and that she only has a BM at home every 3-4 days (her normal). Denies nausea. : Nichole cath with clear yellow urine. Right Groin: Wound vac dressing intact. Scant blood-tinged drainage noted in canister. Surrounding tissues are soft to palpation. RLE: Ecchymotic skin discoloration has began to reduce based upon black marker lines noted to right hip and thigh. Skin slightly taunt to palpation of thigh. Palpable pedal pulse. No motor or sensory deficits to right leg. Assessment/Plan: Status post 11/27/2020 - POD#4 Open repair of right femoral artery pseud oaneurysm using bovine pericardial patch angioplasty right common femoral artery Status post 11/30/2020 - POD#1 Right sartorius muscle flap, wound measurements 14 x 4 x 4 cm; right groin wound VAC placement 1. Continue wound vac therapy with planned vac dressing change tomorrow at a time when Vascular Surgery is present to view and evaluate wound and muscle flap tissue. 2. Begin mobilization with out of bed activities today. PT consulted and actually present now to initiate. No weight-bearing restrictions. 3. Discontinue nichole catheter today if patient tolerant of getting out of bed safely. Has been in since 11/27/20. 4. Continue antiplatelet therapy of ASA/Plavix. 5. Will add stool softeners. 6. Ok to transfer from ICU to step down bed from vascular surgery perspective. 7. Will need case mgmt to assist with wound vac therapy upon discharge. 8. Continue IV antibiotics per ID. Vital Signs Date Time Temp Pulse Resp B/P (MAP) Pulse Ox O2 Delivery O2 Flow Rate FiO2 12/01/20 11:00 98.3 79 18 133/64 (87) 99 Room Air 98.3 11/30/20 18:52 10.0 Intake and Output 12/01/20 07:00 Intake Total 700 ml Output Total 1505 ml Balance -805 ml IV Total 700 ml Output Urine Total 1485 ml Estimated Blood Loss 20 ml Assessment Assessment Problems Medical Problems: (1) Femoral artery pseudo-aneurysm, right Status: Acute (2) Pseudoaneurysm of femoral artery following procedure Status: Acute Comment Review of Relevant I have reviewed the following items césar (where applicable) has been applied. Labs Laboratory Tests Test 11/30/20 03:20 12/01/20 07:10 White Blood Count 12.1 x10^3/uL (4.0-11.0) 13.9 x10^3/uL (4.0-11.0) Red Blood Count 2.61 x10^6/uL (3.50-5.40) 3.05 x10^6/uL (3.50-5.40) Hemoglobin 8.0 g/dL (12.0-15.5) 9.5 g/dL (12.0-15.5) Hematocrit 24.1 % (36.0-47.0) 28.7 % (36.0-47.0) Mean Corpuscular Volume 92 fL (79-100) 94 fL (79-100) Mean Corpuscular Hemoglobin 31 pg (25-35) 31 pg (25-35) Mean Corpuscular Hemoglobin Concent 33 g/dL (31-37) 33 g/dL (31-37) Red Cell Distribution Width 16.0 % (11.5-14.5) 16.0 % (11.5-14.5) Platelet Count 316 x10^3/uL (140-400) 387 x10^3/uL (140-400) Neutrophils (%) (Auto) 72 % (31-73) 84 % (31-73) Lymphocytes (%) (Auto) 16 % (24-48) 9 % (24-48) Monocytes (%) (Auto) 9 % (0-9) 7 % (0-9) Eosinophils (%) (Auto) 2 % (0-3) 0 % (0-3) Basophils (%) (Auto) 1 % (0-3) 0 % (0-3) Neutrophils # (Auto) 8.7 x10^3/uL (1.8-7.7) 11.7 x10^3/uL (1.8-7.7) Lymphocytes # (Auto) 1.9 x10^3/uL (1.0-4.8) 1.2 x10^3/uL (1.0-4.8) Monocytes # (Auto) 1.1 x10^3/uL (0.0-1.1) 0.9 x10^3/uL (0.0-1.1) Eosinophils # (Auto) 0.3 x10^3/uL (0.0-0.7) 0.0 x10^3/uL (0.0-0.7) Basophils # (Auto) 0.1 x10^3/uL (0.0-0.2) 0.1 x10^3/uL (0.0-0.2) Sodium Level 136 mmol/L (136-145) Potassium Level 4.3 mmol/L (3.5-5.1) Chloride Level 103 mmol/L (98-107) Carbon Dioxide Level 24 mmol/L (21-32) Anion Gap 9 (6-14) Blood Urea Nitrogen 11 mg/dL (7-20) Creatinine 0.6 mg/dL (0.6-1.0) Estimated GFR (Cockcroft-Gault) 99.1 Glucose Level 115 mg/dL (70-99) Calcium Level 8.8 mg/dL (8.5-10.1) Phosphorus Level 3.8 mg/dL (2.6-4.7) Laboratory Tests Test 12/01/20 07:10 White Blood Count 13.9 x10^3/uL (4.0-11.0) Red Blood Count 3.05 x10^6/uL (3.50-5.40) Hemoglobin 9.5 g/dL (12.0-15.5) Hematocrit 28.7 % (36.0-47.0) Mean Corpuscular Volume 94 fL (79-100) Mean Corpuscular Hemoglobin 31 pg (25-35) Mean Corpuscular Hemoglobin Concent 33 g/dL (31-37) Red Cell Distribution Width 16.0 % (11.5-14.5) Platelet Count 387 x10^3/uL (140-400) Neutrophils (%) (Auto) 84 % (31-73) Lymphocytes (%) (Auto) 9 % (24-48) Monocytes (%) (Auto) 7 % (0-9) Eosinophils (%) (Auto) 0 % (0-3) Basophils (%) (Auto) 0 % (0-3) Neutrophils # (Auto) 11.7 x10^3/uL (1.8-7.7) Lymphocytes # (Auto) 1.2 x10^3/uL (1.0-4.8) Monocytes # (Auto) 0.9 x10^3/uL (0.0-1.1) Eosinophils # (Auto) 0.0 x10^3/uL (0.0-0.7) Basophils # (Auto) 0.1 x10^3/uL (0.0-0.2) Sodium Level 136 mmol/L (136-145) Potassium Level 4.3 mmol/L (3.5-5.1) Chloride Level 103 mmol/L (98-107) Carbon Dioxide Level 24 mmol/L (21-32) Anion Gap 9 (6-14) Blood Urea Nitrogen 11 mg/dL (7-20) Creatinine 0.6 mg/dL (0.6-1.0) Estimated GFR (Cockcroft-Gault) 99.1 Glucose Level 115 mg/dL (70-99) Calcium Level 8.8 mg/dL (8.5-10.1) Phosphorus Level 3.8 mg/dL (2.6-4.7) Microbiology 11/28/20 Urine Culture - Final, Complete Medications Current Medications Sodium Chloride 500 ml @ 500 mls/hr 1X ONCE IV Last administered on 11/27/20at 18:52; Start 11/27/20 at 18:00; Stop 11/27/20 at 18:59; Status DC Ondansetron HCl (Zofran) 4 mg 1X ONCE IV Last administered on 11/27/20at 18:50; Start 11/27/20 at 18:15; Stop 11/27/20 at 18:16; Status DC Fentanyl Citrate (Fentanyl 2ml Vial) 50 mcg 1X ONCE IV Last administered on 11/27/20at 18:52; Start 11/27/20 at 18:15; Stop 11/27/20 at 18:16; Status DC Lidocaine HCl (Lidocaine Pf 2% Vial) 5 ml [facility]-MED ONCE .ROUTE ; Start 11/27/20 at 19:11; Stop 11/27/20 at 19:11; Status DC Propofol (Diprivan) 200 mg STK-MED ONCE IV ; Start 11/27/20 at 19:11; Stop 11/27/20 at 19:11; Status DC Phenylephrine HCl (PHENYLEPHRINE in 0.9% NACL PF) 1 mg STK-MED ONCE IV ; Start 11/27/20 at 19:11; Stop 11/27/20 at 19:11; Status DC Rocuronium [place] (Zemuron) 50 mg STK-MED ONCE .ROUTE ; Start 11/27/20 at 19:11; Stop 11/27/20 at 19:11; Status DC Heparin Sodium (Porcine) 5000 unit/Sodium Chloride 505 ml @ 505 mls/hr 1X ONCE IRR Last administered on 11/27/20at 19:55; Start 11/27/20 at 20:00; Stop 11/27/20 at 20:59; Status DC Cellulose (Surgicel Fibrillar 1x2) 1 each STK-MED ONCE .ROUTE Last administered on 11/27/20at 19:55; Start 11/27/20 at 19:29; Stop 11/27/20 at 19:30; Status DC Cefazolin Sodium (Ancef) 1 gm STK-MED ONCE IVP ; Start 11/27/20 at 19:38; Stop 11/27/20 at 19:38; Status DC Fentanyl Citrate (Fentanyl 2ml Vial) 25 mcg PRN Q5MIN PRN IVP MILD PAIN 1-3; Start 11/27/20 at 20:15; Stop 11/28/20 at 20:14; Status DC Fentanyl Citrate (Fentanyl 2ml Vial) 50 mcg PRN Q5MIN PRN IVP MODERATE PAIN 4- 6; Start 11/27/20 at 20:15; Stop 11/28/20 at 20:14; Status DC Morphine Sulfate (Morphine Sulfate) 1 mg PRN Q10MIN PRN IVP SEVERE PAIN 7-10; Start 11/27/20 at 20:15; Stop 11/28/20 at 20:14; Status DC Ringer's Solution 1,000 ml @ 30 mls/hr Q24H IV ; Start 11/27/20 at 20:15; Stop 11/28/20 at 08:14; Status DC Hydromorphone HCl (Dilaudid) 0.5 mg PRN Q10MIN PRN IVP SEVERE PAIN 7-10, 2nd CHOICE; Start 11/27/20 at 20:15; Stop 11/28/20 at 20:14; Status DC Prochlorperazine Edisylate (Compazine) 5 mg PACU PRN PRN IVP NAUSEA, MRX1; Start 11/27/20 at 20:15; Stop 11/28/20 at 20:14; Status DC Heparin Sodium (Porcine) (Heparin Sodium) 10,000 unit STK-MED ONCE .ROUTE ; Start 11/27/20 at 20:07; Stop 11/27/20 at 20:07; Status DC Heparin Sodium (Porcine) (Heparin Sodium) 10,000 unit STK-MED ONCE .ROUTE ; Start 11/27/20 at 20:10; Stop 11/27/20 at 20:10; Status DC Fentanyl Citrate (Fentanyl 2ml Vial) 100 mcg STK-MED ONCE .ROUTE ; Start 11/27/20 at 20:11; Stop 11/27/20 at 20:12; Status DC Propofol (Diprivan) 200 mg STK-MED ONCE IV ; Start 11/27/20 at 20:13; Stop 11/27/20 at 20:14; Status DC Protamine Sulfate (Protamine) 50 mg STK-MED ONCE IV ; Start 11/27/20 at 20:44; Stop 11/27/20 at 20:44; Status DC Sevoflurane (Ultane) 60 ml STK-MED ONCE IH ; Start 11/27/20 at 20:44; Stop 11/27/20 at 20:44; Status DC Olanzapine (ZyPREXA ZYDIS) 5 mg PRN BID PRN PO ANXIETY / AGITATION; Start 11/27/20 at 22:00 Acetaminophen (Tylenol) 650 mg PRN Q6HRS PRN PO MILD PAIN / TEMP > 100.3'F; Start 11/27/20 at 22:00 Ondansetron HCl (Zofran) 4 mg PRN Q4HRS PRN IVP NAUSEA/VOMITING; Start 11/27/20 at 22:00 Hydralazine HCl (Apresoline Inj) 20 mg STK-MED ONCE .ROUTE ; Start 11/27/20 at 21:56; Stop 11/27/20 at 21:56; Status DC Fentanyl Citrate (Fentanyl 2ml Vial) 25 mcg PRN Q2HR PRN IVP PAIN; Start 11/27/20 at 22:00 Carvedilol (Coreg) 3.125 mg BIDWMEALS PO Last administered on 12/01/20 08:16; Start 11/28/20 at 08:00 Gabapentin (Neurontin) 300 mg HS PO Last administered on 11/30/20at 20:56; Start 11/27/20 at 22:15 Pantoprazole Sodium (Protonix) 40 mg DAILYAC PO Last administered on 12/01/20 08:16; Start 11/28/20 at 07:30 Zolpidem Tartrate (Ambien) 5 mg PRN QHS PRN PO INSOMNIA; Start 11/27/20 at 22:15 Folic Acid (Folic Acid) 1 mg DAILY PO Last administered on 12/01/20at 08:16; Start 11/28/20 at 09:00 Aspirin (Aspirin Chewable) 81 mg DAILY08 PO Last administered on 12/01/20 08:16; Start 11/28/20 at 08:00 Vitamin D (Vitamin D3) 5,000 unit DAILY PO Last administered on 12/01/20 08:16; Start 11/28/20 at 09:00 Clopidogrel Bisulfate (Plavix) 75 mg DAILY08 PO Last administered on 12/01/20 08:16; Start 11/28/20 at 08:00 Sodium Chloride 1,000 ml @ 80 mls/hr [id number] IV Last administered on 11/29/20at 20:48; Start 11/27/20 at 22:45; Stop 11/30/20 at 20:00; Status DC Acetaminophen/ Hydrocodone Bitart (Lortab 5/325) 1 tab PRN Q4HRS PRN PO PAIN MODERATE Last administered on 12/01/20 08:21; Start 11/27/20 at 22:45 Acetaminophen/ Hydrocodone Bitart (Lortab 5/325) 2 tab PRN Q4HRS PRN PO PAIN SEVERE; Start 11/27/20 at 22:45 Albumin Human 500 ml @ 125 mls/hr PRN DAILY PRN IV Hypotension; Start 11/27/20 at 23:00 Magnesium Sulfate 50 ml @ 25 mls/hr 1X ONCE IV Last administered on 11/28/20at 02:15; Start 11/28/20 at 01:45; Stop 11/28/20 at 03:44; Status DC Cefazolin Sodium/ Dextrose 50 ml @ 100 mls/hr Q8HRS IV Last administered on 11/28/20at 06:11; Start 11/28/20 at 06:00; Stop 11/28/20 at 12:08; Status DC Albuterol/ Ipratropium (Duoneb) 3 ml RTQID NEB ; Start 11/28/20 at 12:00; Stop 11/28/20 at 10:59; Status DC Potassium Chloride (Klor-Con) 40 meq 1X ONCE PO ; Start 11/28/20 at 11:00; Stop 11/28/20 at 11:01; Status UNV Potassium Bicarbonate (Potassium Effervescent Tablet) 40 meq 1X ONCE PO ; Start 11/28/20 at 11:00; Stop 11/28/20 at 11:01; Status UNV Potassium Chloride/Water 100 ml @ 100 mls/hr Q1H IV ; Start 11/28/20 at 11:00; Stop 11/28/20 at 12:59; Status UNV Potassium Chloride/Water 100 ml @ 100 mls/hr Q1H IV ; Start 11/28/20 at 11:00; Stop 11/28/20 at 18:59; Status UNV Potassium Chloride/Water 100 ml @ 100 mls/hr Q1HR IV ; Start 11/28/20 at 11:00; Stop 11/28/20 at 16:59; Status UNV Magnesium Sulfate 100 ml @ 50 mls/hr DAILY IV ; Start 11/29/20 at 09:00; Stop 12/02/20 at 08:59; Status UNV Potassium Phos/ Sodium Phos (Phos-Nak) 1 pkt BID PO ; Start 11/28/20 at 21:00; Stop 11/29/20 at 09:01; Status UNV Albuterol Sulfate (Ventolin Neb Soln) 2.5 mg PRN QID PRN NEB SHORTNESS OF BREATH; Start 11/28/20 at 11:15 Info (Icu Electrolyte Protocol) 1 ea CONT PRN PRN MC SEE COMMENTS; Start 11/28/20 at 11:00 Piperacillin Sod/ Tazobactam Sod (Zosyn Per Pharmacy) 1 each PRN DAILY PRN MC SEE COMMENTS; Start 11/28/20 at 12:15 Piperacillin Sod/ Tazobactam Sod 3.375 gm/Sodium Chloride 50 ml @ 100 mls/hr Q6HRS IV Last administered on 12/01/20at 11:41; Start 11/28/20 at 12:30 Micafungin Sodium 100 mg/Dextrose 100 ml @ 100 mls/hr Q24H IV Last administered on 12/01/20at 08:17; Start 11/29/20 at 10:00 Daptomycin 380 mg/ Sodium Chloride 50 ml @ 100 mls/hr Q24H IV Last administered on 12/01/20at 09:50; Start 11/29/20 at 11:00 Cefazolin Sodium 1 gm/Sodium Chloride 500 ml @ 500 mls/hr 1X ONCE IRR Last administered on 11/30/20at 14:20; Start 11/30/20 at 06:00; Stop 11/30/20 at 06:59; Status DC Heparin Sodium (Porcine) 5000 unit/Sodium Chloride 505 ml @ 505 mls/hr 1X ONCE IRR Last administered on 11/30/20at 14:19; Start 11/30/20 at 06:00; Stop 11/30/20 at 06:59; Status DC Fentanyl Citrate (Fentanyl 2ml Vial) 25 mcg PRN Q5MIN PRN IVP MILD PAIN 1-3 Last administered on 11/30/20at 17:03; Start 11/30/20 at 06:00; Stop 12/01/20 at 05:59; Status DC Fentanyl Citrate (Fentanyl 2ml Vial) 50 mcg PRN Q5MIN PRN IVP MODERATE PAIN 4-6 Last administered on 11/30/20at 15:39; Start 11/30/20 at 06:00; Stop 12/01/20 at 05:59; Status DC Morphine Sulfate (Morphine Sulfate) 1 mg PRN Q10MIN PRN IVP SEVERE PAIN 7-10; Start 11/30/20 at 06:00; Stop 12/01/20 at 05:59; Status DC Ringer's Solution 1,000 ml @ 30 mls/hr Q24H IV Last administered on 11/30/20at 05:29; Start 11/30/20 at 06:00; Stop 11/30/20 at 17:59; Status DC Hydromorphone HCl (Dilaudid) 0.5 mg PRN Q10MIN PRN IVP SEVERE PAIN 7-10, 2nd CHOICE; Start 11/30/20 at 06:00; Stop 12/01/20 at 05:59; Status DC Prochlorperazine Edisylate (Compazine) 5 mg PACU PRN PRN IVP NAUSEA, MRX1; Start 11/30/20 at 06:00; Stop 12/01/20 at 05:59; Status DC Dexamethasone Sodium Phosphate (Decadron) 4 mg STK-MED ONCE .ROUTE ; Start 11/30/20 at 12:12; Stop 11/30/20 at 12:12; Status DC Ondansetron HCl (Zofran) 4 mg STK-MED ONCE .ROUTE ; Start 11/30/20 at 12:12; Stop 11/30/20 at 12:12; Status DC Propofol (Diprivan) 200 mg STK-MED ONCE IV ; Start 11/30/20 at 12:12; Stop 11/30/20 at 12:12; Status DC Lidocaine HCl (Lidocaine Pf 2% Vial) 5 ml STK-MED ONCE .ROUTE ; Start 11/30/20 at 12:12; Stop 11/30/20 at 12:12; Status DC Iohexol (Omnipaque 300 Mg/ml) 50 ml STK-MED ONCE .ROUTE ; Start 11/30/20 at 13:08; Stop 11/30/20 at 13:08; Status DC Cellulose (Surgicel Hemostat 4x8) 1 each STK-MED ONCE .ROUTE ; Start 11/30/20 at 13:08; Stop 11/30/20 at 13:08; Status DC Cellulose (Surgicel Fibrillar 1x2) 1 each STK-MED ONCE .ROUTE ; Start 11/30/20 at 13:08; Stop 11/30/20 at 13:09; Status DC Fentanyl Citrate (Fentanyl 2ml Vial) 100 mcg STK-MED ONCE .ROUTE ; Start 11/30/20 at 13:37; Stop 11/30/20 at 13:37; Status DC Glycopyrrolate (Robinul) 1 mg STK-MED ONCE .ROUTE ; Start 11/30/20 at 14:10; Stop 11/30/20 at 14:10; Status DC Sevoflurane (Ultane) 60 ml STK-MED ONCE IH ; Start 11/30/20 at 14:37; Stop 11/30/20 at 14:38; Status DC Fentanyl Citrate (Fentanyl 2ml Vial) 100 mcg STK-MED ONCE .ROUTE ; Start 11/30/20 at 15:37; Stop 11/30/20 at 15:37; Status DC Amlodipine Besylate (Norvasc) 5 mg 1X ONCE PO Last administered on 11/30/20at 16:33; Start 11/30/20 at 16:30; Stop 11/30/20 at 16:31; Status DC Hydralazine HCl (Apresoline Inj) 10 mg PRN Q4HRS PRN IVP ELEVATED BP, SEE COMMENTS; Start 11/30/20 at 16:30 Active Scripts Active Reported Vitamin D3 (Vitamin D) 125 Mcg Capsule 125 Mcg PO DAILY 5,000 UNITS = 125 MCG Methotrexate (Methotrexate Sodium) 2.5 Mg Tablet 4 Tab PO WEEKLY Ambien (Zolpidem Tartrate) 5 Mg Tablet 5 Mg PO PRN QHS PRN Gabapentin (Gabapentin) 300 Mg Capsule 300 Mg PO HS Protonix (Pantoprazole Sodium) 40 Mg Tablet.dr 40 Mg PO DAILYAC Folic Acid 0.4 Mg Tablet 0.4 Mg PO DAILY Aspirin 81 Mg Tab.chew 1 Tab PO DAILY Clopidogrel (Clopidogrel Bisulfate) 75 Mg Tablet 1 Tab PO DAILY Coreg (Carvedilol) 6.25 Mg Tablet 6.25 Mg PO BIDWMEALS Vitals/I & O Vital Sign - Last 24 Hours 11/30/20 11/30/20 11/30/20 11/30/20 12:00 12:00 15:15 15:15 Temp 98.4 98.4 98.4 98.4 Pulse 86 82 Resp 18 15 B/P (MAP) 157/78 (104) 179/78 Pulse Ox 99 100 O2 Delivery Room Air Room Air Mask Room Air O2 Flow Rate 10 10 11/30/20 11/30/20 11/30/20 11/30/20 15:30 15:39 15:45 16:00 Temp 98.4 98.4 98.2 98.4 98.4 98.2 Pulse 84 80 80 Resp 16 15 15 18 B/P (MAP) 187/78 173/73 114/82 (93) Pulse Ox 97 97 94 98 O2 Delivery Room Air Room Air Room Air Room Air 11/30/20 11/30/20 11/30/20 11/30/20 16:09 16:15 16:30 16:32 Pulse 75 74 75 Resp 17 18 14 B/P (MAP) 170/84 (112) 156/77 (103) 170/84 Pulse Ox 97 97 96 O2 Delivery Room Air Room Air Room Air 11/30/20 11/30/20 11/30/20 11/30/20 16:33 16:45 17:00 17:03 Pulse 75 82 78 Resp 18 17 B/P (MAP) 170/84 161/79 (106) 168/78 (108) Pulse Ox 98 98 97 O2 Delivery Room Air Room Air Room Air 11/30/20 11/30/20 11/30/20 11/30/20 17:30 17:33 18:00 18:22 Pulse 76 89 Resp 17 19 18 B/P (MAP) 152/67 (95) 135/59 (84) Pulse Ox 97 98 98 98 O2 Delivery Room Air Room Air Room Air Room Air 11/30/20 11/30/20 11/30/20 11/30/20 18:52 19:00 20:00 20:00 Temp 98.5 98.5 Pulse 88 65 Resp 14 12 B/P (MAP) 122/62 (82) 124/48 (73) Pulse Ox 98 98 98 O2 Delivery Room Air Room Air Room Air Room Air O2 Flow Rate 10.0 11/30/20 11/30/20 11/30/20 11/30/20 21:00 22:00 23:00 23:59 Temp 98.2 98.2 Pulse 74 77 62 76 Resp 17 17 17 18 B/P (MAP) 126/56 (79) 107/55 (72) 109/55 (73) 122/52 (75) Pulse Ox 98 98 97 98 O2 Delivery Room Air Room Air Room Air Room Air 11/30/20 12/01/20 12/01/20 12/01/20 23:59 01:00 02:00 03:00 Pulse 62 60 61 Resp 17 18 22 B/P (MAP) 109/55 (73) 115/57 (76) 109/59 (76) Pulse Ox 97 97 99 O2 Delivery Room Air Room Air Room Air Room Air 12/01/20 12/01/20 12/01/20 12/01/20 04:00 04:00 05:00 06:00 Temp 98.1 98.1 Pulse 61 72 59 Resp 18 21 B/P (MAP) 116/54 (74) 117/49 (71) 109/51 (70) Pulse Ox 99 99 99 O2 Delivery Room Air Room Air Room Air Room Air 12/01/20 12/01/20 12/01/20 12/01/20 07:00 07:54 08:00 08:16 Temp 97.8 97.8 Pulse 66 78 78 Resp 17 B/P (MAP) 138/65 (89) 133/59 (83) 133/59 Pulse Ox 99 99 O2 Delivery Room Air Room Air Room Air 12/01/20 12/01/20 12/01/20 12/01/20 08:21 08:51 09:00 10:00 Pulse 88 72 Resp 18 17 18 B/P (MAP) 109/45 (66) 121/86 (98) Pulse Ox 99 98 98 98 O2 Delivery Room Air Room Air Room Air Room Air 12/01/20 11:00 Temp 98.3 98.3 Pulse 79 Resp 18 B/P (MAP) 133/64 (87) Pulse Ox 99 O2 Delivery Room Air Intake and Output 11/30/20 11/30/20 12/01/20 15:00 23:00 07:00 Intake Total 550 ml 150 ml Output Total 265 ml 715 ml 525 ml Balance 285 ml -715 ml -375 ml Justifications for Admission Other Justification SOLOMON MUNIZ APRN Dec 01, 2020 12:10
--- NOTE | 2020-12-01 13:26 | PDOC ---
PROGRESS NOTES Date of Service DATE: 12/01/20 TIME: 13:23 Assessment Problems Medical Problems: (1) Femoral artery pseudo-aneurysm, right Status: Acute (2) Pseudoaneurysm of femoral artery following procedure Status: Acute Stroke 11/19days ago, she made a good recovery. Encephalopathy related to blood loss anemia, surgery, stress, I do not think she has had a new stroke. Even if she did, management would not be changed. says she is back to normal Status-post clot retrieval and stent Status-post repair of femoral pseudoaneurysm; and right sartorius muscle flap with wound VAC placement [facility] records reviewed, note that she had a normal cholesterol Plan Aspirin and clopidogrel Holding off on statin per [facility] neurology Holding off on repeat imaging studies I will follow at intervals Discussed with . Subjective No complaints Objective Vital Signs Date Time Temp Pulse Resp B/P (MAP) Pulse Ox O2 Delivery O2 Flow Rate FiO2 12/01/20 11:00 98.3 79 18 133/64 (87) 99 Room Air 98.3 11/30/20 18:52 10.0 Intake and Output 12/01/20 07:00 Intake Total 700 ml Output Total 1505 ml Balance -805 ml IV Total 700 ml Output Urine Total 1485 ml Estimated Blood Loss 20 ml PHYSICAL EXAM Alert. Oriented to person, knows date or the name of the hospital. Names and repeats well, comprehends well PERRL. EOMI. CN: no focal findings. Muscle tone: normal. Muscle strength: 5/5, no pronator drift. DTR: 2+ Plantar reflex: flexor Gait: not examined in bed. Sensory exam: no abnormal findings. No cerebellar signs elicited. Review of Relevant I have reviewed the following items césar (where applicable) has been applied. Labs Laboratory Tests Test 11/30/20 03:20 12/01/20 07:10 White Blood Count 12.1 x10^3/uL (4.0-11.0) 13.9 x10^3/uL (4.0-11.0) Red Blood Count 2.61 x10^6/uL (3.50-5.40) 3.05 x10^6/uL (3.50-5.40) Hemoglobin 8.0 g/dL (12.0-15.5) 9.5 g/dL (12.0-15.5) Hematocrit 24.1 % (36.0-47.0) 28.7 % (36.0-47.0) Mean Corpuscular Volume 92 fL (79-100) 94 fL (79-100) Mean Corpuscular Hemoglobin 31 pg (25-35) 31 pg (25-35) Mean Corpuscular Hemoglobin Concent 33 g/dL (31-37) 33 g/dL (31-37) Red Cell Distribution Width 16.0 % (11.5-14.5) 16.0 % (11.5-14.5) Platelet Count 316 x10^3/uL (140-400) 387 x10^3/uL (140-400) Neutrophils (%) (Auto) 72 % (31-73) 84 % (31-73) Lymphocytes (%) (Auto) 16 % (24-48) 9 % (24-48) Monocytes (%) (Auto) 9 % (0-9) 7 % (0-9) Eosinophils (%) (Auto) 2 % (0-3) 0 % (0-3) Basophils (%) (Auto) 1 % (0-3) 0 % (0-3) Neutrophils # (Auto) 8.7 x10^3/uL (1.8-7.7) 11.7 x10^3/uL (1.8-7.7) Lymphocytes # (Auto) 1.9 x10^3/uL (1.0-4.8) 1.2 x10^3/uL (1.0-4.8) Monocytes # (Auto) 1.1 x10^3/uL (0.0-1.1) 0.9 x10^3/uL (0.0-1.1) Eosinophils # (Auto) 0.3 x10^3/uL (0.0-0.7) 0.0 x10^3/uL (0.0-0.7) Basophils # (Auto) 0.1 x10^3/uL (0.0-0.2) 0.1 x10^3/uL (0.0-0.2) Sodium Level 136 mmol/L (136-145) Potassium Level 4.3 mmol/L (3.5-5.1) Chloride Level 103 mmol/L (98-107) Carbon Dioxide Level 24 mmol/L (21-32) Anion Gap 9 (6-14) Blood Urea Nitrogen 11 mg/dL (7-20) Creatinine 0.6 mg/dL (0.6-1.0) Estimated GFR (Cockcroft-Gault) 99.1 Glucose Level 115 mg/dL (70-99) Calcium Level 8.8 mg/dL (8.5-10.1) Phosphorus Level 3.8 mg/dL (2.6-4.7) Laboratory Tests Test 12/01/20 07:10 White Blood Count 13.9 x10^3/uL (4.0-11.0) Red Blood Count 3.05 x10^6/uL (3.50-5.40) Hemoglobin 9.5 g/dL (12.0-15.5) Hematocrit 28.7 % (36.0-47.0) Mean Corpuscular Volume 94 fL (79-100) Mean Corpuscular Hemoglobin 31 pg (25-35) Mean Corpuscular Hemoglobin Concent 33 g/dL (31-37) Red Cell Distribution Width 16.0 % (11.5-14.5) Platelet Count 387 x10^3/uL (140-400) Neutrophils (%) (Auto) 84 % (31-73) Lymphocytes (%) (Auto) 9 % (24-48) Monocytes (%) (Auto) 7 % (0-9) Eosinophils (%) (Auto) 0 % (0-3) Basophils (%) (Auto) 0 % (0-3) Neutrophils # (Auto) 11.7 x10^3/uL (1.8-7.7) Lymphocytes # (Auto) 1.2 x10^3/uL (1.0-4.8) Monocytes # (Auto) 0.9 x10^3/uL (0.0-1.1) Eosinophils # (Auto) 0.0 x10^3/uL (0.0-0.7) Basophils # (Auto) 0.1 x10^3/uL (0.0-0.2) Sodium Level 136 mmol/L (136-145) Potassium Level 4.3 mmol/L (3.5-5.1) Chloride Level 103 mmol/L (98-107) Carbon Dioxide Level 24 mmol/L (21-32) Anion Gap 9 (6-14) Blood Urea Nitrogen 11 mg/dL (7-20) Creatinine 0.6 mg/dL (0.6-1.0) Estimated GFR (Cockcroft-Gault) 99.1 Glucose Level 115 mg/dL (70-99) Calcium Level 8.8 mg/dL (8.5-10.1) Phosphorus Level 3.8 mg/dL (2.6-4.7) Microbiology 11/28/20 Urine Culture - Final, Complete Medications Current Medications Sodium Chloride 500 ml @ 500 mls/hr 1X ONCE IV Last administered on 11/27/20at 18:52; Start 11/27/20 at 18:00; Stop 11/27/20 at 18:59; Status DC Ondansetron HCl (Zofran) 4 mg 1X ONCE IV Last administered on 11/27/20at 18:50; Start 11/27/20 at 18:15; Stop 11/27/20 at 18:16; Status DC Fentanyl Citrate (Fentanyl 2ml Vial) 50 mcg 1X ONCE IV Last administered on 11/27/20at 18:52; Start 11/27/20 at 18:15; Stop 11/27/20 at 18:16; Status DC Lidocaine HCl (Lidocaine Pf 2% Vial) 5 ml STK-MED ONCE .ROUTE ; Start 11/27/20 at 19:11; Stop 11/27/20 at 19:11; Status DC Propofol (Diprivan) 200 mg STK-MED ONCE IV ; Start 11/27/20 at 19:11; Stop 11/27/20 at 19:11; Status DC Phenylephrine HCl (PHENYLEPHRINE in 0.9% NACL PF) 1 mg STK-MED ONCE IV ; Start 11/27/20 at 19:11; Stop 11/27/20 at 19:11; Status DC Rocuronium [place] (Zemuron) 50 mg STK-MED ONCE .ROUTE ; Start 11/27/20 at 19:11; Stop 11/27/20 at 19:11; Status DC Heparin Sodium (Porcine) 5000 unit/Sodium Chloride 505 ml @ 505 mls/hr 1X ONCE IRR Last administered on 11/27/20at 19:55; Start 11/27/20 at 20:00; Stop 11/27/20 at 20:59; Status DC Cellulose (Surgicel Fibrillar 1x2) 1 each STK-MED ONCE .ROUTE Last administered on 11/27/20at 19:55; Start 11/27/20 at 19:29; Stop 11/27/20 at 19:30; Status DC Cefazolin Sodium (Ancef) 1 gm STK-MED ONCE IVP ; Start 11/27/20 at 19:38; Stop 11/27/20 at 19:38; Status DC Fentanyl Citrate (Fentanyl 2ml Vial) 25 mcg PRN Q5MIN PRN IVP MILD PAIN 1-3; Start 11/27/20 at 20:15; Stop 11/28/20 at 20:14; Status DC Fentanyl Citrate (Fentanyl 2ml Vial) 50 mcg PRN Q5MIN PRN IVP MODERATE PAIN 4- 6; Start 11/27/20 at 20:15; Stop 11/28/20 at 20:14; Status DC Morphine Sulfate (Morphine Sulfate) 1 mg PRN Q10MIN PRN IVP SEVERE PAIN 7-10; Start 11/27/20 at 20:15; Stop 11/28/20 at 20:14; Status DC Ringer's Solution 1,000 ml @ 30 mls/hr Q24H IV ; Start 11/27/20 at 20:15; Stop 11/28/20 at 08:14; Status DC Hydromorphone HCl (Dilaudid) 0.5 mg PRN Q10MIN PRN IVP SEVERE PAIN 7-10, 2nd CHOICE; Start 11/27/20 at 20:15; Stop 11/28/20 at 20:14; Status DC Prochlorperazine Edisylate (Compazine) 5 mg PACU PRN PRN IVP NAUSEA, MRX1; Start 11/27/20 at 20:15; Stop 11/28/20 at 20:14; Status DC Heparin Sodium (Porcine) (Heparin Sodium) 10,000 unit STK-MED ONCE .ROUTE ; Start 11/27/20 at 20:07; Stop 11/27/20 at 20:07; Status DC Heparin Sodium (Porcine) (Heparin Sodium) 10,000 unit STK-MED ONCE .ROUTE ; Start 11/27/20 at 20:10; Stop 11/27/20 at 20:10; Status DC Fentanyl Citrate (Fentanyl 2ml Vial) 100 mcg STK-MED ONCE .ROUTE ; Start 11/27/20 at 20:11; Stop 11/27/20 at 20:12; Status DC Propofol (Diprivan) 200 mg STK-MED ONCE IV ; Start 11/27/20 at 20:13; Stop 11/27/20 at 20:14; Status DC Protamine Sulfate (Protamine) 50 mg STK-MED ONCE IV ; Start 11/27/20 at 20:44; Stop 11/27/20 at 20:44; Status DC Sevoflurane (Ultane) 60 ml STK-MED ONCE IH ; Start 11/27/20 at 20:44; Stop 11/27/20 at 20:44; Status DC Olanzapine (ZyPREXA ZYDIS) 5 mg PRN BID PRN PO ANXIETY / AGITATION; Start 11/27/20 at 22:00 Acetaminophen (Tylenol) 650 mg PRN Q6HRS PRN PO MILD PAIN / TEMP > 100.3'F; Start 11/27/20 at 22:00 Ondansetron HCl (Zofran) 4 mg PRN Q4HRS PRN IVP NAUSEA/VOMITING; Start 11/27/20 at 22:00 Hydralazine HCl (Apresoline Inj) 20 mg STK-MED ONCE .ROUTE ; Start 11/27/20 at 21:56; Stop 11/27/20 at 21:56; Status DC Fentanyl Citrate (Fentanyl 2ml Vial) 25 mcg PRN Q2HR PRN IVP PAIN; Start 11/27/20 at 22:00 Carvedilol (Coreg) 3.125 mg BIDWMEALS PO Last administered on 12/01/20at 08:16; Start 11/28/20 at 08:00 Gabapentin (Neurontin) 300 mg HS PO Last administered on 11/30/20at 20:56; Start 11/27/20 at 22:15 Pantoprazole Sodium (Protonix) 40 mg DAILYAC PO Last administered on 12/01/20at 08:16; Start 11/28/20 at 07:30 Zolpidem Tartrate (Ambien) 5 mg PRN QHS PRN PO INSOMNIA; Start 11/27/20 at 22:15 Folic Acid (Folic Acid) 1 mg DAILY PO Last administered on 12/01/20at 08:16; Start 11/28/20 at 09:00 Aspirin (Aspirin Chewable) 81 mg DAILY08 PO Last administered on 12/01/20at 08:16; Start 11/28/20 at 08:00 Vitamin D (Vitamin D3) 5,000 unit DAILY PO Last administered on 12/01/20at 08:16; Start 11/28/20 at 09:00 Clopidogrel Bisulfate (Plavix) 75 mg DAILY08 PO Last administered on 12/01/20at 08:16; Start 11/28/20 at 08:00 Sodium Chloride 1,000 ml @ 80 mls/hr [id number] IV Last administered on 11/29/20at 20:48; Start 11/27/20 at 22:45; Stop 11/30/20 at 20:00; Status DC Acetaminophen/ Hydrocodone Bitart (Lortab 5/325) 1 tab PRN Q4HRS PRN PO PAIN MODERATE Last administered on 12/01/20at 08:21; Start 11/27/20 at 22:45 Acetaminophen/ Hydrocodone Bitart (Lortab 5/325) 2 tab PRN Q4HRS PRN PO PAIN SEVERE; Start 11/27/20 at 22:45 Albumin Human 500 ml @ 125 mls/hr PRN DAILY PRN IV Hypotension; Start 11/27/20 at 23:00 Magnesium Sulfate 50 ml @ 25 mls/hr 1X ONCE IV Last administered on 11/28/20at 02:15; Start 11/28/20 at 01:45; Stop 11/28/20 at 03:44; Status DC Cefazolin Sodium/ Dextrose 50 ml @ 100 mls/hr Q8HRS IV Last administered on 11/28/20at 06:11; Start 11/28/20 at 06:00; Stop 11/28/20 at 12:08; Status DC Albuterol/ Ipratropium (Duoneb) 3 ml RTQID NEB ; Start 11/28/20 at 12:00; Stop 11/28/20 at 10:59; Status DC Potassium Chloride (Klor-Con) 40 meq 1X ONCE PO ; Start 11/28/20 at 11:00; Stop 11/28/20 at 11:01; Status UNV Potassium Bicarbonate (Potassium Effervescent Tablet) 40 meq 1X ONCE PO ; Start 11/28/20 at 11:00; Stop 11/28/20 at 11:01; Status UNV Potassium Chloride/Water 100 ml @ 100 mls/hr Q1H IV ; Start 11/28/20 at 11:00; Stop 11/28/20 at 12:59; Status UNV Potassium Chloride/Water 100 ml @ 100 mls/hr Q1H IV ; Start 11/28/20 at 11:00; Stop 11/28/20 at 18:59; Status UNV Potassium Chloride/Water 100 ml @ 100 mls/hr Q1HR IV ; Start 11/28/20 at 11:00; Stop 11/28/20 at 16:59; Status UNV Magnesium Sulfate 100 ml @ 50 mls/hr DAILY IV ; Start 11/29/20 at 09:00; Stop 12/02/20 at 08:59; Status UNV Potassium Phos/ Sodium Phos (Phos-Nak) 1 pkt BID PO ; Start 11/28/20 at 21:00; Stop 11/29/20 at 09:01; Status UNV Albuterol Sulfate (Ventolin Neb Soln) 2.5 mg PRN QID PRN NEB SHORTNESS OF BREATH; Start 11/28/20 at 11:15 Info (Icu Electrolyte Protocol) 1 ea CONT PRN PRN MC SEE COMMENTS; Start 11/28/20 at 11:00 Piperacillin Sod/ Tazobactam Sod (Zosyn Per Pharmacy) 1 each PRN DAILY PRN MC SEE COMMENTS; Start 11/28/20 at 12:15 Piperacillin Sod/ Tazobactam Sod 3.375 gm/Sodium Chloride 50 ml @ 100 mls/hr Q6HRS IV Last administered on 12/01/20at 11:41; Start 11/28/20 at 12:30 Micafungin Sodium 100 mg/Dextrose 100 ml @ 100 mls/hr Q24H IV Last administered on 12/01/20at 08:17; Start 11/29/20 at 10:00 Daptomycin 380 mg/ Sodium Chloride 50 ml @ 100 mls/hr Q24H IV Last administered on 12/01/20at 09:50; Start 11/29/20 at 11:00 Cefazolin Sodium 1 gm/Sodium Chloride 500 ml @ 500 mls/hr 1X ONCE IRR Last administered on 11/30/20at 14:20; Start 11/30/20 at 06:00; Stop 11/30/20 at 06:59; Status DC Heparin Sodium (Porcine) 5000 unit/Sodium Chloride 505 ml @ 505 mls/hr 1X ONCE IRR Last administered on 11/30/20at 14:19; Start 11/30/20 at 06:00; Stop 11/30/20 at 06:59; Status DC Fentanyl Citrate (Fentanyl 2ml Vial) 25 mcg PRN Q5MIN PRN IVP MILD PAIN 1-3 Last administered on 11/30/20at 17:03; Start 11/30/20 at 06:00; Stop 12/01/20 at 05:59; Status DC Fentanyl Citrate (Fentanyl 2ml Vial) 50 mcg PRN Q5MIN PRN IVP MODERATE PAIN 4-6 Last administered on 11/30/20at 15:39; Start 11/30/20 at 06:00; Stop 12/01/20 at 05:59; Status DC Morphine Sulfate (Morphine Sulfate) 1 mg PRN Q10MIN PRN IVP SEVERE PAIN 7-10; Start 11/30/20 at 06:00; Stop 12/01/20 at 05:59; Status DC Ringer's Solution 1,000 ml @ 30 mls/hr Q24H IV Last administered on 11/30/20at 05:29; Start 11/30/20 at 06:00; Stop 11/30/20 at 17:59; Status DC Hydromorphone HCl (Dilaudid) 0.5 mg PRN Q10MIN PRN IVP SEVERE PAIN 7-10, 2nd CHOICE; Start 11/30/20 at 06:00; Stop 12/01/20 at 05:59; Status DC Prochlorperazine Edisylate (Compazine) 5 mg PACU PRN PRN IVP NAUSEA, MRX1; Start 11/30/20 at 06:00; Stop 12/01/20 at 05:59; Status DC Dexamethasone Sodium Phosphate (Decadron) 4 mg STK-MED ONCE .ROUTE ; Start 11/30/20 at 12:12; Stop 11/30/20 at 12:12; Status DC Ondansetron HCl (Zofran) 4 mg STK-MED ONCE .ROUTE ; Start 11/30/20 at 12:12; Stop 11/30/20 at 12:12; Status DC Propofol (Diprivan) 200 mg STK-MED ONCE IV ; Start 11/30/20 at 12:12; Stop 11/30/20 at 12:12; Status DC Lidocaine HCl (Lidocaine Pf 2% Vial) 5 ml STK-MED ONCE .ROUTE ; Start 11/30/20 at 12:12; Stop 11/30/20 at 12:12; Status DC Iohexol (Omnipaque 300 Mg/ml) 50 ml STK-MED ONCE .ROUTE ; Start 11/30/20 at 13:08; Stop 11/30/20 at 13:08; Status DC Cellulose (Surgicel Hemostat 4x8) 1 each STK-MED ONCE .ROUTE ; Start 11/30/20 at 13:08; Stop 11/30/20 at 13:08; Status DC Cellulose (Surgicel Fibrillar 1x2) 1 each STK-MED ONCE .ROUTE ; Start 11/30/20 at 13:08; Stop 11/30/20 at 13:09; Status DC Fentanyl Citrate (Fentanyl 2ml Vial) 100 mcg STK-MED ONCE .ROUTE ; Start 11/30/20 at 13:37; Stop 11/30/20 at 13:37; Status DC Glycopyrrolate (Robinul) 1 mg STK-MED ONCE .ROUTE ; Start 11/30/20 at 14:10; Stop 11/30/20 at 14:10; Status DC Sevoflurane (Ultane) 60 ml STK-MED ONCE IH ; Start 11/30/20 at 14:37; Stop 11/30/20 at 14:38; Status DC Fentanyl Citrate (Fentanyl 2ml Vial) 100 mcg STK-MED ONCE .ROUTE ; Start 11/30/20 at 15:37; Stop 11/30/20 at 15:37; Status DC Amlodipine Besylate (Norvasc) 5 mg 1X ONCE PO Last administered on 11/30/20at 16:33; Start 11/30/20 at 16:30; Stop 11/30/20 at 16:31; Status DC Hydralazine HCl (Apresoline Inj) 10 mg PRN Q4HRS PRN IVP ELEVATED BP, SEE COMMENTS; Start 11/30/20 at 16:30 Senna/Docusate Sodium (Senna Plus) 1 tab DAILY PO ; Start 12/01/20 at 12:15 Active Scripts Active Reported Vitamin D3 (Vitamin D) 125 Mcg Capsule 125 Mcg PO DAILY 5,000 UNITS = 125 MCG Methotrexate (Methotrexate Sodium) 2.5 Mg Tablet 4 Tab PO WEEKLY Ambien (Zolpidem Tartrate) 5 Mg Tablet 5 Mg PO PRN QHS PRN Gabapentin (Gabapentin) 300 Mg Capsule 300 Mg PO HS Protonix (Pantoprazole Sodium) 40 Mg Tablet.dr 40 Mg PO DAILYAC Folic Acid 0.4 Mg Tablet 0.4 Mg PO DAILY Aspirin 81 Mg Tab.chew 1 Tab PO DAILY Clopidogrel (Clopidogrel Bisulfate) 75 Mg Tablet 1 Tab PO DAILY Coreg (Carvedilol) 6.25 Mg Tablet 6.25 Mg PO BIDWMEALS Vitals/I & O Vital Sign - Last 24 Hours 11/30/20 11/30/20 11/30/20 11/30/20 15:15 15:15 15:30 15:39 Temp 98.4 98.4 98.4 98.4 Pulse 82 84 Resp 15 16 15 B/P (MAP) 179/78 187/78 Pulse Ox 100 97 97 O2 Delivery Mask Room Air Room Air Room Air O2 Flow Rate 10 10 11/30/20 11/30/20 11/30/20 11/30/20 15:45 16:00 16:09 16:15 Temp 98.4 98.2 98.4 98.2 Pulse 80 80 75 Resp 15 18 17 18 B/P (MAP) 173/73 114/82 (93) 170/84 (112) Pulse Ox 94 98 97 97 O2 Delivery Room Air Room Air Room Air Room Air 11/30/20 11/30/20 11/30/20 11/30/20 16:30 16:32 16:33 16:45 Pulse 74 75 75 82 Resp 14 18 B/P (MAP) 156/77 (103) 170/84 170/84 161/79 (106) Pulse Ox 96 98 O2 Delivery Room Air Room Air 11/30/20 11/30/20 11/30/20 11/30/20 17:00 17:03 17:30 17:33 Pulse 78 76 Resp 17 17 B/P (MAP) 168/78 (108) 152/67 (95) Pulse Ox 98 97 97 98 O2 Delivery Room Air Room Air Room Air Room Air 11/30/20 11/30/20 11/30/20 11/30/20 18:00 18:22 18:52 19:00 Pulse 89 88 Resp 19 18 14 B/P (MAP) 135/59 (84) 122/62 (82) Pulse Ox 98 98 98 98 O2 Delivery Room Air Room Air Room Air Room Air O2 Flow Rate 10.0 11/30/20 11/30/20 11/30/20 11/30/20 20:00 20:00 21:00 22:00 Temp 98.5 98.5 Pulse 65 74 77 Resp 12 17 17 B/P (MAP) 124/48 (73) 126/56 (79) 107/55 (72) Pulse Ox 98 98 98 O2 Delivery Room Air Room Air Room Air Room Air 11/30/20 11/30/20 11/30/20 12/01/20 23:00 23:59 23:59 01:00 Temp 98.2 98.2 Pulse 62 76 62 Resp 17 18 17 B/P (MAP) 109/55 (73) 122/52 (75) 109/55 (73) Pulse Ox 97 98 97 O2 Delivery Room Air Room Air Room Air Room Air 12/01/20 12/01/20 12/01/20 12/01/20 02:00 03:00 04:00 04:00 Temp 98.1 98.1 Pulse 60 61 61 Resp 18 22 18 B/P (MAP) 115/57 (76) 109/59 (76) 116/54 (74) Pulse Ox 97 99 99 O2 Delivery Room Air Room Air Room Air Room Air 12/01/20 12/01/20 12/01/20 12/01/20 05:00 06:00 07:00 07:54 Temp 97.8 97.8 Pulse 72 59 66 78 Resp 21 21 17 B/P (MAP) 117/49 (71) 109/51 (70) 138/65 (89) 133/59 (83) Pulse Ox 99 99 99 99 O2 Delivery Room Air Room Air Room Air Room Air 12/01/20 12/01/20 12/01/20 12/01/20 08:00 08:16 08:21 08:51 Pulse 78 Resp 18 B/P (MAP) 133/59 Pulse Ox 99 98 O2 Delivery Room Air Room Air Room Air 12/01/20 12/01/20 12/01/20 09:00 10:00 11:00 Temp 98.3 98.3 Pulse 88 72 79 Resp 17 18 18 B/P (MAP) 109/45 (66) 121/86 (98) 133/64 (87) Pulse Ox 98 98 99 O2 Delivery Room Air Room Air Room Air Intake and Output 11/30/20 11/30/20 12/01/20 15:00 23:00 07:00 Intake Total 550 ml 150 ml Output Total 265 ml 715 ml 525 ml Balance 285 ml -715 ml -375 ml Justicifation of Admission Dx: Justifications for Admission: Justification of Admission Dx: Yes JOHNNY QUIÑONEZ MD Dec 01, 2020 13:25
[2020-12-01] MEDS: SENNOSIDES/DOCUSATE 8.6/50MG TABLET. PO SCH (13:35)
--- NOTE | 2020-12-01 16:04 | NUR ---
SS following up with discharge planning. SS reviewed pt chart and discussed with pt RN. Pt is currently on room air. Pt on IV Micafungin, IV Zosyn, and IV Daptomycin. Wound vac in place. PT/OT recommended home with home healthcare. Probable need for outpatient IV antibiotics and wound care. SS will continue to follow for discharge planning.
[2020-12-01] MEDS: GABAPENTIN 300 MG CAPSULE. PO SCH (20:54)
[2020-12-02 03:00] VITALS: BP 132/59
[2020-12-02] MEDS: PIPERACILLIN/TAZOBACTAM 3.375 GM in IV NORMAL SALINE 50ML 50 ML IV SCH ×4 (05:42→23:03)
[2020-12-02 07:00] VITALS: BP 134/53
[2020-12-02] MEDS: CLOPIDOGREL BISULFATE 75 MG TABLET PO SCH (08:16)
[2020-12-02] MEDS: PANTOPRAZOLE 40 MG TABLET.DR. PO SCH (08:16)
[2020-12-02] MEDS: CARVEDILOL 3.125 MG TABLET. PO SCH ×2 (08:16→17:13)
[2020-12-02] MEDS: FOLIC ACID 1 MG TABLET. PO SCH (08:16)
[2020-12-02] MEDS: MICAFUNGIN 100 MG in IV DEXTROSE 5% 100ML 100 ML IV SCH (08:17)
[2020-12-02] MEDS: SENNOSIDES/DOCUSATE 8.6/50MG TABLET. PO SCH (08:17)
[2020-12-02] MEDS: CHOLECALCIFEROL (VITAMIN D3) 5,000 UNIT CAPSULE PO SCH (08:17)
[2020-12-02] MEDS: ASPIRIN CHEWABLE 81 MG TABLET. PO SCH (08:17)
--- NOTE | 2020-12-02 08:26 | PDOC ---
Infectious Disease Note Subjective: Subjective Patient without complaints Appetite is poor No BM since admission Postop pain is under control Denies fever, nausea, vomiting, shortness of breath, diarrhea, abdominal pain, rash Vital Signs: Vital Signs Vital Signs Date Time Temp Pulse Resp B/P (MAP) Pulse Ox O2 Delivery O2 Flow Rate FiO2 12/02/20 08:16 77 134/53 12/02/20 07:00 98.8 16 94 Room Air 98.8 Physical Exam: PHYSICAL EXAM GENERAL: Alert, awake female, lying in bed comfortably, in no acute distress. HEENT: Normocephalic, atraumatic. Anicteric. NECK: Supple. LUNGS: Clear. HEART: S1, S2. No murmurs. ABDOMEN: Soft, bruise present over the right lower abdominal area No rebound, no guarding. EXTREMITIES: bruising right lower abdomen improving Wound VAC in place. Right leg groin ecchymosis and swelling improving , no fluctuance, no cyanosis, no clubbing. DERMATOLOGIC: Warm, dry, no generalized rash except for above. NEUROLOGIC: Alert, oriented x3. Normal speech. PSYCHIATRIC: Calm and cooperative. Medications: Inpatient Meds: Medications reviewed. Objective: Assessment: 1. Large right groin pseudoaneurysm with hematoma, Status post emergent open repair of the right femoral artery pseudoaneurysm using bovine pericardial patch angioplasty. November 30, 2020 S/P Coverage of the right femoral artery repair requiring sartorius muscle flap, Wound VAC placement. Underwent dressing earlier today, vascular team input noted 2. Status post treatment with TPA on 11/18/2020 for right-sided weakness. 3. 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 4. Leukocytosis could have a reactive component. Improving 5. Severe acute blood loss anemia, status post blood transfusion. 6. History of rheumatoid arthritis, on methotrexate. 7. Hypertension/hyperlipidemia 8. Gastroesophageal reflux disease. 9. Protein calorie malnutrition. 10. Hyponatremia. 11. Constipation Plan: Plan of Care 1. Continue Zosyn, daptomycin Discontinue micafungin. 2. Continue wound/VAC care as directed. 3. Follow up labs and cultures. 4 Continue supportive care. Leukocytosis could be reactive from constipation Discussed with at bedside Discussed with nursing staff. KEV LÓPEZ MD Dec 02, 2020 08:26
--- NOTE | 2020-12-02 08:58 | PDOC ---
PROGRESS NOTES Date of Service: DATE: 12/02/20 TIME: 08:58 Chief Complaint Chief Complaint Assessment/Plan 70-year-old woman who recently had a right femoral artery access for acute stroke intervention apparently left carotid stent and left stroke thrombus removal at [facility] / pseudoaneurysm arising from the common femoral artery // actively bleeding into a large hematoma. Acute blood loss anemia - given extent of hematoma and pseudoaneursym and need for surgery may need up to 6u PRBC. 2 units on hold for OR. H&H 4 hours post op HGB 11.9 11-19 Large right groin pseuoaneurysm - likely from access 1 week prior. Vascular surgery consulted for ongoing active bleeding. To OR Large right groin hematoma - likely from arterial bleed. 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 Would not hold DAPT therapy in order to prevent further CVA. (will order [facility] records to confirm the presence/absence of stent) Hyponatremia - likely hypovolemic. Will give NSS crystalloid and monitor. Leukocytosis - likely reactive from massive blood loss, will trend. No clear in fection. will cover preoperatively. Given the extent of her hematoma is definitely at risk for skin infection/cellulitis as she is immunocompromised on MTX, ID CONSULTED , BLOOD CULT Hyperglycemia - likely related to stress, will check A1c RA - on MTX weekly. 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 severe protein-caloric malnutrition Current smoker HTN - on coreg, will cut dosing given low BP since d/c from [facility] per rehab notes. She may have cardiac reason for BB, will await . [facility] records as she may be getting CHF treatment, patient and aren't certain. plan FEN - NPO for OR. Regular diet after PPX - SCDs for 24 hours. Will defer heparin timing to vascular surgery CODE - FULL Dispo - ICU [facility]'s [place] for possible IR intervention. 11-19 CONSULT CARDIOLOGY, ECHO HER is a pharmacist at 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 Would not hold DAPT therapy in order to prevent further CVA. (will order [facility] records to confirm the presence/absence of stent) Hyponatremia - likely hypovolemic. Will give NSS crystalloid and monitor. Leukocytosis - likely reactive from massive blood loss, will trend. No clear infection. will cover preoperatively. Given the extent of her hematoma is definitely at risk for skin infection/cellulitis as she is immunocompromised on MTX, ID CONSULTED , BLOOD CULT Hyperglycemia - likely related to stress, will check A1c-6.1 CC time 32 min History of Present Illness History of Present Illness Identification/Chief Complaint Chief Complaint Right groin pain and swelling Source Source: Patient History of Present Illness History of Present Illness Ms Robins is a 70-year-old female w/ PMHx HLD, HTN, GERD, RA, and recent presenting with right groin pain and swelling. She has been noting bruising since 11/24/2020 when the dressing in her right groin was removed as instructed. She has been going to outpatient PT and OT for stroke rehab and has been c/o some pain in the area since the dressing was removed. 11/26 she began acting more tired, dizzy and intermittently confused per her . family member, who is a nurse practitioner, came over to the house to look at her leg as the was concerned about the bruise getting bigger. The family member told him to go to the ER right away. She states she feels very weak and tired and dizzy. Patient denies any chest pain, shortness of breath, nausea, vomiting, or diarrhea. She is up to date on both doses of Moderna COVID 19 vaccine Patient complains of pain and tightness in her right thigh and groin. She was initially evaluated on 11/19/2020 at [facility] ED for right sided weakness within 2 hours of presentation and tPA was then administered. CT angiogram shows left MCA M1 large vessel occlusion and she was transferred to [facility] for large vessel occlusion intervention on 11/19/2020. Per had clot retrieval and he thinks had carotid stenting as well and w as discharged home on 11/21/2020 for outpatient rehab for her CVA on DAPT with ASA and plavix. In ED noted with pulsatile swelling in left groin and right groin arterial doppler revealed large hematoma in the proximal right lower extremity arising from the common femoral artery that measures 11.5 x 5.0 x 9.5 cm. This hematoma appears to arise directly from a pseudoaneurysm with a neck which actively bleeds into the hematoma. The belly of the pseudoaneurysm measures 2.3 cm in diameter. On examination a nurse was holding pressure in the groin and COMMISSARY REPRESENTATIVE was accessing left antecubital fossa for venipuncture for blood draw and IV insertion. give much of history bedside. During examination labs returned with WBC 19.2, platelets 367, Hb 6.3, Na 133, glucose 178, INR 1.2. Given the urgency of her condition vascular surgery was consulted and Dr. Wilhelm brought in OR staff and patient was taken to OR in stable condition from the ED with plans to admit to ICU. 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 Would not hold DAPT therapy in order to prevent further CVA. (will order . [facility] records to confirm the presence/absence of stent) Hyponatremia - likely hypovolemic. Will give NSS crystalloid and monitor. Leukocytosis - likely reactive from massive blood loss, will trend. No clear infection. will cover preoperatively. 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 Would not hold DAPT therapy in order to prevent further CVA. (will order [facility] records to confirm the presence/absence of stent) Hyponatremia - likely hypovolemic. Will give NSS crystalloid and monitor. Leukocytosis - likely reactive from massive blood loss, will trend. No clear infection. will cover preoperatively. Given the extent of her hematoma is definitely at risk for skin infection/cellulitis as she is immunocompromised on MTX, ID CONSULTED , BLOOD CULT Hyperglycemia - likely related to stress, will check A1c-6.1 Continue Zosyn,daptomycin and micafungin. 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 Would not hold DAPT therapy in order to prevent further CVA. (will order [facility] records to confirm the presenc e/absence of stent) Hyponatremia - likely hypovolemic. Will give NSS crystalloid and monitor. Leukocytosis - likely reactive from massive blood loss, will trend. No clear infection. will cover preoperatively. Given the extent of her hematoma is definitely at risk for skin infection/cellulitis as she is immunocompromised on MTX, ID CONSULTED , BLOOD CULT Hyperglycemia - likely related to stress, will check A1c-6.1 Continue Zosyn,daptomycin and micafungin. Continue wound vac therapy with planned vac dressing change tomorrow at a time when Vascular Surgery is present to view and evaluate wound and muscle flap tissue. 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 Would not hold DAPT therapy in order to prevent further CVA. (will order [facility] records to confirm the presence/absence of stent) Hyponatremia - likely hypovolemic. Will give NSS crystalloid and monitor. Leukocytosis - likely reactive from massive blood loss, will trend. No clear infection. will cover preoperatively. Given the extent of her hematoma is definitely at risk for skin infection/cellulitis as she is immunocompromised on MTX, ID CONSULTED , BLOOD CULT Hyperglycemia - likely related to stress, will check A1c-6.1 Continue Zosyn,daptomycin and micafungin. Continue wound vac therapy Vascular Surgery is present to view and evaluate wound and muscle flap tissue. D/W RN Vitals Vitals Vital Signs Date Time Temp Pulse Resp B/P (MAP) Pulse Ox O2 Delivery O2 Flow Rate FiO2 12/02/20 08:16 77 134/53 12/02/20 07:00 98.8 16 94 Room Air 98.8 Physical Exam Physical Exam GENERAL: Alert, awake female, lying in bed comfortably, in no acute distress. HEENT: Normocephalic, atraumatic. Anicteric. NECK: Supple. LUNGS: Clear. HEART: S1, S2. No murmurs. ABDOMEN: Soft, bruise present over the right lower abdominal area No rebound, no guarding. EXTREMITIES: bruising right lower abdomen improving Wound VAC in place. Right leg groin ecchymosis and swelling improving , no fluctuance, no cyanosis, no clubbing. DERMATOLOGIC: Warm, dry, no generalized rash except for above. NEUROLOGIC: Alert, oriented x3. Normal speech. PSYCHIATRIC: Calm and cooperative. General: Alert, Oriented X3, Cooperative, No acute distress Heart: Regular rate Lungs: Clear Abdomen: Normal bowel sounds, No tenderness Extremities: No clubbing, No cyanosis, No edema, Normal pulses, Other ( right leg and groin shows ecchymosis from about there the umbilicus down to the knee.) Skin: No rashes, No breakdown, Other (right groin) Assessment and Plan Assessmemt and Plan Problems Medical Problems: (1) Femoral artery pseudo-aneurysm, right Status: Acute (2) Pseudoaneurysm of femoral artery following procedure Status: Acute Comment Review of Relevant I have reviewed the following items césar (where applicable) has been applied. Labs Laboratory Tests Test 12/01/20 07:10 White Blood Count 13.9 x10^3/uL (4.0-11.0) Red Blood Count 3.05 x10^6/uL (3.50-5.40) Hemoglobin 9.5 g/dL (12.0-15.5) Hematocrit 28.7 % (36.0-47.0) Mean Corpuscular Volume 94 fL (79-100) Mean Corpuscular Hemoglobin 31 pg (25-35) Mean Corpuscular Hemoglobin Concent 33 g/dL (31-37) Red Cell Distribution Width 16.0 % (11.5-14.5) Platelet Count 387 x10^3/uL (140-400) Neutrophils (%) (Auto) 84 % (31-73) Lymphocytes (%) (Auto) 9 % (24-48) Monocytes (%) (Auto) 7 % (0-9) Eosinophils (%) (Auto) 0 % (0-3) Basophils (%) (Auto) 0 % (0-3) Neutrophils # (Auto) 11.7 x10^3/uL (1.8-7.7) Lymphocytes # (Auto) 1.2 x10^3/uL (1.0-4.8) Monocytes # (Auto) 0.9 x10^3/uL (0.0-1.1) Eosinophils # (Auto) 0.0 x10^3/uL (0.0-0.7) Basophils # (Auto) 0.1 x10^3/uL (0.0-0.2) Sodium Level 136 mmol/L (136-145) Potassium Level 4.3 mmol/L (3.5-5.1) Chloride Level 103 mmol/L (98-107) Carbon Dioxide Level 24 mmol/L (21-32) Anion Gap 9 (6-14) Blood Urea Nitrogen 11 mg/dL (7-20) Creatinine 0.6 mg/dL (0.6-1.0) Estimated GFR (Cockcroft-Gault) 99.1 Glucose Level 115 mg/dL (70-99) Calcium Level 8.8 mg/dL (8.5-10.1) Phosphorus Level 3.8 mg/dL (2.6-4.7) Microbiology 11/28/20 Urine Culture - Final, Complete Medications Current Medications Sodium Chloride 500 ml @ 500 mls/hr 1X ONCE IV Last administered on 11/27/20at 18:52; Start 11/27/20 at 18:00; Stop 11/27/20 at 18:59; Status DC Ondansetron HCl (Zofran) 4 mg 1X ONCE IV Last administered on 11/27/20at 18:50; Start 11/27/20 at 18:15; Stop 11/27/20 at 18:16; Status DC Fentanyl Citrate (Fentanyl 2ml Vial) 50 mcg 1X ONCE IV Last administered on 11/27/20at 18:52; Start 11/27/20 at 18:15; Stop 11/27/20 at 18:16; Status DC Lidocaine HCl (Lidocaine Pf 2% Vial) 5 ml STK-MED ONCE .ROUTE ; Start 11/27/20 at 19:11; Stop 11/27/20 at 19:11; Status DC Propofol (Diprivan) 200 mg STK-MED ONCE IV ; Start 11/27/20 at 19:11; Stop 11/27/20 at 19:11; Status DC Phenylephrine HCl (PHENYLEPHRINE in 0.9% NACL PF) 1 mg STK-MED ONCE IV ; Start 11/27/20 at 19:11; Stop 11/27/20 at 19:11; Status DC Rocuronium [place] (Zemuron) 50 mg STK-MED ONCE .ROUTE ; Start 11/27/20 at 19:11; Stop 11/27/20 at 19:11; Status DC Heparin Sodium (Porcine) 5000 unit/Sodium Chloride 505 ml @ 505 mls/hr 1X ONCE IRR Last administered on 11/27/20at 19:55; Start 11/27/20 at 20:00; Stop 11/27/20 at 20:59; Status DC Cellulose (Surgicel Fibrillar 1x2) 1 each STK-MED ONCE .ROUTE Last administered on 11/27/20at 19:55; Start 11/27/20 at 19:29; Stop 11/27/20 at 19:30; Status DC Cefazolin Sodium (Ancef) 1 gm STK-MED ONCE IVP ; Start 11/27/20 at 19:38; Stop 11/27/20 at 19:38; Status DC Fentanyl Citrate (Fentanyl 2ml Vial) 25 mcg PRN Q5MIN PRN IVP MILD PAIN 1-3; Start 11/27/20 at 20:15; Stop 11/28/20 at 20:14; Status DC Fentanyl Citrate (Fentanyl 2ml Vial) 50 mcg PRN Q5MIN PRN IVP MODERATE PAIN 4- 6; Start 11/27/20 at 20:15; Stop 11/28/20 at 20:14; Status DC Morphine Sulfate (Morphine Sulfate) 1 mg PRN Q10MIN PRN IVP SEVERE PAIN 7-10; Start 11/27/20 at 20:15; Stop 11/28/20 at 20:14; Status DC Ringer's Solution 1,000 ml @ 30 mls/hr Q24H IV ; Start 11/27/20 at 20:15; Stop 11/28/20 at 08:14; Status DC Hydromorphone HCl (Dilaudid) 0.5 mg PRN Q10MIN PRN IVP SEVERE PAIN 7-10, 2nd CHOICE; Start 11/27/20 at 20:15; Stop 11/28/20 at 20:14; Status DC Prochlorperazine Edisylate (Compazine) 5 mg PACU PRN PRN IVP NAUSEA, MRX1; Start 11/27/20 at 20:15; Stop 11/28/20 at 20:14; Status DC Heparin Sodium (Porcine) (Heparin Sodium) 10,000 unit STK-MED ONCE .ROUTE ; Start 11/27/20 at 20:07; Stop 11/27/20 at 20:07; Status DC Heparin Sodium (Porcine) (Heparin Sodium) 10,000 unit STK-MED ONCE .ROUTE ; Start 11/27/20 at 20:10; Stop 11/27/20 at 20:10; Status DC Fentanyl Citrate (Fentanyl 2ml Vial) 100 mcg STK-MED ONCE .ROUTE ; Start 11/27/20 at 20:11; Stop 11/27/20 at 20:12; Status DC Propofol (Diprivan) 200 mg STK-MED ONCE IV ; Start 11/27/20 at 20:13; Stop 11/27/20 at 20:14; Status DC Protamine Sulfate (Protamine) 50 mg STK-MED ONCE IV ; Start 11/27/20 at 20:44; Stop 11/27/20 at 20:44; Status DC Sevoflurane (Ultane) 60 ml STK-MED ONCE IH ; Start 11/27/20 at 20:44; Stop 11/27/20 at 20:44; Status DC Olanzapine (ZyPREXA ZYDIS) 5 mg PRN BID PRN PO ANXIETY / AGITATION; Start 10/31 at 22:00 Acetaminophen (Tylenol) 650 mg PRN Q6HRS PRN PO MILD PAIN / TEMP > 100.3'F; Start 11/27/20 at 22:00 Ondansetron HCl (Zofran) 4 mg PRN Q4HRS PRN IVP NAUSEA/VOMITING; Start 11/27/20 at 22:00 Hydralazine HCl (Apresoline Inj) 20 mg STK-MED ONCE .ROUTE ; Start 11/27/20 at 21:56; Stop 11/27/20 at 21:56; Status DC Fentanyl Citrate (Fentanyl 2ml Vial) 25 mcg PRN Q2HR PRN IVP PAIN; Start 11/27/20 at 22:00 Carvedilol (Coreg) 3.125 mg BIDWMEALS PO Last administered on 12/02/20 08:16; Start 11/28/20 at 08:00 Gabapentin (Neurontin) 300 mg HS PO Last administered on 12/01/20at 20:54; Start 11/27/20 at 22:15 Pantoprazole Sodium (Protonix) 40 mg DAILYAC PO Last administered on 12/02/20at 08:16; Start 11/28/20 at 07:30 Zolpidem Tartrate (Ambien) 5 mg PRN QHS PRN PO INSOMNIA; Start 11/27/20 at 22:15 Folic Acid (Folic Acid) 1 mg DAILY PO Last administered on 12/02/20at 08:16; Start 11/28/20 at 09:00 Aspirin (Aspirin Chewable) 81 mg DAILY08 PO Last administered on 12/02/20at 08:17; Start 11/28/20 at 08:00 Vitamin D (Vitamin D3) 5,000 unit DAILY PO Last administered on 12/02/20at 08:17; Start 11/28/20 at 09:00 Clopidogrel Bisulfate (Plavix) 75 mg DAILY08 PO Last administered on 12/02/20at 08:16; Start 11/28/20 at 08:00 Sodium Chloride 1,000 ml @ 80 mls/hr [id number] IV Last administered on 11/29/20at 20:48; Start 11/27/20 at 22:45; Stop 11/30/20 at 20:00; Status DC Acetaminophen/ Hydrocodone Bitart (Lortab 5/325) 1 tab PRN Q4HRS PRN PO PAIN MODERATE Last administered on 12/01/20at 08:21; Start 11/27/20 at 22:45 Acetaminophen/ Hydrocodone Bitart (Lortab 5/325) 2 tab PRN Q4HRS PRN PO PAIN SEVERE; Start 11/27/20 at 22:45 Albumin Human 500 ml @ 125 mls/hr PRN DAILY PRN IV Hypotension; Start 11/27/20 at 23:00 Magnesium Sulfate 50 ml @ 25 mls/hr 1X ONCE IV Last administered on 11/28/20at 02:15; Start 11/28/20 at 01:45; Stop 11/28/20 at 03:44; Status DC Cefazolin Sodium/ Dextrose 50 ml @ 100 mls/hr Q8HRS IV Last administered on 11/28/20at 06:11; Start 11/28/20 at 06:00; Stop 11/28/20 at 12:08; Status DC Albuterol/ Ipratropium (Duoneb) 3 ml RTQID NEB ; Start 11/28/20 at 12:00; Stop 11/28/20 at 10:59; Status DC Potassium Chloride (Klor-Con) 40 meq 1X ONCE PO ; Start 11/28/20 at 11:00; Stop 11/28/20 at 11:01; Status UNV Potassium Bicarbonate (Potassium Effervescent Tablet) 40 meq 1X ONCE PO ; Start 11/28/20 at 11:00; Stop 11/28/20 at 11:01; Status UNV Potassium Chloride/Water 100 ml @ 100 mls/hr Q1H IV ; Start 11/28/20 at 11:00; Stop 11/28/20 at 12:59; Status UNV Potassium Chloride/Water 100 ml @ 100 mls/hr Q1H IV ; Start 11/28/20 at 11:00; Stop 11/28/20 at 18:59; Status UNV Potassium Chloride/Water 100 ml @ 100 mls/hr Q1HR IV ; Start 11/28/20 at 11:00; Stop 11/28/20 at 16:59; Status UNV Magnesium Sulfate 100 ml @ 50 mls/hr DAILY IV ; Start 11/29/20 at 09:00; Stop 12/02/20 at 08:59; Status UNV Potassium Phos/ Sodium Phos (Phos-Nak) 1 pkt BID PO ; Start 11/28/20 at 21:00; Stop 11/29/20 at 09:01; Status UNV Albuterol Sulfate (Ventolin Neb Soln) 2.5 mg PRN QID PRN NEB SHORTNESS OF BREATH; Start 11/28/20 at 11:15 Info (Icu Electrolyte Protocol) 1 ea CONT PRN PRN MC SEE COMMENTS; Start 11/28/20 at 11:00 Piperacillin Sod/ Tazobactam Sod (Zosyn Per Pharmacy) 1 each PRN DAILY PRN MC SEE COMMENTS; Start 11/28/20 at 12:15 Piperacillin Sod/ Tazobactam Sod 3.375 gm/Sodium Chloride 50 ml @ 100 mls/hr Q6HRS IV Last administered on 12/02/20at 05:42; Start 11/28/20 at 12:30 Micafungin Sodium 100 mg/Dextrose 100 ml @ 100 mls/hr Q24H IV Last administered on 12/02/20at 08:17; Start 11/29/20 at 10:00 Daptomycin 380 mg/ Sodium Chloride 50 ml @ 100 mls/hr Q24H IV Last administered on 12/01/20at 09:50; Start 11/29/20 at 11:00 Cefazolin Sodium 1 gm/Sodium Chloride 500 ml @ 500 mls/hr 1X ONCE IRR Last administered on 11/30/20at 14:20; Start 11/30/20 at 06:00; Stop 11/30/20 at 06:59; Status DC Heparin Sodium (Porcine) 5000 unit/Sodium Chloride 505 ml @ 505 mls/hr 1X ONCE IRR Last administered on 11/30/20at 14:19; Start 11/30/20 at 06:00; Stop 11/30/20 at 06:59; Status DC Fentanyl Citrate (Fentanyl 2ml Vial) 25 mcg PRN Q5MIN PRN IVP MILD PAIN 1-3 L ast administered on 11/30/20at 17:03; Start 11/30/20 at 06:00; Stop 12/01/20 at 05:59; Status DC Fentanyl Citrate (Fentanyl 2ml Vial) 50 mcg PRN Q5MIN PRN IVP MODERATE PAIN 4-6 Last administered on 11/30/20at 15:39; Start 11/30/20 at 06:00; Stop 12/01/20 at 05:59; Status DC Morphine Sulfate (Morphine Sulfate) 1 mg PRN Q10MIN PRN IVP SEVERE PAIN 7-10; Start 11/30/20 at 06:00; Stop 12/01/20 at 05:59; Status DC Ringer's Solution 1,000 ml @ 30 mls/hr Q24H IV Last administered on 11/30/20at 05:29; Start 11/30/20 at 06:00; Stop 11/30/20 at 17:59; Status DC Hydromorphone HCl (Dilaudid) 0.5 mg PRN Q10MIN PRN IVP SEVERE PAIN 7-10, 2nd CHOICE; Start 11/30/20 at 06:00; Stop 12/01/20 at 05:59; Status DC Prochlorperazine Edisylate (Compazine) 5 mg PACU PRN PRN IVP NAUSEA, MRX1; Start 11/30/20 at 06:00; Stop 12/01/20 at 05:59; Status DC Dexamethasone Sodium Phosphate (Decadron) 4 mg STK-MED ONCE .ROUTE ; Start 11/30/20 at 12:12; Stop 11/30/20 at 12:12; Status DC Ondansetron HCl (Zofran) 4 mg STK-MED ONCE .ROUTE ; Start 11/30/20 at 12:12; Stop 11/30/20 at 12:12; Status DC Propofol (Diprivan) 200 mg STK-MED ONCE IV ; Start 11/30/20 at 12:12; Stop 11/30/20 at 12:12; Status DC Lidocaine HCl (Lidocaine Pf 2% Vial) 5 ml STK-MED ONCE .ROUTE ; Start 11/30/20 at 12:12; Stop 11/30/20 at 12:12; Status DC Iohexol (Omnipaque 300 Mg/ml) 50 ml STK-MED ONCE .ROUTE ; Start 11/30/20 at 13:08; Stop 11/30/20 at 13:08; Status DC Cellulose (Surgicel Hemostat 4x8) 1 each STK-MED ONCE .ROUTE ; Start 11/30/20 at 13:08; Stop 11/30/20 at 13:08; Status DC Cellulose (Surgicel Fibrillar 1x2) 1 each STK-MED ONCE .ROUTE ; Start 11/30/20 at 13:08; Stop 11/30/20 at 13:09; Status DC Fentanyl Citrate (Fentanyl 2ml Vial) 100 mcg STK-MED ONCE .ROUTE ; Start 11/30/20 at 13:37; Stop 11/30/20 at 13:37; Status DC Glycopyrrolate (Robinul) 1 mg STK-MED ONCE .ROUTE ; Start 11/30/20 at 14:10; Stop 11/30/20 at 14:10; Status DC Sevoflurane (Ultane) 60 ml STK-MED ONCE IH ; Start 11/30/20 at 14:37; Stop 11/30/20 at 14:38; Status DC Fentanyl Citrate (Fentanyl 2ml Vial) 100 mcg STK-MED ONCE .ROUTE ; Start 11/30/20 at 15:37; Stop 11/30/20 at 15:37; Status DC Amlodipine Besylate (Norvasc) 5 mg 1X ONCE PO Last administered on 11/30/20at 16:33; Start 11/30/20 at 16:30; Stop 11/30/20 at 16:31; Status DC Hydralazine HCl (Apresoline Inj) 10 mg PRN Q4HRS PRN IVP ELEVATED BP, SEE COMMENTS; Start 11/30/20 at 16:30 Senna/Docusate Sodium (Senna Plus) 1 tab DAILY PO Last administered on 12/02/20at 08:17; Start 12/01/20 at 12:15 Active Scripts Active Reported Vitamin D3 (Vitamin D) 125 Mcg Capsule 125 Mcg PO DAILY 5,000 UNITS = 125 MCG Methotrexate (Methotrexate Sodium) 2.5 Mg Tablet 4 Tab PO WEEKLY Ambien (Zolpidem Tartrate) 5 Mg Tablet 5 Mg PO PRN QHS PRN Gabapentin (Gabapentin) 300 Mg Capsule 300 Mg PO HS Protonix (Pantoprazole Sodium) 40 Mg Tablet.dr 40 Mg PO DAILYAC Folic Acid 0.4 Mg Tablet 0.4 Mg PO DAILY Aspirin 81 Mg Tab.chew 1 Tab PO DAILY Clopidogrel (Clopidogrel Bisulfate) 75 Mg Tablet 1 Tab PO DAILY Coreg (Carvedilol) 6.25 Mg Tablet 6.25 Mg PO BIDWMEALS Vitals/I & O Vital Sign - Last 24 Hours 12/01/20 12/01/20 12/01/20 12/01/20 09:00 10:00 11:00 14:00 Temp 98.3 97.6 98.3 97.6 Pulse 88 72 79 77 Resp 17 18 18 16 B/P (MAP) 109/45 (66) 121/86 (98) 133/64 (87) 115/60 (78) Pulse Ox 98 98 99 98 O2 Delivery Room Air Room Air Room Air Room Air 12/01/20 12/01/20 12/01/20 12/01/20 15:00 16:20 17:45 19:00 Temp 98.5 98.5 Pulse 88 88 84 Resp 18 16 B/P (MAP) 126/84 (98) 126/84 106/54 (71) Pulse Ox 98 95 O2 Delivery Room Air Room Air Room Air 12/01/20 12/01/20 12/02/20 12/02/20 20:00 23:00 03:00 07:00 Temp 98.0 98.7 98.8 98.0 98.7 98.8 Pulse 72 78 77 Resp 16 16 16 B/P (MAP) 121/56 (77) 132/59 (83) 134/53 (80) Pulse Ox 96 98 94 O2 Delivery Room Air Room Air Room Air Room Air 12/02/20 08:16 Pulse 77 B/P (MAP) 134/53 Intake and Output 12/01/20 12/01/20 12/02/20 15:00 23:00 07:00 Intake Total 600 ml 100 ml 200 ml Output Total 265 ml 800 ml Balance 335 ml 100 ml -600 ml Justicifation of Admission Dx: Justifications for Admission: Justification of Admission Dx: Yes MYNOR FIELDS MD Dec 02, 2020 08:58
[2020-12-02] MEDS: DAPTOmycin (GENERIC) IVPB 380 MG in IV NORMAL SALINE 50ML 50 ML IV SCH (09:33)
[2020-12-02] MEDS: HYDROcodone/APAP 5/325MG 1 TAB TABLET PO PRN (09:44)
--- NOTE | 2020-12-02 10:00 | NUR ---
Wound/Ostomy Care Wound Type/Assessment: Patient seen per wound care consult. See wound assessment. Patient is s/p surgical intervention to repair the right femoral artery. Orders for wound vac at 125mmHg continuous with dressing changes MWF. Patient agreeable to vac. Nahomy with vascular at bedside. Wounds cleansed, assessed, measured, and pictured. There is a depth of 4.5cm with this wound as well as undermining with fat layer exposed. Wound bed is clean with granulation tissue. Skin prepped for vac placement, 2 pieces of kurtz foam placed to wound bed and the vac tracked to the right anterior thigh. A good seal maintained at 125mmHg continuous. Treatment Recommendations/Plan: Wound vac at 125mmHg continuous with dressings changes MWF. Education provided: Patient and patient's educated on wound vac therapy and PU prevention. Offloading surface/device: Patient repositioned to the right side using the wedge and heels elevated using pillows. Patient is able to assist with turns, patient encouraged to turn every couple of hours for prevention. Recommended Referrals/Tests: Patient will follow up with us in the wound clinic after discharge. Wound care will complete a wound vac application for this patient for anticipated discharge in the future. Discharge Recommendations for dressings: Continue current treatment plan. Bed lowered and call light in reach. Wound care will follow up with patient on Saturday for vac dressing change.
--- NOTE | 2020-12-02 10:27 | PDOC ---
Provider Note Date of Service: DATE: 12/02/20 TIME: 10:21 Provider Note Provider Note Vascular: S: Pt is doing well, is bedside. She has not needed pain medicines thus far, has ambulated. Objective: Patient seen in patient room with RN and present. Resting comfortable in bed Vital signs stable. Afebrile. Monitor: RRR Respirations: nonlabored, room air Right Groin: Wound vac dressing removed. Wound bed clean, muscle bed healthy with minimal oozing. Skin edges are mostly clean, slight discoloration to medial inferior wound corner with some skin tears on skin medially. Small skin injury from sponge lateral to wound. Ecchymosis to right thigh that seems to be improving. Still with some firmness to medial thigh, laterally and anterioly soft and compressible. Left foot warm with excellent cap refill. Palpable pedal pulse. No motor or sensory deficits to right leg. Assessment/Plan: Status post 11/27/2020 - POD#5 Open repair of right femoral artery pseudoaneurysm using bovine pericardial patch angioplasty right common femoral artery Status post 11/30/2020 - POD#2 Right sartorius muscle flap, right groin wound VAC placement 1. Continue wound vac therapy with planned vac dressing change Saturday at a time when Vascular Surgery is present to view and evaluate wound and muscle flap tissue. 2. Up OOB as tolerated, PT. No weight-bearing restrictions. 3. Continue antiplatelet therapy of ASA/Plavix. 4. Will need case mgmt to assist with wound vac therapy upon discharge. 5. Continue IV antibiotics per ID. 6. Discussed with and patient anticipated course. Plan to check wound on Saturday and if stable and doing well, and all arrangements made (will need home vac, home health, FU W[facility], abx) possibly discharge then. Justicifation of Admission Dx: Justifications for Admission: Justification of Admission Dx: Yes ADDIE SANTIAGO Dec 02, 2020 10:27
[2020-12-02 11:00] VITALS: BP 120/56
[2020-12-02 13:49] LABS: ALBUMIN 1.9 g/dL (3.4-5.0); DIRECT BILIRUBIN 0.2 mg/dL (0.0-0.2); TOTAL BILIRUBIN 0.5 mg/dL (0.2-1.0); TOTAL PROTEIN 4.3 g/dL (6.4-8.2)
--- NOTE | 2020-12-02 14:54 | NUR ---
SS following up with discharge planning. SS reviewed pt chart and discussed with pt RN. Pt is currently on room air. Pt on IV Daptomycin and IV Zosyn. COVID19 negative. Wound care following. Probable need for [facility] IV antibiotics and wound care. SS met with pt and discussed discharge planning and post discharge needs. Pt reported understanding of possible needs and reported that she will not go to facility. Pt requesting to go home at discharge and reported that she is able to either go to outpatient or do antibiotics at home with home healthcare. Pt requested benefits be run for in home antibiotics. SS phoned and faxed demographics to [place], ; fax [phone], and [employer], ; fax [phone], for benefit check. SS will continue to follow for discharge planning.
[2020-12-02 15:00] VITALS: BP 121/47
[2020-12-02 19:20] VITALS: BP 139/63
[2020-12-02] MEDS: GABAPENTIN 300 MG CAPSULE. PO SCH (20:36)
[2020-12-02 22:55] VITALS: BP 137/67
[2020-12-03 03:20] VITALS: BP 131/62
[2020-12-03] MEDS: PIPERACILLIN/TAZOBACTAM 3.375 GM in IV NORMAL SALINE 50ML 50 ML IV SCH ×4 (05:20→23:16)
[2020-12-03 07:00] VITALS: BP 162/78
[2020-12-03 07:50] LABS: BASO # 0.1 x10^3/uL (0.0-0.2); BASO % 1 % (0-3); EOS # 0.3 x10^3/uL (0.0-0.7); EOS % 3 % (0-3); HEMATOCRIT 26.3 % (36.0-47.0); HEMOGLOBIN 8.9 g/dL (12.0-15.5); LYMPH % 18 % (24-48); MEAN CORPUSCULAR HEMOGLOBIN 32 pg (25-35); MEAN CORPUSCULAR HGB CONC 34 g/dL (31-37); MEAN CORPUSCULAR VOLUME 93 fL (79-100); MONO # 1.3 x10^3/uL (0.0-1.1); MONO % 12 % (0-9); NEUT # 7.1 x10^3/uL (1.8-7.7); NEUT % 67 % (31-73); PLATELET COUNT 449 x10^3/uL (140-400); RED BLOOD COUNT 2.81 x10^6/uL (3.50-5.40); RED CELL DISTRIBUTION WIDTH 16.1 % (11.5-14.5); WHITE BLOOD COUNT 10.8 x10^3/uL (4.0-11.0)
[2020-12-03 08:02] LABS: CALCIUM 8.4 mg/dL (8.5-10.1); CREATININE 0.6 mg/dL (0.6-1.0); GFR 99.1; POTASSIUM 3.8 mmol/L (3.5-5.1)
--- NOTE | 2020-12-03 08:02 | PDOC ---
Infectious Disease Note Subjective: Subjective Patient without complaints Feels better Appetite is better Had a bowel movement yesterday Postop pain is under control Denies fever, nausea, vomiting, shortness of breath, diarrhea, abdominal pain, rash Vital Signs: Vital Signs Vital Signs Date Time Temp Pulse Resp B/P (MAP) Pulse Ox O2 Delivery O2 Flow Rate FiO2 12/03/20 03:20 98.2 87 18 131/62 (85) 95 Room Air 98.2 12/02/20 09:47 10.0 Physical Exam: PHYSICAL EXAM GENERAL: Alert, awake female, lying in bed comfortably, in no acute distress. HEENT: Normocephalic, atraumatic. Anicteric. NECK: Supple. LUNGS: Clear. HEART: S1, S2. No murmurs. ABDOMEN: Soft, bruise present over the right lower abdominal area No rebound, no guarding. EXTREMITIES: bruising right lower abdomen improving Wound VAC in place. Right leg groin ecchymosis and swelling improving , no fluctuance, no cyanosis, no clubbing. DERMATOLOGIC: Warm, dry, no generalized rash except for above. NEUROLOGIC: Alert, oriented x3. Normal speech. PSYCHIATRIC: Calm and cooperative. Medications: Inpatient Meds: Medications reviewed. Labs: Lab Laboratory Tests Test 12/02/20 13:20 12/03/20 07:10 Total Bilirubin 0.5 mg/dL (0.2-1.0) Direct Bilirubin 0.2 mg/dL (0.0-0.2) Aspartate Amino Transf (AST/SGOT) 16 U/L (15-37) Alanine Aminotransferase (ALT/SGPT) 16 U/L (14-59) Alkaline Phosphatase 63 U/L (46-116) Creatine Kinase 30 U/L (26-192) Total Protein 4.3 g/dL (6.4-8.2) Albumin 1.9 g/dL (3.4-5.0) White Blood Count 10.8 x10^3/uL (4.0-11.0) Red Blood Count 2.81 x10^6/uL (3.50-5.40) Hemoglobin 8.9 g/dL (12.0-15.5) Hematocrit 26.3 % (36.0-47.0) Mean Corpuscular Volume 93 fL (79-100) Mean Corpuscular Hemoglobin 32 pg (25-35) Mean Corpuscular Hemoglobin Concent 34 g/dL (31-37) Red Cell Distribution Width 16.1 % (11.5-14.5) Platelet Count 449 x10^3/uL (140-400) Neutrophils (%) (Auto) 67 % (31-73) Lymphocytes (%) (Auto) 18 % (24-48) Monocytes (%) (Auto) 12 % (0-9) Eosinophils (%) (Auto) 3 % (0-3) Basophils (%) (Auto) 1 % (0-3) Neutrophils # (Auto) 7.1 x10^3/uL (1.8-7.7) Lymphocytes # (Auto) 2.0 x10^3/uL (1.0-4.8) Monocytes # (Auto) 1.3 x10^3/uL (0.0-1.1) Eosinophils # (Auto) 0.3 x10^3/uL (0.0-0.7) Basophils # (Auto) 0.1 x10^3/uL (0.0-0.2) Objective: Assessment: 1. Large right groin pseudoaneurysm with hematoma, Status post emergent open repair of the right femoral artery pseudoaneurysm using bovine pericardial patch angioplasty. November 30, 2020 S/P Coverage of the right femoral artery repair requiring sartorius muscle flap, Wound VAC placement. Underwent dressing earlier today, vascular team input noted 2. Status post treatment with TPA on 11/18/2020 for right-sided weakness. 3. 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 4. Leukocytosis could have a reactive component. Improved 5. Severe acute blood loss anemia, status post blood transfusion. 6. History of rheumatoid arthritis, on methotrexate. 7. Hypertension/hyperlipidemia 8. Gastroesophageal reflux disease. 9. Protein calorie malnutrition. 10. Hyponatremia. 11. Constipation Plan: Plan of Care 1. Continue Zosyn, DC daptomycin 2. Continue wound/VAC care as directed. 3. Follow up labs and cultures. 4 Continue supportive care. Discussed with at bedside Discussed with nursing staff. KEV LÓPEZ MD Dec 03, 2020 08:02
[2020-12-03] MEDS: SENNOSIDES/DOCUSATE 8.6/50MG TABLET. PO SCH (09:24)
[2020-12-03] MEDS: CARVEDILOL 3.125 MG TABLET. PO SCH ×2 (09:24→18:19)
[2020-12-03] MEDS: CHOLECALCIFEROL (VITAMIN D3) 5,000 UNIT CAPSULE PO SCH (09:24)
[2020-12-03] MEDS: ASPIRIN CHEWABLE 81 MG TABLET. PO SCH (09:24)
[2020-12-03] MEDS: CLOPIDOGREL BISULFATE 75 MG TABLET PO SCH (09:24)
[2020-12-03] MEDS: FOLIC ACID 1 MG TABLET. PO SCH (09:24)
[2020-12-03] MEDS: PANTOPRAZOLE 40 MG TABLET.DR. PO SCH (09:24)
[2020-12-03] MEDS: HYDROcodone/APAP 5/325MG 1 TAB TABLET PO PRN (09:25)
[2020-12-03] MEDS: DAPTOmycin (GENERIC) IVPB 380 MG in IV NORMAL SALINE 50ML 50 ML IV SCH (09:25)
[2020-12-03] MEDS ORDERED: ELECTROLYTE (NON-ICU) PROTOCOL. MC PRN (09:45)
--- NOTE | 2020-12-03 09:51 | PDOC ---
SURGICAL PROGRESS NOTE DATE: 12/03/20 TIME: 09:49 Subjective Patient seen and evaluated at the bedside. She is doing well this morning. Her is at the bedside. Vital Signs Vital Signs Date Time Temp Pulse Resp B/P (MAP) Pulse Ox O2 Delivery O2 Flow Rate FiO2 12/03/20 09:24 95 12/03/20 03:20 98.2 18 131/62 (85) 95 Room Air 98.2 12/02/20 09:47 10.0 I&O Intake and Output 12/03/20 07:00 Intake Total 1700 ml Output Total 750 ml Balance 950 ml Intake Oral 1400 ml IV Total 300 ml Output Urine Total 750 ml # Voids 2 # Bowel Movements 1 General: Alert, Oriented X3, Cooperative Abdomen: Normal bowel sounds, Soft Skin: Other (Wound VAC in place in the right lower extremity, swelling and hematoma stable, pulse exam stable) Neuro: Sensation intact, Cranial nerves 3-12 NL Labs Laboratory Tests Test 12/02/20 13:20 12/03/20 07:10 Total Bilirubin 0.5 mg/dL (0.2-1.0) Direct Bilirubin 0.2 mg/dL (0.0-0.2) Aspartate Amino Transf (AST/SGOT) 16 U/L (15-37) Alanine Aminotransferase (ALT/SGPT) 16 U/L (14-59) Alkaline Phosphatase 63 U/L (46-116) Creatine Kinase 30 U/L (26-192) Total Protein 4.3 g/dL (6.4-8.2) Albumin 1.9 g/dL (3.4-5.0) White Blood Count 10.8 x10^3/uL (4.0-11.0) Red Blood Count 2.81 x10^6/uL (3.50-5.40) Hemoglobin 8.9 g/dL (12.0-15.5) Hematocrit 26.3 % (36.0-47.0) Mean Corpuscular Volume 93 fL (79-100) Mean Corpuscular Hemoglobin 32 pg (25-35) Mean Corpuscular Hemoglobin Concent 34 g/dL (31-37) Red Cell Distribution Width 16.1 % (11.5-14.5) Platelet Count 449 x10^3/uL (140-400) Neutrophils (%) (Auto) 67 % (31-73) Lymphocytes (%) (Auto) 18 % (24-48) Monocytes (%) (Auto) 12 % (0-9) Eosinophils (%) (Auto) 3 % (0-3) Basophils (%) (Auto) 1 % (0-3) Neutrophils # (Auto) 7.1 x10^3/uL (1.8-7.7) Lymphocytes # (Auto) 2.0 x10^3/uL (1.0-4.8) Monocytes # (Auto) 1.3 x10^3/uL (0.0-1.1) Eosinophils # (Auto) 0.3 x10^3/uL (0.0-0.7) Basophils # (Auto) 0.1 x10^3/uL (0.0-0.2) Sodium Level 142 mmol/L (136-145) Potassium Level 3.8 mmol/L (3.5-5.1) Chloride Level 107 mmol/L (98-107) Carbon Dioxide Level 29 mmol/L (21-32) Anion Gap 6 (6-14) Blood Urea Nitrogen 12 mg/dL (7-20) Creatinine 0.6 mg/dL (0.6-1.0) Estimated GFR (Cockcroft-Gault) 99.1 Glucose Level 111 mg/dL (70-99) Calcium Level 8.4 mg/dL (8.5-10.1) Laboratory Tests Test 12/02/20 13:20 12/03/20 07:10 Total Bilirubin 0.5 mg/dL (0.2-1.0) Direct Bilirubin 0.2 mg/dL (0.0-0.2) Aspartate Amino Transf (AST/SGOT) 16 U/L (15-37) Alanine Aminotransferase (ALT/SGPT) 16 U/L (14-59) Alkaline Phosphatase 63 U/L (46-116) Creatine Kinase 30 U/L (26-192) Total Protein 4.3 g/dL (6.4-8.2) Albumin 1.9 g/dL (3.4-5.0) White Blood Count 10.8 x10^3/uL (4.0-11.0) Red Blood Count 2.81 x10^6/uL (3.50-5.40) Hemoglobin 8.9 g/dL (12.0-15.5) Hematocrit 26.3 % (36.0-47.0) Mean Corpuscular Volume 93 fL (79-100) Mean Corpuscular Hemoglobin 32 pg (25-35) Mean Corpuscular Hemoglobin Concent 34 g/dL (31-37) Red Cell Distribution Width 16.1 % (11.5-14.5) Platelet Count 449 x10^3/uL (140-400) Neutrophils (%) (Auto) 67 % (31-73) Lymphocytes (%) (Auto) 18 % (24-48) Monocytes (%) (Auto) 12 % (0-9) Eosinophils (%) (Auto) 3 % (0-3) Basophils (%) (Auto) 1 % (0-3) Neutrophils # (Auto) 7.1 x10^3/uL (1.8-7.7) Lymphocytes # (Auto) 2.0 x10^3/uL (1.0-4.8) Monocytes # (Auto) 1.3 x10^3/uL (0.0-1.1) Eosinophils # (Auto) 0.3 x10^3/uL (0.0-0.7) Basophils # (Auto) 0.1 x10^3/uL (0.0-0.2) Sodium Level 142 mmol/L (136-145) Potassium Level 3.8 mmol/L (3.5-5.1) Chloride Level 107 mmol/L (98-107) Carbon Dioxide Level 29 mmol/L (21-32) Anion Gap 6 (6-14) Blood Urea Nitrogen 12 mg/dL (7-20) Creatinine 0.6 mg/dL (0.6-1.0) Estimated GFR (Cockcroft-Gault) 99.1 Glucose Level 111 mg/dL (70-99) Calcium Level 8.4 mg/dL (8.5-10.1) Problem List Problems Medical Problems: (1) Femoral artery pseudo-aneurysm, right Status: Acute (2) Pseudoaneurysm of femoral artery following procedure Status: Acute Assessment/Plan Right lower extremity pseudoaneurysm--patient is status post femoral artery repair and pseudoaneurysm excision. This was complicated by postoperative infection. She is status post washout and sartorius flap placement. She is doing well from that. She has negative pressure VAC in place. Antibiotics are being managed by infectious disease. Disposition planning will be with antibiotics and wound VAC therapy. Justicifation of Admission Dx: Justifications for Admission: Justification of Admission Dx: Yes SARAI BLEVINS DO Dec 03, 2020 09:51
[2020-12-03 11:00] VITALS: BP 140/67
--- NOTE | 2020-12-03 11:36 | PDOC ---
PROGRESS NOTES Date of Service: DATE: 12/03/20 TIME: 11:36 Chief Complaint Chief Complaint Assessment/Plan 70-year-old woman who recently had a right femoral artery access for acute stroke intervention apparently left carotid stent and left stroke thrombus removal at [facility] / pseudoaneurysm arising from the common femoral artery // actively bleeding into a large hematoma. Acute blood loss anemia - given extent of hematoma and pseudoaneursym and need for surgery may need up to 6u PRBC. 2 units on hold for OR. H&H 4 hours post op HGB 11.9 11-19 Large right groin pseuoaneurysm - likely from access 1 week prior. Vascular surgery consulted for ongoing active bleeding. To OR Large right groin hematoma - likely from arterial bleed. 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 Would not hold DAPT therapy in order to prevent further CVA. (will order [facility] records to confirm the presence/absence of stent) Hyponatremia - likely hypovolemic. Will give NSS crystalloid and monitor. Leukocytosis - likely reactive from massive blood loss, will trend. No clear in fection. will cover preoperatively. Given the extent of her hematoma is definitely at risk for skin infection/cellulitis as she is immunocompromised on MTX, ID CONSULTED , BLOOD CULT Hyperglycemia - likely related to stress, will check A1c RA - on MTX weekly. 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 severe protein-caloric malnutrition Current smoker HTN - on coreg, will cut dosing given low BP since d/c from [facility] per rehab notes. She may have cardiac reason for BB, will await . [facility] records as she may be getting CHF treatment, patient and aren't certain. plan FEN - NPO for OR. Regular diet after PPX - SCDs for 24 hours. Will defer heparin timing to vascular surgery CODE - FULL Dispo - ICU [facility] [place] for possible IR intervention. 11-19 CONSULT CARDIOLOGY, ECHO HER is a pharmacist at [facility] armando mandel , will aks for records at 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 Would not hold DAPT therapy in order to prevent further CVA. (will order [facility] records to confirm the presence/absence of stent) Hyponatremia - likely hypovolemic. Will give NSS crystalloid and monitor. Leukocytosis - likely reactive from massive blood loss, will trend. No clear infection. will cover preoperatively. Given the extent of her hematoma is definitely at risk for skin infection/cellulitis as she is immunocompromised on MTX, ID CONSULTED , BLOOD CULT Hyperglycemia - likely related to stress, will check A1c-6.1 CC time 32 min History of Present Illness History of Present Illness Identification/Chief Complaint Chief Complaint Right groin pain and swelling Source Source: Patient History of Present Illness History of Present Illness Ms Robins is a 70-year-old female w/ PMHx HLD, HTN, GERD, RA, and recent presenting with right groin pain and swelling. She has been noting bruising since 11/24/2020 when the dressing in her right groin was removed as instructed. She has been going to outpatient PT and OT for stroke rehab and has been c/o some pain in the area since the dressing was removed. 11/26 she began acting more tired, dizzy and intermittently confused per her . family member, who is a nurse practitioner, came over to the house to look at her leg as the was concerned about the bruise getting bigger. The family member told him to go to the ER right away. She states she feels very weak and tired and dizzy. Patient denies any chest pain, shortness of breath, nausea, vomiting, or diarrhea. She is up to date on both doses of Moderna COVID 19 vaccine Patient complains of pain and tightness in her right thigh and groin. She was initially evaluated on 11/19/2020 at [facility] ED for right sided weakness within 2 hours of presentation and tPA was then administered. CT angiogram shows left MCA M1 large vessel occlusion and she was transferred to [facility] for large vessel occlusion intervention on 11/19/2020. Per had clot retrieval and he thinks had carotid stenting as well and w as discharged home on 11/21/2020 for outpatient rehab for her CVA on DAPT with ASA and plavix. In ED noted with pulsatile swelling in left groin and right groin arterial doppler revealed large hematoma in the proximal right lower extremity arising from the common femoral artery that measures 11.5 x 5.0 x 9.5 cm. This hematoma appears to arise directly from a pseudoaneurysm with a neck which actively bleeds into the hematoma. The belly of the pseudoaneurysm measures 2.3 cm in diameter. On examination a nurse was holding pressure in the groin and MEDICAL TECHNOLOGIST GENERALIST was accessing left antecubital fossa for venipuncture for blood draw and IV insertion. give much of history bedside. During examination labs returned with WBC 19.2, platelets 367, Hb 6.3, Na 133, glucose 178, INR 1.2. Given the urgency of her condition vascular surgery was consulted and Dr. Wilhelm brought in OR staff and patient was taken to OR in stable condition from the ED with plans to admit to ICU. 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 Would not hold DAPT therapy in order to prevent further CVA. (will order . [facility] records to confirm the presence/absence of stent) Hyponatremia - likely hypovolemic. Will give NSS crystalloid and monitor. Leukocytosis - likely reactive from massive blood loss, will trend. No clear infection. will cover preoperatively. 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 Would not hold DAPT therapy in order to prevent further CVA. (will order [facility] records to confirm the presence/absence of stent) Hyponatremia - likely hypovolemic. Will give NSS crystalloid and monitor. Leukocytosis - likely reactive from massive blood loss, will trend. No clear infection. will cover preoperatively. Given the extent of her hematoma is definitely at risk for skin infection/cellulitis as she is immunocompromised on MTX, ID CONSULTED , BLOOD CULT Hyperglycemia - likely related to stress, will check A1c-6.1 Continue Zosyn,daptomycin and micafungin. 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 Would not hold DAPT therapy in order to prevent further CVA. (will order [facility] records to confirm the presenc e/absence of stent) Hyponatremia - likely hypovolemic. Will give NSS crystalloid and monitor. Leukocytosis - likely reactive from massive blood loss, will trend. No clear infection. will cover preoperatively. Given the extent of her hematoma is definitely at risk for skin infection/cellulitis as she is immunocompromised on MTX, ID CONSULTED , BLOOD CULT Hyperglycemia - likely related to stress, will check A1c-6.1 Continue Zosyn,daptomycin and micafungin. Continue wound vac therapy with planned vac dressing change tomorrow at a time when Vascular Surgery is present to view and evaluate wound and muscle flap tissue. 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 Would not hold DAPT therapy in order to prevent further CVA. (will order [facility] records to confirm the presence/absence of stent) Hyponatremia - likely hypovolemic. Will give NSS crystalloid and monitor. Leukocytosis - likely reactive from massive blood loss, will trend. No clear infection. will cover preoperatively. Given the extent of her hematoma is definitely at risk for skin infection/cellulitis as she is immunocompromised on MTX, ID CONSULTED , BLOOD CULT Hyperglycemia - likely related to stress, will check A1c-6.1 Continue Zosyn,daptomycin and micafungin. Continue wound vac therapy Vascular Surgery is present to view and evaluate wound and muscle flap tissue. D/W RN 6 Status post 11/27/2020 - POD#5 Open repair of right femoral artery pseudoaneurysm using bovine pericardial patch angioplasty right common femoral artery Status post 11/30/2020 - POD#2 Right sartorius muscle flap, right groin wound V AC placement wound vac r groin in place, intact, FLAP CLOSURE 11-30 IV DAPTOMYCIN Neurology consulted CVA - left MCA occlusion on 11/19/2020 s/p neurointerventional clot retrieval on plavix and ASA for the next 30 days. Would not hold DAPT therapy in order to prevent further CVA. (will order [facility] records to confirm the presence/absence of stent) Hyponatremia - likely hypovolemic. Will give NSS crystalloid and monitor. Leukocytosis - likely reactive from massive blood loss, will trend. No clear infection. will cover preoperatively. Given the extent of her hematoma is definitely at risk for skin infection/cellulitis as she is immunocompromised on MTX, ID CONSULTED , BLOOD CULT Hyperglycemia - likely related to stress, will check A1c-6.1 Continue Zosyn,daptomycin and micafungin. Continue negative pressure wound vac therapy // Vascular Surgery is present to view and evaluate wound and muscle flap tissue. D/W RN Vitals Vitals Vital Signs Date Time Temp Pulse Resp B/P (MAP) Pulse Ox O2 Delivery O2 Flow Rate FiO2 12/03/20 09:24 95 12/03/20 07:00 98.4 18 162/78 (106) 96 Room Air 98.4 12/02/20 09:47 10.0 Physical Exam Physical Exam GENERAL: Alert, awake female, lying in bed comfortably, in no acute distress. HEENT: Normocephalic, atraumatic. Anicteric. NECK: Supple. LUNGS: Clear. HEART: S1, S2. No murmurs. ABDOMEN: Soft, bruise present over the right lower abdominal area No rebound, no guarding. EXTREMITIES: bruising right lower abdomen improving Wound VAC in place. Right leg groin ecchymosis and swelling improving , no fluctuance, no cyanosis, no clubbing. DERMATOLOGIC: Warm, dry, no generalized rash except for above. NEUROLOGIC: Alert, oriented x3. Normal speech. PSYCHIATRIC: Calm and cooperative. General: Alert, Oriented X3, Cooperative Heart: Regular rate Lungs: Clear Abdomen: Normal bowel sounds, Soft Extremities: No clubbing, No cyanosis, No edema, Normal pulses, Other ( right leg and groin shows ecchymosis from about there the umbilicus down to the knee.) Skin: Other (Wound VAC in place in the right lower extremity, swelling and hematoma stable, pulse exam stable) Labs LABS Laboratory Tests Test 12/02/20 13:20 12/03/20 07:10 Total Bilirubin 0.5 mg/dL (0.2-1.0) Direct Bilirubin 0.2 mg/dL (0.0-0.2) Aspartate Amino Transf (AST/SGOT) 16 U/L (15-37) Alanine Aminotransferase (ALT/SGPT) 16 U/L (14-59) Alkaline Phosphatase 63 U/L (46-116) Creatine Kinase 30 U/L (26-192) Total Protein 4.3 g/dL (6.4-8.2) Albumin 1.9 g/dL (3.4-5.0) White Blood Count 10.8 x10^3/uL (4.0-11.0) Red Blood Count 2.81 x10^6/uL (3.50-5.40) Hemoglobin 8.9 g/dL (12.0-15.5) Hematocrit 26.3 % (36.0-47.0) Mean Corpuscular Volume 93 fL (79-100) Mean Corpuscular Hemoglobin 32 pg (25-35) Mean Corpuscular Hemoglobin Concent 34 g/dL (31-37) Red Cell Distribution Width 16.1 % (11.5-14.5) Platelet Count 449 x10^3/uL (140-400) Neutrophils (%) (Auto) 67 % (31-73) Lymphocytes (%) (Auto) 18 % (24-48) Monocytes (%) (Auto) 12 % (0-9) Eosinophils (%) (Auto) 3 % (0-3) Basophils (%) (Auto) 1 % (0-3) Neutrophils # (Auto) 7.1 x10^3/uL (1.8-7.7) Lymphocytes # (Auto) 2.0 x10^3/uL (1.0-4.8) Monocytes # (Auto) 1.3 x10^3/uL (0.0-1.1) Eosinophils # (Auto) 0.3 x10^3/uL (0.0-0.7) Basophils # (Auto) 0.1 x10^3/uL (0.0-0.2) Sodium Level 142 mmol/L (136-145) Potassium Level 3.8 mmol/L (3.5-5.1) Chloride Level 107 mmol/L (98-107) Carbon Dioxide Level 29 mmol/L (21-32) Anion Gap 6 (6-14) Blood Urea Nitrogen 12 mg/dL (7-20) Creatinine 0.6 mg/dL (0.6-1.0) Estimated GFR (Cockcroft-Gault) 99.1 Glucose Level 111 mg/dL (70-99) Calcium Level 8.4 mg/dL (8.5-10.1) Assessment and Plan Assessmemt and Plan Problems Medical Problems: (1) Femoral artery pseudo-aneurysm, right Status: Acute (2) Pseudoaneurysm of femoral artery following procedure Status: Acute Comment Review of Relevant I have reviewed the following items césar (where applicable) has been applied. Labs Laboratory Tests Test 12/02/20 13:20 12/03/20 07:10 Total Bilirubin 0.5 mg/dL (0.2-1.0) Direct Bilirubin 0.2 mg/dL (0.0-0.2) Aspartate Amino Transf (AST/SGOT) 16 U/L (15-37) Alanine Aminotransferase (ALT/SGPT) 16 U/L (14-59) Alkaline Phosphatase 63 U/L (46-116) Creatine Kinase 30 U/L (26-192) Total Protein 4.3 g/dL (6.4-8.2) Albumin 1.9 g/dL (3.4-5.0) White Blood Count 10.8 x10^3/uL (4.0-11.0) Red Blood Count 2.81 x10^6/uL (3.50-5.40) Hemoglobin 8.9 g/dL (12.0-15.5) Hematocrit 26.3 % (36.0-47.0) Mean Corpuscular Volume 93 fL (79-100) Mean Corpuscular Hemoglobin 32 pg (25-35) Mean Corpuscular Hemoglobin Concent 34 g/dL (31-37) Red Cell Distribution Width 16.1 % (11.5-14.5) Platelet Count 449 x10^3/uL (140-400) Neutrophils (%) (Auto) 67 % (31-73) Lymphocytes (%) (Auto) 18 % (24-48) Monocytes (%) (Auto) 12 % (0-9) Eosinophils (%) (Auto) 3 % (0-3) Basophils (%) (Auto) 1 % (0-3) Neutrophils # (Auto) 7.1 x10^3/uL (1.8-7.7) Lymphocytes # (Auto) 2.0 x10^3/uL (1.0-4.8) Monocytes # (Auto) 1.3 x10^3/uL (0.0-1.1) Eosinophils # (Auto) 0.3 x10^3/uL (0.0-0.7) Basophils # (Auto) 0.1 x10^3/uL (0.0-0.2) Sodium Level 142 mmol/L (136-145) Potassium Level 3.8 mmol/L (3.5-5.1) Chloride Level 107 mmol/L (98-107) Carbon Dioxide Level 29 mmol/L (21-32) Anion Gap 6 (6-14) Blood Urea Nitrogen 12 mg/dL (7-20) Creatinine 0.6 mg/dL (0.6-1.0) Estimated GFR (Cockcroft-Gault) 99.1 Glucose Level 111 mg/dL (70-99) Calcium Level 8.4 mg/dL (8.5-10.1) Laboratory Tests Test 12/02/20 13:20 12/03/20 07:10 Total Bilirubin 0.5 mg/dL (0.2-1.0) Direct Bilirubin 0.2 mg/dL (0.0-0.2) Aspartate Amino Transf (AST/SGOT) 16 U/L (15-37) Alanine Aminotransferase (ALT/SGPT) 16 U/L (14-59) Alkaline Phosphatase 63 U/L (46-116) Creatine Kinase 30 U/L (26-192) Total Protein 4.3 g/dL (6.4-8.2) Albumin 1.9 g/dL (3.4-5.0) White Blood Count 10.8 x10^3/uL (4.0-11.0) Red Blood Count 2.81 x10^6/uL (3.50-5.40) Hemoglobin 8.9 g/dL (12.0-15.5) Hematocrit 26.3 % (36.0-47.0) Mean Corpuscular Volume 93 fL (79-100) Mean Corpuscular Hemoglobin 32 pg (25-35) Mean Corpuscular Hemoglobin Concent 34 g/dL (31-37) Red Cell Distribution Width 16.1 % (11.5-14.5) Platelet Count 449 x10^3/uL (140-400) Neutrophils (%) (Auto) 67 % (31-73) Lymphocytes (%) (Auto) 18 % (24-48) Monocytes (%) (Auto) 12 % (0-9) Eosinophils (%) (Auto) 3 % (0-3) Basophils (%) (Auto) 1 % (0-3) Neutrophils # (Auto) 7.1 x10^3/uL (1.8-7.7) Lymphocytes # (Auto) 2.0 x10^3/uL (1.0-4.8) Monocytes # (Auto) 1.3 x10^3/uL (0.0-1.1) Eosinophils # (Auto) 0.3 x10^3/uL (0.0-0.7) Basophils # (Auto) 0.1 x10^3/uL (0.0-0.2) Sodium Level 142 mmol/L (136-145) Potassium Level 3.8 mmol/L (3.5-5.1) Chloride Level 107 mmol/L (98-107) Carbon Dioxide Level 29 mmol/L (21-32) Anion Gap 6 (6-14) Blood Urea Nitrogen 12 mg/dL (7-20) Creatinine 0.6 mg/dL (0.6-1.0) Estimated GFR (Cockcroft-Gault) 99.1 Glucose Level 111 mg/dL (70-99) Calcium Level 8.4 mg/dL (8.5-10.1) Microbiology 11/28/20 Urine Culture - Final, Complete Medications Current Medications Sodium Chloride 500 ml @ 500 mls/hr 1X ONCE IV Last administered on 11/27/20at 18:52; Start 11/27/20 at 18:00; Stop 11/27/20 at 18:59; Status DC Ondansetron HCl (Zofran) 4 mg 1X ONCE IV Last administered on 11/27/20at 18:50; Start 11/27/20 at 18:15; Stop 11/27/20 at 18:16; Status DC Fentanyl Citrate (Fentanyl 2ml Vial) 50 mcg 1X ONCE IV Last administered on 11/27/20at 18:52; Start 11/27/20 at 18:15; Stop 11/27/20 at 18:16; Status DC Lidocaine HCl (Lidocaine Pf 2% Vial) 5 ml STK-MED ONCE .ROUTE ; Start 11/27/20 at 19:11; Stop 11/27/20 at 19:11; Status DC Propofol (Diprivan) 200 mg STK-MED ONCE IV ; Start 11/27/20 at 19:11; Stop 11/27/20 at 19:11; Status DC Phenylephrine HCl (PHENYLEPHRINE in 0.9% NACL PF) 1 mg STK-MED ONCE IV ; Start 11/27/20 at 19:11; Stop 11/27/20 at 19:11; Status DC Rocuronium [place] (Zemuron) 50 mg STK-MED ONCE .ROUTE ; Start 11/27/20 at 19:11; Stop 11/27/20 at 19:11; Status DC Heparin Sodium (Porcine) 5000 unit/Sodium Chloride 505 ml @ 505 mls/hr 1X ONCE IRR Last administered on 11/27/20at 19:55; Start 11/27/20 at 20:00; Stop 11/27/20 at 20:59; Status DC Cellulose (Surgicel Fibrillar 1x2) 1 each STK-MED ONCE .ROUTE Last administered on 11/27/20at 19:55; Start 11/27/20 at 19:29; Stop 11/27/20 at 19:30; Status DC Cefazolin Sodium (Ancef) 1 gm STK-MED ONCE IVP ; Start 11/27/20 at 19:38; Stop 11/27/20 at 19:38; Status DC Fentanyl Citrate (Fentanyl 2ml Vial) 25 mcg PRN Q5MIN PRN IVP MILD PAIN 1-3; Start 11/27/20 at 20:15; Stop 11/28/20 at 20:14; Status DC Fentanyl Citrate (Fentanyl 2ml Vial) 50 mcg PRN Q5MIN PRN IVP MODERATE PAIN 4- 6; Start 11/27/20 at 20:15; Stop 11/28/20 at 20:14; Status DC Morphine Sulfate (Morphine Sulfate) 1 mg PRN Q10MIN PRN IVP SEVERE PAIN 7-10; Start 11/27/20 at 20:15; Stop 11/28/20 at 20:14; Status DC Ringer's Solution 1,000 ml @ 30 mls/hr Q24H IV ; Start 11/27/20 at 20:15; Stop 11/28/20 at 08:14; Status DC Hydromorphone HCl (Dilaudid) 0.5 mg PRN Q10MIN PRN IVP SEVERE PAIN 7-10, 2nd CHOICE; Start 11/27/20 at 20:15; Stop 11/28/20 at 20:14; Status DC Prochlorperazine Edisylate (Compazine) 5 mg PACU PRN PRN IVP NAUSEA, MRX1; Start 11/27/20 at 20:15; Stop 11/28/20 at 20:14; Status DC Heparin Sodium (Porcine) (Heparin Sodium) 10,000 unit STK-MED ONCE .ROUTE ; Start 11/27/20 at 20:07; Stop 11/27/20 at 20:07; Status DC Heparin Sodium (Porcine) (Heparin Sodium) 10,000 unit STK-MED ONCE .ROUTE ; Start 11/27/20 at 20:10; Stop 11/27/20 at 20:10; Status DC Fentanyl Citrate (Fentanyl 2ml Vial) 100 mcg STK-MED ONCE .ROUTE ; Start 11/27/20 at 20:11; Stop 11/27/20 at 20:12; Status DC Propofol (Diprivan) 200 mg STK-MED ONCE IV ; Start 11/27/20 at 20:13; Stop 11/27/20 at 20:14; Status DC Protamine Sulfate (Protamine) 50 mg STK-MED ONCE IV ; Start 11/27/20 at 20:44; Stop 11/27/20 at 20:44; Status DC Sevoflurane (Ultane) 60 ml STK-MED ONCE IH ; Start 11/27/20 at 20:44; Stop 11/27/20 at 20:44; Status DC Olanzapine (ZyPREXA ZYDIS) 5 mg PRN BID PRN PO ANXIETY / AGITATION; Start 11/27/20 at 22:00 Acetaminophen (Tylenol) 650 mg PRN Q6HRS PRN PO MILD PAIN / TEMP > 100.3'F; Start 11/27/20 at 22:00 Ondansetron HCl (Zofran) 4 mg PRN Q4HRS PRN IVP NAUSEA/VOMITING; Start 11/27/20 at 22:00 Hydralazine HCl (Apresoline Inj) 20 mg STK-MED ONCE .ROUTE ; Start 11/27/20 at 21:56; Stop 11/27/20 at 21:56; Status DC Fentanyl Citrate (Fentanyl 2ml Vial) 25 mcg PRN Q2HR PRN IVP PAIN Last administered on 12/02/20 09:17; Start 11/27/20 at 22:00 Carvedilol (Coreg) 3.125 mg BIDWMEALS PO Last administered on 12/03/20 09:24; Start 11/28/20 at 08:00 Gabapentin (Neurontin) 300 mg HS PO Last administered on 12/02/20at 20:36; Start 11/27/20 at 22:15 Pantoprazole Sodium (Protonix) 40 mg DAILYAC PO Last administered on 12/03/20at 09:24; Start 11/28/20 at 07:30 Zolpidem Tartrate (Ambien) 5 mg PRN QHS PRN PO INSOMNIA; Start 11/27/20 at 22:15 Folic Acid (Folic Acid) 1 mg DAILY PO Last administered on 12/03/20 09:24; Start 11/28/20 at 09:00 Aspirin (Aspirin Chewable) 81 mg DAILY08 PO Last administered on 12/03/20 09:24; Start 11/28/20 at 08:00 Vitamin D (Vitamin D3) 5,000 unit DAILY PO Last administered on 12/03/20at 09:24; Start 11/28/20 at 09:00 Clopidogrel Bisulfate (Plavix) 75 mg DAILY08 PO Last administered on 12/03/20at 09:24; Start 11/28/20 at 08:00 Sodium Chloride 1,000 ml @ 80 mls/hr [id number] IV Last administered on 11/29/20at 20:48; Start 11/27/20 at 22:45; Stop 11/30/20 at 20:00; Status DC Acetaminophen/ Hydrocodone Bitart (Lortab 5/325) 1 tab PRN Q4HRS PRN PO PAIN MODERATE Last administered on 12/03/20at 09:25; Start 11/27/20 at 22:45 Acetaminophen/ Hydrocodone Bitart (Lortab 5/325) 2 tab PRN Q4HRS PRN PO PAIN SEVERE Last administered on 12/02/20at 09:44; Start 11/27/20 at 22:45 Albumin Human 500 ml @ 125 mls/hr PRN DAILY PRN IV Hypotension; Start 11/27/20 at 23:00 Magnesium Sulfate 50 ml @ 25 mls/hr 1X ONCE IV Last administered on 11/28/20at 02:15; Start 11/28/20 at 01:45; Stop 11/28/20 at 03:44; Status DC Cefazolin Sodium/ Dextrose 50 ml @ 100 mls/hr Q8HRS IV Last administered on 11/28/20at 06:11; Start 11/28/20 at 06:00; Stop 11/28/20 at 12:08; Status DC Albuterol/ Ipratropium (Duoneb) 3 ml RTQID NEB ; Start 11/28/20 at 12:00; Stop 11/28/20 at 10:59; Status DC Potassium Chloride (Klor-Con) 40 meq 1X ONCE PO ; Start 11/28/20 at 11:00; Stop 11/28/20 at 11:01; Status UNV Potassium Bicarbonate (Potassium Effervescent Tablet) 40 meq 1X ONCE PO ; Start 11/28/20 at 11:00; Stop 11/28/20 at 11:01; Status UNV Potassium Chloride/Water 100 ml @ 100 mls/hr Q1H IV ; Start 11/28/20 at 11:00; Stop 11/28/20 at 12:59; Status UNV Potassium Chloride/Water 100 ml @ 100 mls/hr Q1H IV ; Start 11/28/20 at 11:00; Stop 11/28/20 at 18:59; Status UNV Potassium Chloride/Water 100 ml @ 100 mls/hr Q1HR IV ; Start 11/28/20 at 11:00; Stop 11/28/20 at 16:59; Status UNV Magnesium Sulfate 100 ml @ 50 mls/hr DAILY IV ; Start 11/29/20 at 09:00; Stop 12/02/20 at 08:59; Status UNV Potassium Phos/ Sodium Phos (Phos-Nak) 1 pkt BID PO ; Start 11/28/20 at 21:00; Stop 11/29/20 at 09:01; Status UNV Albuterol Sulfate (Ventolin Neb Soln) 2.5 mg PRN QID PRN NEB SHORTNESS OF BREATH; Start 11/28/20 at 11:15 Info (Icu Electrolyte Protocol) 1 ea CONT PRN PRN MC SEE COMMENTS; Start 11/28/20 at 11:00; Stop 12/03/20 at 09:39; Status DC Piperacillin Sod/ Tazobactam Sod (Zosyn Per Pharmacy) 1 each PRN DAILY PRN MC SEE COMMENTS; Start 11/28/20 at 12:15 Piperacillin Sod/ Tazobactam Sod 3.375 gm/Sodium Chloride 50 ml @ 100 mls/hr Q6HRS IV Last administered on 12/03/20at 05:20; Start 11/28/20 at 12:30 Micafungin Sodium 100 mg/Dextrose 100 ml @ 100 mls/hr Q24H IV Last administered on 12/02/20at 08:17; Start 11/29/20 at 10:00; Stop 12/02/20 at 11:24; Status DC Daptomycin 380 mg/ Sodium Chloride 50 ml @ 100 mls/hr Q24H IV Last administered on 12/03/20at 09:25; Start 11/29/20 at 11:00; Stop 12/03/20 at 09:36; Status DC Cefazolin Sodium 1 gm/Sodium Chloride 500 ml @ 500 mls/hr 1X ONCE IRR Last administered on 11/30/20at 14:20; Start 11/30/20 at 06:00; Stop 11/30/20 at 06:59; Status DC Heparin Sodium (Porcine) 5000 unit/Sodium Chloride 505 ml @ 505 mls/hr 1X ONCE IRR Last administered on 11/30/20at 14:19; Start 11/30/20 at 06:00; Stop 11/30/20 at 06:59; Status DC Fentanyl Citrate (Fentanyl 2ml Vial) 25 mcg PRN Q5MIN PRN IVP MILD PAIN 1-3 Last administered on 11/30/20at 17:03; Start 11/30/20 at 06:00; Stop 12/01/20 at 05:59; Status DC Fentanyl Citrate (Fentanyl 2ml Vial) 50 mcg PRN Q5MIN PRN IVP MODERATE PAIN 4-6 Last administered on 11/30/20at 15:39; Start 11/30/20 at 06:00; Stop 12/01/20 at 05:59; Status DC Morphine Sulfate (Morphine Sulfate) 1 mg PRN Q10MIN PRN IVP SEVERE PAIN 7-10; Start 11/30/20 at 06:00; Stop 12/01/20 at 05:59; Status DC Ringer's Solution 1,000 ml @ 30 mls/hr Q24H IV Last administered on 11/30/20at 05:29; Start 11/30/20 at 06:00; Stop 11/30/20 at 17:59; Status DC Hydromorphone HCl (Dilaudid) 0.5 mg PRN Q10MIN PRN IVP SEVERE PAIN 7-10, 2nd CHOICE; Start 11/30/20 at 06:00; Stop 12/01/20 at 05:59; Status DC Prochlorperazine Edisylate (Compazine) 5 mg PACU PRN PRN IVP NAUSEA, MRX1; Start 11/30/20 at 06:00; Stop 12/01/20 at 05:59; Status DC Dexamethasone Sodium Phosphate (Decadron) 4 mg STK-MED ONCE .ROUTE ; Start 11/30/20 at 12:12; Stop 11/30/20 at 12:12; Status DC Ondansetron HCl (Zofran) 4 mg STK-MED ONCE .ROUTE ; Start 11/30/20 at 12:12; Stop 11/30/20 at 12:12; Status DC Propofol (Diprivan) 200 mg STK-MED ONCE IV ; Start 11/30/20 at 12:12; Stop 11/30/20 at 12:12; Status DC Lidocaine HCl (Lidocaine Pf 2% Vial) 5 ml STK-MED ONCE .ROUTE ; Start 11/30/20 at 12:12; Stop 11/30/20 at 12:12; Status DC Iohexol (Omnipaque 300 Mg/ml) 50 ml STK-MED ONCE .ROUTE ; Start 11/30/20 at 13:08; Stop 11/30/20 at 13:08; Status DC Cellulose (Surgicel Hemostat 4x8) 1 each STK-MED ONCE .ROUTE ; Start 11/30/20 at 13:08; Stop 11/30/20 at 13:08; Status DC Cellulose (Surgicel Fibrillar 1x2) 1 each STK-MED ONCE .ROUTE ; Start 11/30/20 at 13:08; Stop 11/30/20 at 13:09; Status DC Fentanyl Citrate (Fentanyl 2ml Vial) 100 mcg STK-MED ONCE .ROUTE ; Start 11/30/20 at 13:37; Stop 11/30/20 at 13:37; Status DC Glycopyrrolate (Robinul) 1 mg STK-MED ONCE .ROUTE ; Start 11/30/20 at 14:10; Stop 11/30/20 at 14:10; Status DC Sevoflurane (Ultane) 60 ml STK-MED ONCE IH ; Start 11/30/20 at 14:37; Stop 11/30/20 at 14:38; Status DC Fentanyl Citrate (Fentanyl 2ml Vial) 100 mcg STK-MED ONCE .ROUTE ; Start 11/30/20 at 15:37; Stop 11/30/20 at 15:37; Status DC Amlodipine Besylate (Norvasc) 5 mg 1X ONCE PO Last administered on 11/30/20at 16:33; Start 11/30/20 at 16:30; Stop 11/30/20 at 16:31; Status DC Hydralazine HCl (Apresoline Inj) 10 mg PRN Q4HRS PRN IVP ELEVATED BP, SEE COMMENTS; Start 11/30/20 at 16:30 Senna/Docusate Sodium (Senna Plus) 1 tab DAILY PO Last administered on 12/03/20at 09:24; Start 12/01/20 at 12:15 Info (Non-Icu Electrolyte Protocol) 1 ea CONT PRN PRN MC SEE COMMENTS; Start 12/03/20 at 09:45 Active Scripts Active Reported Vitamin D3 (Vitamin D) 125 Mcg Capsule 125 Mcg PO DAILY 5,000 UNITS = 125 MCG Methotrexate (Methotrexate Sodium) 2.5 Mg Tablet 4 Tab PO WEEKLY Ambien (Zolpidem Tartrate) 5 Mg Tablet 5 Mg PO PRN QHS PRN Gabapentin (Gabapentin) 300 Mg Capsule 300 Mg PO HS Protonix (Pantoprazole Sodium) 40 Mg Tablet.dr 40 Mg PO DAILYAC Folic Acid 0.4 Mg Tablet 0.4 Mg PO DAILY Aspirin 81 Mg Tab.chew 1 Tab PO DAILY Clopidogrel (Clopidogrel Bisulfate) 75 Mg Tablet 1 Tab PO DAILY Coreg (Carvedilol) 6.25 Mg Tablet 6.25 Mg PO BIDWMEALS Vitals/I & O Vital Sign - Last 24 Hours 12/02/20 12/02/20 12/02/20 12/02/20 15:00 17:13 19:20 20:00 Temp 98.8 98.6 98.8 98.6 Pulse 78 78 79 Resp 16 18 B/P (MAP) 121/47 (71) 121/47 139/63 (88) Pulse Ox 95 96 O2 Delivery Room Air Room Air Room Air 12/02/20 12/03/20 12/03/20 12/03/20 22:55 03:20 07:00 09:24 Temp 98.3 98.2 98.4 98.3 98.2 98.4 Pulse 78 87 85 95 Resp 18 18 18 B/P (MAP) 137/67 (90) 131/62 (85) 162/78 (106) Pulse Ox 96 95 96 O2 Delivery Room Air Room Air Room Air Intake and Output 12/02/20 12/02/20 12/03/20 15:00 23:00 07:00 Intake Total 800 ml 480 ml 420 ml Output Total 350 ml 400 ml Balance 450 ml 480 ml 20 ml Justicifation of Admission Dx: Justifications for Admission: Justification of Admission Dx: Yes MYNOR FIELDS MD Dec 03, 2020 11:36
[2020-12-03 15:00] VITALS: BP 148/57
[2020-12-03 19:00] VITALS: BP 178/78
[2020-12-03] MEDS: GABAPENTIN 300 MG CAPSULE. PO SCH (21:06)
[2020-12-03 23:00] VITALS: BP 157/61
[2020-12-04 03:00] VITALS: BP 174/75
[2020-12-04] MEDS: PIPERACILLIN/TAZOBACTAM 3.375 GM in IV NORMAL SALINE 50ML 50 ML IV SCH ×4 (05:19→23:10)
[2020-12-04 07:00] VITALS: BP 172/76
--- NOTE | 2020-12-04 08:15 | PDOC ---
Infectious Disease Note Subjective: Subjective Patient without complaints Feels better Appetite is better Had a bowel movement yesterday Postop pain is under control Denies fever, nausea, vomiting, shortness of breath, diarrhea, abdominal pain, rash Vital Signs: Vital Signs Vital Signs Date Time Temp Pulse Resp B/P (MAP) Pulse Ox O2 Delivery O2 Flow Rate FiO2 12/04/20 03:00 98.3 86 17 174/75 (108) 96 Room Air 98.3 Physical Exam: PHYSICAL EXAM GENERAL: Alert, awake female, lying in bed comfortably, in no acute distress. HEENT: Normocephalic, atraumatic. Anicteric. NECK: Supple. LUNGS: Clear. HEART: S1, S2. No murmurs. ABDOMEN: Soft, bruise present over the right lower abdominal area No rebound, no guarding. EXTREMITIES: bruising right lower abdomen improving Wound VAC in place. Right leg groin ecchymosis and swelling improving , no fluctuance, no cyanosis, no clubbing. DERMATOLOGIC: Warm, dry, no generalized rash except for above. NEUROLOGIC: Alert, oriented x3. Normal speech. PSYCHIATRIC: Calm and cooperative. Medications: Inpatient Meds: Medications reviewed. Objective: Assessment: 1. Large right groin pseudoaneurysm with hematoma, Status post emergent open repair of the right femoral artery pseudoaneurysm using bovine pericardial patch angioplasty. November 30, 2020 S/P Coverage of the right femoral artery repair requiring sartorius muscle flap, Wound VAC placement. Underwent dressing earlier today, vascular team input noted 2. Status post treatment with TPA on 11/18/2020 for right-sided weakness. 3. 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 4. Leukocytosis could have a reactive component. Improved 5. Severe acute blood loss anemia, status post blood transfusion. 6. History of rheumatoid arthritis, on methotrexate. 7. Hypertension/hyperlipidemia 8. Gastroesophageal reflux disease. 9. Protein calorie malnutrition. 10. Hyponatremia. 11. Constipation Plan: Plan of Care 1. Continue Zosyn, Doxycycline 2. Continue wound/VAC care as directed. 3. Follow up labs and cultures. 4 Continue supportive care. D/W at bedside KEV LÓPEZ MD Dec 04, 2020 08:15
[2020-12-04] MEDS: SENNOSIDES/DOCUSATE 8.6/50MG TABLET. PO SCH (09:00)
[2020-12-04] MEDS: ASPIRIN CHEWABLE 81 MG TABLET. PO SCH (10:10)
[2020-12-04] MEDS: FOLIC ACID 1 MG TABLET. PO SCH (10:10)
[2020-12-04] MEDS: CHOLECALCIFEROL (VITAMIN D3) 5,000 UNIT CAPSULE PO SCH (10:10)
[2020-12-04] MEDS: DOXYCYCLINE HYCLATE 100 MG TABLET PO SCH ×2 (10:10→20:23)
[2020-12-04] MEDS: CLOPIDOGREL BISULFATE 75 MG TABLET PO SCH (10:10)
[2020-12-04] MEDS: PANTOPRAZOLE 40 MG TABLET.DR. PO SCH (10:10)
[2020-12-04] MEDS: CARVEDILOL 3.125 MG TABLET. PO SCH ×2 (10:11→17:35)
[2020-12-04 11:00] VITALS: BP 139/55
--- NOTE | 2020-12-04 11:11 | PDOC ---
PROGRESS NOTES Date of Service: DATE: 12/04/20 TIME: 11:11 Chief Complaint Chief Complaint Assessment/Plan 70-year-old woman who recently had a right femoral artery access for acute stroke intervention apparently left carotid stent and left stroke thrombus removal at [facility] / pseudoaneurysm arising from the common femoral artery // actively bleeding into a large hematoma. Acute blood loss anemia - given extent of hematoma and pseudoaneursym and need for surgery may need up to 6u PRBC. 2 units on hold for OR. H&H 4 hours post op HGB 11.9 11-19 Large right groin pseuoaneurysm - likely from access 1 week prior. Vascular surgery consulted for ongoing active bleeding. To OR Large right groin hematoma - likely from arterial bleed. 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 Would not hold DAPT therapy in order to prevent further CVA. (will order [facility] records to confirm the presence/absence of stent) Hyponatremia - likely hypovolemic. Will give NSS crystalloid and monitor. Leukocytosis - likely reactive from massive blood loss, will trend. No clear in fection. will cover preoperatively. Given the extent of her hematoma is definitely at risk for skin infection/cellulitis as she is immunocompromised on MTX, ID CONSULTED , BLOOD CULT Hyperglycemia - likely related to stress, will check A1c RA - on MTX weekly. 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 severe protein-caloric malnutrition Current smoker HTN - on coreg, will cut dosing given low BP since d/c from [facility] per rehab notes. She may have cardiac reason for BB, will await . [facility] records as she may be getting CHF treatment, patient and aren't certain. plan FEN - NPO for OR. Regular diet after PPX - SCDs for 24 hours. Will defer heparin timing to vascular surgery CODE - FULL Dispo - ICU [facility] [place] for possible IR intervention. 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 Would not hold DAPT therapy in order to prevent further CVA. (will order [facility] records to confirm the presence/absence of stent) Hyponatremia - likely hypovolemic. Will give NSS crystalloid and monitor. Leukocytosis - likely reactive from massive blood loss, will trend. No clear infection. will cover preoperatively. Given the extent of her hematoma is definitely at risk for skin infection/cellulitis as she is immunocompromised on MTX, ID CONSULTED , BLOOD CULT Hyperglycemia - likely related to stress, will check A1c-6.1 CC time 32 min History of Present Illness History of Present Illness Identification/Chief Complaint Chief Complaint Right groin pain and swelling Source Source: Patient History of Present Illness History of Present Illness Ms Robins is a 70-year-old female w/ PMHx HLD, HTN, GERD, RA, and recent presenting with right groin pain and swelling. She has been noting bruising since 11/24/2020 when the dressing in her right groin was removed as instructed. She has been going to outpatient PT and OT for stroke rehab and has been c/o some pain in the area since the dressing was removed. 11/26 she began acting more tired, dizzy and intermittently confused per her . family member, who is a nurse practitioner, came over to the house to look at her leg as the was concerned about the bruise getting bigger. The family member told him to go to the ER right away. She states she feels very weak and tired and dizzy. Patient denies any chest pain, shortness of breath, nausea, vomiting, or diarrhea. She is up to date on both doses of Moderna COVID 19 vaccine Patient complains of pain and tightness in her right thigh and groin. She was initially evaluated on 11/19/2020 at [facility] ED for right sided weakness within 2 hours of presentation and tPA was then administered. CT angiogram shows left MCA M1 large vessel occlusion and she was transferred to [facility] for large vessel occlusion intervention on 11/19/2020. Per had clot retrieval and he thinks had carotid stenting as well and w as discharged home on 11/21/2020 for outpatient rehab for her CVA on DAPT with ASA and plavix. In ED noted with pulsatile swelling in left groin and right groin arterial doppler revealed large hematoma in the proximal right lower extremity arising from the common femoral artery that measures 11.5 x 5.0 x 9.5 cm. This hematoma appears to arise directly from a pseudoaneurysm with a neck which actively bleeds into the hematoma. The belly of the pseudoaneurysm measures 2.3 cm in diameter. On examination a nurse was holding pressure in the groin and LEAF COVERER was accessing left antecubital fossa for venipuncture for blood draw and IV insertion. give much of history bedside. During examination labs returned with WBC 19.2, platelets 367, Hb 6.3, Na 133, glucose 178, INR 1.2. Given the urgency of her condition vascular surgery was consulted and Dr. Wilhelm brought in OR staff and patient was taken to OR in stable condition from the ED with plans to admit to ICU. 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 Would not hold DAPT therapy in order to prevent further CVA. (will order . [facility] records to confirm the presence/absence of stent) Hyponatremia - likely hypovolemic. Will give NSS crystalloid and monitor. Leukocytosis - likely reactive from massive blood loss, will trend. No clear infection. will cover preoperatively. 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 Would not hold DAPT therapy in order to prevent further CVA. (will order [facility] records to confirm the presence/absence of stent) Hyponatremia - likely hypovolemic. Will give NSS crystalloid and monitor. Leukocytosis - likely reactive from massive blood loss, will trend. No clear infection. will cover preoperatively. Given the extent of her hematoma is definitely at risk for skin infection/cellulitis as she is immunocompromised on MTX, ID CONSULTED , BLOOD CULT Hyperglycemia - likely related to stress, will check A1c-6.1 Continue Zosyn,daptomycin and micafungin. 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 Would not hold DAPT therapy in order to prevent further CVA. (will order [facility] records to confirm the presenc e/absence of stent) Hyponatremia - likely hypovolemic. Will give NSS crystalloid and monitor. Leukocytosis - likely reactive from massive blood loss, will trend. No clear infection. will cover preoperatively. Given the extent of her hematoma is definitely at risk for skin infection/cellulitis as she is immunocompromised on MTX, ID CONSULTED , BLOOD CULT Hyperglycemia - likely related to stress, will check A1c-6.1 Continue Zosyn,daptomycin and micafungin. Continue wound vac therapy with planned vac dressing change tomorrow at a time when Vascular Surgery is present to view and evaluate wound and muscle flap tissue. 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 Would not hold DAPT therapy in order to prevent further CVA. (will order [facility] records to confirm the presence/absence of stent) Hyponatremia - likely hypovolemic. Will give NSS crystalloid and monitor. Leukocytosis - likely reactive from massive blood loss, will trend. No clear infection. will cover preoperatively. Given the extent of her hematoma is definitely at risk for skin infection/cellulitis as she is immunocompromised on MTX, ID CONSULTED , BLOOD CULT Hyperglycemia - likely related to stress, will check A1c-6.1 Continue Zosyn,daptomycin and micafungin. Continue wound vac therapy Vascular Surgery is present to view and evaluate wound and muscle flap tissue. D/W RN 6-05 Status post 11/27/2020 - POD#5 Open repair of right femoral artery pseudoaneurysm using bovine pericardial patch angioplasty right common femoral artery Status post 11/30/2020 - POD#2 Right sartorius muscle flap, right groin wound V AC placement wound vac r groin in place, intact, FLAP CLOSURE 6- IV DAPTOMYCIN Neurology consulted CVA - left MCA occlusion on 11/19/2020 s/p neurointerventional clot retrieval on plavix and ASA for the next 30 days. Would not hold DAPT therapy in order to prevent further CVA. (will order [facility] records to confirm the presence/absence of stent) Hyponatremia - likely hypovolemic. Will give NSS crystalloid and monitor. Leukocytosis - likely reactive from massive blood loss, will trend. No clear infection. will cover preoperatively. Given the extent of her hematoma is definitely at risk for skin infection/cellulitis as she is immunocompromised on MTX, ID CONSULTED , BLOOD CULT Hyperglycemia - likely related to stress, will check A1c-6.1 Continue Zosyn,daptomycin and micafungin. Continue negative pressure wound vac therapy // Vascular Surgery is present to view and evaluate wound and muscle flap tissue. 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 Would not hold DAPT therapy in order to prevent further CVA. (will order [facility] records to confirm the presence/absence of stent) Hyponatremia - likely hypovolemic. Will give NSS crystalloid and monitor. Leukocytosis - likely reactive from massive blood loss, will trend. No clear infection. will cover preoperatively. Given the extent of her hematoma is definitely at risk for skin infection/cellulitis as she is immunocompromised on MTX, ID CONSULTED , BLOOD CULT Hyperglycemia - likely related to stress, will check A1c-6.1 Continue Zosyn,daptomycin and micafungin. Continue negative pressure wound vac therapy // Vascular Surgery is present to view and evaluate wound and muscle flap tissue. D/W RN Vitals Vitals Vital Signs Date Time Temp Pulse Resp B/P (MAP) Pulse Ox O2 Delivery O2 Flow Rate FiO2 12/04/20 10:11 81 172/76 12/04/20 08:00 Room Air 12/04/20 07:00 98.3 18 95 98.3 Physical Exam Physical Exam GENERAL: Alert, awake female, lying in bed comfortably, in no acute distress. HEENT: Normocephalic, atraumatic. Anicteric. NECK: Supple. LUNGS: Clear. HEART: S1, S2. No murmurs. ABDOMEN: Soft, bruise present over the right lower abdominal area No rebound, no guarding. EXTREMITIES: bruising right lower abdomen improving Wound VAC in place. Right leg groin ecchymosis and swelling improving , no fluctuance, no cyanosis, no clubbing. DERMATOLOGIC: Warm, dry, no generalized rash except for above. NEUROLOGIC: Alert, oriented x3. Normal speech. PSYCHIATRIC: Calm and cooperative. General: Alert, Oriented X3, Cooperative, No acute distress Heart: Regular rate Lungs: Clear Abdomen: Normal bowel sounds, Soft Extremities: No clubbing, No cyanosis, No edema, Normal pulses, Other ( right leg and groin shows ecchymosis from about there the umbilicus down to the knee.) Skin: No significant lesion, Other (Wound VAC in place in the right lower extremity, swelling and hematoma stable, pulse exam stable) Labs LABS PATIENT: IMER ROBINS AACCOUNT: [id number] : 1950 LOCATION: [facility] ICU AGE: 70 SEX: F EXAM STATUS: ADM IN ORD. PHYSICIAN: MYNOR FIELDS MD REASON: copd PROCEDURE: CHEST AP ONLY XR CHEST 1V INDICATION: copd . COMPARISON STUDY: None. FINDINGS: Lungs: Low lung volume. Mild bibasilar heterogeneous opacities. Pleura: Small bilateral pleural effusion. Heart and Mediastinum: Cardiomegaly. Atherosclerosis of the thoracic aorta. IMPRESSION: 1. Low lung volume with mild bibasilar opacities, probably subsegmental/relax ation atelectasis. 2. Small bilateral pleural effusions. Electronically signed by: Lenny Luciano MD (11/28/2020 4:24 PM) [id number] DICTATED and SIGNED BY: LENNY LUCIANO MD DATE: 11/28/20 [id number] 0 Assessment and Plan Assessmemt and Plan Problems Medical Problems: (1) Femoral artery pseudo-aneurysm, right Status: Acute (2) Pseudoaneurysm of femoral artery following procedure Status: Acute Comment Review of Relevant I have reviewed the following items césar (where applicable) has been applied. Labs Laboratory Tests Test 12/02/20 13:20 12/03/20 07:10 Total Bilirubin 0.5 mg/dL (0.2-1.0) Direct Bilirubin 0.2 mg/dL (0.0-0.2) Aspartate Amino Transf (AST/SGOT) 16 U/L (15-37) Alanine Aminotransferase (ALT/SGPT) 16 U/L (14-59) Alkaline Phosphatase 63 U/L (46-116) Creatine Kinase 30 U/L (26-192) Total Protein 4.3 g/dL (6.4-8.2) Albumin 1.9 g/dL (3.4-5.0) White Blood Count 10.8 x10^3/uL (4.0-11.0) Red Blood Count 2.81 x10^6/uL (3.50-5.40) Hemoglobin 8.9 g/dL (12.0-15.5) Hematocrit 26.3 % (36.0-47.0) Mean Corpuscular Volume 93 fL (79-100) Mean Corpuscular Hemoglobin 32 pg (25-35) Mean Corpuscular Hemoglobin Concent 34 g/dL (31-37) Red Cell Distribution Width 16.1 % (11.5-14.5) Platelet Count 449 x10^3/uL (140-400) Neutrophils (%) (Auto) 67 % (31-73) Lymphocytes (%) (Auto) 18 % (24-48) Monocytes (%) (Auto) 12 % (0-9) Eosinophils (%) (Auto) 3 % (0-3) Basophils (%) (Auto) 1 % (0-3) Neutrophils # (Auto) 7.1 x10^3/uL (1.8-7.7) Lymphocytes # (Auto) 2.0 x10^3/uL (1.0-4.8) Monocytes # (Auto) 1.3 x10^3/uL (0.0-1.1) Eosinophils # (Auto) 0.3 x10^3/uL (0.0-0.7) Basophils # (Auto) 0.1 x10^3/uL (0.0-0.2) Sodium Level 142 mmol/L (136-145) Potassium Level 3.8 mmol/L (3.5-5.1) Chloride Level 107 mmol/L (98-107) Carbon Dioxide Level 29 mmol/L (21-32) Anion Gap 6 (6-14) Blood Urea Nitrogen 12 mg/dL (7-20) Creatinine 0.6 mg/dL (0.6-1.0) Estimated GFR (Cockcroft-Gault) 99.1 Glucose Level 111 mg/dL (70-99) Calcium Level 8.4 mg/dL (8.5-10.1) Microbiology 11/28/20 Urine Culture - Final, Complete Medications Current Medications Sodium Chloride 500 ml @ 500 mls/hr 1X ONCE IV Last administered on 11/27/20at 18:52; Start 11/27/20 at 18:00; Stop 11/27/20 at 18:59; Status DC Ondansetron HCl (Zofran) 4 mg 1X ONCE IV Last administered on 11/27/20at 18:50; Start 11/27/20 at 18:15; Stop 11/27/20 at 18:16; Status DC Fentanyl Citrate (Fentanyl 2ml Vial) 50 mcg 1X ONCE IV Last administered on 11/27/20at 18:52; Start 11/27/20 at 18:15; Stop 11/27/20 at 18:16; Status DC Lidocaine HCl (Lidocaine Pf 2% Vial) 5 ml STArtwardly-MED ONCE .ROUTE ; Start 11/27/20 at 19:11; Stop 11/27/20 at 19:11; Status DC Propofol (Diprivan) 200 mg STK-MED ONCE IV ; Start 11/27/20 at 19:11; Stop 11/27/20 at 19:11; Status DC Phenylephrine HCl (PHENYLEPHRINE in 0.9% NACL PF) 1 mg STK-MED ONCE IV ; Start 11/27/20 at 19:11; Stop 11/27/20 at 19:11; Status DC Rocuronium [place] (Zemuron) 50 mg STK-MED ONCE .ROUTE ; Start 11/27/20 at 19:11; Stop 11/27/20 at 19:11; Status DC Heparin Sodium (Porcine) 5000 unit/Sodium Chloride 505 ml @ 505 mls/hr 1X ONCE IRR Last administered on 11/27/20at 19:55; Start 11/27/20 at 20:00; Stop 1 at 20:59; Status DC Cellulose (Surgicel Fibrillar 1x2) 1 each STK-MED ONCE .ROUTE Last administered on 11/27/20at 19:55; Start 11/27/20 at 19:29; Stop 11/27/20 at 19:30; Status DC Cefazolin Sodium (Ancef) 1 gm STK-MED ONCE IVP ; Start 11/27/20 at 19:38; Stop 11/27/20 at 19:38; Status DC Fentanyl Citrate (Fentanyl 2ml Vial) 25 mcg PRN Q5MIN PRN IVP MILD PAIN 1-3; Start 11/27/20 at 20:15; Stop 11/28/20 at 20:14; Status DC Fentanyl Citrate (Fentanyl 2ml Vial) 50 mcg PRN Q5MIN PRN IVP MODERATE PAIN 4-6; Start 11/27/20 at 20:15; Stop 11/28/20 at 20:14; Status DC Morphine Sulfate (Morphine Sulfate) 1 mg PRN Q10MIN PRN IVP SEVERE PAIN 7-10; Start 11/27/20 at 20:15; Stop 11/28/20 at 20:14; Status DC Ringer's Solution 1,000 ml @ 30 mls/hr Q24H IV ; Start 11/27/20 at 20:15; Stop 11/28/20 at 08:14; Status DC Hydromorphone HCl (Dilaudid) 0.5 mg PRN Q10MIN PRN IVP SEVERE PAIN 7-10, 2nd CHOICE; Start 11/27/20 at 20:15; Stop 11/28/20 at 20:14; Status DC Prochlorperazine Edisylate (Compazine) 5 mg PACU PRN PRN IVP NAUSEA, MRX1; Start 11/27/20 at 20:15; Stop 11/28/20 at 20:14; Status DC Heparin Sodium (Porcine) (Heparin Sodium) 10,000 unit STK-MED ONCE .ROUTE ; Start 11/27/20 at 20:07; Stop 11/27/20 at 20:07; Status DC Heparin Sodium (Porcine) (Heparin Sodium) 10,000 unit STK-MED ONCE .ROUTE ; Start 11/27/20 at 20:10; Stop 11/27/20 at 20:10; Status DC Fentanyl Citrate (Fentanyl 2ml Vial) 100 mcg STK-MED ONCE .ROUTE ; Start 11/27/20 at 20:11; Stop 11/27/20 at 20:12; Status DC Propofol (Diprivan) 200 mg STK-MED ONCE IV ; Start 11/27/20 at 20:13; Stop 11/27/20 at 20:14; Status DC Protamine Sulfate (Protamine) 50 mg STK-MED ONCE IV ; Start 11/27/20 at 20:44; Stop 11/27/20 at 20:44; Status DC Sevoflurane (Ultane) 60 ml STK-MED ONCE IH ; Start 11/27/20 at 20:44; Stop 11/27/20 at 20:44; Status DC Olanzapine (ZyPREXA ZYDIS) 5 mg PRN BID PRN PO ANXIETY / AGITATION; Start 11/27/20 at 22:00 Acetaminophen (Tylenol) 650 mg PRN Q6HRS PRN PO MILD PAIN / TEMP > 100.3'F; Start 11/27/20 at 22:00 Ondansetron HCl (Zofran) 4 mg PRN Q4HRS PRN IVP NAUSEA/VOMITING; Start 11/27/20 at 22:00 Hydralazine HCl (Apresoline Inj) 20 mg STK-MED ONCE .ROUTE ; Start 11/27/20 at 21:56; Stop 11/27/20 at 21:56; Status DC Fentanyl Citrate (Fentanyl 2ml Vial) 25 mcg PRN Q2HR PRN IVP PAIN Last administered on 12/02/20 09:17; Start 11/27/20 at 22:00 Carvedilol (Coreg) 3.125 mg BIDWMEALS PO Last administered on 12/04/20 10:11; Start 11/28/20 at 08:00 Gabapentin (Neurontin) 300 mg HS PO Last administered on 12/03/20 21:06; Start 11/27/20 at 22:15 Pantoprazole Sodium (Protonix) 40 mg DAILYAC PO Last administered on 12/04/20 10:10; Start 11/28/20 at 07:30 Zolpidem Tartrate (Ambien) 5 mg PRN QHS PRN PO INSOMNIA; Start 11/27/20 at 22:15 Folic Acid (Folic Acid) 1 mg DAILY PO Last administered on 12/04/20 10:10; Start 11/28/20 at 09:00 Aspirin (Aspirin Chewable) 81 mg DAILY08 PO Last administered on 12/04/20 10:10; Start 11/28/20 at 08:00 Vitamin D (Vitamin D3) 5,000 unit DAILY PO Last administered on 12/04/20 10:10; Start 11/28/20 at 09:00 Clopidogrel Bisulfate (Plavix) 75 mg DAILY08 PO Last administered on 12/04/20 10:10; Start 11/28/20 at 08:00 Sodium Chloride 1,000 ml @ 80 mls/hr [id number] IV Last administered on 11/29/20at 20:48; Start 11/27/20 at 22:45; Stop 11/30/20 at 20:00; Status DC Acetaminophen/ Hydrocodone Bitart (Lortab 5/325) 1 tab PRN Q4HRS PRN PO PAIN MODERATE Last administered on 12/03/20 09:25; Start 11/27/20 at 22:45 Acetaminophen/ Hydrocodone Bitart (Lortab 5/325) 2 tab PRN Q4HRS PRN PO PAIN SEVERE Last administered on 12/02/20 09:44; Start 11/27/20 at 22:45 Albumin Human 500 ml @ 125 mls/hr PRN DAILY PRN IV Hypotension; Start 11/27/20 at 23:00 Magnesium Sulfate 50 ml @ 25 mls/hr 1X ONCE IV Last administered on 11/28/20at 02:15; Start 11/28/20 at 01:45; Stop 11/28/20 at 03:44; Status DC Cefazolin Sodium/ Dextrose 50 ml @ 100 mls/hr Q8HRS IV Last administered on 11/28/20at 06:11; Start 11/28/20 at 06:00; Stop 11/28/20 at 12:08; Status DC Albuterol/ Ipratropium (Duoneb) 3 ml RTQID NEB ; Start 11/28/20 at 12:00; Stop 11/28/20 at 10:59; Status DC Potassium Chloride (Klor-Con) 40 meq 1X ONCE PO ; Start 11/28/20 at 11:00; Stop 11/28/20 at 11:01; Status UNV Potassium Bicarbonate (Potassium Effervescent Tablet) 40 meq 1X ONCE PO ; Start 11/28/20 at 11:00; Stop 11/28/20 at 11:01; Status UNV Potassium Chloride/Water 100 ml @ 100 mls/hr Q1H IV ; Start 11/28/20 at 11:00; Stop 11/28/20 at 12:59; Status UNV Potassium Chloride/Water 100 ml @ 100 mls/hr Q1H IV ; Start 11/28/20 at 11:00; Stop 11/28/20 at 18:59; Status UNV Potassium Chloride/Water 100 ml @ 100 mls/hr Q1HR IV ; Start 11/28/20 at 11:00; Stop 11/28/20 at 16:59; Status UNV Magnesium Sulfate 100 ml @ 50 mls/hr DAILY IV ; Start 11/29/20 at 09:00; Stop 12/02/20 at 08:59; Status UNV Potassium Phos/ Sodium Phos (Phos-Nak) 1 pkt BID PO ; Start 11/28/20 at 21:00; Stop 11/29/20 at 09:01; Status UNV Albuterol Sulfate (Ventolin Neb Soln) 2.5 mg PRN QID PRN NEB SHORTNESS OF BREATH; Start 11/28/20 at 11:15 Info (Icu Electrolyte Protocol) 1 ea CONT PRN PRN MC SEE COMMENTS; Start 11/28 at 11:00; Stop 12/03/20 at 09:39; Status DC Piperacillin Sod/ Tazobactam Sod (Zosyn Per Pharmacy) 1 each PRN DAILY PRN MC S EE COMMENTS; Start 11/28/20 at 12:15 Piperacillin Sod/ Tazobactam Sod 3.375 gm/Sodium Chloride 50 ml @ 100 mls/hr Q6HRS IV Last administered on 12/04/20at 05:19; Start 11/28/20 at 12:30 Micafungin Sodium 100 mg/Dextrose 100 ml @ 100 mls/hr Q24H IV Last a dministered on 12/02/20at 08:17; Start 11/29/20 at 10:00; Stop 12/02/20 at 11:24; Status DC Daptomycin 380 mg/ Sodium Chloride 50 ml @ 100 mls/hr Q24H IV Last administered on 12/03/20at 09:25; Start 11/29/20 at 11:00; Stop 12/03/20 at 09:36; Status DC Cefazolin Sodium 1 gm/Sodium Chloride 500 ml @ 500 mls/hr 1X ONCE IRR Last administered on 11/30/20at 14:20; Start 11/30/20 at 06:00; Stop 11/30/20 at 06:59; Status DC Heparin Sodium (Porcine) 5000 unit/Sodium Chloride 505 ml @ 505 mls/hr 1X ONCE IRR Last administered on 11/30/20at 14:19; Start 11/30/20 at 06:00; Stop 11/30/20 at 06:59; Status DC Fentanyl Citrate (Fentanyl 2ml Vial) 25 mcg PRN Q5MIN PRN IVP MILD PAIN 1-3 Last administered on 11/30/20at 17:03; Start 11/30/20 at 06:00; Stop 12/01/20 at 05:59; Status DC Fentanyl Citrate (Fentanyl 2ml Vial) 50 mcg PRN Q5MIN PRN IVP MODERATE PAIN 4-6 Last administered on 11/30/20at 15:39; Start 11/30/20 at 06:00; Stop 12/01/20 at 05:59; Status DC Morphine Sulfate (Morphine Sulfate) 1 mg PRN Q10MIN PRN IVP SEVERE PAIN 7-10; Start 11/30/20 at 06:00; Stop 12/01/20 at 05:59; Status DC Ringer's Solution 1,000 ml @ 30 mls/hr Q24H IV Last administered on 11/30/20at 05:29; Start 11/30/20 at 06:00; Stop 11/30/20 at 17:59; Status DC Hydromorphone HCl (Dilaudid) 0.5 mg PRN Q10MIN PRN IVP SEVERE PAIN 7-10, 2nd CHOICE; Start 11/30/20 at 06:00; Stop 12/01/20 at 05:59; Status DC Prochlorperazine Edisylate (Compazine) 5 mg PACU PRN PRN IVP NAUSEA, MRX1; Start 11/30/20 at 06:00; Stop 12/01/20 at 05:59; Status DC Dexamethasone Sodium Phosphate (Decadron) 4 mg STK-MED ONCE .ROUTE ; Start 11/30/20 at 12:12; Stop 11/30/20 at 12:12; Status DC Ondansetron HCl (Zofran) 4 mg STK-MED ONCE .ROUTE ; Start 11/30/20 at 12:12; Stop 11/30/20 at 12:12; Status DC Propofol (Diprivan) 200 mg STK-MED ONCE IV ; Start 11/30/20 at 12:12; Stop 11/30/20 at 12:12; Status DC Lidocaine HCl (Lidocaine Pf 2% Vial) 5 ml STK-MED ONCE .ROUTE ; Start 11/30/20 at 12:12; Stop 11/30/20 at 12:12; Status DC Iohexol (Omnipaque 300 Mg/ml) 50 ml STK-MED ONCE .ROUTE ; Start 11/30/20 at 13:08; Stop 11/30/20 at 13:08; Status DC Cellulose (Surgicel Hemostat 4x8) 1 each STK-MED ONCE .ROUTE ; Start 11/30/20 at 13:08; Stop 11/30/20 at 13:08; Status DC Cellulose (Surgicel Fibrillar 1x2) 1 each STK-MED ONCE .ROUTE ; Start 11/30/20 at 13:08; Stop 11/30/20 at 13:09; Status DC Fentanyl Citrate (Fentanyl 2ml Vial) 100 mcg STK-MED ONCE .ROUTE ; Start 11/30/20 at 13:37; Stop 11/30/20 at 13:37; Status DC Glycopyrrolate (Robinul) 1 mg STK-MED ONCE .ROUTE ; Start 11/30/20 at 14:10; Stop 11/30/20 at 14:10; Status DC Sevoflurane (Ultane) 60 ml STK-MED ONCE IH ; Start 11/30/20 at 14:37; Stop 11/30/20 at 14:38; Status DC Fentanyl Citrate (Fentanyl 2ml Vial) 100 mcg STK-MED ONCE .ROUTE ; Start 11/30/20 at 15:37; Stop 11/30/20 at 15:37; Status DC Amlodipine Besylate (Norvasc) 5 mg 1X ONCE PO Last administered on 11/30/20at 16:33; Start 11/30/20 at 16:30; Stop 11/30/20 at 16:31; Status DC Hydralazine HCl (Apresoline Inj) 10 mg PRN Q4HRS PRN IVP ELEVATED BP, SEE COMMENTS; Start 11/30/20 at 16:30 Senna/Docusate Sodium (Senna Plus) 1 tab DAILY PO Last administered on 12/03/20at 09:24; Start 12/01/20 at 12:15 Info (Non-Icu Electrolyte Protocol) 1 ea CONT PRN PRN MC SEE COMMENTS; Start 12/03/20 at 09:45 Doxycycline Hyclate (Vibra-Tab) 100 mg BID PO Last administered on 12/04/20at 10:10; Start 12/04/20 at 09:00 Active Scripts Active Reported Vitamin D3 (Vitamin D) 125 Mcg Capsule 125 Mcg PO DAILY 5,000 UNITS = 125 MCG Methotrexate (Methotrexate Sodium) 2.5 Mg Tablet 4 Tab PO WEEKLY Ambien (Zolpidem Tartrate) 5 Mg Tablet 5 Mg PO PRN QHS PRN Gabapentin (Gabapentin) 300 Mg Capsule 300 Mg PO HS Protonix (Pantoprazole Sodium) 40 Mg Tablet.dr 40 Mg PO DAILYAC Folic Acid 0.4 Mg Tablet 0.4 Mg PO DAILY Aspirin 81 Mg Tab.chew 1 Tab PO DAILY Clopidogrel (Clopidogrel Bisulfate) 75 Mg Tablet 1 Tab PO DAILY Coreg (Carvedilol) 6.25 Mg Tablet 6.25 Mg PO BIDWMEALS Vitals/I & O Vital Sign - Last 24 Hours 12/03/20 12/03/20 12/03/20 12/03/20 15:00 18:19 19:00 20:00 Temp 98.4 98.6 98.4 98.6 Pulse 87 88 92 Resp 18 16 B/P (MAP) 148/57 (87) 178/78 (111) Pulse Ox 96 94 O2 Delivery Room Air Room Air Room Air 12/03/20 12/04/20 12/04/20 12/04/20 23:00 03:00 07:00 08:00 Temp 99.1 98.3 98.3 99.1 98.3 98.3 Pulse 86 86 81 Resp 16 17 18 B/P (MAP) 157/61 (93) 174/75 (108) 172/76 (108) Pulse Ox 95 96 95 O2 Delivery Room Air Room Air Room Air Room Air 12/04/20 10:11 Pulse 81 B/P (MAP) 172/76 Intake and Output 12/03/20 12/03/20 12/04/20 15:00 23:00 07:00 Intake Total 565 ml 325 ml 400 ml Output Total 200 ml 400 ml Balance 565 ml 125 ml 0 ml Justicifation of Admission Dx: Justifications for Admission: Justification of Admission Dx: Yes MYNOR FIELDS MD Dec 04, 2020 11:11
[2020-12-04 15:00] VITALS: BP 177/67
[2020-12-04 19:00] VITALS: BP 176/60
[2020-12-04] MEDS: GABAPENTIN 300 MG CAPSULE. PO SCH (20:23)
[2020-12-04 23:00] VITALS: BP 165/67
[2020-12-05 02:56] VITALS: BP 159/71
[2020-12-05] MEDS: PIPERACILLIN/TAZOBACTAM 3.375 GM in IV NORMAL SALINE 50ML 50 ML IV SCH ×3 (05:31→18:46)
[2020-12-05 07:00] VITALS: BP 132/55
[2020-12-05 07:33] LABS: BASO # 0.1 x10^3/uL (0.0-0.2); BASO % 1 % (0-3); EOS # 0.3 x10^3/uL (0.0-0.7); EOS % 3 % (0-3); HEMATOCRIT 27.4 % (36.0-47.0); LYMPH # 1.8 x10^3/uL (1.0-4.8); LYMPH % 15 % (24-48); MEAN CORPUSCULAR HEMOGLOBIN 31 pg (25-35); MEAN CORPUSCULAR HGB CONC 33 g/dL (31-37); MEAN CORPUSCULAR VOLUME 93 fL (79-100); MONO # 1.4 x10^3/uL (0.0-1.1); MONO % 12 % (0-9); NEUT # 8.3 x10^3/uL (1.8-7.7); NEUT % 70 % (31-73); PLATELET COUNT 494 x10^3/uL (140-400); RED BLOOD COUNT 2.94 x10^6/uL (3.50-5.40); RED CELL DISTRIBUTION WIDTH 16.7 % (11.5-14.5)
[2020-12-05 07:48] LABS: CALCIUM 8.9 mg/dL (8.5-10.1); CREATININE 0.7 mg/dL (0.6-1.0); POTASSIUM 4.2 mmol/L (3.5-5.1)
[2020-12-05] MEDS: SENNOSIDES/DOCUSATE 8.6/50MG TABLET. PO SCH (09:00)
--- NOTE | 2020-12-05 09:05 | PDOC ---
PROGRESS NOTES Date of Service DATE: 12/05/20 TIME: 09:04 Assessment Problems Medical Problems: (1) Femoral artery pseudo-aneurysm, right Status: Acute (2) Pseudoaneurysm of femoral artery following procedure Status: Acute Stroke 11/19, she made a good recovery, status-post alteplace, clot retrieval and stent. Encephalopathy related to blood loss anemia, surgery, stress, I do not think she has had a new stroke. Even if she did, management would not be changed. says she is back to normal Status-post repair of femoral pseudoaneurysm; and right sartorius muscle flap with wound VAC placement [facility] records reviewed, note that she had a normal cholesterol Plan Aspirin and clopidogrel Holding off on statin per [facility] neurology Holding off on repeat imaging studies I will follow at intervals Follow-up with [facility] neurology Discussed with . Subjective No complaints, ready to go home with wound VAC Objective Vital Signs Date Time Temp Pulse Resp B/P (MAP) Pulse Ox O2 Delivery O2 Flow Rate FiO2 12/05/20 07:00 97.8 77 16 132/55 (80) 95 Room Air 97.8 Intake and Output 12/05/20 07:00 Intake Total 890 ml Output Total 850 ml Balance 40 ml Intake Oral 740 ml IV Total 150 ml Output Urine Total 850 ml # Voids 2 # Bowel Movements 2 PHYSICAL EXAM Alert. Oriented to person, knows date or the name of the hospital. Names and repeats well, comprehends well PERRL. EOMI. CN: no focal findings. Muscle tone: normal. Muscle strength: 5/5, no pronator drift. DTR: 2+ Plantar reflex: flexor Gait: not examined in bed. Sensory exam: no abnormal findings. No cerebellar signs elicited. Review of Relevant I have reviewed the following items césar (where applicable) has been applied. Labs Laboratory Tests Test 12/05/20 06:55 White Blood Count 12.0 x10^3/uL (4.0-11.0) Red Blood Count 2.94 x10^6/uL (3.50-5.40) Hemoglobin 9.0 g/dL (12.0-15.5) Hematocrit 27.4 % (36.0-47.0) Mean Corpuscular Volume 93 fL (79-100) Mean Corpuscular Hemoglobin 31 pg (25-35) Mean Corpuscular Hemoglobin Concent 33 g/dL (31-37) Red Cell Distribution Width 16.7 % (11.5-14.5) Platelet Count 494 x10^3/uL (140-400) Neutrophils (%) (Auto) 70 % (31-73) Lymphocytes (%) (Auto) 15 % (24-48) Monocytes (%) (Auto) 12 % (0-9) Eosinophils (%) (Auto) 3 % (0-3) Basophils (%) (Auto) 1 % (0-3) Neutrophils # (Auto) 8.3 x10^3/uL (1.8-7.7) Lymphocytes # (Auto) 1.8 x10^3/uL (1.0-4.8) Monocytes # (Auto) 1.4 x10^3/uL (0.0-1.1) Eosinophils # (Auto) 0.3 x10^3/uL (0.0-0.7) Basophils # (Auto) 0.1 x10^3/uL (0.0-0.2) Sodium Level 141 mmol/L (136-145) Potassium Level 4.2 mmol/L (3.5-5.1) Chloride Level 105 mmol/L (98-107) Carbon Dioxide Level 31 mmol/L (21-32) Anion Gap 5 (6-14) Blood Urea Nitrogen 11 mg/dL (7-20) Creatinine 0.7 mg/dL (0.6-1.0) Estimated GFR (Cockcroft-Gault) 83.0 Glucose Level 112 mg/dL (70-99) Calcium Level 8.9 mg/dL (8.5-10.1) Laboratory Tests Test 12/05/20 06:55 White Blood Count 12.0 x10^3/uL (4.0-11.0) Red Blood Count 2.94 x10^6/uL (3.50-5.40) Hemoglobin 9.0 g/dL (12.0-15.5) Hematocrit 27.4 % (36.0-47.0) Mean Corpuscular Volume 93 fL (79-100) Mean Corpuscular Hemoglobin 31 pg (25-35) Mean Corpuscular Hemoglobin Concent 33 g/dL (31-37) Red Cell Distribution Width 16.7 % (11.5-14.5) Platelet Count 494 x10^3/uL (140-400) Neutrophils (%) (Auto) 70 % (31-73) Lymphocytes (%) (Auto) 15 % (24-48) Monocytes (%) (Auto) 12 % (0-9) Eosinophils (%) (Auto) 3 % (0-3) Basophils (%) (Auto) 1 % (0-3) Neutrophils # (Auto) 8.3 x10^3/uL (1.8-7.7) Lymphocytes # (Auto) 1.8 x10^3/uL (1.0-4.8) Monocytes # (Auto) 1.4 x10^3/uL (0.0-1.1) Eosinophils # (Auto) 0.3 x10^3/uL (0.0-0.7) Basophils # (Auto) 0.1 x10^3/uL (0.0-0.2) Sodium Level 141 mmol/L (136-145) Potassium Level 4.2 mmol/L (3.5-5.1) Chloride Level 105 mmol/L (98-107) Carbon Dioxide Level 31 mmol/L (21-32) Anion Gap 5 (6-14) Blood Urea Nitrogen 11 mg/dL (7-20) Creatinine 0.7 mg/dL (0.6-1.0) Estimated GFR (Cockcroft-Gault) 83.0 Glucose Level 112 mg/dL (70-99) Calcium Level 8.9 mg/dL (8.5-10.1) Microbiology 11/28/20 Urine Culture - Final, Complete Medications Current Medications Sodium Chloride 500 ml @ 500 mls/hr 1X ONCE IV Last administered on 11/27/20at 18:52; Start 11/27/20 at 18:00; Stop 11/27/20 at 18:59; Status DC Ondansetron HCl (Zofran) 4 mg 1X ONCE IV Last administered on 11/27/20at 18:50; Start 11/27/20 at 18:15; Stop 11/27/20 at 18:16; Status DC Fentanyl Citrate (Fentanyl 2ml Vial) 50 mcg 1X ONCE IV Last administered on 11/27/20at 18:52; Start 11/27/20 at 18:15; Stop 11/27/20 at 18:16; Status DC Lidocaine HCl (Lidocaine Pf 2% Vial) 5 ml STK-MED ONCE .ROUTE ; Start 11/27/20 at 19:11; Stop 11/27/20 at 19:11; Status DC Propofol (Diprivan) 200 mg STK-MED ONCE IV ; Start 11/27/20 at 19:11; Stop 11/27/20 at 19:11; Status DC Phenylephrine HCl (PHENYLEPHRINE in 0.9% NACL PF) 1 mg STK-MED ONCE IV ; Start 11/27/20 at 19:11; Stop 11/27/20 at 19:11; Status DC Rocuronium Edmonson (Zemuron) 50 mg STK-MED ONCE .ROUTE ; Start 11/27/20 at 19:11; Stop 11/27/20 at 19:11; Status DC Heparin Sodium (Porcine) 5000 unit/Sodium Chloride 505 ml @ 505 mls/hr 1X ONCE IRR Last administered on 11/27/20at 19:55; Start 11/27/20 at 20:00; Stop 11/27/20 at 20:59; Status DC Cellulose (Surgicel Fibrillar 1x2) 1 each STK-MED ONCE .ROUTE Last administered on 11/27/20at 19:55; Start 11/27/20 at 19:29; Stop 11/27/20 at 19:30; Status DC Cefazolin Sodium (Ancef) 1 gm STK-MED ONCE IVP ; Start 11/27/20 at 19:38; Stop 11/27/20 at 19:38; Status DC Fentanyl Citrate (Fentanyl 2ml Vial) 25 mcg PRN Q5MIN PRN IVP MILD PAIN 1-3; Start 11/27/20 at 20:15; Stop 11/28/20 at 20:14; Status DC Fentanyl Citrate (Fentanyl 2ml Vial) 50 mcg PRN Q5MIN PRN IVP MODERATE PAIN 4- 6; Start 11/27/20 at 20:15; Stop 11/28/20 at 20:14; Status DC Morphine Sulfate (Morphine Sulfate) 1 mg PRN Q10MIN PRN IVP SEVERE PAIN 7-10; Start 11/27/20 at 20:15; Stop 11/28/20 at 20:14; Status DC Ringer's Solution 1,000 ml @ 30 mls/hr Q24H IV ; Start 11/27/20 at 20:15; Stop 11/28/20 at 08:14; Status DC Hydromorphone HCl (Dilaudid) 0.5 mg PRN Q10MIN PRN IVP SEVERE PAIN 7-10, 2nd CHOICE; Start 11/27/20 at 20:15; Stop 11/28/20 at 20:14; Status DC Prochlorperazine Edisylate (Compazine) 5 mg PACU PRN PRN IVP NAUSEA, MRX1; Start 11/27/20 at 20:15; Stop 11/28/20 at 20:14; Status DC Heparin Sodium (Porcine) (Heparin Sodium) 10,000 unit STK-MED ONCE .ROUTE ; Start 11/27/20 at 20:07; Stop 11/27/20 at 20:07; Status DC Heparin Sodium (Porcine) (Heparin Sodium) 10,000 unit STK-MED ONCE .ROUTE ; Start 11/27/20 at 20:10; Stop 11/27/20 at 20:10; Status DC Fentanyl Citrate (Fentanyl 2ml Vial) 100 mcg STK-MED ONCE .ROUTE ; Start 11/27/20 at 20:11; Stop 11/27/20 at 20:12; Status DC Propofol (Diprivan) 200 mg STK-MED ONCE IV ; Start 11/27/20 at 20:13; Stop 11/27/20 at 20:14; Status DC Protamine Sulfate (Protamine) 50 mg STK-MED ONCE IV ; Start 11/27/20 at 20:44; Stop 11/27/20 at 20:44; Status DC Sevoflurane (Ultane) 60 ml STK-MED ONCE IH ; Start 11/27/20 at 20:44; Stop 11/27/20 at 20:44; Status DC Olanzapine (ZyPREXA ZYDIS) 5 mg PRN BID PRN PO ANXIETY / AGITATION; Start 11/27/20 at 22:00 Acetaminophen (Tylenol) 650 mg PRN Q6HRS PRN PO MILD PAIN / TEMP > 100.3'F; Start 11/27/20 at 22:00 Ondansetron HCl (Zofran) 4 mg PRN Q4HRS PRN IVP NAUSEA/VOMITING; Start 11/27/20 at 22:00 Hydralazine HCl (Apresoline Inj) 20 mg STK-MED ONCE .ROUTE ; Start 11/27/20 at 21:56; Stop 11/27/20 at 21:56; Status DC Fentanyl Citrate (Fentanyl 2ml Vial) 25 mcg PRN Q2HR PRN IVP PAIN Last administered on 12/02/20 09:17; Start 11/27/20 at 22:00 Carvedilol (Coreg) 3.125 mg BIDWMEALS PO Last administered on 12/04/20 17:35; Start 11/28/20 at 08:00 Gabapentin (Neurontin) 300 mg HS PO Last administered on 12/04/20 20:23; Start 11/27/20 at 22:15 Pantoprazole Sodium (Protonix) 40 mg DAILYAC PO Last administered on 12/04/20 10:10; Start 11/28/20 at 07:30 Zolpidem Tartrate (Ambien) 5 mg PRN QHS PRN PO INSOMNIA; Start 11/27/20 at 22:15 Folic Acid (Folic Acid) 1 mg DAILY PO Last administered on 12/04/20 10:10; Start 11/28/20 at 09:00 Aspirin (Aspirin Chewable) 81 mg DAILY08 PO Last administered on 12/04/20 10:10; Start 11/28/20 at 08:00 Vitamin D (Vitamin D3) 5,000 unit DAILY PO Last administered on 12/04/20 10:10; Start 11/28/20 at 09:00 Clopidogrel Bisulfate (Plavix) 75 mg DAILY08 PO Last administered on 12/04/20 10:10; Start 11/28/20 at 08:00 Sodium Chloride 1,000 ml @ 80 mls/hr [id number] IV Last administered on 11/29/20 20:48; Start 11/27/20 at 22:45; Stop 11/30/20 at 20:00; Status DC Acetaminophen/ Hydrocodone Bitart (Lortab 5/325) 1 tab PRN Q4HRS PRN PO PAIN MODERATE Last administered on 12/03/20 09:25; Start 11/27/20 at 22:45 Acetaminophen/ Hydrocodone Bitart (Lortab 5/325) 2 tab PRN Q4HRS PRN PO PAIN SEVERE Last administered on 12/02/20 09:44; Start 11/27/20 at 22:45 Albumin Human 500 ml @ 125 mls/hr PRN DAILY PRN IV Hypotension; Start 11/27/20 at 23:00 Magnesium Sulfate 50 ml @ 25 mls/hr 1X ONCE IV Last administered on 11/28/20at 02:15; Start 11/28/20 at 01:45; Stop 11/28/20 at 03:44; Status DC Cefazolin Sodium/ Dextrose 50 ml @ 100 mls/hr Q8HRS IV Last administered on 11/28/20at 06:11; Start 11/28/20 at 06:00; Stop 11/28/20 at 12:08; Status DC Albuterol/ Ipratropium (Duoneb) 3 ml RTQID NEB ; Start 11/28/20 at 12:00; Stop 11/28/20 at 10:59; Status DC Potassium Chloride (Klor-Con) 40 meq 1X ONCE PO ; Start 11/28/20 at 11:00; Stop 11/28/20 at 11:01; Status UNV Potassium Bicarbonate (Potassium Effervescent Tablet) 40 meq 1X ONCE PO ; Start 11/28/20 at 11:00; Stop 11/28/20 at 11:01; Status UNV Potassium Chloride/Water 100 ml @ 100 mls/hr Q1H IV ; Start 11/28/20 at 11:00; Stop 11/28/20 at 12:59; Status UNV Potassium Chloride/Water 100 ml @ 100 mls/hr Q1H IV ; Start 11/28/20 at 11:00; Stop 11/28/20 at 18:59; Status UNV Potassium Chloride/Water 100 ml @ 100 mls/hr Q1HR IV ; Start 11/28/20 at 11:00; Stop 11/28/20 at 16:59; Status UNV Magnesium Sulfate 100 ml @ 50 mls/hr DAILY IV ; Start 11/29/20 at 09:00; Stop 12/02/20 at 08:59; Status UNV Potassium Phos/ Sodium Phos (Phos-Nak) 1 pkt BID PO ; Start 11/28/20 at 21:00; Stop 11/29/20 at 09:01; Status UNV Albuterol Sulfate (Ventolin Neb Soln) 2.5 mg PRN QID PRN NEB SHORTNESS OF BREATH; Start 11/28/20 at 11:15 Info (Icu Electrolyte Protocol) 1 ea CONT PRN PRN MC SEE COMMENTS; Start 11/28/20 at 11:00; Stop 12/03/20 at 09:39; Status DC Piperacillin Sod/ Tazobactam Sod (Zosyn Per Pharmacy) 1 each PRN DAILY PRN MC SEE COMMENTS; Start 11/28/20 at 12:15 Piperacillin Sod/ Tazobactam Sod 3.375 gm/Sodium Chloride 50 ml @ 100 mls/hr Q6HRS IV Last administered on 12/05/20at 05:31; Start 11/28/20 at 12:30 Micafungin Sodium 100 mg/Dextrose 100 ml @ 100 mls/hr Q24H IV Last administered on 12/02/20at 08:17; Start 11/29/20 at 10:00; Stop 12/02/20 at 11:24; Status DC Daptomycin 380 mg/ Sodium Chloride 50 ml @ 100 mls/hr Q24H IV Last administered on 12/03/20at 09:25; Start 11/29/20 at 11:00; Stop 12/03/20 at 09:36; Status DC Cefazolin Sodium 1 gm/Sodium Chloride 500 ml @ 500 mls/hr 1X ONCE IRR Last administered on 11/30/20at 14:20; Start 11/30/20 at 06:00; Stop 11/30/20 at 06:59; Status DC Heparin Sodium (Porcine) 5000 unit/Sodium Chloride 505 ml @ 505 mls/hr 1X ONCE IRR Last administered on 11/30/20at 14:19; Start 11/30/20 at 06:00; Stop 11/30/20 at 06:59; Status DC Fentanyl Citrate (Fentanyl 2ml Vial) 25 mcg PRN Q5MIN PRN IVP MILD PAIN 1-3 Last administered on 11/30/20at 17:03; Start 11/30/20 at 06:00; Stop 12/01/20 at 05:59; Status DC Fentanyl Citrate (Fentanyl 2ml Vial) 50 mcg PRN Q5MIN PRN IVP MODERATE PAIN 4-6 Last administered on 11/30/20at 15:39; Start 11/30/20 at 06:00; Stop 12/01/20 at 05:59; Status DC Morphine Sulfate (Morphine Sulfate) 1 mg PRN Q10MIN PRN IVP SEVERE PAIN 7-10; Start 11/30/20 at 06:00; Stop 12/01/20 at 05:59; Status DC Ringer's Solution 1,000 ml @ 30 mls/hr Q24H IV Last administered on 11/30/20at 05:29; Start 11/30/20 at 06:00; Stop 11/30/20 at 17:59; Status DC Hydromorphone HCl (Dilaudid) 0.5 mg PRN Q10MIN PRN IVP SEVERE PAIN 7-10, 2nd CHOICE; Start 11/30/20 at 06:00; Stop 12/01/20 at 05:59; Status DC Prochlorperazine Edisylate (Compazine) 5 mg PACU PRN PRN IVP NAUSEA, MRX1; Start 11/30/20 at 06:00; Stop 12/01/20 at 05:59; Status DC Dexamethasone Sodium Phosphate (Decadron) 4 mg STK-MED ONCE .ROUTE ; Start 11/30/20 at 12:12; Stop 11/30/20 at 12:12; Status DC Ondansetron HCl (Zofran) 4 mg STK-MED ONCE .ROUTE ; Start 11/30/20 at 12:12; Stop 11/30/20 at 12:12; Status DC Propofol (Diprivan) 200 mg STK-MED ONCE IV ; Start 11/30/20 at 12:12; Stop 11/30/20 at 12:12; Status DC Lidocaine HCl (Lidocaine Pf 2% Vial) 5 ml STK-MED ONCE .ROUTE ; Start 11/30/20 at 12:12; Stop 11/30/20 at 12:12; Status DC Iohexol (Omnipaque 300 Mg/ml) 50 ml STK-MED ONCE .ROUTE ; Start 11/30/20 at 13:08; Stop 11/30/20 at 13:08; Status DC Cellulose (Surgicel Hemostat 4x8) 1 each STK-MED ONCE .ROUTE ; Start 11/30/20 at 13:08; Stop 11/30/20 at 13:08; Status DC Cellulose (Surgicel Fibrillar 1x2) 1 each STK-MED ONCE .ROUTE ; Start 11/30/20 at 13:08; Stop 11/30/20 at 13:09; Status DC Fentanyl Citrate (Fentanyl 2ml Vial) 100 mcg STK-MED ONCE .ROUTE ; Start 11/30/20 at 13:37; Stop 11/30/20 at 13:37; Status DC Glycopyrrolate (Robinul) 1 mg STK-MED ONCE .ROUTE ; Start 11/30/20 at 14:10; Stop 11/30/20 at 14:10; Status DC Sevoflurane (Ultane) 60 ml STK-MED ONCE IH ; Start 11/30/20 at 14:37; Stop 11/30/20 at 14:38; Status DC Fentanyl Citrate (Fentanyl 2ml Vial) 100 mcg STK-MED ONCE .ROUTE ; Start 11/30/20 at 15:37; Stop 11/30/20 at 15:37; Status DC Amlodipine Besylate (Norvasc) 5 mg 1X ONCE PO Last administered on 11/30/20at 16:33; Start 11/30/20 at 16:30; Stop 11/30/20 at 16:31; Status DC Hydralazine HCl (Apresoline Inj) 10 mg PRN Q4HRS PRN IVP ELEVATED BP, SEE COMMENTS; Start 11/30/20 at 16:30 Senna/Docusate Sodium (Senna Plus) 1 tab DAILY PO Last administered on 12/03/20at 09:24; Start 12/01/20 at 12:15 Info (Non-Icu Electrolyte Protocol) 1 ea CONT PRN PRN MC SEE COMMENTS; Start 12/03/20 at 09:45 Doxycycline Hyclate (Vibra-Tab) 100 mg BID PO Last administered on 12/04/20at 20:23; Start 12/04/20 at 09:00 Active Scripts Active Reported Vitamin D3 (Vitamin D) 125 Mcg Capsule 125 Mcg PO DAILY 5,000 UNITS = 125 MCG Methotrexate (Methotrexate Sodium) 2.5 Mg Tablet 4 Tab PO WEEKLY Ambien (Zolpidem Tartrate) 5 Mg Tablet 5 Mg PO PRN QHS PRN Gabapentin (Gabapentin) 300 Mg Capsule 300 Mg PO HS Protonix (Pantoprazole Sodium) 40 Mg Tablet.dr 40 Mg PO DAILYAC Folic Acid 0.4 Mg Tablet 0.4 Mg PO DAILY Aspirin 81 Mg Tab.chew 1 Tab PO DAILY Clopidogrel (Clopidogrel Bisulfate) 75 Mg Tablet 1 Tab PO DAILY Coreg (Carvedilol) 6.25 Mg Tablet 6.25 Mg PO BIDWMEALS Vitals/I & O Vital Sign - Last 24 Hours 12/04/20 12/04/20 12/04/20 12/04/20 10:11 11:00 15:00 17:35 Temp 98.5 98.9 98.5 98.9 Pulse 81 83 85 85 Resp 18 18 B/P (MAP) 172/76 139/55 (83) 177/67 (103) 177/67 Pulse Ox 95 95 O2 Delivery Room Air Room Air 12/04/20 12/04/20 12/04/20 12/05/20 19:00 19:53 23:00 02:56 Temp 98.9 98.1 98.1 98.9 98.1 98.1 Pulse 94 86 91 Resp 18 16 16 B/P (MAP) 176/60 (98) 165/67 (99) 159/71 (100) Pulse Ox 95 97 96 O2 Delivery Room Air Room Air Room Air Room Air 12/05/20 07:00 Temp 97.8 97.8 Pulse 77 Resp 16 B/P (MAP) 132/55 (80) Pulse Ox 95 O2 Delivery Room Air Intake and Output 12/04/20 12/04/20 12/05/20 15:00 23:00 07:00 Intake Total 475 ml 315 ml 100 ml Output Total 850 ml Balance 475 ml 315 ml -750 ml Justicifation of Admission Dx: Justifications for Admission: Justification of Admission Dx: Yes JOHNNY QUIÑONEZ MD Dec 05, 2020 09:05
--- NOTE | 2020-12-05 09:08 | PDOC ---
Infectious Disease Note Subjective Subjective pt is feeling good, has no complaints ROS ROS no n/v/d/sob/fever Vital Sign Vital Signs Vital Signs Date Time Temp Pulse Resp B/P (MAP) Pulse Ox O2 Delivery O2 Flow Rate FiO2 12/05/20 07:00 97.8 77 16 132/55 (80) 95 Room Air 97.8 Physical Exam PHYSICAL EXAM GENERAL: Alert, awake female, lying in bed comfortably, in no acute distress. HEENT: Normocephalic, atraumatic. Anicteric. NECK: Supple. LUNGS: Clear. HEART: S1, S2. No murmurs. ABDOMEN: Soft, bruise present over the right lower abdominal area No rebound, no guarding. EXTREMITIES: bruising right lower abdomen improving Wound VAC in place. Right leg groin ecchymosis and swelling improving , no fluctuance, no cyanosis, no clubbing. DERMATOLOGIC: Warm, dry, no generalized rash except for above. NEUROLOGIC: Alert, oriented x3. Normal speech. PSYCHIATRIC: Calm and cooperative. Labs Lab Laboratory Tests Test 12/05/20 06:55 White Blood Count 12.0 x10^3/uL (4.0-11.0) Red Blood Count 2.94 x10^6/uL (3.50-5.40) Hemoglobin 9.0 g/dL (12.0-15.5) Hematocrit 27.4 % (36.0-47.0) Mean Corpuscular Volume 93 fL (79-100) Mean Corpuscular Hemoglobin 31 pg (25-35) Mean Corpuscular Hemoglobin Concent 33 g/dL (31-37) Red Cell Distribution Width 16.7 % (11.5-14.5) Platelet Count 494 x10^3/uL (140-400) Neutrophils (%) (Auto) 70 % (31-73) Lymphocytes (%) (Auto) 15 % (24-48) Monocytes (%) (Auto) 12 % (0-9) Eosinophils (%) (Auto) 3 % (0-3) Basophils (%) (Auto) 1 % (0-3) Neutrophils # (Auto) 8.3 x10^3/uL (1.8-7.7) Lymphocytes # (Auto) 1.8 x10^3/uL (1.0-4.8) Monocytes # (Auto) 1.4 x10^3/uL (0.0-1.1) Eosinophils # (Auto) 0.3 x10^3/uL (0.0-0.7) Basophils # (Auto) 0.1 x10^3/uL (0.0-0.2) Sodium Level 141 mmol/L (136-145) Potassium Level 4.2 mmol/L (3.5-5.1) Chloride Level 105 mmol/L (98-107) Carbon Dioxide Level 31 mmol/L (21-32) Anion Gap 5 (6-14) Blood Urea Nitrogen 11 mg/dL (7-20) Creatinine 0.7 mg/dL (0.6-1.0) Estimated GFR (Cockcroft-Gault) 83.0 Glucose Level 112 mg/dL (70-99) Calcium Level 8.9 mg/dL (8.5-10.1) Micro Microbiology 11/28/20 Urine Culture - Final, Complete Objective Assessment 1. Large right groin pseudoaneurysm with hematoma, Status post emergent open repair of the right femoral artery pseudoaneurysm using bovine pericardial patch angioplasty. November 30, 2020 S/P Coverage of the right femoral artery repair requiring sartorius muscle flap, Wound VAC placement. Underwent dressing earlier today, vascular team input noted 2. Status post treatment with TPA on 11/18/2020 for right-sided weakness. 3. 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 4. Leukocytosis could have a reactive component. Improved 5. Severe acute blood loss anemia, status post blood transfusion. 6. History of rheumatoid arthritis, on methotrexate. 7. Hypertension/hyperlipidemia 8. Gastroesophageal reflux disease. 9. Protein calorie malnutrition. 10. Hyponatremia. 11. Constipation Plan Plan of Care 1. Continue Zosyn, Doxycycline 2. Continue wound/VAC care as directed. 3. Follow up labs and cultures. 4 Continue supportive care. D/W at bedside will d/w vascular surgery for antibiotics /oral vs iv or none KRYSTAL LÓPEZ MD Dec 05, 2020 09:08
[2020-12-05] MEDS: HYDROcodone/APAP 5/325MG 1 TAB TABLET PO PRN (09:19)
[2020-12-05] MEDS: PANTOPRAZOLE 40 MG TABLET.DR. PO SCH (09:21)
[2020-12-05] MEDS: FOLIC ACID 1 MG TABLET. PO SCH (09:21)
[2020-12-05] MEDS: CHOLECALCIFEROL (VITAMIN D3) 5,000 UNIT CAPSULE PO SCH (09:22)
[2020-12-05] MEDS: CLOPIDOGREL BISULFATE 75 MG TABLET PO SCH (09:22)
[2020-12-05] MEDS: ASPIRIN CHEWABLE 81 MG TABLET. PO SCH (09:22)
[2020-12-05] MEDS: DOXYCYCLINE HYCLATE 100 MG TABLET PO SCH (09:22)
[2020-12-05] MEDS: CARVEDILOL 3.125 MG TABLET. PO SCH ×2 (09:25→18:45)
[2020-12-05 11:00] VITALS: BP 138/63
--- NOTE | 2020-12-05 11:39 | PDOC ---
PROGRESS NOTES Date of Service DATE: 12/05/20 TIME: 11:34 Subjective Subjective Patient seen and examined with Dr. Vergara. Patient's at bedside. Patient complains of mild discomfort during wound VAC change. Objective Objective Vital Signs Date Time Temp Pulse Resp B/P (MAP) Pulse Ox O2 Delivery O2 Flow Rate FiO2 12/05/20 09:49 95 Room Air 12/05/20 09:25 77 132/55 12/05/20 07:00 97.8 16 97.8 12/02/20 09:47 10.0 Intake and Output 12/05/20 07:00 Intake Total 890 ml Output Total 850 ml Balance 40 ml Intake Oral 740 ml IV Total 150 ml Output Urine Total 850 ml # Voids 2 # Bowel Movements 2 Physical Exam Physical Exam Awake and alert Vital signs stable, afebrile Right groin with diffuse ecchymosis, wound examined, muscle flap intact with red beefy tissue. Small amount of necrotic tissue in distal wound. This was sharply debrided leading to some tunneling distally. Most of the skin edges are intact, small area of discoloration distal incision. Foot warm, pink. Assessment Assessment Problems Medical Problems: (1) Femoral artery pseudo-aneurysm, right Status: Acute (2) Pseudoaneurysm of femoral artery following procedure Status: Acute Plan Plan of Care Right lower extremity pseudoaneurysm--patient is status post femoral artery repair and pseudoaneurysm excision. This was complicated by postoperative infection. Status post washout and sartorius flap placement. Continue wound vac therapy. Recommend continuing IV Antibiotics for now, discussed with Dr. Briones. Comment Review of Relevant I have reviewed the following items césar (where applicable) has been applied. Labs Laboratory Tests Test 12/05/20 06:55 White Blood Count 12.0 x10^3/uL (4.0-11.0) Red Blood Count 2.94 x10^6/uL (3.50-5.40) Hemoglobin 9.0 g/dL (12.0-15.5) Hematocrit 27.4 % (36.0-47.0) Mean Corpuscular Volume 93 fL (79-100) Mean Corpuscular Hemoglobin 31 pg (25-35) Mean Corpuscular Hemoglobin Concent 33 g/dL (31-37) Red Cell Distribution Width 16.7 % (11.5-14.5) Platelet Count 494 x10^3/uL (140-400) Neutrophils (%) (Auto) 70 % (31-73) Lymphocytes (%) (Auto) 15 % (24-48) Monocytes (%) (Auto) 12 % (0-9) Eosinophils (%) (Auto) 3 % (0-3) Basophils (%) (Auto) 1 % (0-3) Neutrophils # (Auto) 8.3 x10^3/uL (1.8-7.7) Lymphocytes # (Auto) 1.8 x10^3/uL (1.0-4.8) Monocytes # (Auto) 1.4 x10^3/uL (0.0-1.1) Eosinophils # (Auto) 0.3 x10^3/uL (0.0-0.7) Basophils # (Auto) 0.1 x10^3/uL (0.0-0.2) Sodium Level 141 mmol/L (136-145) Potassium Level 4.2 mmol/L (3.5-5.1) Chloride Level 105 mmol/L (98-107) Carbon Dioxide Level 31 mmol/L (21-32) Anion Gap 5 (6-14) Blood Urea Nitrogen 11 mg/dL (7-20) Creatinine 0.7 mg/dL (0.6-1.0) Estimated GFR (Cockcroft-Gault) 83.0 Glucose Level 112 mg/dL (70-99) Calcium Level 8.9 mg/dL (8.5-10.1) Laboratory Tests Test 12/05/20 06:55 White Blood Count 12.0 x10^3/uL (4.0-11.0) Red Blood Count 2.94 x10^6/uL (3.50-5.40) Hemoglobin 9.0 g/dL (12.0-15.5) Hematocrit 27.4 % (36.0-47.0) Mean Corpuscular Volume 93 fL (79-100) Mean Corpuscular Hemoglobin 31 pg (25-35) Mean Corpuscular Hemoglobin Concent 33 g/dL (31-37) Red Cell Distribution Width 16.7 % (11.5-14.5) Platelet Count 494 x10^3/uL (140-400) Neutrophils (%) (Auto) 70 % (31-73) Lymphocytes (%) (Auto) 15 % (24-48) Monocytes (%) (Auto) 12 % (0-9) Eosinophils (%) (Auto) 3 % (0-3) Basophils (%) (Auto) 1 % (0-3) Neutrophils # (Auto) 8.3 x10^3/uL (1.8-7.7) Lymphocytes # (Auto) 1.8 x10^3/uL (1.0-4.8) Monocytes # (Auto) 1.4 x10^3/uL (0.0-1.1) Eosinophils # (Auto) 0.3 x10^3/uL (0.0-0.7) Basophils # (Auto) 0.1 x10^3/uL (0.0-0.2) Sodium Level 141 mmol/L (136-145) Potassium Level 4.2 mmol/L (3.5-5.1) Chloride Level 105 mmol/L (98-107) Carbon Dioxide Level 31 mmol/L (21-32) Anion Gap 5 (6-14) Blood Urea Nitrogen 11 mg/dL (7-20) Creatinine 0.7 mg/dL (0.6-1.0) Estimated GFR (Cockcroft-Gault) 83.0 Glucose Level 112 mg/dL (70-99) Calcium Level 8.9 mg/dL (8.5-10.1) Microbiology 11/28/20 Urine Culture - Final, Complete Medications Current Medications Sodium Chloride 500 ml @ 500 mls/hr 1X ONCE IV Last administered on 11/27/20at 18:52; Start 11/27/20 at 18:00; Stop 11/27/20 at 18:59; Status DC Ondansetron HCl (Zofran) 4 mg 1X ONCE IV Last administered on 11/27/20at 18:50; Start 11/27/20 at 18:15; Stop 11/27/20 at 18:16; Status DC Fentanyl Citrate (Fentanyl 2ml Vial) 50 mcg 1X ONCE IV Last administered on 11/27/20at 18:52; Start 11/27/20 at 18:15; Stop 11/27/20 at 18:16; Status DC Lidocaine HCl (Lidocaine Pf 2% Vial) 5 ml STK-MED ONCE .ROUTE ; Start 11/27/20 at 19:11; Stop 11/27/20 at 19:11; Status DC Propofol (Diprivan) 200 mg STK-MED ONCE IV ; Start 11/27/20 at 19:11; Stop 11/27/20 at 19:11; Status DC Phenylephrine HCl (PHENYLEPHRINE in 0.9% NACL PF) 1 mg STK-MED ONCE IV ; Start 11/27/20 at 19:11; Stop 11/27/20 at 19:11; Status DC Rocuronium Cascade (Zemuron) 50 mg STK-MED ONCE .ROUTE ; Start 11/27/20 at 19:11; Stop 11/27/20 at 19:11; Status DC Heparin Sodium (Porcine) 5000 unit/Sodium Chloride 505 ml @ 505 mls/hr 1X ONCE IRR Last administered on 11/27/20at 19:55; Start 11/27/20 at 20:00; Stop 11/27/20 at 20:59; Status DC Cellulose (Surgicel Fibrillar 1x2) 1 each STK-MED ONCE .ROUTE Last administered on 11/27/20at 19:55; Start 11/27/20 at 19:29; Stop 11/27/20 at 19:30; Status DC Cefazolin Sodium (Ancef) 1 gm STK-MED ONCE IVP ; Start 11/27/20 at 19:38; Stop 11/27/20 at 19:38; Status DC Fentanyl Citrate (Fentanyl 2ml Vial) 25 mcg PRN Q5MIN PRN IVP MILD PAIN 1-3; Start 11/27/20 at 20:15; Stop 11/28/20 at 20:14; Status DC Fentanyl Citrate (Fentanyl 2ml Vial) 50 mcg PRN Q5MIN PRN IVP MODERATE PAIN 4- 6; Start 11/27/20 at 20:15; Stop 11/28/20 at 20:14; Status DC Morphine Sulfate (Morphine Sulfate) 1 mg PRN Q10MIN PRN IVP SEVERE PAIN 7-10; Start 11/27/20 at 20:15; Stop 11/28/20 at 20:14; Status DC Ringer's Solution 1,000 ml @ 30 mls/hr Q24H IV ; Start 11/27/20 at 20:15; Stop 11/28/20 at 08:14; Status DC Hydromorphone HCl (Dilaudid) 0.5 mg PRN Q10MIN PRN IVP SEVERE PAIN 7-10, 2nd CHOICE; Start 11/27/20 at 20:15; Stop 11/28/20 at 20:14; Status DC Prochlorperazine Edisylate (Compazine) 5 mg PACU PRN PRN IVP NAUSEA, MRX1; Start 11/27/20 at 20:15; Stop 11/28/20 at 20:14; Status DC Heparin Sodium (Porcine) (Heparin Sodium) 10,000 unit STK-MED ONCE .ROUTE ; Start 11/27/20 at 20:07; Stop 11/27/20 at 20:07; Status DC Heparin Sodium (Porcine) (Heparin Sodium) 10,000 unit STK-MED ONCE .ROUTE ; Start 11/27/20 at 20:10; Stop 11/27/20 at 20:10; Status DC Fentanyl Citrate (Fentanyl 2ml Vial) 100 mcg STK-MED ONCE .ROUTE ; Start at 20:11; Stop 11/27/20 at 20:12; Status DC Propofol (Diprivan) 200 mg STK-MED ONCE IV ; Start 11/27/20 at 20:13; Stop 11/27 at 20:14; Status DC Protamine Sulfate (Protamine) 50 mg STK-MED ONCE IV ; Start 11/27/20 at 20:44; Stop 11/27/20 at 20:44; Status DC Sevoflurane (Ultane) 60 ml STK-MED ONCE IH ; Start 11/27/20 at 20:44; Stop 11/27/20 at 20:44; Status DC Olanzapine (ZyPREXA ZYDIS) 5 mg PRN BID PRN PO ANXIETY / AGITATION; Start 11/27/20 at 22:00 Acetaminophen (Tylenol) 650 mg PRN Q6HRS PRN PO MILD PAIN / TEMP > 100.3'F; Start 11/27/20 at 22:00 Ondansetron HCl (Zofran) 4 mg PRN Q4HRS PRN IVP NAUSEA/VOMITING; Start 11/27/20 at 22:00 Hydralazine HCl (Apresoline Inj) 20 mg STK-MED ONCE .ROUTE ; Start 11/27/20 at 21:56; Stop 11/27/20 at 21:56; Status DC Fentanyl Citrate (Fentanyl 2ml Vial) 25 mcg PRN Q2HR PRN IVP PAIN Last administered on 12/02/20 09:17; Start 11/27/20 at 22:00 Carvedilol (Coreg) 3.125 mg BIDWMEALS PO Last administered on 12/05/20 09:25; Start 11/28/20 at 08:00 Gabapentin (Neurontin) 300 mg HS PO Last administered on 12/04/20 20:23; Start 11/27/20 at 22:15 Pantoprazole Sodium (Protonix) 40 mg DAILYAC PO Last administered on 12/05/20 09:21; Start 11/28/20 at 07:30 Zolpidem Tartrate (Ambien) 5 mg PRN QHS PRN PO INSOMNIA; Start 11/27/20 at 22:15 Folic Acid (Folic Acid) 1 mg DAILY PO Last administered on 12/05/20 09:21; Start 11/28/20 at 09:00 Aspirin (Aspirin Chewable) 81 mg DAILY08 PO Last administered on 12/05/20 09:22; Start 11/28/20 at 08:00 Vitamin D (Vitamin D3) 5,000 unit DAILY PO Last administered on 12/05/20 09:22; Start 11/28/20 at 09:00 Clopidogrel Bisulfate (Plavix) 75 mg DAILY08 PO Last administered on 12/05/20 09:22; Start 11/28/20 at 08:00 Sodium Chloride 1,000 ml @ 80 mls/hr [id number] IV Last administered on 11/29/20at 20:48; Start 11/27/20 at 22:45; Stop 11/30/20 at 20:00; Status DC Acetaminophen/ Hydrocodone Bitart (Lortab 5/325) 1 tab PRN Q4HRS PRN PO PAIN MODERATE Last administered on 12/03/20 09:25; Start 11/27/20 at 22:45 Acetaminophen/ Hydrocodone Bitart (Lortab 5/325) 2 tab PRN Q4HRS PRN PO PAIN SEVERE Last administered on 12/05/20 09:19; Start 11/27/20 at 22:45 Albumin Human 500 ml @ 125 mls/hr PRN DAILY PRN IV Hypotension; Start 11/27/20 at 23:00 Magnesium Sulfate 50 ml @ 25 mls/hr 1X ONCE IV Last administered on 11/28/20at 02:15; Start 11/28/20 at 01:45; Stop 11/28/20 at 03:44; Status DC Cefazolin Sodium/ Dextrose 50 ml @ 100 mls/hr Q8HRS IV Last administered on 11/28/20at 06:11; Start 11/28/20 at 06:00; Stop 11/28/20 at 12:08; Status DC Albuterol/ Ipratropium (Duoneb) 3 ml RTQID NEB ; Start 11/28/20 at 12:00; Stop 11/28/20 at 10:59; Status DC Potassium Chloride (Klor-Con) 40 meq 1X ONCE PO ; Start 11/28/20 at 11:00; Stop 11/28/20 at 11:01; Status UNV Potassium Bicarbonate (Potassium Effervescent Tablet) 40 meq 1X ONCE PO ; Start 11/28/20 at 11:00; Stop 11/28/20 at 11:01; Status UNV Potassium Chloride/Water 100 ml @ 100 mls/hr Q1H IV ; Start 11/28/20 at 11:00; Stop 11/28/20 at 12:59; Status UNV Potassium Chloride/Water 100 ml @ 100 mls/hr Q1H IV ; Start 11/28/20 at 11:00; Stop 11/28/20 at 18:59; Status UNV Potassium Chloride/Water 100 ml @ 100 mls/hr Q1HR IV ; Start 11/28/20 at 11:00; Stop 11/28/20 at 16:59; Status UNV Magnesium Sulfate 100 ml @ 50 mls/hr DAILY IV ; Start 11/29/20 at 09:00; Stop 12/02/20 at 08:59; Status UNV Potassium Phos/ Sodium Phos (Phos-Nak) 1 pkt BID PO ; Start 11/28/20 at 21:00; Stop 11/29/20 at 09:01; Status UNV Albuterol Sulfate (Ventolin Neb Soln) 2.5 mg PRN QID PRN NEB SHORTNESS OF BREATH; Start 11/28/20 at 11:15 Info ([facility] Electrolyte Protocol) 1 ea CONT PRN PRN MC SEE COMMENTS; Start 11/28/20 at 11:00; Stop 12/03/20 at 09:39; Status DC Piperacillin Sod/ Tazobactam Sod (Zosyn Per Pharmacy) 1 each PRN DAILY PRN MC SEE COMMENTS; Start 11/28/20 at 12:15 Piperacillin Sod/ Tazobactam Sod 3.375 gm/Sodium Chloride 50 ml @ 100 mls/hr Q6HRS IV Last administered on 12/05/20at 05:31; Start 11/28/20 at 12:30 Micafungin Sodium 100 mg/Dextrose 100 ml @ 100 mls/hr Q24H IV Last administered on 12/02/20at 08:17; Start 11/29/20 at 10:00; Stop 12/02/20 at 11:24; Status DC Daptomycin 380 mg/ Sodium Chloride 50 ml @ 100 mls/hr Q24H IV Last administered on 12/03/20at 09:25; Start 11/29/20 at 11:00; Stop 12/03/20 at 09:36; Status DC Cefazolin Sodium 1 gm/Sodium Chloride 500 ml @ 500 mls/hr 1X ONCE IRR Last administered on 11/30/20at 14:20; Start 11/30/20 at 06:00; Stop 11/30/20 at 06:59; Status DC Heparin Sodium (Porcine) 5000 unit/Sodium Chloride 505 ml @ 505 mls/hr 1X ONCE IRR Last administered on 11/30/20at 14:19; Start 11/30/20 at 06:00; Stop 11/30/20 at 06:59; Status DC Fentanyl Citrate (Fentanyl 2ml Vial) 25 mcg PRN Q5MIN PRN IVP MILD PAIN 1-3 Last administered on 11/30/20at 17:03; Start 11/30/20 at 06:00; Stop 12/01/20 at 05:59; Status DC Fentanyl Citrate (Fentanyl 2ml Vial) 50 mcg PRN Q5MIN PRN IVP MODERATE PAIN 4-6 Last administered on 11/30/20at 15:39; Start 11/30/20 at 06:00; Stop 12/01/20 at 05:59; Status DC Morphine Sulfate (Morphine Sulfate) 1 mg PRN Q10MIN PRN IVP SEVERE PAIN 7-10; Start 11/30/20 at 06:00; Stop 12/01/20 at 05:59; Status DC Ringer's Solution 1,000 ml @ 30 mls/hr Q24H IV Last administered on 11/30/20at 05:29; Start 11/30/20 at 06:00; Stop 11/30/20 at 17:59; Status DC Hydromorphone HCl (Dilaudid) 0.5 mg PRN Q10MIN PRN IVP SEVERE PAIN 7-10, 2nd CHOICE; Start 11/30/20 at 06:00; Stop 12/01/20 at 05:59; Status DC Prochlorperazine Edisylate (Compazine) 5 mg PACU PRN PRN IVP NAUSEA, MRX1; Start 11/30/20 at 06:00; Stop 12/01/20 at 05:59; Status DC Dexamethasone Sodium Phosphate (Decadron) 4 mg STK-MED ONCE .ROUTE ; Start 11/30 at 12:12; Stop 11/30/20 at 12:12; Status DC Ondansetron HCl (Zofran) 4 mg STK-MED ONCE .ROUTE ; Start 11/30/20 at 12:12; Sto p 11/30/20 at 12:12; Status DC Propofol (Diprivan) 200 mg STK-MED ONCE IV ; Start 11/30/20 at 12:12; Stop 11/30/20 at 12:12; Status DC Lidocaine HCl (Lidocaine Pf 2% Vial) 5 ml STK-MED ONCE .ROUTE ; Start 11/30/20 at 12:12; Stop 11/30/20 at 12:12; Status DC Iohexol (Omnipaque 300 Mg/ml) 50 ml STK-MED ONCE .ROUTE ; Start 11/30/20 at 13:08; Stop 11/30/20 at 13:08; Status DC Cellulose (Surgicel Hemostat 4x8) 1 each STK-MED ONCE .ROUTE ; Start 11/30/20 at 13:08; Stop 11/30/20 at 13:08; Status DC Cellulose (Surgicel Fibrillar 1x2) 1 each STK-MED ONCE .ROUTE ; Start 11/30/20 at 13:08; Stop 11/30/20 at 13:09; Status DC Fentanyl Citrate (Fentanyl 2ml Vial) 100 mcg STK-MED ONCE .ROUTE ; Start 11/30/20 at 13:37; Stop 11/30/20 at 13:37; Status DC Glycopyrrolate (Robinul) 1 mg STK-MED ONCE .ROUTE ; Start 11/30/20 at 14:10; Stop 11/30/20 at 14:10; Status DC Sevoflurane (Ultane) 60 ml STK-MED ONCE IH ; Start 11/30/20 at 14:37; Stop 11/30/20 at 14:38; Status DC Fentanyl Citrate (Fentanyl 2ml Vial) 100 mcg STK-MED ONCE .ROUTE ; Start 11/30/20 at 15:37; Stop 11/30/20 at 15:37; Status DC Amlodipine Besylate (Norvasc) 5 mg 1X ONCE PO Last administered on 11/30/20at 16:33; Start 11/30/20 at 16:30; Stop 11/30/20 at 16:31; Status DC Hydralazine HCl (Apresoline Inj) 10 mg PRN Q4HRS PRN IVP ELEVATED BP, SEE COMMENTS; Start 11/30/20 at 16:30 Senna/Docusate Sodium (Senna Plus) 1 tab DAILY PO Last administered on 12/03/20at 09:24; Start 12/01/20 at 12:15 Info (Non-[facility] Electrolyte Protocol) 1 ea CONT PRN PRN MC SEE COMMENTS; Start 12/03/20 at 09:45 Doxycycline Hyclate (Vibra-Tab) 100 mg BID PO Last administered on 12/05/20at 09:22; Start 12/04/20 at 09:00; Stop 12/05/20 at 10:59; Status DC Daptomycin 420 mg/ Sodium Chloride 50 ml @ 100 mls/hr Q24H IV ; Start 12/05/20 at 13:00 Active Scripts Active Reported Vitamin D3 (Vitamin D) 125 Mcg Capsule 125 Mcg PO DAILY 5,000 UNITS = 125 MCG Methotrexate (Methotrexate Sodium) 2.5 Mg Tablet 4 Tab PO WEEKLY Ambien (Zolpidem Tartrate) 5 Mg Tablet 5 Mg PO PRN QHS PRN Gabapentin (Gabapentin) 300 Mg Capsule 300 Mg PO HS Protonix (Pantoprazole Sodium) 40 Mg Tablet.dr 40 Mg PO DAILYAC Folic Acid 0.4 Mg Tablet 0.4 Mg PO DAILY Aspirin 81 Mg Tab.chew 1 Tab PO DAILY Clopidogrel (Clopidogrel Bisulfate) 75 Mg Tablet 1 Tab PO DAILY Coreg (Carvedilol) 6.25 Mg Tablet 6.25 Mg PO BIDWMEALS Vitals/I & O Vital Sign - Last 24 Hours 12/04/20 12/04/20 12/04/20 12/04/20 15:00 17:35 19:00 19:53 Temp 98.9 98.9 98.9 98.9 Pulse 85 85 94 Resp 18 18 B/P (MAP) 177/67 (103) 177/67 176/60 (98) Pulse Ox 95 95 O2 Delivery Room Air Room Air Room Air 12/04/20 12/05/20 12/05/20 12/05/20 23:00 02:56 07:00 08:00 Temp 98.1 98.1 97.8 98.1 98.1 97.8 Pulse 86 91 77 Resp 16 16 16 B/P (MAP) 165/67 (99) 159/71 (100) 132/55 (80) Pulse Ox 97 96 95 O2 Delivery Room Air Room Air Room Air Room Air 12/05/20 12/05/20 12/05/20 09:19 09:25 09:49 Pulse 77 B/P (MAP) 132/55 Pulse Ox 95 95 O2 Delivery Room Air Room Air Intake and Output 12/04/20 12/04/20 12/05/20 15:00 23:00 07:00 Intake Total 475 ml 315 ml 100 ml Output Total 850 ml Balance 475 ml 315 ml -750 ml Justifications for Admission Other Justification EVELIO HARRIS APRN Dec 05, 2020 11:39
--- NOTE | 2020-12-05 11:40 | NUR ---
SS following up with discharge planning. SS reviewed pt chart and discussed with pt RN. Pt is currently on room air. Wound vac in place. PT/OT recommended home with home healthcare. Pt needing custodial IV antibiotics. Pt currently on IV Daptomycin and IV Zosyn. Per Shaq, , pt is covered for home antibiotics at 100% with [facility]. SS met with pt and notified. Pt agreeable to home IV antibiotics and home healthcare services with no preference of company. Referral sent to [facility], ; fax [phone]. SS will continue to follow for discharge planning.
--- NOTE | 2020-12-05 12:15 | PDOC ---
[employer] PROGRESS NOTE Date of Service DOS: DATE: 12/05/20 TIME: 12:10 Chief Complaint Chief Complaint Assessment/Plan 70-year-old woman who recently had a right femoral artery access for acute stroke intervention apparently left carotid stent and left stroke thrombus removal at [facility] / pseudoaneurysm arising from the common femoral artery // actively bleeding into a large hematoma. Acute blood loss anemia - given extent of hematoma and pseudoaneursym and need for surgery may need up to 6u PRBC. 2 units on hold for OR. H&H 4 hours post op HGB 11.9 11-19 Large right groin pseuoaneurysm - likely from access 1 week prior. Vascular surg joan consulted for ongoing active bleeding. To OR Large right groin hematoma - likely from arterial bleed. 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 Would not hold DAPT therapy in order to prevent further CVA. (will order [facility] records to confirm the presence/absence of stent) Hyponatremia - likely hypovolemic. Will give NSS crystalloid and monitor. Leukocytosis - likely reactive from massive blood loss, will trend. No clear infection. will cover preoperatively. Given the extent of her hematoma is definitely at risk for skin infection/cellulitis as she is immunocompromised on MTX, ID CONSULTED , BLOOD CULT Hyperglycemia - likely related to stress, will check A1c RA - on MTX weekly. 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 severe protein-caloric malnutrition Current smoker HTN - on coreg, will cut dosing given low BP since d/c from [facility] per rehab notes. She may have cardiac reason for BB, will await . [facility] records as she may be getting CHF treatment, patient and aren't certain. plan FEN - NPO for OR. Regular diet after PPX - SCDs for 24 hours. Will defer heparin timing to vascular surgery CODE - FULL Dispo - ICU [facility] [place] for possible IR intervention. 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 Would not hold DAPT therapy in order to prevent further CVA. (will order [facility] records to confirm the p resence/absence of stent) Hyponatremia - likely hypovolemic. Will give NSS crystalloid and monitor. Leukocytosis - likely reactive from massive blood loss, will trend. No clear infection. will cover preoperatively. Given the extent of her hematoma is defin itely at risk for skin infection/cellulitis as she is immunocompromised on MTX, ID CONSULTED , BLOOD CULT Hyperglycemia - likely related to stress, will check A1c-6.1 CC time 32 min History of Present Illness History of Present Illness Identification/Chief Complaint Chief Complaint Right groin pain and swelling Source Source: Patient History of Present Illness History of Present Illness Ms Robins is a 70-year-old female w/ PMHx HLD, HTN, GERD, RA, and recent presenting with right groin pain and swelling. She has been noting bruising since 11/24/2020 when the dressing in her right groin was removed as instructed. She has been going to outpatient PT and OT for stroke rehab and has been c/o some pain in the area since the dressing was removed. 11/26 she began acting more tired, dizzy and intermittently confused per her . family member, who is a nurse practitioner, came over to the house to look at her leg as the was concerned about the bruise getting bigger. The family member told him to go to the ER right away. She states she feels very weak and tired and dizzy. Patient denies any chest pain, shortness of breath, nausea, vomiting, or diarrhea. She is up to date on both doses of Moderna COVID 19 vaccine Patient complains of pain and tightness in her right thigh and groin. She was initially evaluated on 11/19/2020 at [facility] ED for right sided weakness within 2 hours of presentation and tPA was then administered. CT angiogram shows left MCA M1 large vessel occlusion and she was transferred to [facility] for large vessel occlusion intervention on 11/19/2020. Per had clot retrieval and he thinks had carotid stenting as well and was discharged home on 11/21/2020 for outpatient rehab for her CVA on DAPT with ASA and plavix. In ED noted with pulsatile swelling in left groin and right groin arterial doppler revealed large hematoma in the proximal right lower extremity arising from the common femoral artery that measures 11.5 x 5.0 x 9.5 cm. This hematoma appears to arise directly from a pseudoaneurysm with a neck which actively bleeds into the hematoma. The belly of the pseudoaneurysm measures 2.3 cm in diameter. On examination a nurse was holding pressure in the groin and DIRECTOR OF TESTING was accessing left antecubital fossa for venipuncture for blood draw and IV insertion. give much of history bedside. During examination labs returned with WBC 19.2, platelets 367, Hb 6.3, Na 133, glucose 178, INR 1.2. Given the urgency of her condition vascular surgery was consulted and Dr. Wilhelm brought in OR staff and patient was taken to OR in stable condition from the ED with plans to admit to ICU. 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 Would not hold DAPT therapy in order to prevent further CVA. (will order [facility] records to confirm the presence/absence of stent) Hyponatremia - likely hypovolemic. Will give NSS crystalloid and monitor. Leukocytosis - likely reactive from massive blood loss, will trend. No clear infection. will cover preoperatively. 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 Would not hold DAPT therapy in order to prevent further CVA. (will order [facility] records to confirm the presence/absence of stent) Hyponatremia - likely hypovolemic. Will give NSS crystalloid and monitor. Leukocytosis - likely reactive from massive blood loss, will trend. No clear infection. will cover preoperatively. Given the extent of her hematoma is definitely at risk for skin infection/cellulitis as she is immunocompromised on MTX, ID CONSULTED , BLOOD CULT Hyperglycemia - likely related to stress, will check A1c-6.1 Continue Zosyn,daptomycin and micafungin. 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 Would not hold DAPT therapy in order to prevent further CVA. (will order [facility] records to confirm the presence/absence of stent) Hyponatremia - likely hypovolemic. Will give NSS crystalloid and monitor. Leukocytosis - likely reactive from massive blood loss, will trend. No clear infection. will cover preoperatively. Given the extent of her hematoma is definitely at risk for skin infection/cellulitis as she is immunocompromised on MTX, ID CONSULTED , BLOOD CULT Hyperglycemia - likely related to stress, will check A1c-6.1 Continue Zosyn,daptomycin and micafungin. Continue wound vac therapy with planned vac dressing change tomorrow at a time when Vascular Surgery is present to view and evaluate wound and muscle flap tissue. 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 Would not hold DAPT therapy in order to prevent further CVA. (will order [facility] records to confirm the presence/absence of stent) Hyponatremia - likely hypovolemic. Will give NSS crystalloid and monitor. Leukocytosis - likely reactive from massive blood loss, will trend. No clear infection. will cover preoperatively. Given the extent of her hematoma is definitely at risk for skin infection/cellulitis as she is immunocompromised on MTX, ID CONSULTED , BLOOD CULT Hyperglycemia - likely related to stress, will check A1c-6.1 Continue Zosyn,daptomycin and micafungin. Continue wound vac therapy Vascular Surgery is present to view and evaluate wound and muscle flap tissue. 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 Would not hold DAPT therapy in order to prevent further CVA. (will order [facility] records to confirm the presence/absence of stent) Hyponatremia - likely hypovolemic. Will give NSS crystalloid and monitor. Leukocytosis - likely reactive from massive blood loss, will trend. No clear infection. will cover preoperatively. Given the extent of her hematoma is definitely at risk for skin infection/cellulitis as she is immunocompromised on MTX, ID CONSULTED , BLOOD CULT Hyperglycemia - likely related to stress, will check A1c-6.1 Continue Zosyn,daptomycin and micafungin. Continue negative pressure wound vac therapy // Vascular Surgery is present to view and evaluate wound and muscle flap tissue. 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 Would not hold DAPT therapy in order to prevent further CVA. (will order [facility] records to confirm the presence/abs ence of stent) Hyponatremia - likely hypovolemic. Will give NSS crystalloid and monitor. Leukocytosis - likely reactive from massive blood loss, will trend. No clear infection. will cover preoperatively. Given the extent of her hematoma is definitely at risk for skin infection/cellulitis as she is immunocompromised on MTX, ID CONSULTED , BLOOD CULT Hyperglycemia - likely related to stress, will check A1c-6.1 Continue Zosyn,daptomycin and micafungin. Continue negative pressure wound vac therapy // Vascular Surgery is present to view and evaluate wound and muscle flap tissue. D/W RN 12/05 Afebrile, resting comfortably in bedside chair. Wound VAC to right groin, s/p flap closure (11/30/20). Continue IV antibiotics, per ID. Will need to discuss with vascular surgery about an ID eval continue IV antibiotics versus p.o. antibiotics upon discharge. Discussed with RN. Vitals/I&O Vitals/I&O: Vital Signs Date Time Temp Pulse Resp B/P (MAP) Pulse Ox O2 Delivery O2 Flow Rate FiO2 12/05/20 09:49 95 Room Air 12/05/20 09:25 77 132/55 12/05/20 07:00 97.8 16 97.8 I & O 12/04/20 12/04/20 12/05/20 15:00 23:00 07:00 Intake Total 475 ml 315 ml 100 ml Output Total 850 ml Balance 475 ml 315 ml -750 ml Physical Exam Physical Exam: GENERAL: Alert, awake female, lying in bed comfortably, in no acute distress. HEENT: Normocephalic, atraumatic. Anicteric. NECK: Supple. LUNGS: Clear. HEART: S1, S2. No murmurs. ABDOMEN: Soft, bruise present over the right lower abdominal area No rebound, no guarding. EXTREMITIES: bruising right lower abdomen improving Wound VAC in place. Right leg groin ecchymosis and swelling improving , no fluctuance, no cyanosis, no clubbing. DERMATOLOGIC: Warm, dry, no generalized rash except for above. NEUROLOGIC: Alert, oriented x3. Normal speech. PSYCHIATRIC: Calm and cooperative. General: Alert, Oriented X3, Cooperative, No acute distress Heart: Regular rate Lungs: Clear Abdomen: Normal bowel sounds, Soft Extremities: No clubbing, No cyanosis, No edema, Normal pulses, Other ( right leg and groin shows ecchymosis from about there the umbilicus down to the knee.) Skin: No significant lesion, Other (Wound VAC in place in the right lower extremity, swelling and hematoma stable, pulse exam stable) Labs Labs: Laboratory Tests Test 12/05/20 06:55 White Blood Count 12.0 x10^3/uL (4.0-11.0) Red Blood Count 2.94 x10^6/uL (3.50-5.40) Hemoglobin 9.0 g/dL (12.0-15.5) Hematocrit 27.4 % (36.0-47.0) Mean Corpuscular Volume 93 fL (79-100) Mean Corpuscular Hemoglobin 31 pg (25-35) Mean Corpuscular Hemoglobin Concent 33 g/dL (31-37) Red Cell Distribution Width 16.7 % (11.5-14.5) Platelet Count 494 x10^3/uL (140-400) Neutrophils (%) (Auto) 70 % (31-73) Lymphocytes (%) (Auto) 15 % (24-48) Monocytes (%) (Auto) 12 % (0-9) Eosinophils (%) (Auto) 3 % (0-3) Basophils (%) (Auto) 1 % (0-3) Neutrophils # (Auto) 8.3 x10^3/uL (1.8-7.7) Lymphocytes # (Auto) 1.8 x10^3/uL (1.0-4.8) Monocytes # (Auto) 1.4 x10^3/uL (0.0-1.1) Eosinophils # (Auto) 0.3 x10^3/uL (0.0-0.7) Basophils # (Auto) 0.1 x10^3/uL (0.0-0.2) Sodium Level 141 mmol/L (136-145) Potassium Level 4.2 mmol/L (3.5-5.1) Chloride Level 105 mmol/L (98-107) Carbon Dioxide Level 31 mmol/L (21-32) Anion Gap 5 (6-14) Blood Urea Nitrogen 11 mg/dL (7-20) Creatinine 0.7 mg/dL (0.6-1.0) Estimated GFR (Cockcroft-Gault) 83.0 Glucose Level 112 mg/dL (70-99) Calcium Level 8.9 mg/dL (8.5-10.1) Assessment and Plan Assessmemt and Plan Problems Medical Problems: (1) Femoral artery pseudo-aneurysm, right Status: Acute (2) Pseudoaneurysm of femoral artery following procedure Status: Acute Comment Review of Relevant I have reviewed the following items césar (where applicable) has been applied. Justifications for Admission Other Justification CEDRICK CALHOUN MD Dec 05, 2020 12:15
--- NOTE | 2020-12-05 13:10 | NUR ---
Wound/Ostomy Care Wound Type/Assessment: Patient seen for wound care follow up. See wound assessment. Patient is s/p surgical intervention to repair the right femoral artery. Orders for wound vac at 125mmHg continuous with dressing changes [facility]. Dr. Vergara at bedside for this assessment. Wounds cleansed and assessed. Skin prepped for vac placement, 3 pieces of kurtz foam placed to wound bed and the vac tracked to the right anterior thigh. A good seal maintained at 125mmHg continuous. Treatment Recommendations/Plan: Wound vac at 125mmHg continuous with dressings changes [facility]. Education provided: Patient and patient's educated on wound vac therapy and PU prevention. Offloading surface/device: Patient is able to assist with turns, patient encouraged to turn every couple of hours for prevention. Recommended Referrals/Tests: Patient will follow up with us in the wound clinic after discharge. Wound care will complete a wound vac application for this patient for anticipated discharge in the future. Discharge Recommendations for dressings: Continue current treatment plan. Bed lowered and call light in reach. Wound care will follow up with patient on Saturday for vac dressing change. Bed lowered and call light in reach.
--- NOTE | 2020-12-05 13:45 | NUR ---
Wound Care Pt has been approved for home wound vac, covered at 100%, when ready for discharge home.
[2020-12-05] MEDS ORDERED: LIDOCAINE WITH 8.4% SOD BICARB 3 ML DISP.SYRIN. ONE ×2 (14:45→15:02)
[2020-12-05] MEDS ORDERED: LIDOCAINE WITH 8.4% SOD BICARB 3 ML DISP.SYRIN. INJ ONE (15:30)
--- NOTE | 2020-12-05 15:54 | RAD ---
Date: 12/05/2020 Exam: Fluoroscopic and ultrasound guided peripheral central venous catheter placement. Indication: Consent: The procedure was explained in its entirety to the patient or the patients designated repres entative by a member of the treatment team, including a discussion of the risks, benefits and commonl y accepted alternatives to the procedure, as well as the expected consequences of no therapy whatsoev er. Discussion of the risks included, but was not limited to, those that are most frequent and thos e that are rare but possibly severe or life-threatening, as well as the possibility of unforeseen com plications. Discussion: A timeout procedure was performed. The patient was prepped and draped using maximum sterile techniq ue, including the use of: Current guideline approved cutaneous antisepsis, a large sterile sheet to e stablish a sterile field. Additionally the drill setup operator wore a hat, mask, sterile gloves, a sterile gown during the procedure as well as practiced acceptable hand hygiene prior to placing the line. 1% lidoc joana was administered for local anesthesia. Ultrasound evaluation demonstrates a patent basilic vein. Reference images were saved in the medical record. The selected vein was accessed using micropuncture technique. A guidewire was advanced centr ally. The PICC line was cut to length, and advanced through a peel-away sheath such that it's tip re sides at the cavoatrial junction. The peel-away sheath a sheath was removed. The catheter was secured in place. The catheter was found to flush and aspirate normally.. Sterile dressings were applied. No immediate complications were identified. Fluoroscopy time: 0.9 minutes Dose area product: 1 Gycm2 Impression: Successful placement of a right upper extremity PICC line Electronically signed by: Rhett Oconnor MD (12/05/2020 3:52 PM) [id number]
[2020-12-05] MEDS: DAPTOmycin (GENERIC) IVPB 420 MG in IV NORMAL SALINE 50ML 50 ML IV SCH (17:49)
[2020-12-05 19:39] VITALS: BP 122/59
[2020-12-05] MEDS: GABAPENTIN 300 MG CAPSULE. PO SCH (21:28)
[2020-12-05 23:14] VITALS: BP 138/60
[2020-12-06] MEDS: PIPERACILLIN/TAZOBACTAM 3.375 GM in IV NORMAL SALINE 50ML 50 ML IV SCH ×3 (02:39→12:52)
[2020-12-06] MEDS: HYDROcodone/APAP 5/325MG 1 TAB TABLET PO PRN (02:40)
[2020-12-06 03:52] VITALS: BP 147/65
[2020-12-06 07:00] VITALS: BP 140/59
[2020-12-06 07:32] LABS: BASO # 0.1 x10^3/uL (0.0-0.2); BASO % 1 % (0-3); EOS # 0.3 x10^3/uL (0.0-0.7); EOS % 3 % (0-3); HEMATOCRIT 28.6 % (36.0-47.0); HEMOGLOBIN 9.2 g/dL (12.0-15.5); LYMPH # 1.8 x10^3/uL (1.0-4.8); LYMPH % 17 % (24-48); MEAN CORPUSCULAR HEMOGLOBIN 30 pg (25-35); MEAN CORPUSCULAR HGB CONC 32 g/dL (31-37); MEAN CORPUSCULAR VOLUME 93 fL (79-100); MONO # 1.2 x10^3/uL (0.0-1.1); MONO % 11 % (0-9); NEUT # 7.5 x10^3/uL (1.8-7.7); NEUT % 68 % (31-73); PLATELET COUNT 535 x10^3/uL (140-400); RED BLOOD COUNT 3.06 x10^6/uL (3.50-5.40); RED CELL DISTRIBUTION WIDTH 16.7 % (11.5-14.5)
--- NOTE | 2020-12-06 07:59 | PDOC ---
Infectious Disease Note Subjective Subjective pt is feeling good, has no complaints ROS ROS No nausea vomiting diarrhea chest pain shortness of breath Vital Sign Vital Signs Vital Signs Date Time Temp Pulse Resp B/P (MAP) Pulse Ox O2 Delivery O2 Flow Rate FiO2 12/06/20 03:52 98.4 91 18 147/65 (92) 100 Room Air 98.4 Physical Exam PHYSICAL EXAM GENERAL: Alert, awake female, lying in bed comfortably, in no acute distress. HEENT: Normocephalic, atraumatic. Anicteric. NECK: Supple. LUNGS: Clear. HEART: S1, S2. No murmurs. ABDOMEN: Soft, bruise present over the right lower abdominal area No rebound, no guarding. EXTREMITIES: bruising right lower abdomen improving Wound VAC in place. Right leg groin ecchymosis and swelling improving , no fluctuance, no cyanosis, no clubbing. DERMATOLOGIC: Warm, dry, no generalized rash except for above. NEUROLOGIC: Alert, oriented x3. Normal speech. PSYCHIATRIC: Calm and cooperative. Labs Lab Laboratory Tests Test 12/06/20 06:35 White Blood Count 11.0 x10^3/uL (4.0-11.0) Red Blood Count 3.06 x10^6/uL (3.50-5.40) Hemoglobin 9.2 g/dL (12.0-15.5) Hematocrit 28.6 % (36.0-47.0) Mean Corpuscular Volume 93 fL (79-100) Mean Corpuscular Hemoglobin 30 pg (25-35) Mean Corpuscular Hemoglobin Concent 32 g/dL (31-37) Red Cell Distribution Width 16.7 % (11.5-14.5) Platelet Count 535 x10^3/uL (140-400) Neutrophils (%) (Auto) 68 % (31-73) Lymphocytes (%) (Auto) 17 % (24-48) Monocytes (%) (Auto) 11 % (0-9) Eosinophils (%) (Auto) 3 % (0-3) Basophils (%) (Auto) 1 % (0-3) Neutrophils # (Auto) 7.5 x10^3/uL (1.8-7.7) Lymphocytes # (Auto) 1.8 x10^3/uL (1.0-4.8) Monocytes # (Auto) 1.2 x10^3/uL (0.0-1.1) Eosinophils # (Auto) 0.3 x10^3/uL (0.0-0.7) Basophils # (Auto) 0.1 x10^3/uL (0.0-0.2) Micro Microbiology 11/28/20 Urine Culture - Final, Complete Objective Assessment 1. Large right groin pseudoaneurysm with hematoma, Status post emergent open repair of the right femoral artery pseudoaneurysm using bovine pericardial patch angioplasty. November 30, 2020 S/P Coverage of the right femoral artery repair requiring sartorius muscle flap, Wound VAC placement. Underwent dressing earlier today, vascular team input noted 2. Status post treatment with TPA on 11/18/2020 for right-sided weakness. 3. Left middle cerebral artery with vessel occlusion, status post clot retrieval and stenting procedure at [facility]. 4. Leukocytosis could have a reactive component. Improved 5. Severe acute blood loss anemia, status post blood transfusion. 6. History of rheumatoid arthritis, on methotrexate. 7. Hypertension/hyperlipidemia 8. Gastroesophageal reflux disease. 9. Protein calorie malnutrition. 10. Hyponatremia. 11. Constipation Plan Plan of Care 1. Continue Zosyn, Dapto 2. Continue wound/VAC care as directed. 3. Follow up labs and cultures. 4 Continue supportive care. D/W at bedside Discussed with vascular surgery Discussed with vascular surgery need IV antibiotics to go home Still service consulted. Interagency form filled out. In detail discussion done with the about IV antibiotics follow-ups. Follow-up with us in 2 weeks Weekly labs to be faxed to my office Side effects and possible complications discussed KRYSTAL LÓPEZ MD Dec 06, 2020 07:59
[2020-12-06] MEDS: SENNOSIDES/DOCUSATE 8.6/50MG TABLET. PO SCH (08:13)
[2020-12-06] MEDS: PANTOPRAZOLE 40 MG TABLET.DR. PO SCH (08:13)
[2020-12-06] MEDS: ASPIRIN CHEWABLE 81 MG TABLET. PO SCH (08:13)
[2020-12-06] MEDS: CHOLECALCIFEROL (VITAMIN D3) 5,000 UNIT CAPSULE PO SCH (08:13)
[2020-12-06] MEDS: FOLIC ACID 1 MG TABLET. PO SCH (08:13)
[2020-12-06] MEDS: CARVEDILOL 3.125 MG TABLET. PO SCH (08:13)
[2020-12-06] MEDS: CLOPIDOGREL BISULFATE 75 MG TABLET PO SCH (08:13)
--- NOTE | 2020-12-06 09:08 | PDOC ---
Provider Note Date of Service: DATE: 12/06/20 TIME: 09:06 Provider Note Provider Note Vascular S: Patient is without complaints, anxious to discharge home. O: Awake and alert VSS, afebrile Wound vac in place right groin and functioning, difuse ecchymosis throughout right thigh. A/P: Right lower extremity pseudoaneurysm--patient is status post femoral artery repair and pseudoaneurysm excision. This was complicated by postoperative infection. Status post washout and sartorius flap placement. Continue wound vac therapy. Recommend continuing IV Antibiotics for now, discussed with Dr. Briones. Ok to discharge home and follow up next week as scheduled. Justicifation of Admission Dx: Justifications for Admission: Justification of Admission Dx: Yes [employer] Dec 06, 2020 09:08
[2020-12-06 11:00] VITALS: BP 121/51
--- NOTE | 2020-12-06 11:04 | NUR ---
SS following up with discharge planning. SS reviewed pt chart and discussed with pt RN. Pt is currently on room air. PICC line in place. Script received for IV Daptomycin and IV Zosyn. PT/OT recommended home with home healthcare. SS phoned and faxed script and clinical to [place], ; fax [phone]. Salas from [place] coming to complete teaching with pt. Wound vac to be placed this afternoon. Referral sent to [facility], ; fax [phone]. Anticipate discharge this afternoon to home with home healthcare and home infusions. Physician notified. SS will continue to follow for discharge planning.
--- NOTE | 2020-12-06 12:33 | PDOC ---
[employer] PROGRESS NOTE Date of Service DOS: DATE: 12/06/20 TIME: 12:31 Chief Complaint Chief Complaint Assessment/Plan 70-year-old woman who recently had a right femoral artery access for acute stroke intervention apparently left carotid stent and left stroke thrombus removal at [facility] / pseudoaneurysm arising from the common femoral artery // actively bleeding into a large hematoma. Acute blood loss anemia - given extent of hematoma and pseudoaneursym and need for surgery may need up to 6u PRBC. 2 units on hold for OR. H&H 4 hours post op HGB 11.9 11-19 Large right groin pseuoaneurysm - likely from access 1 week prior. Vascular surg joan consulted for ongoing active bleeding. To OR Large right groin hematoma - likely from arterial bleed. 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 Would not hold DAPT therapy in order to prevent further CVA. (will order [facility] records to confirm the presence/absence of stent) Hyponatremia - likely hypovolemic. Will give NSS crystalloid and monitor. Leukocytosis - likely reactive from massive blood loss, will trend. No clear infection. will cover preoperatively. Given the extent of her hematoma is definitely at risk for skin infection/cellulitis as she is immunocompromised on MTX, ID CONSULTED , BLOOD CULT Hyperglycemia - likely related to stress, will check A1c RA - on MTX weekly. 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 severe protein-caloric malnutrition Current smoker HTN - on coreg, will cut dosing given low BP since d/c from [facility] per rehab notes. She may have cardiac reason for BB, will await . [facility] records as she may be getting CHF treatment, patient and aren't certain. plan FEN - NPO for OR. Regular diet after PPX - SCDs for 24 hours. Will defer heparin timing to vascular surgery CODE - FULL Dispo - ICU [facility] [place] for possible IR intervention. 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 Would not hold DAPT therapy in order to prevent further CVA. (will order [facility] records to confirm the p resence/absence of stent) Hyponatremia - likely hypovolemic. Will give NSS crystalloid and monitor. Leukocytosis - likely reactive from massive blood loss, will trend. No clear infection. will cover preoperatively. Given the extent of her hematoma is defin itely at risk for skin infection/cellulitis as she is immunocompromised on MTX, ID CONSULTED , BLOOD CULT Hyperglycemia - likely related to stress, will check A1c-6.1 CC time 32 min History of Present Illness History of Present Illness Identification/Chief Complaint Chief Complaint Right groin pain and swelling Source Source: Patient History of Present Illness History of Present Illness Ms Robins is a 70-year-old female w/ PMHx HLD, HTN, GERD, RA, and recent presenting with right groin pain and swelling. She has been noting bruising since 11/24/2020 when the dressing in her right groin was removed as instructed. She has been going to outpatient PT and OT for stroke rehab and has been c/o some pain in the area since the dressing was removed. 11/26 she began acting more tired, dizzy and intermittently confused per her . family member, who is a nurse practitioner, came over to the house to look at her leg as the was concerned about the bruise getting bigger. The family member told him to go to the ER right away. She states she feels very weak and tired and dizzy. Patient denies any chest pain, shortness of breath, nausea, vomiting, or diarrhea. She is up to date on both doses of Moderna COVID 19 vaccine Patient complains of pain and tightness in her right thigh and groin. She was initially evaluated on 11/19/2020 at [facility] ED for right sided weakness within 2 hours of presentation and tPA was then administered. CT angiogram shows left MCA M1 large vessel occlusion and she was transferred to [facility] for large vessel occlusion intervention on 11/19/2020. Per had clot retrieval and he thinks had carotid stenting as well and was discharged home on 11/21/2020 for outpatient rehab for her CVA on DAPT with ASA and plavix. In ED noted with pulsatile swelling in left groin and right groin arterial doppler revealed large hematoma in the proximal right lower extremity arising from the common femoral artery that measures 11.5 x 5.0 x 9.5 cm. This hematoma appears to arise directly from a pseudoaneurysm with a neck which actively bleeds into the hematoma. The belly of the pseudoaneurysm measures 2.3 cm in diameter. On examination a nurse was holding pressure in the groin and CD REACTOR OPERATOR was accessing left antecubital fossa for venipuncture for blood draw and IV insertion. give much of history bedside. During examination labs returned with WBC 19.2, platelets 367, Hb 6.3, Na 133, glucose 178, INR 1.2. Given the urgency of her condition vascular surgery was consulted and Dr. Wilhelm brought in OR staff and patient was taken to OR in stable condition from the ED with plans to admit to ICU. 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 Would not hold DAPT therapy in order to prevent further CVA. (will order [facility] records to confirm the presence/absence of stent) Hyponatremia - likely hypovolemic. Will give NSS crystalloid and monitor. Leukocytosis - likely reactive from massive blood loss, will trend. No clear infection. will cover preoperatively. 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 Would not hold DAPT therapy in order to prevent further CVA. (will order [facility] records to confirm the presence/absence of stent) Hyponatremia - likely hypovolemic. Will give NSS crystalloid and monitor. Leukocytosis - likely reactive from massive blood loss, will trend. No clear infection. will cover preoperatively. Given the extent of her hematoma is definitely at risk for skin infection/cellulitis as she is immunocompromised on MTX, ID CONSULTED , BLOOD CULT Hyperglycemia - likely related to stress, will check A1c-6.1 Continue Zosyn,daptomycin and micafungin. 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 Would not hold DAPT therapy in order to prevent further CVA. (will order [facility] records to confirm the presence/absence of stent) Hyponatremia - likely hypovolemic. Will give NSS crystalloid and monitor. Leukocytosis - likely reactive from massive blood loss, will trend. No clear infection. will cover preoperatively. Given the extent of her hematoma is definitely at risk for skin infection/cellulitis as she is immunocompromised on MTX, ID CONSULTED , BLOOD CULT Hyperglycemia - likely related to stress, will check A1c-6.1 Continue Zosyn,daptomycin and micafungin. Continue wound vac therapy with planned vac dressing change tomorrow at a time when Vascular Surgery is present to view and evaluate wound and muscle flap tissue. 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 Would not hold DAPT therapy in order to prevent further CVA. (will order [facility] records to confirm the presence/absence of stent) Hyponatremia - likely hypovolemic. Will give NSS crystalloid and monitor. Leukocytosis - likely reactive from massive blood loss, will trend. No clear infection. will cover preoperatively. Given the extent of her hematoma is definitely at risk for skin infection/cellulitis as she is immunocompromised on MTX, ID CONSULTED , BLOOD CULT Hyperglycemia - likely related to stress, will check A1c-6.1 Continue Zosyn,daptomycin and micafungin. Continue wound vac therapy Vascular Surgery is present to view and evaluate wound and muscle flap tissue. 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 Would not hold DAPT therapy in order to prevent further CVA. (will order [facility] records to confirm the presence/absence of stent) Hyponatremia - likely hypovolemic. Will give NSS crystalloid and monitor. Leukocytosis - likely reactive from massive blood loss, will trend. No clear infection. will cover preoperatively. Given the extent of her hematoma is definitely at risk for skin infection/cellulitis as she is immunocompromised on MTX, ID CONSULTED , BLOOD CULT Hyperglycemia - likely related to stress, will check A1c-6.1 Continue Zosyn,daptomycin and micafungin. Continue negative pressure wound vac therapy // Vascular Surgery is present to view and evaluate wound and muscle flap tissue. 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 Would not hold DAPT therapy in order to prevent further CVA. (will order [facility] records to confirm the presence/abs ence of stent) Hyponatremia - likely hypovolemic. Will give NSS crystalloid and monitor. Leukocytosis - likely reactive from massive blood loss, will trend. No clear infection. will cover preoperatively. Given the extent of her hematoma is definitely at risk for skin infection/cellulitis as she is immunocompromised on MTX, ID CONSULTED , BLOOD CULT Hyperglycemia - likely related to stress, will check A1c-6.1 Continue Zosyn,daptomycin and micafungin. Continue negative pressure wound vac therapy // Vascular Surgery is present to view and evaluate wound and muscle flap tissue. D/W RN 12/05 Afebrile, resting comfortably in bedside chair. Wound VAC to right groin, s/p flap closure (11/30/20). Continue IV antibiotics, per ID. Will need to discuss with vascular surgery about an ID eval continue IV antibiotics versus p.o. antibiotics upon discharge. Discussed with RN. 12/06: Patient seen and evaluated resting comfortably. Afebrile. She has no complaints today. Discussed continued IV antibiotics. She will continue IV Zosyn and daptomycin at home, and follow-up with ID in 2 weeks. Discussed with Maggi Zimmerman vascular surgery, she can follow-up in 1 week. Greater than 30 minutes was spent managing the discharge of this patient. Vitals/I&O Vitals/I&O: Vital Signs Date Time Temp Pulse Resp B/P (MAP) Pulse Ox O2 Delivery O2 Flow Rate FiO2 12/06/20 11:00 98.1 83 18 121/51 (74) 95 Room Air 98.1 I & O 12/05/20 12/05/20 12/06/20 15:00 23:00 07:00 Intake Total 405 ml 340 ml 0 ml Output Total 500 ml Balance 405 ml -160 ml 0 ml Physical Exam Physical Exam: GENERAL: Alert, awake female, lying in bed comfortably, in no acute distress. HEENT: Normocephalic, atraumatic. Anicteric. NECK: Supple. LUNGS: Clear. HEART: S1, S2. No murmurs. ABDOMEN: Soft, bruise present over the right lower abdominal area No rebound, no guarding. EXTREMITIES: bruising right lower abdomen improving Wound VAC in place. Right leg groin ecchymosis and swelling improving , no fluctuance, no cyanosis, no clubbing. DERMATOLOGIC: Warm, dry, no generalized rash except for above. NEUROLOGIC: Alert, oriented x3. Normal speech. PSYCHIATRIC: Calm and cooperative. General: Alert, Oriented X3, Cooperative, No acute distress Heart: Regular rate Lungs: Clear Abdomen: Normal bowel sounds, Soft Extremities: No clubbing, No cyanosis, No edema, Normal pulses, Other ( right leg and groin shows ecchymosis from about there the umbilicus down to the knee.) Skin: No significant lesion, Other (Wound VAC in place in the right lower extremity, swelling and hematoma stable, pulse exam stable) Labs Labs: Laboratory Tests Test 12/06/20 06:35 White Blood Count 11.0 x10^3/uL (4.0-11.0) Red Blood Count 3.06 x10^6/uL (3.50-5.40) Hemoglobin 9.2 g/dL (12.0-15.5) Hematocrit 28.6 % (36.0-47.0) Mean Corpuscular Volume 93 fL (79-100) Mean Corpuscular Hemoglobin 30 pg (25-35) Mean Corpuscular Hemoglobin Concent 32 g/dL (31-37) Red Cell Distribution Width 16.7 % (11.5-14.5) Platelet Count 535 x10^3/uL (140-400) Neutrophils (%) (Auto) 68 % (31-73) Lymphocytes (%) (Auto) 17 % (24-48) Monocytes (%) (Auto) 11 % (0-9) Eosinophils (%) (Auto) 3 % (0-3) Basophils (%) (Auto) 1 % (0-3) Neutrophils # (Auto) 7.5 x10^3/uL (1.8-7.7) Lymphocytes # (Auto) 1.8 x10^3/uL (1.0-4.8) Monocytes # (Auto) 1.2 x10^3/uL (0.0-1.1) Eosinophils # (Auto) 0.3 x10^3/uL (0.0-0.7) Basophils # (Auto) 0.1 x10^3/uL (0.0-0.2) Assessment and Plan Assessmemt and Plan Problems Medical Problems: (1) Femoral artery pseudo-aneurysm, right Status: Acute (2) Pseudoaneurysm of femoral artery following procedure Status: Acute Comment Review of Relevant I have reviewed the following items césar (where applicable) has been applied. Medications: Current Medications Medications (Trade) Dose Ordered Sig/Gordy Route PRN Reason Start Time Stop Time Status Last Admin Dose Admin Daptomycin 420 mg/ Sodium Chloride 50 ml @ 100 mls/hr Q24H IV 12/05/20 13:00 12/05/20 17:49 Lidocaine HCl (Buffered Lidocaine 1%) 6 ml 1X ONCE INJ 12/05/20 15:30 12/05/20 15:31 DC 12/05/20 15:31 Justifications for Admission Other Justification CEDRICK CALHOUN MD Dec 06, 2020 12:33
--- NOTE | 2020-12-06 12:45 | PDOC3 ---
Discharge Summary Visit Information Date of Admission: November 27, 2020 Date of Discharge: Dec 06, 2020 Final Diagnosis Problems Medical Problems: (1) Femoral artery pseudo-aneurysm, right Status: Acute (2) Pseudoaneurysm of femoral artery following procedure Status: Acute Brief Hospital Course Allergies Allergies Coded Allergies Type Severity Reaction Last Updated Verified No Known Drug Allergies 11/19/20 No Vital Signs Vital Signs Date Time Temp Pulse Resp B/P (MAP) Pulse Ox O2 Delivery O2 Flow Rate FiO2 12/06/20 11:00 98.1 83 18 121/51 (74) 95 Room Air 98.1 Lab Results Laboratory Tests Test 12/05/20 06:55 12/06/20 06:35 White Blood Count 12.0 x10^3/uL (4.0-11.0) 11.0 x10^3/uL (4.0-11.0) Red Blood Count 2.94 x10^6/uL (3.50-5.40) 3.06 x10^6/uL (3.50-5.40) Hemoglobin 9.0 g/dL (12.0-15.5) 9.2 g/dL (12.0-15.5) Hematocrit 27.4 % (36.0-47.0) 28.6 % (36.0-47.0) Mean Corpuscular Volume 93 fL (79-100) 93 fL (79-100) Mean Corpuscular Hemoglobin 31 pg (25-35) 30 pg (25-35) Mean Corpuscular Hemoglobin Concent 33 g/dL (31-37) 32 g/dL (31-37) Red Cell Distribution Width 16.7 % (11.5-14.5) 16.7 % (11.5-14.5) Platelet Count 494 x10^3/uL (140-400) 535 x10^3/uL (140-400) Neutrophils (%) (Auto) 70 % (31-73) 68 % (31-73) Lymphocytes (%) (Auto) 15 % (24-48) 17 % (24-48) Monocytes (%) (Auto) 12 % (0-9) 11 % (0-9) Eosinophils (%) (Auto) 3 % (0-3) 3 % (0-3) Basophils (%) (Auto) 1 % (0-3) 1 % (0-3) Neutrophils # (Auto) 8.3 x10^3/uL (1.8-7.7) 7.5 x10^3/uL (1.8-7.7) Lymphocytes # (Auto) 1.8 x10^3/uL (1.0-4.8) 1.8 x10^3/uL (1.0-4.8) Monocytes # (Auto) 1.4 x10^3/uL (0.0-1.1) 1.2 x10^3/uL (0.0-1.1) Eosinophils # (Auto) 0.3 x10^3/uL (0.0-0.7) 0.3 x10^3/uL (0.0-0.7) Basophils # (Auto) 0.1 x10^3/uL (0.0-0.2) 0.1 x10^3/uL (0.0-0.2) Sodium Level 141 mmol/L (136-145) Potassium Level 4.2 mmol/L (3.5-5.1) Chloride Level 105 mmol/L (98-107) Carbon Dioxide Level 31 mmol/L (21-32) Anion Gap 5 (6-14) Blood Urea Nitrogen 11 mg/dL (7-20) Creatinine 0.7 mg/dL (0.6-1.0) Estimated GFR (Cockcroft-Gault) 83.0 Glucose Level 112 mg/dL (70-99) Calcium Level 8.9 mg/dL (8.5-10.1) Laboratory Tests Test 12/06/20 06:35 White Blood Count 11.0 x10^3/uL (4.0-11.0) Red Blood Count 3.06 x10^6/uL (3.50-5.40) Hemoglobin 9.2 g/dL (12.0-15.5) Hematocrit 28.6 % (36.0-47.0) Mean Corpuscular Volume 93 fL (79-100) Mean Corpuscular Hemoglobin 30 pg (25-35) Mean Corpuscular Hemoglobin Concent 32 g/dL (31-37) Red Cell Distribution Width 16.7 % (11.5-14.5) Platelet Count 535 x10^3/uL (140-400) Neutrophils (%) (Auto) 68 % (31-73) Lymphocytes (%) (Auto) 17 % (24-48) Monocytes (%) (Auto) 11 % (0-9) Eosinophils (%) (Auto) 3 % (0-3) Basophils (%) (Auto) 1 % (0-3) Neutrophils # (Auto) 7.5 x10^3/uL (1.8-7.7) Lymphocytes # (Auto) 1.8 x10^3/uL (1.0-4.8) Monocytes # (Auto) 1.2 x10^3/uL (0.0-1.1) Eosinophils # (Auto) 0.3 x10^3/uL (0.0-0.7) Basophils # (Auto) 0.1 x10^3/uL (0.0-0.2) Brief Hospital Course Ms. Robins is a 70 old female who presented with ruptured right femoral artery pseudoaneurysm. Consultation was placed to vascular surgery, this was repaired emergently. She had open repair of right femoral artery pseudoaneurysm using bovine pericardial patch angioplasty right common femoral artery. Due to some blood loss anemia she also received pRBC. On 12/01/20 she also had coverage of the right femoral artery repair requiring sartorius muscle flap,measuring 13x4x4 cm, and wound VAC placement. Consultation was placed to ID, and patient was tr eated with IV Zosyn and daptomycin. Consultation was placed to neurology due to recent CVA, and patient was treated with aspirin and Plavix; recommended to hold off on statin, per [facility] neurology service. Patient approved significantly and was stable to discharge home but continue IV antibiotics. She was recommended to follow-up with vascular surgery in 1 week, and follow-up with infectious disease within 2 weeks. Greater than 30 minutes was spent managing the discharge of this patient. Discharge Information Condition at Discharge: Improved Follow Up: Weeks Disposition/Orders: D/C to Home w/ HH Scheduled Aspirin (Aspirin) 81 Mg Tab.chew, 1 TAB PO DAILY for heart, #30 Ref 3 (Reported) Entered as Reported by: TONG GARCIA RN on 11/27/202151 Last Action: Continued on 11/27/202233 by NAILA ANDRES MD Carvedilol (Coreg ) 6.25 Mg Tablet, 6.25 MG PO BIDWMEALS for CARDIAC, (Reported) Entered as Reported by: TONG GARCIA RN on 11/27/202151 Last Action: Continued on 11/27/202207 by NAILA ANDRSE MD Cholecalciferol (Vitamin D3) (Vitamin D3 ) 125 Mcg Capsule, 125 MCG PO DAILY for SUPPLEMENT, (Reported) 5,000 UNITS = 125 MCG Entered as Reported by: TONG GARCIA RN on 11/27/202151 Last Action: Continued on 11/27/202233 by NAILA ANDRES MD Clopidogrel Bisulfate (Clopidogrel) 75 Mg Tablet, 1 TAB PO DAILY for clot, #30 Ref 5 (Reported) Entered as Reported by: TONG GARCIA RN on 11/27/202151 Last Action: Continued on 11/27/202233 by NAILA ANDRES MD Folic Acid (Folic Acid) 0.4 Mg Tablet, 0.4 MG PO DAILY for SUPPLEMENT, (Reported) Entered as Reported by: TONG GARCIA RN on 11/27/202151 Last Action: Converted on 11/27/202207 by NAILA ANDRES MD Gabapentin (Gabapentin ) 300 Mg Capsule, 300 MG PO HS for NEUROGENIC PAIN, (Reported) Entered as Reported by: TONG GARCIA RN on 11/27/202151 Last Action: Continued on 11/27/202207 by NAILA ANDRES MD Methotrexate Sodium (Methotrexate) 2.5 Mg Tablet, 4 TAB PO WEEKLY for ordered, #16 Ref 1 (Reported) Entered as Reported by: TONG GARCIA RN on 11/27/202151 Last Taken: Unknown Dose on 11/27/20 Last Action: New Order on 11/27/202151 by TONG GARCIA RN Pantoprazole Sodium (Protonix ) 40 Mg Tablet.dr, 40 MG PO DAILYAC for GERD, (Reported) Entered as Reported by: TONG GARCIA RN on 11/27/202151 Last Action: Continued on 11/27/202207 by NAILA ANDRES MD Scheduled PRN Zolpidem Tartrate (Ambien) 5 Mg Tablet, 5 MG PO PRN QHS PRN for INSOMNIA, Ref 0 (Reported) Entered as Reported by: TONG GARCIA RN on 11/27/202151 Last Action: Continued on 11/27/202207 by NAILA ANDRES MD Justicifation of Admission Dx: Justifications for Admission: Justification of Admission Dx: Yes CEDRICK CALHOUN MD Dec 06, 2020 12:45
--- NOTE | 2020-12-06 12:49 | SNU/HH DC ---
DISCHARGE WITH HOME HEALTH DISCHARGE INFORMATION: Discharge Date: Dec 06, 2020 Final Diagnosis: Problems Medical Problems: (1) Femoral artery pseudo-aneurysm, right Status: Acute (2) Pseudoaneurysm of femoral artery following procedure Status: Acute Condition on Discharge: Stable CODE STATUS: Code Status: Full HOME HEALTH: Face to Face: I certify this patient is under my care and that I, or a nurse practitioner or physician's liaison inspection laboratory assistant working with me, had a face to face encounter that meets t he physician face to face encounter requirements with this patient on 12/06/2020. Medical Complications: CVA Residential For: IV Infusion Therapy, Wound Vac RN For Eval/Treatment: Yes Physical Therapy For: Evalulation/Treatment Occupational Therapy For: Evaluation/Treatment Pt Meets Homebound Status: Poor coordination w/ amb., Unsteady balance w/ amb,, Extreme weakness w/ amb. POST DISCHARGE ORDERS: Activity Instructions for Disc: Activity as tolerated Weight Bearing Status after Di: As tolerated DIET AFTER DISCHARGE: Cardiac CERTIFICATION STATEMENT: Certification Statement: Certification Statement: Based on the above finding, I certify that this patient is confined to the home and needs intermittent penitentiary care, physical therapy and/or speech therapy, or continues to need occupational therapy.~ This patient is under my care, and I have initiated the establishment of the plan of care.~ This patient will be followed by myself or a community physician who will periodically review the plan of care. Home Meds Reported Medications Cholecalciferol (Vitamin D3) (Vitamin D3 ) 125 Mcg Capsule, 125 MCG PO DAILY for SUPPLEMENT, CAP 5,000 UNITS = 125 MCG 11/27/20 Methotrexate Sodium (METHOTREXATE) 2.5 Mg Tablet, 4 TAB PO WEEKLY for ordered, #16 TAB 1 Refill 11/27/20 Zolpidem Tartrate (AMBIEN) 5 Mg Tablet, 5 MG PO PRN QHS PRN for INSOMNIA, TAB 0 Refills 11/27/20 Gabapentin (GABAPENTIN ) 300 Mg Capsule, 300 MG PO HS for NEUROGENIC PAIN, CAP 11/27/20 Pantoprazole Sodium (PROTONIX ) 40 Mg Tablet.dr, 40 MG PO DAILYAC for GERD, TAB 11/27/20 Folic Acid (FOLIC ACID) 0.4 Mg Tablet, 0.4 MG PO DAILY for SUPPLEMENT, TAB 11/27/20 Aspirin (ASPIRIN) 81 Mg Tab.chew, 1 TAB PO DAILY for heart, #30 TAB 3 Refills 11/27/20 Clopidogrel Bisulfate (CLOPIDOGREL) 75 Mg Tablet, 1 TAB PO DAILY for clot, #30 TAB 5 Refills 11/27/20 Carvedilol (COREG ) 6.25 Mg Tablet, 6.25 MG PO BIDWMEALS for CARDIAC, TAB 11/27/20 CEDRICK CALHOUN MD Dec 06, 2020 12:49
[2020-12-06] MEDS: DAPTOmycin (GENERIC) IVPB 420 MG in IV NORMAL SALINE 50ML 50 ML IV SCH (13:56)
[2020-12-06 15:00] VITALS: BP 176/81
--- NOTE | 2020-12-06 17:00 | NUR ---
Discharge Note: [facility] Discharge instructions and discharge home medications reviewed with Patient and a copy given. Infusion Solyndra and Loctronix has been in contact with pt. All questions have been answered and understanding verbalized. The following instructions and handouts were given: Follow up appointments reviewed with pt and spouse. Discontinued telemetry. Pt going home with Right upper arm PICC line and wound vac to right groin. Wound care nurse has switched pt to a portable wound vac and has provided education of care instructions. Patient discharged to Home with Home Health.
[2020-12-14] MEDS ORDERED: CHOL500021 PO (15:43)
== END 2020-12-06 17:20 | disposition home health service (06) | DRG 853 ==
LOC: ER 15:41 → 1 WEST ICU 20:24 → 2 NORTH 12-01 15:41
PROVIDERS: ADMIT Internal Medicine; ATTEND Internal Medicine
PROC: 30233N1 Transfusion of Nonautologous Red Blood Cells into Peripheral Vein, Percutaneous Approach (ICD-10-PCS; 2020-11-27)
PROC: 04CK0ZZ Extirpation of Matter from Right Femoral Artery, Open Approach (ICD-10-PCS; principal; 2020-11-27 19:13)
PROC: 04UK0KZ Supplement Right Femoral Artery with Nonautologous Tissue Substitute, Open Approach (ICD-10-PCS; 2020-11-30)
PROC: 2W13X6Z Compression of Abdominal Wall using Pressure Dressing (ICD-10-PCS; 2020-11-30)
PROC: 02HV33Z Insertion of Infusion Device into Superior Vena Cava, Percutaneous Approach (ICD-10-PCS; 2020-12-05)
PROC: B5181ZA Fluoroscopy of Superior Vena Cava using Low Osmolar Contrast, Guidance (ICD-10-PCS; 2020-12-05)
PROC: B548ZZA Ultrasonography of Superior Vena Cava, Guidance (ICD-10-PCS; 2020-12-05)
DX: A41.9 Sepsis, unspecified organism (principal); E43 Unspecified severe protein-calorie malnutrition; G93.41 Metabolic encephalopathy; R57.8 Other shock; D62 Acute posthemorrhagic anemia; E87.1 Hypo-osmolality and hyponatremia; I50.32 Chronic diastolic (congestive) heart failure; T81.40XA Infection following a procedure, unspecified, initial encounter; E78.00 Pure hypercholesterolemia, unspecified; E78.5 Hyperlipidemia, unspecified; E86.1 Hypovolemia; F17.200 Nicotine dependence, unspecified, uncomplicated; I11.0 Hypertensive heart disease with heart failure; I65.21 Occlusion and stenosis of right carotid artery; J44.9 Chronic obstructive pulmonary disease, unspecified; K21.9 Gastro-esophageal reflux disease without esophagitis; M06.9 Rheumatoid arthritis, unspecified; M41.9 Scoliosis, unspecified; Z79.899 Other long term (current) drug therapy; Z86.73 Personal history of transient ischemic attack (TIA), and cerebral infarction without residual deficits; F32.9 Major depressive disorder, single episode, unspecified; I72.4 Aneurysm of artery of lower extremity; E83.42 Hypomagnesemia; R73.9 Hyperglycemia, unspecified; Y83.8 Other surgical procedures as the cause of abnormal reaction of the patient, or of later complication, without mention of misadventure at the time of the procedure; Y92.89 Other specified places as the place of occurrence of the external cause; Z68.31 Body mass index [BMI] 31.0-31.9, adult
CPT/HCPCS: 36415; 36430; 36573; 71045; 77001; 80048; 80053; 80076; 81001; 82310; 82550; 83036; 83605; 83735; 83880; 84100; 84145; 85007; 85025; 85027; 85610; 85730; 86140; 86850; 86900; 86901; 86920; 87086; 93320; 93926; 96361; 96374; 96375; A4222; A4223; A4314; A4322; A4364; A6213; A6214; A6402; A6443; C1751; C1768; C1892; G0238; J0360; J0690; J0878; J1100; J1644; J2248; J2370; J2405; J2543; J2704; J2720; J3010; J3475; J3490; J7030; J7040; J7060; J7120; P9016; Q9967; 97116-GP; 97530-GO; 97530-GP; 97535-GO; 99291-25; G0378

== ENCOUNTER 2021-05-30 05:49 | Observation (INO) | payer BC, MEDICARE ==
[~2021-05-30] VITALS: Ht 162.6 cm; Wt 68.5 kg
[~2021-05-30 05:49] MED LIST: ACET325T21 PO; ASCO500T4 PO; ASPI-630 PO; CARV6.25 PO; CHOL5000 PO; CHOL500021 PO; CLOP75TA PO; DAPT350V IV; DOCU-148 PO; FOLI0.4T5 PO; GABA300C18 PO; METH2.5T PO; MULT1TAB92 PO; PANT40TA77 PO; PIPE3.377 IV; SENN-87 PO; ZOLP5TAB PO
[2021-05-30] MEDS ORDERED: IV RINGERS,LACTATED 1000ML 1,000 ML IV SCH (06:00)
[2021-05-30] MEDS ORDERED: PROCHLORPERAZINE 10 MG/2 ML VIAL. IVP PRN (06:00)
[2021-05-30] MEDS ORDERED: fentaNYL PF VIAL 100 MCG/2 ML VIAL IVP PRN (06:00)
[2021-05-30 06:14] VITALS: BP 203/87
[2021-05-30] MEDS ORDERED: ACETAMINOPHEN 500 MG TABLET PO PRN (07:00)
[2021-05-30] MEDS ORDERED: ceFAZolin SODIUM IV Push 1 GM VIAL. IVP PRN (07:00)
[2021-05-30] MEDS ORDERED: SEVOFLURANE 31 TO 60 MINUTES. IH ONE (07:04)
[2021-05-30] MEDS ORDERED: LIDOCAINE 2% PF 5 ML VIAL. ONE (07:04)
[2021-05-30] MEDS ORDERED: ROCURONIUM 50 MG/5 ML VIAL. ONE (07:04)
[2021-05-30] MEDS ORDERED: PROPOFOL 10 MG/ML (20ML) VIAL. IV ONE (07:04)
[2021-05-30] MEDS ORDERED: ONDANSETRON PF 4 MG/2 ML VIAL. ONE (07:04)
[2021-05-30] MEDS ORDERED: DEXAMETHASONE SOD PHOS 4 MG/ML VIAL ONE (07:04)
[2021-05-30] MEDS ORDERED: fentaNYL PF VIAL 100 MCG/2 ML VIAL ONE ×2 (07:05→08:38)
[2021-05-30] MEDS ORDERED: BUPIVACAINE-EPI 0.25% 30 ML VIAL KIT. ONE (07:06)
--- NOTE | 2021-05-30 07:11 | NUR ---
Spy Kit ordered per Dr. Pedroza prior to shaheen. 1cc/2.5mg given as ordered per IV.
[2021-05-30] MEDS ORDERED: NEOSTIGMINE METHYLSULFATE 5 MG/5 ML SYRINGE. ONE (07:44)
[2021-05-30] MEDS ORDERED: GLYCOPYRROLATE 1 MG/5 ML VIAL. ONE (07:45)
--- NOTE | 2021-05-30 08:12 | PDOC4 ---
Operative Note Operative Note Date: May 30, 2021 at 810 Preoperative diagnosis: Chronic cholecystitis Postoperative diagnosis: Same Procedure: Laparoscopic cholecystectomy fluorescein cholangiography Surgeon: Yovany Specimen: Gallbladder Dictation: Patient is 71-year-old female with right upper quadrant abdominal pain ultrasound showing gallstones. Procedure laparoscopic cholecystectomy was explained to the patient detail risk benefits were also discussed including blee ding infection injury to intra-abdominal contents possible necessitating further open operations alternatives to this procedure also discussed with the patient who seemed to understand and gave both verbal and written consent to have the procedure performed. Patient was taken to the operating room placed in the supine position general anesthesia was initiated once patient was sleeping intubated her abdomen was prepped and draped usual sterile fashion using ChloraPrep. An area just below the umbilicus was injected with quarter percent Marcaine with epinephrine incision was made with a blade scalpel and a varies needle was placed within the abdomen creating pneumoperitoneum once this was complete 11 mm port was placed and a 5 mm camera was placed within the abdomen which was inspected no other abnormalities were noted. A 5 mm port was placed in the epigastrium a 5 mm ports placed in the right midabdomen a 5 mm port was placed in the right lateral abdomen all under direct visualization. The dome of the gallbladder is grasped retracted cephalad the infundibulum the gallbladder is grasped retracted laterally exposing the triangle of adherent tissues of the triangle were taken down with blunt dissection exposing the cystic duct and cystic artery. Fluorescein cholangiography was performed which showed good dye within the cystic duct down to the common bile duct with no evidence of obstru ction. The cystic duct was doubly clipped and transected the cystic artery was also clipped and transected gallbladder was taken off the liver with hook electrocautery placed in Endo Catch bag and removed the umbilicus. Right upper quadrant was irrigated and suctioned dry hemostasis deemed to appropriate the pneumoperitoneum was reduced all ports were removed the fascial defect at the umbilicus was closed with a [id number] 0 Vicryl suture and the skin was reapproximated all port sites for subcuticular Monocryl Mastisol Steri-Strips and island dressings were applied. Patient was awakened extubated in the operating room taken to recovery in stable condition all sponge instrument needle counts listed as correct estimated blood loss 10 mL MYNOR MORGAN MD May 30, 2021 08:12
[2021-05-30] MEDS ORDERED: oxyCODONE/APAP 5/325 1 TAB TABLET PO PRN (08:15)
[2021-05-30] MEDS ORDERED: 0.9 % SODIUM CHLORIDE 10 ML DISP.SYRIN. IV PRN (08:15)
[2021-05-30] MEDS ORDERED: MORPHINE SULFATE 2 MG/ML INJ. IV PRN (08:15)
[2021-05-30] MEDS ORDERED: ONDANSETRON PF 4 MG/2 ML VIAL. IV PRN (08:15)
[2021-05-30] MEDS: fentaNYL PF VIAL 100 MCG/2 ML VIAL IVP PRN ×2 (08:53→09:08)
[2021-05-30] MEDS ORDERED: MORPHINE SULFATE 2 MG/ML INJ. ONE ×2 (09:20→10:25)
[2021-05-30] MEDS: MORPHINE SULFATE 2 MG/ML INJ. IVP PRN ×4 (09:22→10:47)
[2021-05-30] MEDS ORDERED: HYDROmorphone 2 MG/ML INJ. ONE (11:00)
[2021-05-30] MEDS: HYDROmorphone 2 MG/ML INJ. IVP PRN ×4 (11:02→13:28)
[2021-05-30 14:00] VITALS: BP 133/63
[2021-05-30 15:07] VITALS: BP 133/51
[2021-05-30] MEDS: IV DEXTROSE 5%-LACT RINGERS 1,000 ML IV SCH ×2 (16:01→21:33)
[2021-05-30] MEDS: oxyCODONE/APAP 5/325 1 TAB TABLET PO PRN ×3 (16:15→22:21)
[2021-05-30] MEDS ORDERED: ZOLPIDEM 5 MG TABLET. PO PRN (19:30)
[2021-05-30] MEDS: CARVEDILOL 6.25 MG TABLET. PO SCH (19:38)
[2021-05-30 19:42] VITALS: BP 166/81
[2021-05-30 23:39] VITALS: BP 151/66
[2021-05-31 03:00] VITALS: BP 159/69
[2021-05-31 07:15] VITALS: BP 145/69
[2021-05-31] MEDS: CARVEDILOL 6.25 MG TABLET. PO SCH (08:48)
[2021-05-31] MEDS: oxyCODONE/APAP 5/325 1 TAB TABLET PO PRN (08:52)
[2021-05-31 10:48] VITALS: BP 158/67
[2021-05-31] MEDS: IV DEXTROSE 5%-LACT RINGERS 1,000 ML IV SCH (10:55)
[2021-05-31] MEDS ORDERED: OXYC1TAB15 PO (11:20)
--- NOTE | 2021-05-31 11:22 | DISCH ---
DISCHARGE INSTRUCTIONS Condition on Discharge Condition on Discharge: Stable Activity After Discharge Activity Instructions for Disc: Resume previous activity, Activity as tolerated Lifting Instructions after Dis: No heavy lifting, No pulling or pushing Driving Instructions after Dis: Do not drive today Weight Bearing Status after Di: No restrictions, As tolerated Diet after Discharge Diet after Discharge: Cardiac, Low Fat Diet Texture: Regular Wound Incision Care Wound/Incision Care: May get incision wet, No wound care needed Wound Care Equipment: Wound vac Contacting the [facility] after DC Call your doctor for: Concerns you may have Follow-Up Follow up with: As scheduled, call [phone] for questions Treatment/Equipment after DC Adaptive Equipment Issued: FIFI Rodriguez APRN May 31, 2021 11:22
--- NOTE | 2021-05-31 11:24 | PDOC3 ---
Discharge Summary Visit Information Date of Admission: May 30, 2021 Date of Discharge: May 31, 2021 Admitting Diagnosis: chronic cholecystitis Final Diagnosis chronic cholecystitis Brief Hospital Course Allergies Allergies Coded Allergies Type Severity Reaction Last Updated Verified No Known Drug Allergies 05/30/21 No Vital Signs Vital Signs Date Time Temp Pulse Resp B/P (MAP) Pulse Ox O2 Delivery O2 Flow Rate FiO2 05/31/21 10:48 98.6 73 20 158/67 (97) 95 Room Air 98.6 05/30/21 14:00 2.0 Brief Hospital Course Ms. Robins is a 71 female who underwent laparoscopic cholecystectomy. Postoperatively tolerating diet, pain controlled, and ambulating. Ready for discharge home Assessment Assessment abdomen soft, ND, lap sites intact Discharge Information Condition at Discharge: Stable Follow Up: Weeks (2) Disposition/Orders: D/C to Home Scheduled Ascorbic Acid (Vitamin C) 500 Mg Tablet, 500 MG PO DAILY for SUPPLEMENT for 30 Days, #30 Prescribed by: MYNOR FIELDS MD on 12/16/20 1236 Last Taken: Unknown Dose on 05/25/21 Last Action: Reviewed on 05/30/21627 by MAX JOHNSON Aspirin (Aspirin) 81 Mg Tab.chew, 1 TAB PO DAILY for heart, #30 Ref 3 (Reported) Entered as Reported by: TONG GARCIA RN on 11/27/202151 Last Taken: Unknown Dose on 05/27/21 Last Action: Reviewed on 05/30/21627 by MAX JOHNSON Carvedilol (Coreg ) 6.25 Mg Tablet, 6.25 MG PO BIDWMEALS for CARDIAC, (Reported) Entered as Reported by: TONG GARCIA RN on 11/27/202151 Last Taken: Unknown Dose on 05/30/21 0430 Last Action: Continued on 05/30/211926 by CLAY LUNA Cholecalciferol (Vitamin D3) (D3-50) 50,000 Unit Capsule, 1,000 UNIT PO DAILY for supplement, (Reported) Entered as Reported by: LORNA MELO on 12/14/20 1543 Last Taken: Unknown Dose on 05/24/21 Last Action: Reviewed on 05/30/21627 by MAX JOHNSON Folic Acid (Folic Acid) 0.4 Mg Tablet, 1 MG PO DAILY for SUPPLEMENT, (Reported) Entered as Reported by: TONG GARCIA RN on 11/27/202151 Last Taken: Unknown Dose on 05/29/21 Last Action: Reviewed on 05/30/21627 by MAX JOHNSON Methotrexate Sodium (Methotrexate) 2.5 Mg Tablet, 4 TAB PO WEEKLY for ordered, #16 Ref 1 (Reported) Entered as Reported by: TONG GARCIA RN on 11/27/202151 Last Taken: Unknown Dose on 05/28/21 Last Action: Reviewed on 05/30/21627 by MAX JOHNSON Multivits,Ca,Minerals/Iron/Fa (Thera-M Tablet) 1 Each Tablet, 1 TAB PO DAILY for SUPPLEMENT for 30 Days, #30 Prescribed by: MYNOR FIELDS MD on 12/16/20 1236 Last Taken: Unknown Dose on 05/25/21 Last Action: Reviewed on 05/30/21627 by MAX JOHNSON Pantoprazole Sodium (Protonix ) 40 Mg Tablet.dr, 40 MG PO DAILYAC for GERD, (Reported) Entered as Reported by: TONG GARCIA RN on 11/27/202151 Last Taken: Unknown Dose on 05/30/21 0430 Last Action: Reviewed on 05/30/21627 by MAX JOHNSON Scheduled PRN Oxycodone/Apap 5-325 (Percocet 5-325 Mg Tablet ) 1 Each Tablet, 1 TAB PO PRN Q4HRS PRN for MILD PAIN, 1ST CHOICE, #20 Ref 0 Prescribed by: Fifi Arteaga on 05/31/21 1120 Zolpidem Tartrate (Ambien) 5 Mg Tablet, 5 MG PO PRN QHS PRN for INSOMNIA, Ref 0 (Reported) Entered as Reported by: TONG GARCIA RN on 11/27/202151 Last Taken: Unknown Dose on 05/29/21 Last Action: Continued on 05/30/21 1927 by CLAY LUNA Discontinued Medications Clopidogrel Bisulfate (Clopidogrel) 75 Mg Tablet, 1 TAB PO DAILY for clot, #30 Ref 5 (Reported) Entered as Reported by: TONG GARCIA RN on 11/27/202151 Last Action: Discontinued on 05/29/21 1306 by LACHELLE HOFF Justicifation of Admission Dx: Justifications for Admission: Justification of Admission Dx: Yes FIFI ARTEAGA DEDICATED DRIVER May 31, 2021 11:24 MYNOR MORGAN MD May 31, 2021 13:09
--- NOTE | 2021-05-31 12:06 | NUR ---
SW following. Discussed with RN, pt from home with , room air, low fat diet. Pt had surgery 05/30. Discharge order for home with self care. RN advised no SW needs.
--- NOTE | 2021-05-31 13:42 | NUR ---
Pt discharged home with spouse. She left in w/c to car at 1305. All belongings sent with patient and discharge instructions gone over with her.
--- NOTE | 2021-05-31 18:06 | PATHOLOGY ---
[facility] Accession Number: [id number] . 01 Material submitted: . gallbladder - GALLBLADDER AND CONTENTS . 01 Clinical history: . LAPAROSCOPIC [place] CHRONIC CHOLECYSTITIS . 02 Diagnosis: Gallbladder, laparoscopic cholecystectomy: - Cholelithiasis. - Chronic cholecystitis. (M:miesha; 05/31/2021) S 05/31/2021 1419 Local . 02 Comment: There is no evidence of malignancy. (JPM:miesha; 05/31/2021) . 02 Electronically signed: . Toro Osorio MD, Pathologist NPI- [id number] . 01 Gross description: . Fixative: Formalin Labeled: Gallbladder and contents Specimen received: Previously disrupted gallbladder Dimensions: 5.4 x 2.5 x 1.0 cm Serosa: Light nolen-gan and adipose covered Lymph node: None identified Mucosa: Velvety and bile-stained Average wall thickness: Up to 0.3 centimeters Calculi: Present, black, granular, and friable Abnormalities: None identified . A1- Door Captain body, fundus, and the cystic duct margin. ([facility]; 05/30/2021) [facility] 05/30/2021 1716 Local . 02 Pathologist provided ICD-10: K80.10 . 02 CPT . 773873 Specimen Comment: A courtesy copy of this report has been sent to [phone] Specimen Comment: [id number] Specimen Comment: Report sent to / DR NOYOLA Specimen Comment: A duplicate report has been generated due to demographic updates. Performed at: [address], [place], [place] [id number] MD Ken Page MD Phone: [phone] Performed at: 02 [facility] [address] [place], [place] [id number] MD Toro Osorio MD Phone: [phone]
== END 2021-05-31 12:45 | disposition home or self-care (01) ==
LOC: SURG 05:49 → 4 NORTH 08:12
PROVIDERS: ADMIT Surgery; ATTEND Surgery
DX: K81.1 Chronic cholecystitis (principal); Z79.82 Long term (current) use of aspirin
CPT/HCPCS: 47563; 74300; 88304; A4209; A4213; A4364; A4930; A6219; G0378; G0379; J0690; J1100; J1170; J2270; J2405; J2704; J2710; J3010; J3490; J7121; A4657